=== PATIENT | female | born 1975 | race Caucasian/White ===

== ENCOUNTER 2020-05-14 15:02 | Emergency (ER) | payer SELFPAY ==
[2020-05-14 16:37] LABS: Urine Blood NEGATIVE (NEG); Urine Glucose NEGATIVE (NEG); Urine Protein NEGATIVE (NEG)
[2020-05-14] MEDS ORDERED: KETOROLAC 30 MG/ML INJ ONE (16:56)
[2020-05-14] MEDS ORDERED: NA CHLORIDE 0.9% 1,000 ML ONE (16:57)
[2020-05-14 17:00] LABS: Hematocrit 39.2 % (36.0-45.0); RBC Red Blood Cell Count 4.38 M/uL (3.86-4.86)
[2020-05-14 17:01] LABS: Absolute Lymphocytes (CBC) 2.9 K/uL (0.7-4.9); Basophils % 0.9 % (0-1.3); Lymphocytes % 33.5 % (15.3-44.8); MPV 7.9 fL (7.6-11.3)
[2020-05-14 17:13] LABS: Urine Bacteria 20-50 /HPF (<20); Urine Culture Reflex Order REFLEXED; Urine RBC <5 /HPF (NONE SEEN)
[2020-05-14 17:19] LABS: Albumin 3.6 g/dL (3.4-5.0); Bilirubin Direct 0.1 mg/dL (0-0.2); Bilirubin Total 0.3 mg/dL (0.2-1.0)
--- NOTE | 2020-05-14 17:19 | RAD REPORT ---
EXAM DESCRIPTION: CT - Stone Protocol - 05/14/2020 4:46 pm CLINICAL HISTORY: FLANK PAIN COMPARISON: No comparisons TECHNIQUE: Axial 5 mm thick images were obtained without oral or IV contrast. The [id number] span s the entirety of the system including uppermost abdomen and lung bases. All CT scans are performed using dose optimization technique as appropriate and may include automated exposure control or mA/KV adjustment according to patient size. FINDINGS: No hydronephrosis is present and no obstructing ureteral calculi. Punctate nonobstructing calyx calculi seen in each kidney. Phleboliths are seen along the pelvic floor. No suspicious renal m asses. Isodense masses and pyelonephritis are not excluded on a stone protocol CT scan. No significan t adrenal finding. No urinary bladder suspicious finding. Retroflexed uterus is present. No suspicious ovarian finding suspected. Imaged portions of the liver, spleen and pancreas show no suspicious findings on non-contrast imaging . No gallbladder or biliary tree abnormality identified. No suspicious bowel findings. No hernia, mass or bulky lymphadenopathy noted. No free air, free fluid or inflammatory stranding. No significant bony abnormality. IMPRESSION: No hydronephrosis, obstructing calculus or acute finding. Nonobstructing bilateral renal calculi are present. Isodense masses and pyelonephritis are not excluded on stone protocol technique. 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
--- NOTE | 2020-05-14 17:49 | EDPHYS ---
Physician Documentation [facility] Name: May Zaidi Age: 44 yrs Sex: Female : 1975 Arrival Date: 05/14/2020 Time: 15:03 Bed 15 Private MD: MARIAH Physician Florencio Power HPI: 05/14 16:17 This 44 yrs old Female presents to ER via Ambulatory with complaints of High cp Blood Pressure, Low Back Pain, Blood In Urine. 16:17 The patient complains of pain in the right mid back. The pain radiates to the abdomen. cp 16:17 Onset: The symptoms/episode began/occurred gradually. Associated signs and symptoms: cp Pertinent positives: hematuria, nausea, Pertinent negatives: diarrhea, dizziness, fever, pain radiating to the lower extremities, vomiting. The patient has experienced similar episodes in the past, a few times, today's symptoms are similar, to when the patient was apparently diagnosed with kidney stone and UTI. 16:17 Patient also c/o elevated blood pressure since running out of blood pressure medication cp 2 weeks ago. 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 - Social history:: Smoking status: Patient reports the use of cigarette tobacco products, smokes one-half pack cigarettes per day, Patient uses alcohol, occasionally. street drugs, marijuana. ROS: 16:20 Constitutional: Negative for body aches, chills, fever, poor PO intake. cp 16:20 Eyes: Negative for injury, pain, redness, and discharge. cp 16:20 ENT: Negative for ear pain, sore throat, difficulty swallowing, difficulty handling cp secretions. 16:20 Cardiovascular: Negative for chest pain, palpitations. 16:20 Respiratory: Negative for cough, shortness of breath, wheezing. 16:20 Abdomen/GI: Positive for abdominal pain, Negative for vomiting, diarrhea, constipation, black/tarry stool, rectal bleeding. 16:20 Back: Positive for flank pain, on the right. 16:20 : Positive for urinary frequency, hematuria. 16:20 Neuro: Negative for altered mental status, headache, weakness. 16:20 All other systems are negative. Exam: 16:30 Constitutional: The patient appears in no acute distress, alert, awake, non-toxic, well cp developed, well nourished. 16:30 Head/Face: Normocephalic, atraumatic. cp 16:30 Eyes: Periorbital structures: appear normal, Conjunctiva: normal, no exudate, no injection, Lids and lashes: appear normal, bilaterally. 16:30 ENT: External ear(s): are unremarkable, Nose: is normal, Mouth: is normal, Posterior pharynx: is normal, airway is patent, no erythema, no exudate. 16:30 Chest/axilla: Inspection: normal. 16:30 Cardiovascular: Rate: normal, Rhythm: regular, Edema: ankle edema, that is very mild, JVD: is not appreciated. 16:30 Respiratory: the patient does not display signs of respiratory distress, Respirations: normal, no use of accessory muscles, no retractions, labored breathing, is not present, Breath sounds: are clear throughout, no decreased breath sounds, no stridor, no wheezing. 16:30 Abdomen/GI: Inspection: abdomen appears normal, Bowel sounds: active, all quadrants, Palpation: soft, in all quadrants, mild abdominal tenderness, in the right lower quadrant, rebound tenderness, is not appreciated, voluntary guarding, is not appreciated, involuntary guarding, is not appreciated. 16:30 Back: CVA tenderness, is noted on the right. Vital Signs: 15:36 BP 156 / 93; Pulse 87; Resp 16; Temp 99.0; Pulse Ox 98% on R/A; Weight 65.77 kg; Height iw 5 ft. 5 in. (165.10 cm); 16:44 BP 168 / 114; Pulse 83; Resp 18; Pulse Ox 97% ; dh4 15:36 Body Mass Index 24.13 (65.77 kg, 165.10 cm) iw MDM: 16:05 Patient medically screened. leanna 16:30 Differential diagnosis: nephrolithiasis, pyelonephritis, UTI. cp 17:46 Data reviewed: vital signs, nurses notes, lab test result(s), radiologic studies, CT cp scan. 17:46 Counseling: I had a detailed discussion with the patient and/or guardian regarding: the cp historical points, exam findings, and any diagnostic results supporting the discharge/admit diagnosis, the presence of at least one elevated blood pressure reading (>120/80) during this emergency department visit, lab results, radiology results, the need for outpatient follow up, a family practitioner, to return to the emergency department if symptoms worsen or persist or if there are any questions or concerns that arise at home. Response to treatment: the patient's symptoms have mildly improved after treatment, and as a result, I will discharge patient. 05/14 16:18 Order name: Basic Metabolic Panel; Complete Time: 17:19 05/14 17:19 Interpretation: Normal except: CL 108; GFR 83. 05/14 16:18 Order name: CBC with Diff; Complete Time: 17:19 05/14 16:18 Order name: Hepatic Function; Complete Time: 17:26 05/14 17:26 Interpretation: Normal except: AST 12. 05/14 16:18 Order name: Lipase; Complete Time: 17:26 05/14 16:18 Order name: Urine Microscopic Only; Complete Time: 17:19 05/14 17:20 Interpretation: Normal except: SQEPI 5-10; UBACT 20-50. 05/14 16:23 Order name: Urine Dipstick--Ancillary (enter results); Complete Time: 17:01 05/14 17:01 Interpretation: Reviewed. 05/14 16:18 Order name: IV Saline Lock; Complete Time: 17:27 05/14 16:18 Order name: Labs collected and sent; Complete Time: 17:27 05/14 16:18 Order name: CT Stone Protocol; Complete Time: 17:26 05/14 16:23 Order name: Urine --Ancillary (enter results); Complete Time: 17:01 05/14 17:14 Order name: Urine Culture [facility] 05/14 16:18 Order name: Urine Dipstick-Ancillary (obtain specimen); Complete Time: 17:26 05/14 16:18 Order name: Urine Test (obtain specimen); Complete Time: 17:26 cp Administered Medications: 17:10 Drug: NS 0.9% 1000 ml Route: IV; Rate: 1 bolus; Site: right antecubital; ls4 17:10 Drug: TORadol - Ketorolac 15 mg Route: IVP; Site: right antecubital; ls4 17:28 Follow up: Response: No adverse reaction; Marked relief of symptoms ls4 18:06 Drug: fentaNYL (PF) 25 mcg Route: IVP; Site: right antecubital; ls4 18:20 Follow up: Response: No adverse reaction; Marked relief of symptoms ls4 Disposition: 05/15 11:30 Co-signature as Attending Physician, Florencio Power MD I agree with the assessment and leanna plan of care. Disposition: 05/14/20 17:48 Discharged to Home. Impression: Low back pain, Elevated blood-pressure reading, without diagnosis of hypertension. - Condition is Stable. - Discharge Instructions: Back Pain, Adult, How to Take Your Blood Pressure, [id number], Back Exercises. - Prescriptions for Naprosyn 500 mg Oral Tablet - take 1 tablet by ORAL route 2 times per day take with food; 20 tablet. Cyclobenzaprine 10 mg Oral Tablet - take 1 tablet by ORAL route every 8 hours As needed; 20 tablet. - Medication Reconciliation Form, Thank You Letter, Antibiotic Education, Prescription Opioid Use form. - Follow up: Private Physician; When: 2 - 3 days; Reason: Recheck today's complaints. - Problem is new. - Symptoms have improved. Signatures: Dispatcher [employer] Florencio Sanabria MD MD cha Williams, Irene, RN Florencio Mcgee PA PA cp Stewart, Lisa RN RN ls4 Corrections: (The following items were deleted from the chart) 05/14 18:27 17:48 05/14/2020 17:48 Discharged to Home. Impression: Low back pain; Elevated ls4 blood-pressure reading, without diagnosis of hypertension. Condition is Stable. Forms are Medication Reconciliation Form, Thank You Letter, Antibiotic Education, Prescription Opioid Use. Follow up: Private Physician; When: 2 - 3 days; Reason: Recheck today's complaints. Problem is new. Symptoms have improved. cp
--- NOTE | 2020-05-14 17:49 | ER ---
Nurse's Notes [facility] Name: May Zaidi Age: 44 yrs Sex: Female : 1975 Arrival Date: 05/14/2020 Time: 15:03 Bed 15 Private MD: Diagnosis: Low back pain;Elevated blood-pressure reading, without diagnosis of hypertension Presentation: 05/14 15:36 Chief complaint: Patient states: BP has been running high X 1 week, ran out of medicine iw two weeks ago, has been feeling nauseated, dizzy, heavy headed, diarrhea, has kidney issues, also has pain in right low back and abd, and has blood in urine and has swelling in her hands. Coronavirus screen: Proceed with normal triage. Patient denies a cough. Patient denies shortness of breath or difficulty breathing. Patient denies measured and/or subjective temperature greater than 100.4F prior to today's visit. Patient denies travel on a cruise ship or to a country the [facility] currently lists as an affected area. Patient denies contact with known and/or suspected case of COVID-19. Ebola Screen: Patient negative for fever greater than or equal to 101.5 degrees Fahrenheit, and additional compatible Ebola Virus Disease symptoms Patient denies exposure to infectious person. Patient denies travel to an Ebola-affected area in the 21 days before illness onset. No symptoms or risks identified at this time. Initial Sepsis Screen: Does the patient meet any 2 criteria? No. Patient's initial sepsis screen is negative. Does the patient have a suspected source of infection? No. Patient's initial sepsis screen is negative. Risk Assessment: Do you want to hurt yourself or someone else? Patient reports no desire to harm self or others. Onset of symptoms was May 07, 2020. 15:36 Method Of Arrival: Ambulatory iw 15:36 Acuity: HIRAM 3 iw Triage Assessment: 17:29 General: Appears in no apparent distress. uncomfortable, Behavior is calm, cooperative. ls4 Pain: Complains of pain in low back area and left low back Pain currently is 8 out of 10 on a pain scale. Quality of pain is described as aching. Neuro: No deficits noted. Cardiovascular: Denies chest pain. Respiratory: Respiratory effort is even, unlabored, Respiratory pattern is regular, Denies cough, shortness of breath labored breathing. GI: No deficits noted. No signs and/or symptoms were reported involving the gastrointestinal system. : Reports pain in left flank(s). Derm: No deficits noted. No signs and/or symptoms reported regarding the dermatologic system. Musculoskeletal: No deficits noted. No signs and/or symptoms reported regarding the musculoskeletal system. 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 - Social history:: Smoking status: Patient reports the use of cigarette tobacco products, smokes one-half pack cigarettes per day, Patient uses alcohol, occasionally. street drugs, marijuana. Screenin:30 Abuse screen: Denies threats or abuse. Denies injuries from another. Nutritional ls4 screening: No deficits noted. Tuberculosis screening: No symptoms or risk factors identified. Fall Risk None identified. Vital Signs: 15:36 BP 156 / 93; Pulse 87; Resp 16; Temp 99.0; Pulse Ox 98% on R/A; Weight 65.77 kg; Height iw 5 ft. 5 in. (165.10 cm); 16:44 BP 168 / 114; Pulse 83; Resp 18; Pulse Ox 97% ; dh4 15:36 Body Mass Index 24.13 (65.77 kg, 165.10 cm) iw ED Course: 15:03 Patient arrived in ED. ag5 15:38 Triage completed. iw 15:40 Arm band placed on. iw 16:03 Aster Cao, BANG is Primary Nurse. ls4 16:04 Florencio Mensah PA is PHCP. cp 16:04 Florencio Power MD is Attending Physician. cp 16:43 Inserted saline lock: 20 gauge in right antecubital area, using aseptic technique. dh4 16:46 CT Stone Protocol In Process Unspecified. EDMS 17:30 No provider procedures requiring assistance completed. ls4 17:31 Patient has correct armband on for positive identification. Bed in low position. Call ls4 light in reach. Side rails up X 1. Pulse ox on. NIBP on. Warm blanket given. Verbal reassurance given. Diet: Patient is NPO. 18:22 IV discontinued, intact, bleeding controlled, No redness/swelling at site. Pressure ls4 dressing applied. Administered Medications: 17:10 Drug: NS 0.9% 1000 ml Route: IV; Rate: 1 bolus; Site: right antecubital; ls4 17:10 Drug: TORadol - Ketorolac 15 mg Route: IVP; Site: right antecubital; ls4 17:28 Follow up: Response: No adverse reaction; Marked relief of symptoms ls4 18:06 Drug: fentaNYL (PF) 25 mcg Route: IVP; Site: right antecubital; ls4 18:20 Follow up: Response: No adverse reaction; Marked relief of symptoms ls4 Outcome: 17:48 Discharge ordered by . kimmy 18:22 Discharged to home ambulatory. ls4 18:22 Condition: good 18:22 Discharge instructions given to patient, Instructed on discharge instructions, follow up and referral plans. medication usage, Demonstrated understanding of instructions, follow-up care, medications, Prescriptions given X 2. 18:27 Patient left the ED. ls4 Signatures: Dispatcher [employer] EDAshleigh Harris, BANG RN Florencio Tejeda PA PA cp Stewart, Lisa, BANG RN ls4 Ledy Merritt Donald 4
[2020-05-14] MEDS ORDERED: FENTANYL CITR 100 MCG/2 ML ONE (18:11)
[2020-05-14 18:34] VITALS: BP 168/114; TEMP 99; O2SAT 97
== END 2020-05-14 18:27 | disposition home or self-care (01) ==
LOC: ER 15:02
DX: R03.0 Elevated blood-pressure reading, without diagnosis of hypertension (principal); F17.210 Nicotine dependence, cigarettes, uncomplicated; Z87.442 Personal history of urinary calculi; Z88.8 Allergy status to other drugs, medicaments and biological substances
CPT/HCPCS: 36415; 74176; 76377; 80048; 80076; 81003; 81015; 81025; 83690; 85025; 87086; 87088; 96374; 96375; 99284; J3010; J7030

== ENCOUNTER 2020-10-28 10:43 | Emergency (ER) | payer SELFPAY ==
[2020-10-28] MEDS ORDERED: TETANUS & DIPHTHERIA TOX,ADULT 0.5 ML VIAL ONE (11:08)
[2020-10-28] MEDS ORDERED: LIDOCAINE 1% 20 ML MDV ONE (11:10)
--- NOTE | 2020-10-28 12:40 | RAD REPORT ---
EXAM DESCRIPTION: RAD - Hand Right 3 View - 10/28/2020 11:17 am CLINICAL HISTORY: PAIN COMPARISON: Hand Left 3 View dated 10/28/2020 FINDINGS: Soft tissue laceration is suspected along lateral aspect of the right hand. Bony remodelin g of the proximal phalanx of the fifth finger likely related to old fracture. There is no finding of acute fracture or radiopaque foreign body.
--- NOTE | 2020-10-28 12:44 | RAD REPORT ---
EXAM DESCRIPTION: RAD - Hand Left 3 View - 10/28/2020 11:18 am CLINICAL HISTORY: Pain;Deformity COMPARISON: No comparisons FINDINGS: Dislocation is seen involving the PIP joint of the third finger. No fracture is evident.
--- NOTE | 2020-10-28 12:48 | EDPHYS ---
Physician Documentation [facility] Name: May Zaidi Age: 45 yrs Sex: Female : 1975 Arrival Date: 10/28/2020 Time: 10:45 Bed 8 Private MD: ED Physician Aniket Arevalo HPI: 10/28 11:15 This 45 yrs old Female presents to ER via EMS with complaints of Dog Bite, rn Finger Injury, Laceration To Hand, finger deformity. 11:15 The patient was bitten on the right hand and left hand, by a dog, while trying to stop rn animals from fighting, at home. Onset: The symptoms/episode began/occurred just prior to arrival. Secondary to the bite the patient reports pain, swelling. Associated signs and symptoms: Pertinent positives: pain at site, swelling at site, tenderness, Pertinent negatives: fever. Severity of symptoms: At their worst the symptoms were moderate, in the emergency department the symptoms are unchanged. The patient has not experienced similar symptoms in the past. The patient has not recently seen a physician. 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 Unknown last tetanus.. 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 - Social history:: Smoking status: . - Family history:: not pertinent. - Hospitalizations: : No recent hospitalization is reported. ROS: 11:15 Constitutional: Negative for fever, chills, and weight loss, Eyes: Negative for injury, rn pain, redness, and discharge, Neck: Negative for injury, pain, and swelling, Cardiovascular: Negative for chest pain, palpitations, and edema, Respiratory: Negative for shortness of breath, cough, wheezing, and pleuritic chest pain, Abdomen/GI: Negative for abdominal pain, nausea, vomiting, diarrhea, and constipation, MS/Extremity: + hands with abrasions and laceration, + deformity and pain to left 3rd finger. Skin: + abrasions and laceration Neuro: Negative for headache, weakness, numbness, tingling, and seizure. Exam: 11:15 Constitutional: This is a well developed, well nourished patient who is awake, alert, rn crying MS/ Extremity: Pulses equal, no cyanosis. Neurovascular intact. + multiple small abrsions/skin tears to left hand and fingers, right palm with 5cm superficial laceration under 5th/4th MCP joints. + ulnar deviation of left 3rd digit at PIP joint. Vital Signs: 10:46 BP 179 / 153 RL (auto/); Pulse 99; Resp 18; Temp 98.5(O); Pulse Ox 97% on R/A; Weight tw2 70.31 kg (R); Height 5 ft. 5 in. (165.10 cm); Pain 9/10; 11:58 BP 159 / 93; Pulse 78; Resp 17; Pulse Ox 96% on R/A; tw2 13:03 BP 155 / 89; Pulse 89; Resp 17; Pulse Ox 99% on R/A; tw2 10:46 Body Mass Index 25.79 (70.31 kg, 165.10 cm) tw2 10:46 provider at bedside at this time. tw2 Procedures: 11:36 Reduction: of the left hand, 3rd digit at PIP, using traction, manipulation, rn Immobilized with finger splint, Patient tolerated well. Nerve block: (digital) of palmar aspect of proximal phalanx of left middle finger Medication: Lidocaine 1% without epinephrine Amount: 3 mls were injected, Effect: the patient has resolution of the pain, Set up for procedure. Performed by Aniket Arevalo MD Patient tolerated well. Performed Ring removal. Left hand, third digit, ring removed with compression and lubricant, did not require ring cutter. Left hand 4th digit, ring could not be removed/slid because already partially broken with sharp edges, ring cutter used to cut ring, easily split and removed, tolerated both procedures well.. Laceration: 12:29 Wound Repair of 4cm ( 1.6in ) subcutaneous laceration to right hand. Distal jmm neuro/vascular/tendon intact. Anesthesia: Local anesthetic administered with 5 mls of 1% lidocaine. Wound prep: Extensive cleansing, Wound irrigation with saline by me, Copious irrigation. Skin closed with 4 4-0 Prolene using loose approximation. Patient tolerated well. MDM: 10:46 Patient medically screened. rn 11:39 ED course: Left 3rd finger reduced after digital block, 2 rings removed. . rn 12:45 Differential diagnosis: superficial laceration. Data reviewed: vital signs, nurses rn notes, radiologic studies, plain films, and as a result, I will discharge patient. Counseling: I had a detailed discussion with the patient and/or guardian regarding: the historical points, exam findings, and any diagnostic results supporting the discharge/admit diagnosis, radiology results, the need for outpatient follow up, to return to the emergency department if symptoms worsen or persist or if there are any questions or concerns that arise at home. Response to treatment: the patient's symptoms have markedly improved after treatment, and as a result, I will discharge patient. ED course: No fracture on xray hands, dislocation reduced, laceration loosely approximated because animal bite, will dc home with abx. tetanus updated.. 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 Exp: 02/11/2022. Lot #: [id number]. } Route: IM; Site: left deltoid; 12:49 Follow up: Response: No adverse reaction tw2 11:40 Drug: Lidocaine (1 %) 1 vials {Note: by Dr. Arevalo .} Volume: 20 ml; Route: Infiltration; Disposition: 13:07 Co-signature as Attending Physician, Aniket Arevalo MD. rn Disposition: 10/28/20 12:47 Discharged to Home. Impression: Bitten by dog, Dislocation of proximal interphalangeal joint of left middle finger, Right superficial hand laceration. - Condition is Stable. - Discharge Instructions: Finger or Thumb Dislocation, Laceration Care, Adult. - Prescriptions for Augmentin 875- 125 mg Oral Tablet - take 1 tablet by ORAL route every 12 hours for 10 days; 20 tablet. - Medication Reconciliation Form, Thank You Letter, Antibiotic Education, Prescription Opioid Use form. - Follow up: Private Physician; When: 14 days; Reason: Recheck today's complaints, Staple/Suture removal, Re-evaluation by your physician. - Problem is new. - Symptoms have improved. Signatures: Dispatcher [employer] EDMS Maximino Burch PA PA jmm Nieto, Roman, MD MD rn Wise, Tara, RN RN tw2 Corrections: (The following items were deleted from the chart) 13:04 12:47 10/28/2020 12:47 Discharged to Home. Impression: Bitten by dog; Dislocation of tw2 proximal interphalangeal joint of left middle finger; Right superficial hand laceration. Condition is Stable. Forms are Medication Reconciliation Form, Thank You Letter, Antibiotic Education, Prescription Opioid Use. Follow up: Private Physician; When: 14 days; Reason: Recheck today's complaints, Staple/Suture removal, Re-evaluation by your physician. Problem is new. Symptoms have improved. rn
--- NOTE | 2020-10-28 12:48 | ER ---
Nurse's Notes [facility] Name: May Zaidi Age: 45 yrs Sex: Female : 1975 Arrival Date: 10/28/2020 Time: 10:45 Bed 8 Private MD: Diagnosis: Bitten by dog;Dislocation of proximal interphalangeal joint of left middle finger;Right superficial hand laceration Presentation: 10/28 10:46 Chief complaint: EMS states: pt states her dogs got into a fight and the got bit, tw2 laceration to her right and left hand, with deformity injury noted to left middle finger, [facility] was at her house when we arrived, states her dogs are current on vaccination status, we gave 75 mcg Fentanyl in route, Hx: CKD, fibromyalgia, graves, ptsd, ra. Coronavirus screen: At this time, the client does not indicate any symptoms associated with coronavirus-19. Ebola Screen: Patient denies travel to an Ebola-affected area in the 21 days before illness onset. Initial Sepsis Screen: Does the patient meet any 2 criteria? HR > 90 bpm. No. Patient's initial sepsis screen is negative. Does the patient have a suspected source of infection? No. Patient's initial sepsis screen is negative. Risk Assessment: Do you want to hurt yourself or someone else? Patient reports no desire to harm self or others. Onset of symptoms was October 28, 2020. 10:46 Method Of Arrival: EMS: [facility] tw2 10:46 Acuity: HIRAM 2 tw2 Triage Assessment: 10:49 Bite description: bite sustained to right hand and left hand by a dog, animal tw2 information: vaccination(s) is current. General: Appears uncomfortable, Behavior is cooperative, appropriate for age, anxious. Pain: Complains of pain in right hand and left hand. 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 - Social history:: Smoking status: . - Family history:: not pertinent. - Hospitalizations: : No recent hospitalization is reported. Screenin:59 Abuse screen: Denies threats or abuse. Nutritional screening: No deficits noted. tw2 Tuberculosis screening: No symptoms or risk factors identified. Fall Risk None identified. Assessment: 10:50 General: Appears in no apparent distress. uncomfortable, Behavior is cooperative, tw2 appropriate for age, anxious. Pain: Complains of pain in right hand and left hand. Neuro: Level of Consciousness is awake, alert, obeys commands, Oriented to person, place, time, situation. Cardiovascular: Heart tones S1 S2 Capillary refill < 3 seconds Patient's skin is warm and dry. Respiratory: Airway is patent Respiratory effort is even, unlabored, Respiratory pattern is regular, symmetrical, Breath sounds are clear bilaterally. GI: No signs and/or symptoms were reported involving the gastrointestinal system. GI: Abdomen is flat, Bowel sounds present X 4 quads. : No signs and/or symptoms were reported regarding the genitourinary system. EENT: No signs and/or symptoms were reported regarding the EENT system. Musculoskeletal: Range of motion: limited in PIP of left little finger, MCP of left little finger, PIP of left ring finger, MCP of left ring finger, PIP of left middle finger and MCP of left middle finger. Injury Description: Laceration sustained to right hand. 10:59 Derm: Skin is intact, is healthy with good turgor, Skin is. tw2 11:00 Reassessment: xray at bedside at this time. tw2 11:57 Reassessment: Patient appears in no apparent distress at this time. Patient and/or tw2 family updated on plan of care and expected duration. Pain level reassessed. Patient is alert, oriented x 3, equal unlabored respirations, skin warm/dry/pink. Patient states feeling better. 12:15 Reassessment: provider CLAUDIA Kohler at bedside suturing at this time. tw2 13:03 Reassessment: Patient and/or family updated on plan of care and expected duration. Pain tw2 level reassessed. Patient is alert, oriented x 3, equal unlabored respirations, skin warm/dry/pink. Vital Signs: 10:46 BP 179 / 153 RL (auto/); Pulse 99; Resp 18; Temp 98.5(O); Pulse Ox 97% on R/A; Weight tw2 70.31 kg (R); Height 5 ft. 5 in. (165.10 cm); Pain 9/10; 11:58 BP 159 / 93; Pulse 78; Resp 17; Pulse Ox 96% on R/A; tw2 13:03 BP 155 / 89; Pulse 89; Resp 17; Pulse Ox 99% on R/A; tw2 10:46 Body Mass Index 25.79 (70.31 kg, 165.10 cm) tw2 10:46 provider at bedside at this time. tw2 ED Course: 10:45 Patient arrived in ED. tw2 10:46 Aniket Arevalo MD is Attending Physician. rn 10:46 Bed in low position. Call light in reach. Pulse ox on. NIBP on. tw2 10:49 Triage completed. tw2 10:50 Arm band placed on. tw2 10:54 Alla Lechuga RN is Primary Nurse. tw2 11:17 XRAY Hand LEFT 3 View In Process Unspecified. EDMS 11:17 XRAY Hand RIGHT 3 View In Process Unspecified. EDMS 11:40 Maintain EMS IV. Dressing intact. Site clean \T\ dry. Gauge \T\ site: 20 g RIGHT ac. tw 2 11:41 Wound care: to laceration located on right hand and left hand was soaked in Hibiclens mh5 solution, Patient tolerated well. 11:42 Warm blanket given. Pillow given. mh5 13:03 No provider procedures requiring assistance completed. IV discontinued, intact, tw2 bleeding controlled, No redness/swelling at site. Pressure dressing applied. 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 Exp: 02/11/2022. Lot #: [id number]. } Route: IM; Site: left deltoid; 12:49 Follow up: Response: No adverse reaction tw2 11:40 Drug: Lidocaine (1 %) 1 vials {Note: by Dr. Arevalo .} Volume: 20 ml; Route: Infiltration;tw2 Outcome: 12:47 Discharge ordered by . rn 13:04 Discharged to home ambulatory, with family. tw2 13:04 Condition: stable 13:04 Discharge instructions given to patient, family, Instructed on discharge instructions, follow up and referral plans. medication usage, wound care, Demonstrated understanding of instructions, follow-up care, medications, wound care, Prescriptions given X 1. 13:04 Patient left the ED. tw2 Signatures: Dispatcher [employer] EDAniket Arnett MD MD rn Wise, Tara, RN RN 2 [facility]
[2020-10-28 15:34] VITALS: BP 155/89; O2SAT 99
[2020-10-28 15:41] VITALS: TEMP 98.5
== END 2020-10-28 13:04 | disposition home or self-care (01) ==
LOC: ER 10:43
PROC: 0JQJ0ZZ Repair Right Hand Subcutaneous Tissue and Fascia, Open Approach (ICD-10-PCS; principal; 2020-10-28)
DX: S61.411A Laceration without foreign body of right hand, initial encounter (principal); S63.285A Dislocation of proximal interphalangeal joint of left ring finger, initial encounter; W54.0XXA Bitten by dog, initial encounter; Y93.89 Activity, other specified; Y92.009 Unspecified place in unspecified non-institutional (private) residence as the place of occurrence of the external cause; N18.9 Chronic kidney disease, unspecified; Z23 Encounter for immunization
CPT/HCPCS: 64450; 90471; 90714; 99284

== ENCOUNTER 2021-08-07 07:48 | Emergency (ER) | payer SELFPAY ==
[2021-08-07 08:36] LABS: Urine Blood Negative (Negative); Urine Glucose Negative (Negative); Urine Protein Negative (Negative); Urine Specific Gravity 1.025 (1.005-1.030); Urine pH 6.5 (5.0-7.0)
[2021-08-07] MEDS ORDERED: ONDANSETRON 4 MG/2 ML VIAL ONE (08:53)
[2021-08-07] MEDS ORDERED: MORPHINE 4 MG/ML SYR ONE (08:53)
[2021-08-07] MEDS ORDERED: dexAMETHasone 10 MG/ML VIAL ONE (08:53)
[2021-08-07] MEDS ORDERED: NA CHLORIDE 0.9% 1,000 ML ONE (08:54)
--- NOTE | 2021-08-07 08:55 | RAD REPORT ---
EXAM DESCRIPTION: CT - C Spine Wo Con - 08/07/2021 8:45 am CLINICAL HISTORY: PAIN COMPARISON: No comparisons TECHNIQUE CT Scan was obtained of the cervical spine without contrast. Reformats were provided in th e sagittal and coronal plane. FINDINGS: No acute fracture of the cervical spine. No traumatic malalignment. No prevertebral edema. No significant focal degenerative changes. No suspicious thyroid nodules or lymphadenopathy. The milagros g apices are clear. Mild multilevel cervical spondylosis with disc height loss and posterior disc ost eophyte complexes at the C5-6 and C6-7 level. This results in bilateral neural foraminal narrowing wh ich is severe at C6-7. There is likely at least mild central spinal stenosis. Ethmoid air cell thicke siri. IMPRESSION: No fracture or traumatic malalignment of the cervical spine. Cervical spondylosis with e vidence of neural foraminal narrowing and at least mild central spinal stenosis.
--- NOTE | 2021-08-07 09:06 | RAD REPORT ---
EXAM DESCRIPTION: CT - Spine Lumbar Wo Con - 08/07/2021 8:45 am CLINICAL HISTORY: Radiculopathy. LOWER BACK PAIN COMPARISON: No comparisons TECHNIQUE: Axial noncontrast CT imaging of the lumbar spine was performed with coronal and sagittal re-formatted images. All CT scans are performed using dose optimization technique as appropriate and may include automated exposure control or mA/KV adjustment according to patient size. FINDINGS: No acute lumbar spine fracture seen. Scattered facet degenerative changes as well as degen erative changes of the sacroiliac joints. Nonobstructing renal calculi. Paraspinal tissues are normal in thickness. No paraspinal abscess or hematoma seen. Intervertebral disc disease assessment is inherently limited by CT. Within these limitations, no high -grade canal stenosis suspected. IMPRESSION: No acute fracture of the lumbar spine. Consider MRI follow-up for assessment of disc disease if clinically desired.
[2021-08-07 09:44] LABS: Basophils % 0.9 % (0-1.3); Hematocrit 42.2 % (36.0-45.0); Lymphocytes % 28.9 % (15.3-44.8); MPV 7.8 fL (7.6-11.3); RBC Red Blood Cell Count 4.74 M/uL (3.86-4.86)
--- NOTE | 2021-08-07 09:45 | ER ---
Nurse's Notes [facility] Name: May Zaidi Age: 46 yrs Sex: Female : 1975 Arrival Date: 08/07/2021 Time: 08:01 Bed 13 Private MD: Diagnosis: Other injury of muscle, fascia and tendon of lower back;Strain of muscle, fascia and tendon at neck level;Radiculopathy, lumbar region;Fibromyalgia Presentation: 08/07 08:05 Chief complaint: Patient states: Dog pulled her over Friday on wet porch. Fell onto ll1 back. Has had back pain since. L arm and L leg feel numb and tingly constantly since. Blood in urine for 2 days, dysuria for 1 day. Coronavirus screen: Client denies travel out of the [place] in the last 14 days. At this time, the client does not indicate any symptoms associated with coronavirus-19. Ebola Screen: Patient denies travel to an Ebola-affected area in the 21 days before illness onset. Initial Sepsis Screen: Does the patient meet any 2 criteria? No. Patient's initial sepsis screen is negative. Does the patient have a suspected source of infection? Yes: Bone or joint infection. Risk Assessment: Do you want to hurt yourself or someone else? Patient reports no desire to harm self or others. Onset of symptoms was August 01, 2021. 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 Flu vaccine is not up to date. - Social history:: Smoking status: Patient reports the use of cigarette tobacco products, smokes one-half pack cigarettes per day. Screenin:01 Abuse screen: Denies threats or abuse. Denies injuries from another. Nutritional jl7 screening: No deficits noted. Tuberculosis screening: No symptoms or risk factors identified. Fall Risk IV access (20 points). Total Juarez Fall Scale indicates No Risk (0-24 pts). Assessment: 09:01 General: Appears in no apparent distress. uncomfortable, Behavior is calm, cooperative, jl7 appropriate for age. Pain: Complains of pain in low back area Pain currently is 4 out of 10 on a pain scale. Neuro: Level of Consciousness is awake, alert, obeys commands, Oriented to person, place, time, situation, Reports numbness in left arm and left leg since x 6 days. Cardiovascular: Patient's skin is warm and dry. Respiratory: Airway is patent Respiratory effort is even, unlabored, Respiratory pattern is regular, symmetrical. Derm: Skin is pink, warm \T\ dry. 10:00 Reassessment: Patient appears in no apparent distress at this time. Patient and/or jl7 family updated on plan of care and expected duration. Pain level reassessed. Patient is alert, oriented x 3, equal unlabored respirations, skin warm/dry/pink. Patient states feeling better. Patient states symptoms have improved. 10:20 Reassessment: Pt will be discharged on labs are resulted. jl7 Vital Signs: 08:05 Resp 17; Temp 97.6; Weight 68.04 kg; Height 5 ft. 5 in. (165.10 cm); Pain 4/10; ll1 08:10 BP 151 / 105; Pulse 80; Pulse Ox 98% ; ll1 10:43 BP 145 / 95; Pulse 80; Resp 17; Pulse Ox 99% ; jl7 08:05 Body Mass Index 24.96 (68.04 kg, 165.10 cm) ll1 ED Course: 08:01 Patient arrived in ED. ds1 08:05 Arm band placed on. ll1 08:08 Triage completed. ll1 08:16 Florencio Power MD is Attending Physician. leanna 08:19 Andres Huggins RN is Primary Nurse. jl7 08:45 CT C Spine In Process Unspecified. EDMS 08:45 CT Lumbar Spine Wo Con In Process Unspecified. EDMS 09:01 Patient has correct armband on for positive identification. Bed in low position. Call jl7 light in reach. Side rails up X 1. Pulse ox on. NIBP on. 09:01 Initial lab(s) drawn, by me, sent to lab. Urine collected: clean catch specimen, clear. jl7 Inserted saline lock: 20 gauge in right antecubital area, using aseptic technique. Blood collected. 09:04 CBC with Diff Sent. jl7 09:43 Alec Dutta MD is Referral Physician. [facility] 10:42 No provider procedures requiring assistance completed. IV discontinued, intact, jl7 bleeding controlled, No redness/swelling at site. Pressure dressing applied. Administered Medications: 09:00 Drug: NS 0.9% 1000 ml Route: IV; Rate: 1 bolus; Site: right antecubital; jl7 10:00 Follow up: IV Status: Completed infusion; IV Intake: 1000ml jl7 09:00 Drug: Decadron - Dexamethasone 10 mg Route: IVP; Site: right antecubital; jl7 09:30 Follow up: Response: No adverse reaction; Pain is decreased jl7 09:02 Drug: Zofran (Ondansetron) 4 mg Route: IVP; Site: right antecubital; 7 10:43 Follow up: Response: No adverse reaction jl7 09:04 Drug: morphine 4 mg Route: IVP; Site: right antecubital; jl7 09:30 Follow up: Response: No adverse reaction; Pain is decreased jl7 Intake: 10:00 IV: 1000ml; Total: 1000ml. jl7 Outcome: :44 Discharge ordered by . [facility] 10:43 Discharged to home ambulatory. 7 10:43 Condition: stable 10:43 Discharge instructions given to patient, Instructed on discharge instructions, follow up and referral plans. medication usage, Demonstrated understanding of instructions, follow-up care, medications, Prescriptions given X 3. 10:44 Patient left the ED. jl7 Signatures: Dispatcher [employer] EDFlorencio Nichols MD MD cha Sanford, Demi ds1 Andres Huggins RN RN jl7 Caio Mendoza, BANG RN ll1 Corrections: (The following items were deleted from the chart) 08:32 08:05 Chief complaint: Patient states: Dog pulled her over Friday on wet porch. Fell ll1 onto back. Has had back pain since. L arm and L leg feel numb and tingly constant since. Blood in urine for 2 days, dysuria for 1 day. ll1
--- NOTE | 2021-08-07 09:45 | EDPHYS ---
Physician Documentation [facility] Name: May Zaidi Age: 46 yrs Sex: Female : 1975 Arrival Date: 08/07/2021 Time: 08:01 Bed 13 Private MD: MARIAH Physician Florencio Power HPI: 08/07 09:37 This 46 yrs old Female presents to ER via Ambulatory with complaints of leanna Numbness - in Arms/Legs. 09:37 The patient's problem is reported as paresthesias, in left lower extremity, weakness, leanna in the left upper extremity, in the left lower extremity. Onset: The symptoms/episode began/occurred 3 day(s) ago. 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 Flu vaccine is not up to date. - Social history:: Smoking status: Patient reports the use of cigarette tobacco products, smokes one-half pack cigarettes per day. ROS: 09:38 Constitutional: Negative for fever, chills, and weight loss, Eyes: Negative for injury, leanna pain, redness, and discharge, ENT: Negative for injury, pain, and discharge, Neck: Negative for injury, pain, and swelling, Cardiovascular: Negative for chest pain, palpitations, and edema, Respiratory: Negative for shortness of breath, cough, wheezing, and pleuritic chest pain, Abdomen/GI: Negative for abdominal pain, nausea, vomiting, diarrhea, and constipation, : Negative for injury, bleeding, discharge, and swelling, Skin: Negative for injury, rash, and discoloration, Psych: Negative for depression, anxiety, suicide ideation, homicidal ideation, and hallucinations, Allergy/Immunology: Negative for hives, rash, and allergies, Endocrine: Negative for neck swelling, polydipsia, polyuria, polyphagia, and marked weight changes, Hematologic/Lymphatic: Negative for swollen nodes, abnormal bleeding, and unusual bruising. 09:38 Back: Positive for decreased range of motion, pain at rest, pain with movement, of the lumbar area. 09:38 : Positive for hematuria. Exam: 09:38 Constitutional: This is a well developed, well nourished patient who is awake, alert, leanna and in no acute distress. Head/Face: Normocephalic, atraumatic. Eyes: Pupils equal round and reactive to light, extra-ocular motions intact. Lids and lashes normal. Conjunctiva and sclera are non-icteric and not injected. Cornea within normal limits. Periorbital areas with no swelling, redness, or edema. Neck: Trachea midline, no thyromegaly or masses palpated, and no cervical lymphadenopathy. Supple, full range of motion without nuchal rigidity, or vertebral point tenderness. No Meningismus. Chest/axilla: Normal chest wall appearance and motion. Nontender with no deformity. No lesions are appreciated. Cardiovascular: Regular rate and rhythm with a normal S1 and S2. No gallops, murmurs, or rubs. Normal PMI, no JVD. No pulse deficits. Respiratory: Lungs have equal breath sounds bilaterally, clear to auscultation and percussion. No rales, rhonchi or wheezes noted. No increased work of breathing, no retractions or nasal flaring. Abdomen/GI: Soft, non-tender, with normal bowel sounds. No distension or tympany. No guarding or rebound. No evidence of tenderness throughout. Back: No spinal tenderness. No costovertebral tenderness. Full range of motion. Neuro: Awake and alert, GCS 15, oriented to person, place, time, and situation. Cranial nerves II-XII grossly intact. Motor strength 5/5 in all extremities. Sensory grossly intact. Cerebellar exam normal. Normal gait. Psych: Awake, alert, with orientation to person, place and time. Behavior, mood, and affect are within normal limits. 09:38 ENT: Nares patent. No nasal discharge, no septal abnormalities noted. Tympanic membranes are normal and external auditory canals are clear. Oropharynx with no redness, swelling, or masses, exudates, or evidence of obstruction, uvula midline. Mucous membranes moist. Skin: Warm, dry with normal turgor. Normal color with no rashes, no lesions, and no evidence of cellulitis. 09:38 Musculoskeletal/extremity: ROM: Circulation is intact in all extremities. the left leg numbness, DVT Exam: No signs of deep vein thrombosis. no pain, no swelling, no tenderness, negative Homans' sign noted on exam, no appreciated bluish discoloration, no erythema, no increased warmth. 09:38 Neuro: Orientation: is normal, appropriate for stated age, no acute changes, Mentation: is normal, appropriate for stated age, no acute changes, Memory: is normal, appropriate for stated age, no acute changes, Gait: seizure activity, is not displayed by the patient. 09:42 Radiologist reports: SEE REPORTS [facility] Vital Signs: 08:05 Resp 17; Temp 97.6; Weight 68.04 kg; Height 5 ft. 5 in. (165.10 cm); Pain 4/10; ll1 08:10 BP 151 / 105; Pulse 80; Pulse Ox 98% ; ll1 10:43 BP 145 / 95; Pulse 80; Resp 17; Pulse Ox 99% ; jl7 08:05 Body Mass Index 24.96 (68.04 kg, 165.10 cm) ll1 MDM: 08:16 Patient medically screened. leanna 09:41 Data reviewed: vital signs, nurses notes, lab test result(s), radiologic studies, CT leanna scan. Data interpreted: color television console monitor: rate is 80 beats/min, rhythm is regular, Pulse oximetry: on room air is 98 %. Test interpretation: by ED physician or midlevel provider:. Counseling: I had a detailed discussion with the patient and/or guardian regarding: the historical points, exam findings, and any diagnostic results supporting the discharge/admit diagnosis, lab results, radiology results, the need for outpatient follow up, for definitive care, a family practitioner, a neurologist. 08/07 08:26 Order name: CBC with Diff [facility] 08/07 08:26 Order name: Comprehensive Metabolic Panel [facility] 08/07 08:26 Order name: CT Lumbar Spine Wo Con; Complete Time: 09:35 leanna 08/07 08:26 Order name: CT C Spine; Complete Time: 09:35 [facility] 08/07 08:26 Order name: CBC with Automated Diff EDMS 08/07 08:36 Order name: Urine Dipstick-Ancillary; Complete Time: 09:35 EDMS 08/07 08:26 Order name: Urine Dipstick-Ancillary (obtain specimen); Complete Time: 09:03 leanna 08/07 08:26 Order name: Urine Test (obtain specimen); Complete Time: : leanna Administered Medications: 09:00 Drug: NS 0.9% 1000 ml Route: IV; Rate: 1 bolus; Site: right antecubital; jl7 10:00 Follow up: IV Status: Completed infusion; IV Intake: 1000ml 7 09:00 Drug: Decadron - Dexamethasone 10 mg Route: IVP; Site: right antecubital; jl7 09:30 Follow up: Response: No adverse reaction; Pain is decreased jl7 09:02 Drug: Zofran (Ondansetron) 4 mg Route: IVP; Site: right antecubital; jl7 10:43 Follow up: Response: No adverse reaction jl7 09:04 Drug: morphine 4 mg Route: IVP; Site: right antecubital; jl7 09:30 Follow up: Response: No adverse reaction; Pain is decreased jl7 Disposition Summary: 08/07/21 09:44 Discharge Ordered Location: Home leanna Problem: new leanna Symptoms: have improved leanna Condition: Stable leanna Diagnosis - Other injury of muscle, fascia and tendon of lower back leanna - Strain of muscle, fascia and tendon at neck level leanna - Radiculopathy, lumbar region leanna - Fibromyalgia leanna Followup: leanna - With: Private Physician - When: 2 - 3 days - Reason: Recheck today's complaints, Continuance of care, Re-evaluation by your physician Followup: leanna - With: Alec Dutta MD - When: 2 - 3 days - Reason: Recheck today's complaints, Continuance of care, Re-evaluation by your physician Discharge Instructions: - Discharge Summary Sheet leanna - Lumbosacral Radiculopathy leanna - Musculoskeletal Pain leanna - Cervical Sprain leanna - Cervical Sprain, [id number] leanna Forms: - Medication Reconciliation Form leanna - Thank You Letter leanna - Antibiotic Education leanna - Prescription Opioid Use leanna - Work release form jl7 Prescriptions: - Medrol (Floyd) 4 mg Oral Tablets, Dose Pack - take 1 tablet by ORAL route as directed - follow package instructions; 1 leanna packet; Refills: 0, Product Selection Permitted - Motrin IB 200 mg Oral Tablet - take 2 tablet by ORAL route every 6 hours As needed as needed with food; 30 leanna tablet; Refills: 0, Product Selection Permitted - Cyclobenzaprine 5 mg Oral Tablet - take 1 tablet by ORAL route 3 times per day As needed; 15 tablet; Refills: 0, leanna Product Selection Permitted Signatures: Dispatcher [employer] Florencio Sanabria MD MD cha Leal, Jahala, RN RN jl7 Caio Mendoza RN RN ll1
[2021-08-07 10:15] LABS: ALT/SGPT 19 U/L (12-78); AST/SGOT 11 U/L (15-37); Albumin 3.9 g/dL (3.4-5.0); Alkaline Phosphatase 85 U/L (45-117); BUN Blood Urea Nitrogen 14 mg/dL (7-18); Bicarbonate 27 mmol/L (21-32); Bilirubin Total 0.4 mg/dL (0.2-1.0); Glucose Level 85 mg/dL (74-106); Potassium 4.3 mmol/L (3.5-5.1); Protein, Total 7.5 g/dL (6.4-8.2); Sodium Level 141 mmol/L (136-145)
[2021-08-07 10:53] VITALS: TEMP 97.6
[2021-08-07 11:04] VITALS: BP 145/95; O2SAT 99
== END 2021-08-07 10:44 | disposition home or self-care (01) ==
LOC: ER 07:48
DX: S39.82XA Other specified injuries of lower back, initial encounter (principal); S16.1XXA Strain of muscle, fascia and tendon at neck level, initial encounter; M54.16 Radiculopathy, lumbar region; M79.7 Fibromyalgia; F17.210 Nicotine dependence, cigarettes, uncomplicated; Z88.8 Allergy status to other drugs, medicaments and biological substances
CPT/HCPCS: 36415; 72125; 72131; 80053; 81003; 85025; 96361; 96374; 96375; 99284; J1100; J2405; J7030

== ENCOUNTER 2021-08-31 15:46 | Emergency (ER) | payer SELFPAY ==
[2021-08-31 18:47] LABS: Urine Blood Negative (Negative); Urine Glucose Negative (Negative); Urine Protein Negative (Negative); Urine Specific Gravity 1.015 (1.005-1.030)
[2021-08-31 18:53] LABS: Urine Specific Gravity/Preg 1.015 (1.005-1.030)
[2021-08-31 18:55] LABS: Absolute Lymphocytes (CBC) 2.8 K/uL (0.7-4.9); Basophils % 0.8 % (0-1.3); Hematocrit 37.6 % (36.0-45.0); Lymphocytes % 41.5 % (15.3-44.8); MPV 7.6 fL (7.6-11.3); RBC Red Blood Cell Count 4.28 M/uL (3.86-4.86)
[2021-08-31] MEDS ORDERED: METOPROLOL TAR 25 MG TAB ONE (18:56)
[2021-08-31] MEDS ORDERED: METHYLPREDNISOLONE 40 MG INJ ONE (18:56)
[2021-08-31] MEDS ORDERED: ENOXAPARIN 40 MG/0.4 ML SQ ONE (18:56)
[2021-08-31 19:04] LABS: Potassium 3.7 mmol/L (3.5-5.1)
[2021-08-31 19:05] LABS: Urine Bacteria >50 /HPF (<20); Urine Mucus 1+ /HPF (NONE SEEN); Urine RBC <5 /HPF (NONE SEEN)
--- NOTE | 2021-08-31 19:11 | RAD REPORT ---
EXAM DESCRIPTION: CT - C Spine Wo Con - 08/31/2021 6:55 pm CLINICAL HISTORY: PAIN Fall, pain, radiculopathy COMPARISON: Thoracic Spine W/o Cont dated 08/31/2021; C Spine Wo Con dated 08/07/2021 FINDINGS: The cervical vertebral body heights are maintained. Mild disc thinning is present lower ce rvical spine with posterior osteophyte. No evidence of acute cervical spine fracture or subluxation. Prevertebral soft tissues are normal in thickness. IMPRESSION: Negative for acute cervical spine abnormality. Mild lower cervical degenerative spondylosis. All CT scans are performed using dose optimization technique as appropriate and may include automated exposure control or mA/KV adjustment according to patient size.
--- NOTE | 2021-08-31 19:13 | RAD REPORT ---
EXAM DESCRIPTION: CT - Thoracic Spine W/o Cont - 08/31/2021 6:55 pm CLINICAL HISTORY: Radiculopathy. PAIN COMPARISON: C Spine Wo Con dated 08/07/2021; C Spine Wo Con dated 08/31/2021 TECHNIQUE: Axial CT imaging through the thoracic spine was performed with coronal and sagittal re-fo rmatted images. All CT scans are performed using dose optimization technique as appropriate and may include automated exposure control or mA/KV adjustment according to patient size. FINDINGS: Vertebral body heights and disc spaces are maintained. A compression fracture is not prese nt. No significant disc space narrowing. Thoracic spine alignment is within normal limits. No paraspinal masses or hematoma. Intervertebral disc detail is inherently limited on CT without gross findings of canal compromise. IMPRESSION: Negative study.
--- NOTE | 2021-08-31 19:16 | RAD REPORT ---
EXAM DESCRIPTION: CT - Spine Lumbar Wo Con - 08/31/2021 6:55 pm CLINICAL HISTORY: Radiculopathy. Pain;Numbness/tingling;Weakness COMPARISON: Spine Lumbar Wo Con dated 08/07/2021 TECHNIQUE: Axial noncontrast CT imaging of the lumbar spine was performed with coronal and sagittal re-formatted images. All CT scans are performed using dose optimization technique as appropriate and may include automated exposure control or mA/KV adjustment according to patient size. FINDINGS: No acute lumbar spine fracture seen. No aggressive marrow pattern or malalignment. Paraspinal tissues are normal in thickness. No paraspinal abscess or hematoma seen. The patient likely has a large disc herniation at L3-4 resulting in severe canal stenosis. IMPRESSION: The patient likely has a large disc herniation at L3-4 resulting in severe canal stenosi s. No acute lumbar fracture.
[2021-08-31] MEDS ORDERED: FENTANYL CITR 100 MCG/2 ML ONE ×2 (19:18→23:47)
--- NOTE | 2021-08-31 22:37 | EDPHYS ---
Physician Documentation [facility] Name: May Zaidi Age: 46 yrs Sex: Female : 1975 Arrival Date: 08/31/2021 Time: 15:53 Bed 19 Private MD: ED Physician Aniket Arevalo HPI: 08/31 17:25 This 46 yrs old Female presents to ER via Wheelchair with complaints of cp Urinary Problem, Numbness - legs. 17:25 The patient presents with pain that is acute. cp 17:25 The symptoms are located in the low back. Onset: The symptoms/episode began/occurred cp last month, from fall on wet deck. The pain radiates to the right leg and left leg. Associated signs and symptoms: Pertinent positives: bowel incontinence, numbness, weakness, Pertinent negatives: abdominal pain, chest pain, bowel incontinence. Reports she was seen here in the emergency department on 08/07/2021 after sustaining a fall in which she fell backwards landing on her buttocks and back approximately 2 to 3 days prior to being seen on that date. Patient reports she was seen and evaluated and discharged to home and since has had increasing weakness pain in her legs, urinary incontinence and difficulty walking. Historical: - Allergies: 16:04 Abilify; ll1 16:04 Lisinopril; ll1 16:04 Losartan; ll1 - PMHx: 16:04 chronic kidney disease; Fibromyalgia; herniated discs in neck; Kidney stones; PTSD; RA; ll1 - PSHx: 16:04 Jaw Sx; varicocele; ll1 - Immunization history:: Client reports having NOT received the Covid vaccine. - Social history:: Smoking status: Patient reports the use of cigarette tobacco products, smokes one-half pack cigarettes per day, Reported history of juuling and/or vaping. ROS: 17:30 Neuro: Positive for numbness, weakness, of the buttocks, pelvis, right leg and left leg.cp 17:30 Constitutional: Negative for body aches, chills, fever, poor PO intake. cp 17:30 Abdomen/GI: Negative for abdominal pain, nausea, vomiting, and diarrhea, bowel cp incontinence. 17:30 Back: Positive for pain at rest, pain with movement. 17:30 : Positive for bladder incontinence 17:30 All other systems are negative. Exam: 17:35 Constitutional: The patient appears in no acute distress, alert, awake, non-toxic, well cp developed, well nourished, uncomfortable. 17:35 Head/Face: Normocephalic, atraumatic. cp 17:35 Neck: C-spine: vertebral tenderness, is not appreciated, crepitus, is not appreciated, ROM/movement: is normal, is supple, without pain, no range of motions limitations. 17:35 Chest/axilla: Inspection: normal, Palpation: is normal, no crepitus, no tenderness. 17:35 Cardiovascular: Rate: normal, Rhythm: regular. 17:35 Respiratory: the patient does not display signs of respiratory distress, Respirations: normal, no use of accessory muscles, no retractions, labored breathing, is not present, Breath sounds: are clear throughout, no decreased breath sounds, no stridor, no wheezing. 17:35 Abdomen/GI: Inspection: abdomen appears normal, Bowel sounds: active, all quadrants, Palpation: abdomen is soft and non-tender, in all quadrants. 17:35 Back: pain, that is severe, of the lumbar area, ROM is painful, with all movement. 17:35 Neuro: Orientation: to person, place \T\ time. Mentation: is normal, Motor: moves all fours, strength is normal, Sensation: pin prick is decreased in the buttocks, light touch is decreased in the buttocks, Gait: is unsteady, Deep tendon reflexes are 3+ (brisk) in the right patellar, right Achilles, left patellar and left Achilles, Babinski testing is normal. Vital Signs: 16:01 BP 164 / 109; Pulse 88; Resp 16; Temp 97.9; Pulse Ox 97% ; Weight 75.3 kg; Height 65 ll1 in. (165.10 cm); Pain 8/10; 20:31 BP 146 / 91 LA Supine (auto/reg); Pulse 85; Resp 16; Temp 97.5(O); Pulse Ox 97% on R/A; sj1 Pain 0/10; 09/01 01:12 BP 133 / 84 LA Sitting (auto/reg); Pulse 64; Resp 16; Temp 97.4(TE); Pulse Ox 98% on sj1 R/A; Pain 0/10; 08/31 16:01 Body Mass Index 27.62 (75.30 kg, 165.10 cm) ll1 MDM: 08/31 17:12 Patient medically screened. 22:35 Data reviewed: vital signs, nurses notes, lab test result(s), radiologic studies, CT cp scan. 22:35 Counseling: I had a detailed discussion with the patient and/or guardian regarding: the cp historical points, exam findings, and any diagnostic results supporting the discharge/admit diagnosis, radiology results, the need to transfer to another facility, [facility] does not immediately have the required specialist. Response to treatment: pain improved. 23:00 Physician consultation: was contacted at 22:55, regarding regarding transfer, to [facility]. patient's condition, accepting physician will be DR Cool, hospitalist. 08/31 18:16 Order name: Basic Metabolic Panel 08/31 18:16 Order name: CBC with Diff; Complete Time: 19:23 08/31 18:16 Order name: Type And Screen; Complete Time: 22:56 08/31 18:16 Order name: Urine Microscopic Only; Complete Time: 19:23 08/31 19:23 Interpretation: Normal except: UWBC 20-50; UBACT >50; SQEPI 5-10. 08/31 18:16 Order name: Basic Metabolic Panel; Complete Time: 19:23 EDMS 08/31 19:23 Interpretation: Normal except: CL 111; GLUC 109; GFR 89. 08/31 18:46 Order name: Urine --Ancillary (enter results); Complete Time: 19:23 tt3 08/31 18:16 Order name: CT C Spine; Complete Time: 19:23 08/31 18:16 Order name: CT Thoracic Spine Wo Cont; Complete Time: 19:23 08/31 18:16 Order name: CT Lumbar Spine Wo Con; Complete Time: 19:23 08/31 19:24 Interpretation: Report reviewed. 08/31 18:46 Order name: Urine Dipstick-Ancillary; Complete Time: 19:23 EDMS 08/31 19:05 Order name: Urine Culture EDMA 08/31 20:16 Order name: ABO/RH no charge; Complete Time: 22:56 EDMS 08/31 21:58 Order name: SARS-COV-2 RT PCR; Complete Time: 22:56 EDMA 08/31 18:16 Order name: Labs collected and sent; Complete Time: 20:25 cp 08/31 18:16 Order name: Urine Dipstick-Ancillary (obtain specimen); Complete Time: 20:31 cp 08/31 18:16 Order name: Urine Test (obtain specimen); Complete Time: 20:31 cp Administered Medications: 19:10 Drug: fentaNYL (PF) 25 mcg Route: IVP; Site: right antecubital; tc5 21:06 Follow up: Response: No adverse reaction sj1 23:29 Drug: Rocephin (cefTRIAXone) 1 grams Route: IV; Rate: calculated rate; Site: right sj1 antecubital; 09/01 00:04 Follow up: IV Status: Completed infusion [facility] 08/31 23:29 Drug: fentaNYL (PF) 25 mcg Route: IVP; Site: right antecubital; sj1 09/01 00:04 Follow up: Response: No adverse reaction; Pain is decreased sj1 Disposition Summary: 08/31/21 22:36 Transfer Ordered Transfer Location: [facility] cp Reason: Higher level of care cp Condition: Stable cp Problem: new cp Symptoms: have improved cp Accepting Physician: Doctor(09/01/21 01:27) sj1 Diagnosis - Low back pain cp - Unspecified urinary incontinence cp - Radiculopathy, lumbosacral region cp Forms: - Medication Reconciliation Form cp - SBAR form cp Addendum: 09/03/2021 07:05 Co-signature as Attending Physician, Aniket Arevalo MD I agree with the assessment and r n plan of care. Attestation: The patient's history, exam findings, diagnostics, and a summary of any interventions or procedures was reviewed in detail with Florencio TAYLOR. Signatures: Dispatcher [employer] Aniket Gomez MD MD rn Page, Corey, PA PA cp Caio Mendoza RN RN ll1 Betsy Zuniga RN RN sj1 Jacqui Hutton RN RN tc5 Corrections: (The following items were deleted from the chart) 08/31 21:07 19:30 CORONAVIRUS+MR.LAB.BRZ ordered. [facility] 09/01 01:27 08/31 22:36 Doctor cp sj1
--- NOTE | 2021-08-31 22:37 | ER ---
Nurse's Notes [facility] Name: May Zaidi Age: 46 yrs Sex: Female : 1975 Arrival Date: 08/31/2021 Time: 15:53 Bed 19 Private MD: Diagnosis: Low back pain;Unspecified urinary incontinence;Radiculopathy, lumbosacral region Presentation: 08/31 16:01 Chief complaint: Patient states: Back injury 08/05 from a dog pulling her over, was seen ll1 here 2 days later, numbness was located more down L leg. Has had buttocks numbness, and down both legs numbness now. States she walks awkwardly and feels off balanced. Dysuria with loss of continence for 10 days. Sent in by Gokul Magdaleno NP for eval. Coronavirus screen: Vaccine status: Patient reports being unvaccinated. Client denies travel out of the [place] in the last 14 days. At this time, the client does not indicate any symptoms associated with coronavirus-19. Ebola Screen: Patient denies travel to an Ebola-affected area in the 21 days before illness onset. Initial Sepsis Screen: Does the patient meet any 2 criteria? No. Patient's initial sepsis screen is negative. Does the patient have a suspected source of infection? Yes: Bone or joint infection. Risk Assessment: Do you want to hurt yourself or someone else? Patient reports no desire to harm self or others. Onset of symptoms was August 05, 2021. 16:01 Method Of Arrival: Wheelchair ll1 16:01 Acuity: HIRAM 3 ll1 Historical: - Allergies: 16:04 Abilify; ll1 16:04 Lisinopril; ll1 16:04 Losartan; ll1 - PMHx: 16:04 chronic kidney disease; Fibromyalgia; herniated discs in neck; Kidney stones; PTSD; RA; ll1 - PSHx: 16:04 Jaw Sx; varicocele; ll1 - Immunization history:: Client reports having NOT received the Covid vaccine. - Social history:: Smoking status: Patient reports the use of cigarette tobacco products, smokes one-half pack cigarettes per day, Reported history of juuling and/or vaping. Screenin/02 01:13 Abuse screen: Denies threats or abuse. Denies injuries from another. Nutritional sj1 screening: No deficits noted. Tuberculosis screening: No symptoms or risk factors identified. Fall Risk None identified. Assessment: 01:13 General: Appears in no apparent distress. Behavior is calm, cooperative, appropriate sj1 for age. Pain: Denies pain. Pain: Denies pain. Neuro: No deficits noted. Neuro: Reports numbness in bilat legs, bilat arms. Cardiovascular: No deficits noted. Respiratory: No deficits noted. GI: No deficits noted. : No deficits noted. EENT: No deficits noted. Derm: No deficits noted. Musculoskeletal: Reports numbness in legs and arms. Vital Signs: 08/31 16:01 BP 164 / 109; Pulse 88; Resp 16; Temp 97.9; Pulse Ox 97% ; Weight 75.3 kg; Height 65 ll1 in. (165.10 cm); Pain 8/10; 20:31 BP 146 / 91 LA Supine (auto/reg); Pulse 85; Resp 16; Temp 97.5(O); Pulse Ox 97% on R/A; sj1 Pain 0/10; 02 01:12 BP 133 / 84 LA Sitting (auto/reg); Pulse 64; Resp 16; Temp 97.4(TE); Pulse Ox 98% on sj1 R/A; Pain 0/10; 08/31 16:01 Body Mass Index 27.62 (75.30 kg, 165.10 cm) ll1 ED Course: 08/31 15:53 Patient arrived in ED. jm9 16:00 Arm band placed on. ll1 16:04 Triage completed. ll1 17:07 Patient placed in an exam room, on a stretcher. vg1 17:09 Florencio Mensah PA is PHCP. cp 17:09 Aniket Arevalo MD is Attending Physician. cp 17:37 Jacqui Hutton, BANG is Primary Nurse. tc5 18:55 CT C Spine In Process Unspecified. EDMS 18:55 CT Thoracic Spine Wo Cont In Process Unspecified. EDMS 18:56 CT Lumbar Spine Wo Con In Process Unspecified. EDMS 19:01 T\T\S collected, blood band applied to patient. dh3 20:25 Basic Metabolic Panel Sent. sj1 20:32 Patient has correct armband on for positive identification. Bed in low position. Call sj1 light in reach. Side rails up X 1. 21:04 Urine Culture Sent. sj1 22:08 Initiated transfer at [facility] with Shravan Henson. Stated she would work on the tt3 request and call back. 22:51 Shravan Friend from [facility] called back with their physician to speak with Florencio tt3 CLAUDIA Mensah, pt provider regarding the trnasfer request. 23:04 Shravan Friend from [facility] called back with another physician to speak with Florencio tt3 CLAUDIA Mensah, pt provider regarding the trnasfer request. 23:10 Shravan Friend gave admin approval. The accepting physician is Dr. Cool. The tt3 pt is going to [facility] [address], Room 2435. Nurse to call report to . Face sheet and covid result to be faxed to per Shravan's request. 09/01 01:13 No provider procedures requiring assistance completed. Patient transferred, IV remains sj1 in place. intact, No redness/swelling at site. Administered Medications: 08/31 19:10 Drug: fentaNYL (PF) 25 mcg Route: IVP; Site: right antecubital; tc5 21:06 Follow up: Response: No adverse reaction sj1 23:29 Drug: Rocephin (cefTRIAXone) 1 grams Route: IV; Rate: calculated rate; Site: right sj1 antecubital; 09/01 00:04 Follow up: IV Status: Completed infusion sj1 08/31 23:29 Drug: fentaNYL (PF) 25 mcg Route: IVP; Site: right antecubital; sj1 09/01 00:04 Follow up: Response: No adverse reaction; Pain is decreased sj1 Outcome: 08/31 22:36 ER care complete, transfer ordered by MD. oneal 09/01 01:13 Transferred by ground EMS to [facility], Transfer form completed. sj1 X-rays sent w/ patient. Condition: stable Discharge instructions given to patient, Instructed on the need for transfer, Demonstrated understanding of 01:27 Patient left the ED. sj1 Addendum: 09/03/2021 08:25 Addendum: Culture Results: Positive urine culture. 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 15:56 Addendum: Other Faxed to [facility] ATTN BANG Freeman. s s Signatures: Dispatcher [employer] EDRadha Salder, RN RN ss Florencio Mensah PA PA cp Herrera, Siobhan 3 Mary Franco RN RN vg1 Caio Mendoza RN RN ll1 Brodie Coffey tt3 Betsy Zuniga RN RN sj1 Jacqui Hutton RN RN tc5 Kimberly Null9 Corrections: (The following items were deleted from the chart) 08/31 21:07 21:04 CORONAVIRUS+ drawn and sent. [facility] MAUREEN
[2021-08-31] MEDS ORDERED: CEFTRIAXONE 1000 MG/VIAL ONE (23:39)
[2021-09-01 01:36] VITALS: BP 133/84; TEMP 97.4; O2SAT 98
== END 2021-09-01 01:27 | disposition short-term general hospital (02) ==
LOC: ER 15:46
DX: R32 Unspecified urinary incontinence (principal); M54.17 Radiculopathy, lumbosacral region; F17.210 Nicotine dependence, cigarettes, uncomplicated; Z88.8 Allergy status to other drugs, medicaments and biological substances; Z20.822 Contact with and (suspected) exposure to COVID-19
CPT/HCPCS: 36415; 72125; 72128; 72131; 80048; 81003; 81015; 81025; 85025; 86850; 86900; 86901; 87077; 87086; 87088; 87186; 96365; 96375; 99285; J1650; J2920; J3010; U0003

== ENCOUNTER 2022-11-03 15:58 | Emergency (ER) | payer OTHER ==
--- OUTSIDE RECORDS SUMMARY | 2022-11-03 16:05 | XMS REPORT | Continuity of Care Document ---
:1975 Author Organization [facility] t Address [address] [place] [address] Care Team Providers Name Role Phone Shonda Magdaleno Primary Care Physician DREW ANAND Attending Clinician Unavailable YANELY ALBERT Attending Clinician Unavailable Yanely Albert NP Attending Clinician YANELY ALBERT Attending Clinician Unavailable RODGER CARDOSO Attending Clinician Unavailable Rodger Cardoso NP Attending Clinician Stone Cool MD Attending Clinician [phone] Paula Block MD Attending Clinician [phone] Justo VIDES, Nidhi Attending Clinician Chin Castelan MD Attending Clinician CHIN CASTELAN Attending Clinician Unavailable Johnathon VIDES, Reggie Merrem Attending Clinician [phone] Drew Anand MD Attending Clinician NIDHI GARCIA Admitting Clinician Unavailable Payers Payer Name Policy Type Policy Number Effective Date Expiration Date Shana moura [facility] CARE - [id number] GENERIC - [facility]-MEDICAID - [id number] MEDICAID Problems Condition Condition Condition Status Onset Resolution Last Treating Co mments Source Name Details Category Date Date Treatment Clinician Date Acute Acute Disease Active 2020-[address] [facility] bilateral bilateral 0-02 [facility] low back low back 00:00: Medica l pain pain 00 Center without without sciatica sciatica Lumbar Lumbar Disease Active 2020-[address] [facility] disc disc [facility] herniation her[facility] Me dical 00 Center Acute Acute Disease Active 2020-[address] [facility] cystitis cystitis 0-02 [facility] without without 00:00: Medical hematuria hematuria 00 Cent er Fibromyalg Fibromyalg Disease Active 2020-[address] ia ia [facility] Urinary Urinary Disease Active 2020-[address] [facility] incontinen incontinen 0-02 [facility] ce ce 00:[facility]: Medical 00 Center PTSD PTSD Disease Active 2020-[address] [facility] (post-trau (post-trau 0-02 [facility] matic matic 00:00: Medical stress stress 00 Center disorder) disorder) Cervical Cervical Disease Active 2020-12 Overview: [facility] stenosis stenosis 0-01 [facility] [place] [facility] of spinal of spinal 00:00: g of this M edical canal canal 00 note Center might be different from the original. Added automatic ally from request for surgery [id number] No known No known Disease [facility] r active active College problems problems of Medicin e Allergies, Adverse Reactions, Alerts Allergy Allergy Status Severity Reaction(s) Onset Inactive Treating Comm ents Source Name Type Date Date Clinician n Propensi Active ty to 5-19 adverse 00:00: reaction 00 to drug Abilify Propensi Active - Oral ty to 3-08 adverse 00:00: reaction 00 to drug Losartan Propensi Active Anaphylaxis 2020-12 [facility] ty to 0-20 [facility] m adverse 00:00: of reaction 00 Medicin s to e drug Abilify Propensi Active Swelling 2020-12 [facility] ty to 0-20 College adverse 00:00: of reaction 00 Medicin s to e drug Losartan Propensi Active Anaphylaxis 2020-12 [facility] to 0-02 [facility] adverse 00:00: of reaction 00 Medicin s to e drug Aripipra Propensi Active Other (See 2020-12 [facility] ty to Comments) 0-02 College adverse 00:00: of reaction 00 Medicin s to e drug Latex Propensi Active Swelling 2020-12 [facility] ty to 0-02 College adverse 00:00: of reaction 00 Medicin s to e substanc e Lisinopr Propensi Active Anaphylaxis 2020-12 [facility] ty to 0-02 College adverse 00:00: of reaction 00 Medicin s to e drug LATEX Allergy Active High Rash 2020-[address] [facility] LISINOPR Allergy Active High Anaphylaxis 2020-[address] [place] 0[facility] Center LOSARTAN Allergy Active High Anaphylaxis 2020-[address] [facility] [address] [facility] Center ARIPIPRA Allergy Active Med Other 2020-[address] [facility] ZOLE 0-02 [facility] Center Aripipra Drug Active Other (See 2020-[address] [facility] zole Allergy Comments) 0-02 [facility] Latex Propensi Active Rash 2020-[address] [facility] ty to 0-02 [facility] adverse 00:00: Medical reaction 00 Center s Lisinopr Propensi Active Anaphylaxis 2020-[address] [facility] ty to 0-02 [facility] adverse 00:00: Medical reaction 00 Center s Losartan Propensi Active Anaphylaxis 2020-[address] ty to 0-02 [facility] adverse 00:00: Medical reaction 00 Center s Family History Family Member Diagnosis Comments Start Date Stop Date Source Natural mother No Known Problem [facility] Natural father No Known Problem [facility] Social History Social Habit Start Date Stop Date Quantity Comments Source Exposure to Not sure [facility] Colle jonah SARS-CoV-2 (event) of Med icine Alcohol intake 2021-10-16 2021-10-16 Lifetime [facility] Col lege 00:00:00 00:00:00 non-drinker of Medicine (finding) History of tobacco 2021-10-13 Smoker [facility] use 00:00:00 of Medicine Cigarettes smoked 2021-09-19 2021-09-19 [facility] current (pack per 00:00:00 00:00:00 of Medi cine day) - Reported Cigarette 2021-09-19 2021-09-19 [facility] pack-years 00:00:00 00:00:00 of Medicine Tobacco use and 2021-09-01 2021-09-[address] [facility] exposure 00:00:00 00:00:00 [facility] Sex Assigned At [address] [facility] 00:00:00 00[facility]00 [facility] Center Smoking Status Start Date Stop Date Source Ex-smoker 2021-09-19 00:00:00 2021-09-19 00:00:00 [facility] Never smoker [facility] Medications Ordered Filled Start Stop Current Ordering Indication Dosage Frequency Signature Comments Components Source Medication Medication Date Date Medication? Clinician (SIG) Name Name TAKE ONE 2-0 No 30 CAPSULE 9-06 ONCE A DAY 00:00: 00 TAKE ONE 2-0 No CAPSULE 9-06 ONCE A DAY 00:00: 00 TAKE ONE 2-0 No CAPSULE 9-06 ONCE A DAY 00:00: 00 TAKE 1 2-0 No [id number] TABLET 7-14 TWICE DAILY 00:00: WITH FOOD. 00 TAKE 1 2-0 No [id number] TABLET 7-14 TWICE DAILY 00:00: WITH FOOD. 00 TAKE 1 2022-0 No [id number] TABLET 7-14 TWICE DAILY 00:00: WITH FOOD. 00 TAKE 1 2022-0 No [id number] TABLET 7-14 TWICE DAILY 00:00: WITH FOOD. 00 gabapentin 2-0 No 1mg 100 mg 7-05 capsule 00:00: 00 Dose 2-0 No Unknown 7-05 00:00: 00 Dose 2022-0 No Unknown 7-05 00:00: 00 gabapentin 2022-0 No 1mg 100 mg 7-05 capsule 00:00: 00 hydroxyzine 2-0 No 1mg HCl 25 mg 6-12 tablet 00:00: 00 methocarbam 2-0 No 1mg ol 750 mg 6-12 tablet 00:00: 00 hydroxyzine 2022-0 No 1mg HCl 25 mg 6-12 tablet 00:00: 00 methocarbam 2022-0 No 1mg ol 750 mg 6-12 tablet 00:00: 00 hydroxyzine 2022-0 No 1mg HCl 25 mg 6-12 tablet 00:00: 00 methocarbam 2022-0 No 1mg ol 750 mg 6-12 tablet 00:00: 00 hydroxyzine 2022-0 No 1mg HCl 25 mg 6-12 tablet 00:00: 00 methocarbam 2022-0 No 1mg ol 750 mg 6-12 tablet 00:00: 00 gabapentin 2022-0 No 1mg 100 mg 5-22 capsule 00:00: 00 gabapentin 2022-0 No 1mg 100 mg 5-22 capsule 00:00: 00 gabapentin 2022-0 No 1mg 100 mg 5-22 capsule 00:00: 00 gabapentin 2022-0 No 1mg 100 mg 5-22 capsule 00:00: 00 carvedilol 2022-0 No 1mg 6.25 mg 4-21 tablet 00:00: 00 methocarbam 2022-0 No 1mg ol 750 mg 4-21 tablet 00:00: 00 carvedilol 2022-0 No 1mg 6.25 mg 4-21 tablet 00:00: 00 methocarbam 2022-0 No 1mg ol 750 mg 4-21 tablet 00:00: 00 carvedilol 2022-0 No 1mg 6.25 mg 4-21 tablet 00:00: 00 methocarbam 2022-0 No 1mg ol 750 mg 4-21 tablet 00:00: 00 carvedilol 2022-0 No 1mg 6.25 mg 4-21 tablet 00:00: 00 methocarbam 2022-0 No 1mg ol 750 mg 4-21 tablet 00:00: 00 gabapentin 2022-0 No 1mg 100 mg 4-05 capsule 00:00: 00 Dose 2022-0 No Unknown 4-05 00:00: 00 gabapentin 2022-0 No 1mg 100 mg 4-05 capsule 00:00: 00 Dose 2022-0 No Unknown 4-05 00:00: 00 gabapentin 2022-0 No 1mg 100 mg 4-05 capsule 00:00: 00 Dose 2022-0 No Unknown 4-05 00:00: 00 gabapentin 2022-0 No 1mg 100 mg 4-05 capsule 00:00: 00 Dose 2022-0 No Unknown 4-05 00:00: 00 hydrochloro 2022-0 No 1mg thiazide 4-01 12.5 mg 00:00: tablet 00 hydrochloro 2022-0 No 1mg thiazide 4-01 12.5 mg 00:00: tablet 00 hydrochloro 2022-0 No 1mg thiazide 4-01 12.5 mg 00:00: tablet 00 hydrochloro 2022-0 No 1mg thiazide 4-01 12.5 mg 00:00: tablet 00 Dose 2022-0 No Unknown 3-29 00:00: 00 Dose 2022-0 No Unknown 3-29 00:00: 00 Dose 2022-0 No Unknown 3- 00:00: 00 Dose 2022-0 No Unknown 3- 00:00: 00 Dose 2022-0 No Unknown 3- 00:00: 00 Dose 2022-0 No Unknown 3- 00:00: 00 Dose 2022-0 No Unknown 3- 00:00: 00 Dose 2022-0 No Unknown 3-29 00:00: 00 Dose 2022-0 No Unknown 3-29 00:00: 00 Dose 2022-0 No Unknown 3-29 00:00: 00 Dose 2022-0 No Unknown 3- 00:00: 00 Dose 2022-0 No Unknown 3- 00:00: 00 Dose 2022-0 No Unknown 3- 00:00: 00 Dose 2022-0 No Unknown 3- 00:00: 00 Dose 2022-0 No Unknown 3-29 00:00: 00 Dose 2022-0 No Unknown 3-29 00:00: 00 Dose 2022-0 No Unknown 3- 00:00: 00 Dose 2022-0 No Unknown 3- 00:00: 00 Dose 2022-0 No Unknown 3- 00:00: 00 Dose 2022-0 No Unknown 3- 00:00: 00 Dose 2022-0 No Unknown 3- 00:00: 00 Dose 2022-0 No Unknown 3- 00:00: 00 Dose 2022-0 No Unknown 3-25 00:00: 00 Dose 2022-0 No Unknown 3-25 00:00: 00 Dose 2022-0 No Unknown 3-25 00:00: 00 Dose 2022-0 No Unknown 3-25 00:00: 00 Dose 2022-0 No Unknown 3-25 00:00: 00 Dose 2022-0 No Unknown 3-25 00:00: 00 Dose 2022-0 No Unknown 3-25 00:00: 00 Dose 2022-0 No Unknown 3-25 00:00: 00 Dose 2022-0 No Unknown 3-25 00:00: 00 Dose 2022-0 No Unknown 3-25 00:00: 00 Dose 2022-0 No Unknown 3-25 00:00: 00 Dose 2022-0 No Unknown 3-25 00:00: 00 Dose 2022-0 No Unknown 3-25 00:00: 00 Dose 2022-0 No Unknown 3-25 00:00: 00 Dose 2022-0 No Unknown 3-25 00:00: 00 Dose 2022-0 No Unknown 3-25 00:00: 00 Dose 2022-0 No Unknown 3-25 00:00: 00 Dose 2022-0 No Unknown 3-25 00:00: 00 Dose 2022-0 No Unknown 3-25 00:00: 00 Dose 2022-0 No Unknown 3-25 00:00: 00 Dose 2022-0 No Unknown 3-25 00:00: 00 Dose 2022-0 No Unknown 3-25 00:00: 00 Dose 2022-0 No Unknown 3-25 00:00: 00 Dose 2022-0 No Unknown 3-25 00:00: 00 Dose 2022-0 No Unknown 3-25 00:00: 00 Dose 2022-0 No Unknown 3-25 00:00: 00 Dose 2022-0 No Unknown 3-25 00:00: 00 Dose 2022-0 No Unknown 3-25 00:00: 00 Dose 2022-0 No Unknown 3-25 00:00: 00 Dose 2022-0 No Unknown 3-25 00:00: 00 Dose 2022-0 No Unknown 3-25 00:00: 00 Dose 2022-0 No Unknown 3-25 00:00: 00 Dose 2022-0 No Unknown 3-25 00:00: 00 Dose 2022-0 No Unknown 3-25 00:00: 00 Dose 2022-0 No Unknown 3-25 00:00: 00 Dose 2022-0 No Unknown 3-25 00:00: 00 Dose 2022-0 No Unknown 3-25 00:00: 00 Dose 2022-0 No Unknown 3-25 00:00: 00 Dose 2022-0 No Unknown 3-25 00:00: 00 Dose 2022-0 No Unknown 3-25 00:00: 00 Dose 2022-0 No Unknown 3-25 00:00: 00 Dose 2022-0 No Unknown 3-25 00:00: 00 Dose 2022-0 No Unknown 3-18 00:00: 00 Dose 2022-0 No Unknown 3-18 00:00: 00 Dose 2022-0 No Unknown 3-18 00:00: 00 Dose 2022-0 No Unknown 3-18 00:00: 00 Dose 2022-0 No Unknown 3-18 00:00: 00 Dose 2022-0 No Unknown 3-18 00:00: 00 Dose 2022-0 No Unknown 3-18 00:00: 00 Dose 2022-0 No Unknown 3-18 00:00: 00 Dose 2022-0 No Unknown 3-18 00:00: 00 Dose 2022-0 No Unknown 3-18 00:00: 00 Dose 2022-0 No Unknown 3-18 00:00: 00 Dose 2022-0 No Unknown 3-18 00:00: 00 Dose 2022-0 No Unknown 3-18 00:00: 00 Dose 2022-0 No Unknown 3-18 00:00: 00 Dose 2022-0 No Unknown 3-18 00:00: 00 Dose 2022-0 No Unknown 3-18 00:00: 00 Dose 2022-0 No Unknown 3-17 00:00: 00 Dose 2022-0 No Unknown 3-17 00:00: 00 Dose 2022-0 No Unknown 3-17 00:00: 00 Dose 2022-0 No Unknown 3-17 00:00: 00 Dose 2022-0 No Unknown 3-17 00:00: 00 Dose 2022-0 No Unknown 3-17 00:00: 00 Dose 2022-0 No Unknown 3-17 00:00: 00 Dose 2022-0 No Unknown 3-17 00:00: 00 Dose 2022-0 No Unknown 3-15 00:00: 00 Dose 2022-0 No Unknown 3-15 00:00: 00 Dose 2022-0 No Unknown 3-15 00:00: 00 Dose 2022-0 No Unknown 3-15 00:00: 00 metronidazo 2022-0 No 1mg le 500 mg 3-12 tablet 00:00: 00 metronidazo 2022-0 No 1mg le 500 mg 3-12 tablet 00:00: 00 metronidazo 2022-0 No 1mg le 500 mg 3-12 tablet 00:00: 00 metronidazo 2022-0 No 1mg le 500 mg 3-12 tablet 00:00: 00 Dose 2022-0 No Unknown 3-08 00:00: 00 Dose 2022-0 No Unknown 3-08 00:00: 00 Dose 2022-0 No Unknown 3-08 00:00: 00 Dose 2022-0 No Unknown 3-08 00:00: 00 Dose 2022-0 No Unknown 3-08 00:00: 00 Dose 2022-0 No Unknown 3-08 00:00: 00 Dose 2022-0 No Unknown 3-08 00:00: 00 Dose 2022-0 No Unknown 3-08 00:00: 00 Dose 2022-0 No Unknown 3-08 00:00: 00 Dose 2022-0 No Unknown 3-08 00:00: 00 Dose 2022-0 No Unknown 3-08 00:00: 00 Dose 2022-0 No Unknown 3-08 00:00: 00 Dose 2022-0 No Unknown 3-08 00:00: 00 Dose 2022-0 No Unknown 3-08 00:00: 00 Dose 2022-0 No Unknown 3-08 00:00: 00 Dose 2022-0 No Unknown 3-08 00:00: 00 Dose 2022-0 No Unknown 3-08 00:00: 00 Dose 2022-0 No Unknown 3-08 00:00: 00 Dose 2022-0 No Unknown 3-08 00:00: 00 Dose 2022-0 No Unknown 3-08 00:00: 00 Dose 2022-0 No Unknown 3-08 00:00: 00 Dose 2022-0 No Unknown 3-08 00:00: 00 Dose 2022-0 No Unknown 3-08 00:00: 00 Dose 2022-0 No Unknown 3-08 00:00: 00 Dose 2022-0 No Unknown 3-08 00:00: 00 Dose 2022-0 No Unknown 3-08 00:00: 00 Dose 2022-0 No Unknown 3-08 00:00: 00 Dose 2022-0 No Unknown 3-08 00:00: 00 Dose 2022-0 No Unknown 3-08 00:00: 00 Dose 2022-0 No Unknown 3-08 00:00: 00 Dose 2022-0 No Unknown 3-08 00:00: 00 Dose 2022-0 No Unknown 3-08 00:00: 00 Dose 2022-0 No Unknown 3-08 00:00: 00 Dose 2022-0 No Unknown 3-08 00:00: 00 Dose 2022-0 No Unknown 3-08 00:00: 00 Dose 2022-0 No Unknown 3-08 00:00: 00 Dose 2022-0 No Unknown 3-08 00:00: 00 Dose 2022-0 No Unknown 3-08 00:00: 00 Dose 2022-0 No Unknown 3-08 00:00: 00 Dose 2022-0 No Unknown 3-08 00:00: 00 Dose 2022-0 No Unknown 3-08 00:00: 00 Dose 2022-0 No Unknown 3-08 00:00: 00 Dose 2022-0 No Unknown 3-08 00:00: 00 Dose 2022-0 No Unknown 3-08 00:00: 00 Dose 2022-0 No Unknown 3-08 00:00: 00 Dose 2022-0 No Unknown 3-08 00:00: 00 Dose 2022-0 No Unknown 3-08 00:00: 00 Dose 2022-0 No Unknown 3-08 00:00: 00 Dose 2022-0 No Unknown 3-08 00:00: 00 Dose 2022-0 No Unknown 3-08 00:00: 00 Dose 2022-0 No Unknown 3-08 00:00: 00 Dose 2022-0 No Unknown 3-08 00:00: 00 Dose 2022-0 No Unknown 3-08 00:00: 00 Dose 2022-0 No Unknown 3-08 00:00: 00 Dose 2022-0 No Unknown 3-08 00:00: 00 Dose 2022-0 No Unknown 3-08 00:00: 00 Dose 2022-0 No Unknown 3-08 00:00: 00 Dose 2022-0 No Unknown 3-08 00:00: 00 Dose 2022-0 No Unknown 3-08 00:00: 00 Dose 2022-0 No Unknown 3-08 00:00: 00 Dose 2022-0 No Unknown 3-08 00:00: 00 Dose 2022-0 No Unknown 3-08 00:00: 00 Dose 2022-0 No Unknown 3-08 00:00: 00 Dose 2022-0 No Unknown 3-08 00:00: 00 Dose 2022-0 No Unknown 3-08 00:00: 00 Dose 2022-0 No Unknown 3-08 00:00: 00 Dose 2022-0 No Unknown 3-08 00:00: 00 Dose 2022-0 No Unknown 3-08 00:00: 00 Dose 2022-0 No Unknown 3-08 00:00: 00 Dose 2022-0 No Unknown 3-08 00:00: 00 Dose 2022-0 No Unknown 3-08 00:00: 00 Dose 2022-0 No Unknown 3-08 00:00: 00 Dose 2022-0 No Unknown 3-08 00:00: 00 Dose 2022-0 No Unknown 3-08 00:00: 00 Dose 2022-0 No Unknown 3-08 00:00: 00 Dose 2022-0 No Unknown 3-08 00:00: 00 Dose 2022-0 No Unknown 3-08 00:00: 00 Dose 2022-0 No Unknown 3-08 00:00: 00 Dose 2022-0 No Unknown 3-08 00:00: 00 Dose 2022-0 No Unknown 3-08 00:00: 00 Dose 2022-0 No Unknown 2-21 00:00: 00 Dose 2022-0 No Unknown 2-21 00:00: 00 Dose 2022-0 No Unknown 2-21 00:00: 00 Dose 2022-0 No Unknown 2-21 00:00: 00 Dose 2022-0 No Unknown 1-22 00:00: 00 Dose 2022-0 No Unknown 1-22 00:00: 00 Dose 2022-0 No Unknown 1-22 00:00: 00 Dose 2022-0 No Unknown 1-22 00:00: 00 hydrochloro 2021-1 No 1mg thiazide 2-23 12.5 mg 00:00: tablet 00 hydrochloro 2021-1 No 1mg thiazide 2-23 12.5 mg 00:00: tablet 00 hydrochloro 2021-1 No 1mg thiazide 2-23 12.5 mg 00:00: tablet 00 hydrochloro 2021-1 No 1mg thiazide 2-23 12.5 mg 00:00: tablet 00 Dose 2020-12 No Unknown 2-16 00:00: 00 Dose 2020-12 No Unknown 2-16 00:00: 00 Dose 2020-12 No Unknown 2-16 00:00: 00 Dose 2020-12 No Unknown 2-16 00:00: 00 hydroxyzine 2020-12 No 1mg HCl 25 mg 1-18 tablet 00:00: 00 hydroxyzine 2020-12 No 1mg HCl 25 mg 1-18 tablet 00:00: 00 hydroxyzine 2020-12 No 1mg HCl 25 mg 1-18 tablet 00:00: 00 hydroxyzine 2020-12 No 1mg HCl 25 mg 1-18 tablet 00:00: 00 hydrOXYzine 2020-12 Yes 25mg Take 25 mg [facility] (ATARAX 1-16 by mouth 3 Co llege OR) 12:51: times of 57 daily as Medicin needed. e methocarbam 2020-12 Yes 750mg Take 750 [facility] 1-16 mg by [facility] (ROBAXIN) 12:51: mouth 3 of 750 MG 57 times Medicin tablet daily as e needed. olanzapine 2020-12 Yes 10mg Take 10 mg [facility] (ZYPREXA) 1-16 by mouth Colleg e 10 MG 12:51: daily. of tablet 57 Medicin e tramadol 2020-12 Yes 50mg Take 50 mg [place] [facility] (ULTRAM) 50 1-16 by mouth 3 Co [facility]lege MG tablet 12:51: times of 57 daily as Medicin needed. e Melatonin 2020-12 Yes 12mg Take 12 mg [facility] 12 MG TABS 1-16 by mouth Colle ge 12:51: nightly. of 57 Medicin e acetaminoph 2020-12 Yes 500mg Take 500 [facility] en 1-16 mg by [facility] (TYLENOL) 12:51: mouth 3 of 500 mg 57 times Medicin tablet daily as e needed for Pain. methocarbam 2020-12 No 1mg ol 750 mg 0-25 tablet 00:00: 00 methocarbam 2020-12 No 1mg ol 750 mg 0-25 tablet 00:00: 00 methocarbam 2020-12 No 1mg ol 750 mg 0-25 tablet 00:00: 00 methocarbam 2020-12 No 1mg ol 750 mg 0-25 tablet 00:00: 00 hydrochloro 2020-12 No 1mg thiazide 0-20 12.5 mg 00:00: tablet 00 hydrochloro 2020-12 No 1mg thiazide 0-20 12.5 mg 00:00: tablet 00 hydrochloro 2020-12 No 1mg thiazide 0-20 12.5 mg 00:00: tablet 00 hydrochloro 2020-12 No 1mg thiazide 0-20 12.5 mg 00:00: tablet 00 FLUoxetine 2020-12 Yes 20mg QD Take [address] (PROzac) 20 0-14 by mouth [facility] MG tablet 14:08: daily. [address] OLANZapine 2020-12 Yes 5mg QD Take [address] [facility] [address] [facility] (ZyPREXA) 5 0-14 by mouth [facility] MG tablet 14:08: nightly. [address] melatonin 2020-12 Yes 12mg QD Take [address] [facility] 12 mg Tab 0-14 [facility] 14:08: nightly . [address] polyethylen 2020-12 Yes 17g Q.5D Take [address] e glycol 0-14 by mouth 2 [facility] (Miralax) 14:08: (two) [address] gram/dose daily. powder FLUoxetine 2020-12 Yes 20mg QD Take [address] (PROzac) 20 0-14 by mouth [facility] MG tablet 14:08: daily. [address] OLANZapine 2020-12 Yes 5mg QD Take [address] [facility] (ZyPREXA) 5 0-14 by mouth [facility] MG tablet 14:08: nightly. [address] melatonin 2020-12 Yes 12mg QD Take [address] [facility] 12 mg Tab 0-14 by mouth [facility] 14:08: nightly . [address] polyethylen 2020-12 Yes 17g Q.5D Take [address] e glycol 0-14 by mouth 2 [facility] (Miralax) 14:08: (two) [place] [id number] times [place] gram/dose daily. powder FLUoxetine 2020-12 Yes 20mg QD Take [address] (PROzac) 20 0-14 by mouth [facility] MG tablet 14:08: daily. [address] OLANZapine 2020-12 Yes 5mg QD Take [address] [facility] (ZyPREXA) 5 0-14 by mouth [facility] MG tablet 14:08: nightly. [address] melatonin 2020-12 Yes 12mg QD Take [address] 12 mg Tab 0-14 by mouth [facility] 14:08: nightly . [address] polyethylen 2020-12 Yes 17g Q.5D Take [address] e glycol 0-14 by mouth 2 [facility] (Miralax) 14:08: (two) [place] [address] 36 times Center gram/dose daily. powder FLUoxetine 2020-12 Yes 20mg QD Take [address] (PROzac) 20 0-14 by mouth [facility] MG tablet 14:08: daily. Medica [address] OLANZapine 2020-12 Yes 5mg QD Take [address] [facility] (ZyPREXA) 5 0-14 by mouth [facility] MG tablet 14:08: nightly. [address] melatonin 2020-12 Yes 12mg QD Take [address] 12 mg Tab 0-14 by mouth [facility] 14:08: nightly . [address] polyethylen 2020-12 Yes 17g Q.5D Take [address] e glycol 0-14 by mouth 2 [facility] (Miralax) 14:08: (two) [place] [address] times [place] gram/dose daily. powder hydroxyzine 2020-12 No 1mg HCl 25 mg 0-12 tablet 00:00: 00 tramadol 50 2020-12 No 1mg mg tablet 0-12 00:00: 00 methocarbam 2020-12 No 1mg ol 750 mg 0-12 tablet 00:00: 00 fluoxetine 2020-12 No 1mg 20 mg 0-12 capsule 00:00: 00 oxycodone 5 2020-12 No 1mg/5 mg/5 mL 0-12 mL oral 00:00: solution 00 polyethylen 2020-12 No 1gram e glycol 0-12 3350 17 00:00: gram oral 00 powder packet nicotine 14 2020-12 No 1mg/24 mg/24 hr 0-12 hr daily 00:00: transdermal 00 patch bisacodyl 5 2020-12 No 1mg mg tablet 0-12 00:00: 00 carvedilol 2020-12 No 1mg 6.25 mg 0-12 tablet 00:00: 00 Zyprexa 15 2020- No 1mg mg tablet 0-12 00:00: 00 hydroxyzine 2020- No 1mg HCl 25 mg 0-12 tablet 00:00: 00 tramadol 50 2020- No 1mg mg tablet 0-12 00:00: 00 methocarbam 2020- No 1mg ol 750 mg 0-12 tablet 00:00: 00 fluoxetine 2020- No 1mg 20 mg 0-12 capsule 00:00: 00 oxycodone 5 2020- No 1mg/5 mg/5 mL 0-12 mL oral 00:00: solution 00 polyethylen 2020- No 1gram e glycol 0-12 3350 17 00:00: gram oral 00 powder packet nicotine 14 2020-12 No 1mg/24 mg/24 hr 0-12 hr daily 00:00: transdermal 00 patch bisacodyl 5 2020- No 1mg mg tablet 0-12 00:00: 00 carvedilol 2020- No 1mg 6.25 mg 0-12 tablet 00:00: 00 Zyprexa 15 2020- No 1mg mg tablet 0-12 00:00: 00 hydroxyzine 2020- No 1mg HCl 25 mg 0-12 tablet 00:00: 00 tramadol 50 2020- No 1mg mg tablet 0-12 00:00: 00 methocarbam 2020- No 1mg ol 750 mg 0-12 tablet 00:00: 00 fluoxetine 2020- No 1mg 20 mg 0-12 capsule 00:00: 00 oxycodone 5 2020- No 1mg/5 mg/5 mL 0-12 mL oral 00:00: solution 00 polyethylen 2020- No 1gram e glycol 0-12 3350 17 00:00: gram oral 00 powder packet nicotine 14 2020- No 1mg/24 mg/24 hr 0-12 hr daily 00:00: transdermal 00 patch bisacodyl 5 2020- No 1mg mg tablet 0-12 00:00: 00 carvedilol 2020- No 1mg 6.25 mg 0-12 tablet 00:00: 00 Zyprexa 15 2020- No 1mg mg tablet 0-12 00:00: 00 hydroxyzine 2020- No 1mg HCl 25 mg 0-12 tablet 00:00: 00 tramadol 50 2020-12 No 1mg mg tablet 0-12 00:00: 00 methocarbam 2020-12 No 1mg ol 750 mg 0-12 tablet 00:00: 00 fluoxetine 2020-12 No 1mg 20 mg 0-12 capsule 00:00: 00 oxycodone 5 2020-12 No 1mg/5 mg/5 mL 0-12 mL oral 00:00: solution 00 polyethylen 2020-12 No 1gram e glycol 0-12 3350 17 00:00: gram oral 00 powder packet nicotine 14 2020-12 No 1mg/24 mg/24 hr 0-12 hr daily 00:00: transdermal 00 patch bisacodyl 5 2020-12 No 1mg mg tablet 0-12 00:00: 00 carvedilol 2020-12 No 1mg 6.25 mg 0-12 tablet 00:00: 00 Zyprexa 15 2020-12 No 1mg mg tablet 0-12 00:00: 00 carvedilol 2020-12 No 6.25mg Take 6.25 [facility] (COREG) 0-06 10-07 mg by [facility] 6.25 MG 00:00: 04:59 mouth two of tablet 00 :00 times Medicin daily. e carvediloL 2020-12 No 6.25mg Q.5D Take [address] [facility] ([facility]) 0-06 10-06 [facility] 6.25 MG 00:00: 23:59 (6.25 mg Medic al tablet 00 :00 total) by Center mouth 2 (two) times daily. carvediloL 2020-12 No 6.25mg Q.5D Take [address] [facility] ([facility]) 0-06 10-06 [facility] 6.25 MG 00:00: 23:59 (6.25 mg Medic al tablet 00 :00 total) by Center mouth 2 (two) times daily. carvediloL 2020-12- No 6.25mg Q.5D Take [address] ([facility]) 0-06 10-06 tablet [facility] 6.25 MG 00:00: 23:59 (6.25 mg Medic al tablet 00 :00 total) by Center mouth 2 (two) times daily. carvediloL 2020-12 No 6.25mg Q.5D Take [address] [facility] (COREG) 0-06 10-06 [facility] 6[facility]25 MG 00:00: 23:59 (6.25 mg Medic al tablet 00 :00 total) by [facility] mouth 2 (two) times daily. nicotine 2020-12- No 1{patch QD Place [address] [facility] (NICODERM 0-06 11-05 } patch onto [facility]) 14 00:00: 23:59 the skin Medica l mg/24 hr 00 :00 daily for Center patch 30 days. nicotine 2020-12- No 1{patch QD Place [address] [facility] (NICODERM 0-06 11-05 } patch onto [facility]) 14 00:00: 23:59 the skin Medica l mg/24 hr 00 :00 daily for Center patch 30 days. nicotine 2020-12- No 1{patch QD Place [address] [facility] [address] [facility] (NICODERM 0-06 11-05 } patch onto [facility]) 14 00:00: 23:59 the skin Medica l mg/24 hr 00 :00 daily for Center patch 30 days. hydrOXYzine 2020-12- No 25mg Take [address] [facility] (ATARAX) 25 0-06 10-16 tablet (25 [facility] tablet 00:00: 23:59 mg total) Me dical 00 :00 by mouth 3 Center (three) times daily as needed for Anxiety for up to 10 days. methocarbam 2020-12- No 750mg Q.25D Take [address] o[facility] 0-06 10-16 [facility] (ROBAXIN) 00:00: 23:59 (750 mg Medi holden 750 MG 00 :00 total) by Center tablet mouth 4 (four) times daily for 10 days. oxyCODONE 2020-12- No [facility] (OXY-[facility] 10 0-06 10-16 tablet (10 [facility] tablet 00:00: 23:59 mg total) Me dical 00 :00 by mouth Center every 4 (four) hours as needed for up to 10 days. Max Daily Amount: 60 mg bisacodyL 2020-12- No 5mg Take 1 [facility] (DULCOLAX[facility] 0-06 10-14 tablet (5 [facility] 5 mg EC 00:00: 00:00 mg total) Medi holden tablet 00 :00 by mouth Center daily as needed for Constipati on for up to 30 days. oxyCODONE 2020-12 10mg Take 1 [facility] (OXY-[facility]) 10 0-06 10-14 tablet (10 [facility] tablet 00:00: 00:00 mg total) Me dical 00 :00 by mouth Center every 4 (four) hours as needed for up to 10 days. Max Daily Amount: 60 mg polyethylen 2020-12 17g Q.5D Take [address] [facility] glycol 0-06 10-09 by mouth 2 [facility] s (GLYCOLAX) 00:00: 23:59 (two) Medic al 17 gram 00 :00 times Center packet daily for 3 days. oxyCODONE 2020-12 10mg Take [address] [facility] (ROXICODONE 0-06 10-06 mLs (10 mg L ukes ) 5 mg/5 mL 00:00: 00:00 total) by Medical solution 00 :00 mouth Center every 4 (four) hours as needed for up to 10 days. Max Daily Amount: 60 mg oxyCODONE 2020-12 10mg Take 1 [facility] (OXY-IR) 10 0-06 10-06 tablet (10 L ukes mg tablet 00:00: 15:11 mg total) Me dical 00 :55 by mouth Center every 4 (four) hours as needed for up to 10 days. Max Daily Amount: 60 mg fluoxetine Yes 20mg Take 20 mg [facility] (PROZAC) 20 07-01 by mouth Jett ege MG capsule 00:00: nightly. of 00 Medicin e Vital Signs Vital Name Observation Time Observation Value Comments Source Systolic blood 2021-10-16 18:49:00 121 mm[Hg] [facility] pressure Medicine Diastolic blood 2021-10-16 18:49:00 81 mm[Hg] [facility] Medicine Heart rate 2021-10-16 18:49:00 77 /min [facility] Body temperature 2021-10-16 18:49:00 36.22 Regi [facility] Respiratory rate 2021-10-16 18:49:00 16 /min [facility] Body height 2021-10-16 18:49:00 165.1 cm [facility] Body weight 2021-10-16 18:49:00 75.025 kg [facility] BMI 2021-10-16 18:49:00 27.52 kg/m2 [facility] Oxygen saturation in 2021-10-16 18:49:00 98 /min [facility] blood by Medicine Pulse oximetry HEIGHT 2021-09-13 14:01:00 165.1 cm WEIGHT 2021-09-13 14:01:00 73.483 kg HEIGHT 2021-09-13 14:01:00 165.1 cm WEIGHT 2021-09-13 14:01:00 73.483 kg HEIGHT 2021-09-01 03:00:00 165.1 cm WEIGHT 2021-09-01 03:00:00 73.71 kg HEIGHT 2021-09-01 03:00:00 165.1 cm WEIGHT 2021-09-01 03:00:00 73.71 kg BP Systolic 2022-08-29 11:00:00 BP Diastolic 2022-08-29 11:00:00 Weight Measured 2022-08-29 11:00:00 165.00 pounds Height Measured 2022-08-29 11:00:00 65.00 inches Body Temperature 2022-08-29 11:00:00 Heart Rate 2022-08-29 11:00:00 Respiratory Rate 2022-08-29 11:00:00 BP Systolic 2022-08-06 09:41:00 145 mm[Hg] BP Diastolic 2022-08-06 09:41:00 84 mm[Hg] Weight Measured 2022-08-06 09:41:00 166.20 pounds Height Measured 2022-08-06 09:41:00 65.00 inches Body Temperature 2022-08-06 09:41:00 97.70 degrees Heart Rate 2022-08-06 09:41:00 71.00 /min Respiratory Rate 2022-08-06 09:41:00 BP Systolic 2022-06-13 08:31:00 143 mm[Hg] BP Diastolic 2022-06-13 08:31:00 86 mm[Hg] Weight Measured 2022-06-13 08:31:00 169.80 pounds Height Measured 2022-06-13 08:31:00 65.00 inches Body Temperature 2022-06-13 08:31:00 97.80 degrees Heart Rate 2022-06-13 08:31:00 88.00 /min Respiratory Rate 2022-06-13 08:31:00 24.00 /min BP Diastolic 2022-03-21 10:38:00 78 mm[Hg] Weight Measured 2022-03-21 10:38:00 175.80 pounds Height Measured 2022-03-21 10:38:00 65.00 inches Body Temperature 2022-03-21 10:38:00 98.50 degrees Heart Rate 2022-03-21 10:38:00 79.00 /min Respiratory Rate 2022-03-21 10:38:00 21.00 /min BP Systolic 2022-03-21 10:38:00 125 mm[Hg] BP Systolic 2022-02-28 09:44:00 154 mm[Hg] BP Diastolic 2022-02-28 09:44:00 70 mm[Hg] Weight Measured 2022-02-28 09:44:00 171.40 pounds Height Measured 2022-02-28 09:44:00 65.00 inches Body Temperature 2022-02-28 09:44:00 97.90 degrees Heart Rate 2022-02-28 09:44:00 75.00 /min Respiratory Rate 2022-02-28 09:44:00 16.00 /min BP Systolic 2022-02-05 10:30:00 110 mm[Hg] BP Diastolic 2022-02-05 10:30:00 74 mm[Hg] Weight Measured 2022-02-05 10:30:00 165.80 pounds Height Measured 2022-02-05 10:30:00 65.00 inches Body Temperature 2022-02-05 10:30:00 97.30 degrees Heart Rate 2022-02-05 10:30:00 72.00 /min Respiratory Rate 2022-02-05 10:30:00 BP Systolic 2021-10-31 10:39:00 141 mm[Hg] BP Diastolic 2021-10-31 10:39:00 75 mm[Hg] Weight Measured 2021-10-31 10:39:00 162.00 pounds Height Measured 2021-10-31 10:39:00 65.00 inches Body Temperature 2021-10-31 10:39:00 97.50 degrees Heart Rate 2021-10-31 10:39:00 75.00 /min Respiratory Rate 2021-10-31 10:39:00 BP Systolic 2021-09-19 15:15:00 144 mm[Hg] BP Diastolic 2021-09-19 15:15:00 81 mm[Hg] Weight Measured 2021-09-19 15:15:00 168.60 pounds Height Measured 2021-09-19 15:15:00 65.00 inches Body Temperature 2021-09-19 15:15:00 97.80 degrees Heart Rate 2021-09-19 15:15:00 66.00 /min Respiratory Rate 2021-09-19 15:15:00 17.00 /min Systolic blood 2021-09-13 14:01:00 136 mm[Hg] [facility] Diastolic blood 2021-09-13 14:01:00 89 mm[Hg] [facility] Heart rate 2021-09-13 14:01:00 65 /min [facility] Respiratory rate 2021-09-13 14:01:00 16 /min [facility] Body height 2021-09-13 14:01:00 165.1 cm [facility] Body weight 2021-09-13 14:01:00 73.483 kg [facility] BMI 2021-09-13 14:01:00 26.96 kg/m2 [facility] BP Systolic 2021-09-11 11:44:00 159 mm[Hg] BP Diastolic 2021-09-11 11:44:00 95 mm[Hg] Weight Measured 2021-09-11 11:44:00 168.20 pounds Height Measured 2021-09-11 11:44:00 65.00 inches Body Temperature 2021-09-11 11:44:00 98.00 degrees Heart Rate 2021-09-11 11:44:00 70.00 /min Respiratory Rate 2021-09-11 11:44:00 Body temperature 2021-09-05 12:00:00 36.5 Regi [facility] Oxygen saturation in 2021-09-05 12:00:00 95 /min [facility] Arterial blood by Medical Ce shahla Pulse oximetry BP Systolic 2021-08-31 13:32:00 152 mm[Hg] BP Diastolic 2021-08-31 13:32:00 91 mm[Hg] Weight Measured 2021-08-31 13:32:00 166.00 pounds Height Measured 2021-08-31 13:32:00 65.00 inches Body Temperature 2021-08-31 13:32:00 98.90 degrees Heart Rate 2021-08-31 13:32:00 70.00 /min Respiratory Rate 2021-08-31 13:32:00 17.00 /min Procedures Procedure Date / Time Performed Performing Clinician [facility] e BASIC METABOLIC PANEL (7) 2021-09-05 04:16:00 Hermilo Phillips [facility] CBC W/PLT COUNT & AUTO 2021-09-05 04:16:00 Hermilo Phillips [facility] CBC W/PLT COUNT & AUTO 2021-09-05 04:16:00 Hermilo Phillips [facility] XR SPINE CERVICAL 2 OR 3 2021-09-04 13:59:00 Nidhi Garcia [facility] BASIC METABOLIC PANEL (7) 2021-09-04 09:55:00 Hermilo Phillips [facility] CBC W/PLT COUNT & AUTO 2021-09-04 09:55:00 Hermilo Phillips [facility] CBC W/PLT COUNT & AUTO 2021-09-04 09:55:00 Hermilo Phillips [facility] HC SOMATOSENSORY TEST, 4 2021-09-03 12:16:00 Drew Anand [facility] FL FLUORO NON-SPECIFIC UP 2021-09-03 12:14:[address] [facility] TO 1 HOUR [facility] TISSUE EXAM 2021-09-03 11:46:00 Drew Anand [facility] FL FLUORO NON-SPECIFIC UP 2021-09-03 09:54:00 Drew Anand [facility] TO 1 HOUR Medical Center DISCECTOMY, SPINE, 2021-09-03 08:26:00 Drew Anand [facility] CERVICAL, ANTERIOR Medical Cente r APPROACH, WITH FUSION PT/APTT 2021-09-03 06:44:00 Hermilo Phillips [facility] CBC (HEMOGRAM ONLY) 2021-09-03 05:25:00 [facility] BASIC METABOLIC PANEL (7) 2021-09-03 05:25:00 Ha-Ismail [facility] SCREEN, URINE 2021-09-03 03:23:00 Gabino Acosta [facility] ECG 12-LEAD 2021-09-02 17:08:46 Bayron Dale [facility] ECG 12-LEAD 2021-09-02 17:08:46 Unknown, Hl7 Doctor [facility] XR CHEST 1 VIEW PORTABLE 2021-09-02 13:41:00 Bayron Dale [facility] / BEDSIDE Medical Center SARS-COV2/RT-PCR ([facility] & 2021-09-02 13:21:00 Bayron Dale [facility] REF LABS) Medical Center CBC W/PLT COUNT & AUTO 2021-09-02 13:19:00 Bayron Dale [facility] BASIC METABOLIC PANEL (7) 2021-09-02 13:19:00 Dale Verma [facility] CBC W/PLT COUNT & AUTO 2021-09-02 13:19:[address] [facility] TSH/FREE T4 IF INDICATED 2021-09-02 05:22:00 Paula Block [facility] T4, FREE 2021-09-02 05:22:00 Paula Block [facility] MR CERVICAL SPINE WITHOUT 2021-09-01 12:30:00 Ashleigh Jacques [facility] IV CONTRAST [facility] ABORH, MANUAL 2021-09-01 11:42:00 Viji Dahl [facility] TYPE AND SCREEN, 2021-09-01 06:47:00 Dale Verma [facility] MR LUMBAR SPINE WITHOUT 2021-09-01 05:42:[address] [facility] IV CONTRAST [facility] URINE CULTURE 2021-09-01 04:15:00 [facility] URINALYSIS W/ REFLEX 2021-09-01 04:15:00 [facility] URINE CULTURE [facility] CBC W/PLT COUNT & AUTO 2021-09-01 03:37:00 [facility] BASIC METABOLIC PANEL (7) 2021-09-01 03:37:00 [facility] CBC W/PLT COUNT & AUTO 2021-09-01 03:37:00 [facility] PROTHROMBIN TIME/INR 2021-09-01 03:37:00 [facility] MAGNESIUM 2021-09-01 03:37:00 [facility] PHOSPHORUS 2021-09-01 03:37:00 [facility] Plan of Care Planned Activity Planned Date Details Comments Source Future Scheduled 2022-09-[address] [facility] Test 00:00:00 Counseling and Screening [facility] (12+) [code = Tobacco Cessation Counseling and Screening (12+)] Future Scheduled 2022 INFLUENZA VACCINE (#1) [facility] Future Scheduled 2022 INFLUENZA VACCINE (#1[facility] 00:00[facility]00 [code [facility] Future Scheduled 2022 INFLUENZA VACCINE (#1[facility] 00:00:00 [code = INFLUENZA VACCINE Me dical Center (#1)] Future Scheduled 2022 INFLUENZA VACCINE (#1) [facility] 00:00:00 [code = INFLUENZA VACCINE Me dical Center (#1)] Future Scheduled 2021-12-[address] [facility] Test 00:00:00 (12+) [code = DEPRESSION Med ical Center SCREENING (12+)] Future Scheduled 2021-12-[address] [facility] Test 00:00:00 (12+) [code = DEPRESSION Med ical Center SCREENING (12+)] Future Scheduled 2021-12-[address] [facility] Test 00:00:00 (12+) [code = DEPRESSION Med ical Center SCREENING (12+)] Future Scheduled 2021-12-[address] [facility] Test 00:00:00 (12+) [code = DEPRESSION Med ical Center SCREENING (12+)] Future Scheduled 2021-10-17 Screening for malignant [facility] Test 10:09:23 neoplasm of colon Medicine (procedure) [code = 068441244] Future Scheduled 2021-10-17 Screening for malignant [facility] Test 10:09:23 neoplasm of breast Medicine (procedure) [code = 897561157] Future Scheduled 2021-10-17 COVID-19 Vaccine (1) [facility] Test 10:09:23 [code = COVID-19 Vaccine Med icine (1)] Future Scheduled 2021-10-17 TETANUS SHOT (ADULT) [facility] Test 10:09:23 [code = TETANUS SHOT Medicin e (ADULT)] Future Scheduled 2021-10-17 Hepatitis C screening Ba [facility] Test 10:09:23 (procedure) [code = Medicine 740263599] Future Scheduled 2021-10-17 Human immunodeficiency B [facility] Test 10:09:23 virus screening Medicine (procedure) [code = 947179937] Future Scheduled 2021-10-17 Screening for malignant [facility] Test 10:09:23 neoplasm of cervix Medicine (procedure) [code = 246966117] Future Scheduled 2021-10-17 FLU VACCINE > 6 MONTHS B [facility] Test 10:09:23 [code = FLU VACCINE > 6 Medi cine MONTHS] Future Scheduled 2021-10-17 BMI FOLLOW UP PLAN [code [facility] 10:09:23 = BMI FOLLOW UP PLAN] Medici ne Future Scheduled 2018 Lipid panel (procedure) [facility] Test 00:00:00 [code = 96114855] Medical Ce nter Future Scheduled 2018 Lipid panel (procedure) [facility] Test 00:00:00 [code = 58285594] Medical Ce nter Future Scheduled 2018 Lipid panel (procedure) [facility] Test 00:00:00 [code = 44843586] Medical Ce nter Future Scheduled 2018 Lipid panel (procedure) [facility] Test 00:00:00 [code = 85844464] Medical Ce nter Future Scheduled 1994 Screening for malignant [facility] Test 00:00:00 neoplasm of cervix Medical C enter (procedure) [code = 399914678] Future Scheduled 1994 Screening for malignant [facility] Test 00:00:00 neoplasm of cervix Medical C enter (procedure) [code = 454985302] Future Scheduled 1994 Screening for malignant [facility] Test 00:00:00 neoplasm of cervix Medical C enter (procedure) [code = 720071614] Future Scheduled 1994 Screening for malignant [facility] Test 00:00:00 neoplasm of cervix Medical C enter (procedure) [code = 682219726] Future Scheduled 1992 DTAP/TDAP/TD VACCINES ([address] [facility] Test 00:00:00 - Tdap) [code = Medical Cent er DTAP/TDAP/TD VACCINES (1 - Tdap)] Future Scheduled 1992 DTAP/TDAP/TD VACCINES ([address] [facility] Test 00:00:00 - Tdap) [code = Medical Cent er DTAP/TDAP/TD VACCINES (1 - Tdap)] Future Scheduled 1992 DTAP/TDAP/TD VACCINES ([address] [facility] Test 00:00:00 - Tdap) [code = Medical Cent er DTAP/TDAP/TD VACCINES (1 - Tdap)] Future Scheduled 1992 DTAP/TDAP/TD VACCINES ([address] [facility] Test 00:00:00 - Tdap) [code = Medical Cent er DTAP/TDAP/TD VACCINES (1 - Tdap)] Future Scheduled 1991 HEPATITIS C [facility]CRE[facility]ING [facility] 00:00[facility]00 [code = HEPATITIS C Medical Center SCREENING] Future Scheduled 1991 HEPATITIS C [facility]ING [facility] 00:00:00 [code = HEPATITIS C Medical Center SCREENING] Future Scheduled 1991 HEPATITIS C [facility] 00:00:00 [code = HEPATITIS C Medical Center SCREENING] Future Scheduled 1991 HEPATITIS C [facility] 00:00:00 [code = HEPATITIS C Medical Center SCREENING] Future Scheduled 1974-01-29 COVID-19 VACCINE (#1) [facility] 00:00[facility]00 [code = COVID-19 VACCINE Med ical Center (#1)] Future Scheduled 1974-01-29 COVID-19 VACCINE (#1) [facility] 00:00:00 [code = COVID-19 VACCINE Med ical Center (#1)] Future Scheduled 1974-01-29 COVID-19 VACCINE (#1) [facility] 00:00:00 [code = COVID-19 VACCINE Med ical Center (#1)] Future Scheduled 1974-01-29 COVID-19 VACCINE (#1) [facility] 00:00:00 [code = COVID-19 VACCINE Med ical Center (#1)] Future Scheduled 1973 CT Colonography (combo) [facility] Test 00:00:00 [code = CT Colonography [facility] (combo)] Future Scheduled 1973 Screening for malignant [facility] Test 00:00:00 neoplasm of colon Medical Ce nter (procedure) [code = 900605398] Future Scheduled 1973 Screening for malignant [facility] Test 00:00:00 neoplasm of colon Medical Ce nter (procedure) [code = 681441107] Future Scheduled 1973 Screening for malignant [facility] Test 00:00:00 neoplasm of colon Medical Ce nter (procedure) [code = 138783967] Future Scheduled 1973 Screening for malignant [facility] Test 00:00:00 neoplasm of colon Medical Ce nter (procedure) [code = 048215416] Future Scheduled 1973 Sigmoidoscopy [code = [facility] Sigmoidoscopy] Medical Cente r Future Scheduled 1973 CT Colonography (combo) [facility] Test 00:00:00 [code = CT Colonography [facility] (combo)] Future Scheduled 1973 Screening for malignant [facility] Test 00:00:00 neoplasm of colon Medical Ce nter (procedure) [code = 951407255] Future Scheduled 1973 Screening for malignant [facility] Test 00:00:00 neoplasm of colon Medical Ce nter (procedure) [code = 222790762] Future Scheduled 1973 Screening for malignant [facility] Test 00:00:00 neoplasm of colon Medical Ce nter (procedure) [code = 331264336] Future Scheduled 1973 Screening for malignant [facility] Test 00:00:00 neoplasm of colon Medical Ce nter (procedure) [code = 946522947] Future Scheduled 1973 Sigmoidoscopy [code = [facility] 00:[facility] Sigmoidoscopy] Medical Cente r Future Scheduled 1973 CT Colonography (combo) [facility] Test 00:00:00 [code = CT Colonography [facility] (combo)] Future Scheduled 1973 Screening for malignant [facility] Test 00:00:00 neoplasm of colon Medical Ce nter (procedure) [code = 223662862] Future Scheduled 1973 Screening for malignant [facility] Test 00:00:00 neoplasm of colon Medical Ce nter (procedure) [code = 477321091] Future Scheduled 1973 Screening for malignant [facility] Test 00:00:00 neoplasm of colon Medical Ce nter (procedure) [code = 893007750] Future Scheduled 1973 Screening for malignant [facility] Test 00:00:00 neoplasm of colon Medical Ce nter (procedure) [code = 300063362] Future Scheduled 1973 Sigmoidoscopy [code = [facility] 00:[facility] Sigmoidoscopy] Medical Cente r Future Scheduled 1973 CT Colonography (combo) [facility] Test 00:00:00 [code = CT Colonography Medi [facility] (combo)] Future Scheduled 1973 Screening for malignant [facility] Test 00:00:00 neoplasm of colon Medical Ce nter (procedure) [code = 005626817] Future Scheduled 1973 Screening for malignant [facility] Test 00:00:00 neoplasm of colon Medical Ce nter (procedure) [code = 393776718] Future Scheduled 1973 Screening for malignant [facility] Test 00:00:00 neoplasm of colon Medical Ce nter (procedure) [code = 207950421] Future Scheduled 1973 Screening for malignant [facility] Test 00:00:00 neoplasm of colon Medical Ce nter (procedure) [code = 085779994] Future Scheduled 1973 Sigmoidoscopy [code = [facility] Sigmoidoscopy] Medical Cente r Goal Plan of Care Note [code = 15185-7] Goal Plan of Care Note [code = 55296-0] Goal Plan of Care Note [code = 73467-4] Goal Plan of Care Note [code = 18441-9] Goal Plan of Care Note [code = 52906-0] Goal Plan of Care Note [code = 16941-6] Goal Plan of Care Note [code = 34092-0] Goal Plan of Care Note [code = 55653-7] Goal Plan of Care Note [code = 72113-0] Goal Plan of Care Note [code = 92286-0] Goal Plan of Care Note [code = 36312-4] Goal Plan of Care Note [code = 41083-1] Goal Plan of Care Note [code = 59210-6] Goal Plan of Care Note [code = 11307-9] Goal Plan of Care Note [code = 81501-3] Goal Plan of Care Note [code = 16817-9] Goal Plan of Care Note [code = 06946-5] Goal Plan of Care Note [code = 26133-0] Goal Plan of Care Note [code = 33789-1] Goal Plan of Care Note [code = 48136-1] Goal Plan of Care Note [code = 77742-1] Goal Plan of Care Note [code = 34433-2] Goal Plan of Care Note [code = 70536-9] Goal Plan of Care Note [code = 93779-9] Goal Plan of Care Note [code = 99918-9] Goal Plan of Care Note [code = 80466-0] Goal Plan of Care Note [code = 00441-5] Goal Plan of Care Note [code = 16950-9] Goal Plan of Care Note [code = 02968-0] Goal Plan of Care Note [code = 42738-9] Goal Plan of Care Note [code = 23744-9] Goal Plan of Care Note [code = 08963-4] Goal Plan of Care Note [code = 31066-8] Goal Plan of Care Note [code = 26406-1] Goal Plan of Care Note [code = 80652-9] Goal Plan of Care Note [code = 43551-7] Goal Plan of Care Note [code = 78834-7] Goal Plan of Care Note [code = 92541-0] Goal Plan of Care Note [code = 64960-7] Goal Plan of Care Note [code = 88768-5] Goal Plan of Care Note [code = 82726-9] Goal Plan of Care Note [code = 98944-3] Goal Plan of Care Note [code = 83953-5] Goal Plan of Care Note [code = 98414-7] Goal Plan of Care Note [code = 03990-0] Goal Plan of Care Note [code = 87820-5] Goal Plan of Care Note [code = 60435-1] Goal Plan of Care Note [code = 82380-6] Goal Plan of Care Note [code = 66071-1] Goal Plan of Care Note [code = 82980-9] Goal Plan of Care Note [code = 80022-3] Goal Plan of Care Note [code = 47936-6] Goal Plan of Care Note [code = 78550-8] Goal Plan of Care Note [code = 02541-3] Goal Plan of Care Note [code = 76433-6] Goal Plan of Care Note [code = 75646-7] Goal Plan of Care Note [code = 22931-1] Goal Plan of Care Note [code = 54172-1] Goal Plan of Care Note [code = 37139-0] Goal Plan of Care Note [code = 72827-8] Goal Plan of Care Note [code = 78849-4] Goal Plan of Care Note [code = 08740-6] Goal Plan of Care Note [code = 77910-7] Goal Plan of Care Note [code = 72403-2] Goal Plan of Care Note [code = 70702-3] Goal Plan of Care Note [code = 90501-9] Goal Plan of Care Note [code = 00751-1] Goal Plan of Care Note [code = 05460-1] Goal Plan of Care Note [code = 13744-0] Goal Plan of Care Note [code = 26133-6] Goal Plan of Care Note [code = 84107-2] Goal Plan of Care Note [code = 75637-2] Goal Plan of Care Note [code = 07149-5] Goal Plan of Care Note [code = 14691-0] Goal Plan of Care Note [code = 02528-2] Goal Plan of Care Note [code = 95777-0] Goal Plan of Care Note [code = 89023-3] Goal Plan of Care Note [code = 52195-5] Goal Plan of Care Note [code = 93773-1] Goal Plan of Care Note [code = 41511-5] Goal Plan of Care Note [code = 74302-1] Goal Plan of Care Note [code = 60756-2] Goal Plan of Care Note [code = 61902-9] Goal Plan of Care Note [code = 82214-0] Goal Plan of Care Note [code = 49595-4] Goal Plan of Care Note [code = 45098-5] Goal Plan of Care Note [code = 81182-1] Goal Plan of Care Note [code = 92093-5] Encounters Start End Encounter Admission Attending Care Care Encounter Source Date/Time Date/Time Type Type [facility] Facility Department ID 2022-09-30 2022-09-30 Outpatient SFA ISIAH [id number] Mark 09:00:38 09:00:38 F Sanedr 2022-09-21 2022-09-21 Outpatient ISIAH SFA [id number] Mark 15:14:10 15:14:10 F Sander 2022-09-21 2022-09-21 Outpatient [id number] 00:00:00 00:00:00 Visit [id number] -[id number] 2022-08-29 2022-08-29 Outpatient [id number] 00:00:00 00:00:00 Visit e20g-80t2 37e-41c2-8 -1v01-26s v00-38p985 [id number] [id number] 2022-08-06 2022-08-06 Outpatient [id number] 00:00:00 00:00:00 Visit 7i68-22lb v27-73ck-1 -5g3r-0q2 z0p-2e22s3 4b96c4s86 9f5f92 2022-06-13 2022-06-13 Outpatient [id number] 00:00:00 00:00:00 Visit g95u-23u1 39f-42e8-8 -9k02-c43 [id number] 2021-10-16 Office CHENG DREW [facility] [id number] [facility] 12:48:39 13:07:36 Visit AMBULATOR 350.1.13.21 College Y 0.2.7.2.686 [id number] Medi luly 300 e 2021-10-16 2021-10-16 Outpatient ANA HAND [facility] [id number] SLE 00:00:00 00:00:00 YANELY 2021-10-16 2021-10-16 Outside Betina [facility] [id number] [facility] St 00:00:00 00:00:00 Orders [facility] 2021-09-19 2021-09-19 Outpatient BETINA, [facility] [id number] [facility] 09:53:32 10:57:02 YANELY clark of Medicin e 2021-09-13 2021-09-13 Outpatient ANA ALEMAN [facility] [id number] [facility] 14:32:50 14:32:50 RODGER 2021-09-13 2021-09-13 Linda Cardoso [facility] [id number] 13:30:00 13:45:[address] [facility] 2021-09-13 2021-09-13 Outpatient EL ANA CARDOSO [facility] [id number] [facility] 00:00:00 00:00:00 [facility] 2021-09-13 2021-09-13 Outpatient ANA CARDOSO [facility] [id number] [facility] 00:00:00 00:00:00 [facility] 2021-09-13 2021-09-13 Telephone Walker [facility] [id number] 00:00:00 00:00:00 [facility] 2021-09-01 2021-09-05 Hospital ER Stone Cool [facility] [id number] [facility] [address] 02:59:00 14:20:00 [facility] 2021-09-01 2021-09-05 Inpatient ER ANNELISE, [facility] Surgery [id number] SLE 02:59:00 14:20:00 [facility] 2021-09-05 2021-09-05 Telephone Annelise, [facility] [id number] 00:00:00 00:00:00 [facility] 2021-09-03 2021-09-03 Anesthesia Johnathon [facility] [id number] [facility] 08:41:00 12:40:00 Event [facility] 2021-09-03 2021-09-03 Surgery [place] [facility] [id number] [facility] 08:30:00 11:41:00 B [facility] 2021-09-02 2021-09-02 Outpatient [facility] [id number] [facility] 00:00:00 23:59:00 Claribel 2021-09-02 2021-09-02 Orders [facility] [id number] 00:00:00 00:00:00 Only [facility] 2021-09-01 2021-09-01 Travel [facility] [id number] [facility] 00:00:00 00:00:00 [facility] Results Test Description Test Time Test Comments Results Result Comments Source CULTURE, URINE 2022-08-09 SPECIMEN NUMBER: 12:51:12 [id number] CULTURE, URINE SPECIMEN NUMBER: [id number] SOURCE: URINE REPORT STATUS: FINAL ISOLATE NUMBER 1: ORGANISM: 08/08/2022 >100,000 CFU/ML GRAM NEGATIVE BACILLI IDENTIFICATION: 08/09/2022 ESCHERICHIA COLI E. COLI AMOX ICILLIN/CA SENSITIVE <=8/4AMPICILLIN SENSITIVE <=8CEFAZOLIN SENSITIVE <=2CEFTRIAXONE SENSITIVE <=1CIPROFLOXACIN SENSITIVE <=1LEVOFLOXACIN SENSITIVE <=2NITROFURANTOIN SENSITIVE <=32PIP/TAZOBAC SENSITIVE <=16TETRACYCLINE RESISTANT >8TOBRAMYCIN SENSITIVE <=4TRIMETH/SULFA SENSITIVE <=2/38 NOTE: NUMBERS DISPLAYED REPRESENT MINIMUM INHIBITORY CONCENTRATION (FELICITY) WHICH IS EXPRESSED IN MCG/ML. UNLESS OTHERWISE INDICATED, ALL TESTING [facility] [address] [place] [address] SALES AND MARKETING ENGINEER: KALPANA MANCINI M.D. CLIA NUMBER [id number] [facility] [place]. [id number] CULTURE, URINE 2022-08-09 00:00:00 Test Item Value Reference Range Interpretation Comme nts CULTURE, URINE (test code = 59468) SPECIMEN NUMBER: [id number] CULTURE, [id number] 00:00:00 Test Item Value Reference Range Interpretation Comments CULTURE, URINE (test SPECIMEN NUMBER: code = 43360) [id number] CULTURE, [id number] 00:00:00 Test Item Value Reference Range Interpretation Comments CULTURE, URINE (test SPECIMEN NUMBER: code = 82474) [id number] CULTURE, [id number] 00:00:00 Test Item Value Reference Range Interpretation Comments CULTURE, URINE (test SPECIMEN NUMBER: code = 60172) [id number] SCR MAMM BILATERAL MARCO CAD [id number] 08:29:25 Name: May: 1975 Sex: F - SCR MAMM BILATERAL MARCO CAD DIGITALBILATERAL DIGITAL SCREENING MAMMOGRAM 3D/2D WITH CAD: 04/26/2022LINICAL: Asymptomatic. Digital breast tomosynthesis was performed in addition to routine CC and MLO views. Current mammographic images were evaluated by [employer] CAD (computer-aided detection) software. No prior exams were available for comparison. The tissue of both breasts is heterogeneously dense. This may lower the sensitivity of mammography. No suspicious mass, architectural distortion, malignant type calcification, or lymph node abnormality detected. IMPRESSION: NEGATIVEThere is no mammographic evidence of malignancy. Resumeannual screening mammography in one year. Lam Carranza M.D. et/penrad:05/01/2022 08:29:25 Commercial Property Manager: Steph Oliver MM, [facility] Mammographyletter sent: BIRADS 1-2 Normal Mammogram BI-RADS: 1 NegativeFREE T4 (THYROXINE)2022-03-28 06:06:32 Test Item Value Reference Range Interpretation Comments FREE T4 1.21 NG/DL 0.80-1.90 UNLESS OTHERWI SE (THYROXINE) (test INDICATED, ALL TESTING code = 2823) PERFORMED [facility] [address] [place] [id number] [place] [address] DIRECTOR: KALPANA MANCINI M.D. CLIA NUMBER [id number] [facility] ACCREDITATION N O. [id number] FREE T4 (THYROXINE)2022-03-28 00:00:00 Test Item Value Reference Range Interpretation Comments FREE T4 (THYROXINE) (test code = 1.21 NG/DL 2823) FREE T4 (THYROXINE)2022-03-28 00:00:00 Test Item Value Reference Range Interpretation Comments FREE T4 (THYROXINE) (test code = 1.21 NG/DL 2823) FREE T4 (THYROXINE)2022-03-28 00:00:00 Test Item Value Reference Range Interpretation Comments FREE T4 (THYROXINE) (test code = 1.21 NG/DL 2823) FREE T4 (THYROXINE)2022-03-28 00:00:00 Test Item Value Reference Range Interpretation Comments FREE T4 (THYROXINE) (test code = 1.21 NG/DL 2823) FREE T4 (THYROXINE)2022-03-28 00:00:00 Test Item Value Reference Range Interpretation Comments FREE T4 (THYROXINE) (test code = 1.21 NG/DL 2823) FREE T4 (THYROXINE)2022-03-28 00:00:00 Test Item Value Reference Range Interpretation Comments FREE T4 (THYROXINE) (test code = 1.21 NG/DL 2823) FREE T4 (THYROXINE)2022-03-28 00:00:00 Test Item Value Reference Range Interpretation Comments FREE T4 (THYROXINE) (test code = 1.21 NG/DL 2823) FREE T4 (THYROXINE)2022-03-28 00:00:00 Test Item Value Reference Range Interpretation Comments FREE T4 (THYROXINE) (test code = 1.21 NG/DL 2823) FREE T4 (THYROXINE)2022-03-28 00:00:00 Test Item Value Reference Range Interpretation Comments FREE T4 (THYROXINE) (test code = 1.21 NG/DL 2823) FREE T4 (THYROXINE)2022-03-28 00:00:00 Test Item Value Reference Range Interpretation Comments FREE T4 (THYROXINE) (test code = 1.21 NG/DL 2823) FREE T4 (THYROXINE)2022-03-28 00:00:00 Test Item Value Reference Range Interpretation Comments FREE T4 (THYROXINE) (test code = 1.21 NG/DL 2823) TSH, THIRD [id number] 06:51:22 Test Item Value Reference Range Interpretation Comments TSH, THIRD 6.760 UIU/ML 0.400-4.100 H UNLESS OTHERWI SE GENERATION (test INDICATED, ALL TESTING code = 2821) PERFORMED [facility], [address] [address] [facility] DIRECTOR: KALPANA MANCINI M.D. CLIA NUMBER [id number] CAP ACCREDITATION N O. [id number] HEMOGLOBIN [id number] 06:41:31 Test Item Value Reference Range Interpretation Comments HEMOGLOBIN A1c (test code = 08961) 5.3 % 4.2-5.6 LIPID [id number] 05:03:16 Test Item Value Reference Range Interpretation Comments CHOLESTEROL (test 242 MG/DL <200 H code = 2210) TRIGLYCERIDES (test 153 MG/DL <150 H code = 2232) HDL CHOLESTEROL (test 56 MG/DL >39 code = 2220) CALC LDL CHOL (test 158 MG/DL <100 H NOTE: C ALCULATED LDL code = 2237) IS BASED ON SAM-ROBLEDO METHOD WHICHINCLUDES ADJUSTABLE TRIGLYCERIDE:VL DL CHOLESTEROL RAT IO.THIS FACTOR VARIES B Y MEASURED TRIGLY CERIDE AND NON-HDLCHOL ESTEROL CONCENTRATIONS WITH INCREASED CALCU LATED LDL SEENIN HIGH ER TRIGLYCERIDE OR LOWER NON-HDL SPECIME NS. FOR MOREINFORMATION , SEE CLIENT ANNOUNCE MENT AT [email or web address] RISK RATIO LDL/HDL 2.82 RATIO <3.22 (test code = 2238) COMPREHENSIVE METABOLIC [id number] 05:03:16 Test Item Value Reference Range Interpretation Comments GLUCOSE (test code = 96 MG/DL 70-99 2216) BUN (test code = 18 MG/DL 6-20 2207) CREATININE (test 0.79 MG/DL 0.60-1.30 code = 2214) eGFR (2020 CKD-EPI) 92 ML/MIN/1.73 >60 (test code = 27888) CALC BUN/CREAT (test 23 RATIO 6-28 code = 2235) SODIUM (test code = 143 MEQ/L 476-037 1968) POTASSIUM (test code 5.1 MEQ/L 3.5-5.4 = 2227) CHLORIDE (test code 104 MEQ/L 95-107 = 221) CARBON DIOXIDE (test 22 MEQ/L 19-31 code = 2206) CALCIUM (test code = 10.8 MG/DL 8.5-10.5 H 2208) PROTEIN, TOTAL (test 7.6 G/DL 6.1-8.3 code = 222) ALBUMIN (test code = 4.7 G/DL 3.5-5.2 2200) CALC GLOBULIN (test 2.9 G/DL 1.9-3.7 code = 2240) CALC A/G RATIO (test 1.6 RATIO 1.0-2.6 code = 2234) BILIRUBIN, TOTAL 0.3 MG/DL See_Comment [Automated message] (test code = 2207) The syste m which generated this result transmit cosme reference range : <=1.2. The refe rence range was not u sed to interpret th is result as normal/abnormal . ALKALINE PHOSPHATASE 105 U/L 40-123 (test code = 2204) AST (test code = 18 U/L 9-40 2217) ALT (test code = 20 U/L 5-40 2218) HEMOGLOBIN [id number] 00:00:00 Test Item Value Reference Range Interpretation Comments HEMOGLOBIN A1c (test code = 05570) 5.3 % HEMOGLOBIN [id number] 00:00:00 Test Item Value Reference Range Interpretation Comments HEMOGLOBIN A1c (test code = 13364) 5.3 % HEMOGLOBIN [id number] 00:00:00 Test Item Value Reference Range Interpretation Comments HEMOGLOBIN A1c (test code = 84319) 5.3 % LIPID [id number] 00:00:00 Test Item Value Reference Range Interpretation Comments CHOLESTEROL (test code = 2210) 242 MG/DL TRIGLYCERIDES (test code = 2232) 153 MG/DL HDL CHOLESTEROL (test code = 2220) 56 MG/DL CALC LDL CHOL (test code = 2237) 158 MG/DL RISK RATIO LDL/HDL (test code = 2.82 RATIO 2238) LIPID [id number] 00:00:00 Test Item Value Reference Range Interpretation Comments CHOLESTEROL (test code = 2210) 242 MG/DL TRIGLYCERIDES (test code = 2232) 153 MG/DL HDL CHOLESTEROL (test code = 2220) 56 MG/DL CALC LDL CHOL (test code = 2237) 158 MG/DL RISK RATIO LDL/HDL (test code = 2.82 RATIO 2238) COMPREHENSIVE METABOLIC [id number] 00:00:00 Test Item Value Reference Range Interpretation Comments GLUCOSE (test code = 2217) 96 MG/DL BUN (test code = 8) 18 MG/DL CREATININE (test code = 2214) 0.79 MG/DL eGFR (2020 CKD-EPI) (test code 92 ML/MIN/1.73 = 27685) CALC BUN/CREAT (test code = 23 RATIO 2235) SODIUM (test code = 2231) 143 MEQ/L POTASSIUM (test code = 2228) 5.1 MEQ/L CHLORIDE (test code = 2215) 104 MEQ/L CARBON DIOXIDE (test code = 22 MEQ/L 2206) CALCIUM (test code = 2209) 10.8 MG/DL PROTEIN, TOTAL (test code = 7.6 G/DL 2229) ALBUMIN (test code = 2201) 4.7 G/DL CALC GLOBULIN (test code = 2.9 G/DL 2240) CALC A/G RATIO (test code = 1.6 RATIO 2234) BILIRUBIN, TOTAL (test code = 0.3 MG/DL 220) ALKALINE PHOSPHATASE (test 105 U/L code = 2204) AST (test code = 2218) 18 U/L ALT (test code = 2219) 20 U/L COMPREHENSIVE METABOLIC [id number] 00:00:00 Test Item Value Reference Range Interpretation Comments GLUCOSE (test code = 2217) 96 MG/DL BUN (test code = 2208) 18 MG/DL CREATININE (test code = 2214) 0.79 MG/DL eGFR (2020 CKD-EPI) (test code 92 ML/MIN/1.73 = 77750) CALC BUN/CREAT (test code = 23 RATIO 2235) SODIUM (test code = 2231) 143 MEQ/L POTASSIUM (test code = 2228) 5.1 MEQ/L CHLORIDE (test code = 2215) 104 MEQ/L CARBON DIOXIDE (test code = 22 MEQ/L 6) CALCIUM (test code = 2209) 10.8 MG/DL PROTEIN, TOTAL (test code = 7.6 G/DL 2228) ALBUMIN (test code = 2201) 4.7 G/DL CALC GLOBULIN (test code = 2.9 G/DL 2240) CALC A/G RATIO (test code = 1.6 RATIO 2234) BILIRUBIN, TOTAL (test code = 0.3 MG/DL 7) ALKALINE PHOSPHATASE (test 105 U/L code = 2204) AST (test code = 2218) 18 U/L ALT (test code = 2219) 20 U/L [id number] 00:00:00 Test Item Value Reference Range Interpretation Comments TSH, THIRD GENERATION (test code 6.760 UIU/ML = 2821) [id number] 00:00:00 Test Item Value Reference Range Interpretation Comments TSH, THIRD GENERATION (test code 6.760 UIU/ML = 2821) [id number] 00:00:00 Test Item Value Reference Range Interpretation Comments TSH, THIRD GENERATION (test code 6.760 UIU/ML = 2821) HEMOGLOBIN [id number] 00:00:00 Test Item Value Reference Range Interpretation Comments HEMOGLOBIN A1c (test code = 47073) 5.3 % HEMOGLOBIN [id number] 00:00:00 Test Item Value Reference Range Interpretation Comments HEMOGLOBIN A1c (test code = 56275) 5.3 % HEMOGLOBIN [id number] 00:00:00 Test Item Value Reference Range Interpretation Comments HEMOGLOBIN A1c (test code = 98807) 5.3 % LIPID [id number] 00:00:00 Test Item Value Reference Range Interpretation Comments CHOLESTEROL (test code = 2210) 242 MG/DL TRIGLYCERIDES (test code = 2232) 153 MG/DL HDL CHOLESTEROL (test code = 2220) 56 MG/DL CALC LDL CHOL (test code = 2237) 158 MG/DL RISK RATIO LDL/HDL (test code = 2.82 RATIO 2238) LIPID [id number] 00:00:00 Test Item Value Reference Range Interpretation Comments CHOLESTEROL (test code = 2210) 242 MG/DL TRIGLYCERIDES (test code = 2232) 153 MG/DL HDL CHOLESTEROL (test code = 2220) 56 MG/DL CALC LDL CHOL (test code = 2237) 158 MG/DL RISK RATIO LDL/HDL (test code = 2.82 RATIO 2238) COMPREHENSIVE METABOLIC [id number] 00:00:00 Test Item Value Reference Range Interpretation Comments GLUCOSE (test code = 2217) 96 MG/DL BUN (test code = 2208) 18 MG/DL CREATININE (test code = 2214) 0.79 MG/DL eGFR (2020 CKD-EPI) (test code 92 ML/MIN/1.73 = 61758) CALC BUN/CREAT (test code = 23 RATIO 2235) SODIUM (test code = 2231) 143 MEQ/L POTASSIUM (test code = 2228) 5.1 MEQ/L CHLORIDE (test code = 2215) 104 MEQ/L CARBON DIOXIDE (test code = 22 MEQ/L 2205) CALCIUM (test code = 2209) 10.8 MG/DL PROTEIN, TOTAL (test code = 7.6 G/DL 2228) ALBUMIN (test code = 2201) 4.7 G/DL CALC GLOBULIN (test code = 2.9 G/DL 2240) CALC A/G RATIO (test code = 1.6 RATIO 2234) BILIRUBIN, TOTAL (test code = 0.3 MG/DL 2206) ALKALINE PHOSPHATASE (test 105 U/L code = 2204) AST (test code = 2218) 18 U/L ALT (test code = 2219) 20 U/L COMPREHENSIVE METABOLIC [id number] 00:00:00 Test Item Value Reference Range Interpretation Comments GLUCOSE (test code = 2217) 96 MG/DL BUN (test code = 2208) 18 MG/DL CREATININE (test code = 2214) 0.79 MG/DL eGFR (2020 CKD-EPI) (test code 92 ML/MIN/1.73 = 36235) CALC BUN/CREAT (test code = 23 RATIO 2235) SODIUM (test code = 2231) 143 MEQ/L POTASSIUM (test code = 2228) 5.1 MEQ/L CHLORIDE (test code = 2215) 104 MEQ/L CARBON DIOXIDE (test code = 22 MEQ/L 2205) CALCIUM (test code = 2209) 10.8 MG/DL PROTEIN, TOTAL (test code = 7.6 G/DL 2228) ALBUMIN (test code = 2201) 4.7 G/DL CALC GLOBULIN (test code = 2.9 G/DL 2240) CALC A/G RATIO (test code = 1.6 RATIO 2234) BILIRUBIN, TOTAL (test code = 0.3 MG/DL 7) ALKALINE PHOSPHATASE (test 105 U/L code = 2204) AST (test code = 2218) 18 U/L ALT (test code = 2219) 20 U/L [id number] 00:00:00 Test Item Value Reference Range Interpretation Comments TSH, THIRD GENERATION (test code 6.760 UIU/ML = 2821) [id number] 00:00:00 Test Item Value Reference Range Interpretation Comments TSH, THIRD GENERATION (test code 6.760 UIU/ML = 2821) [id number] 00:00:00 Test Item Value Reference Range Interpretation Comments TSH, THIRD GENERATION (test code 6.760 UIU/ML = 2821) HEMOGLOBIN [id number] 00:00:00 Test Item Value Reference Range Interpretation Comments HEMOGLOBIN A1c (test code = 64155) 5.3 % HEMOGLOBIN [id number] 00:00:00 Test Item Value Reference Range Interpretation Comments HEMOGLOBIN A1c (test code = 34309) 5.3 % HEMOGLOBIN [id number] 00:00:00 Test Item Value Reference Range Interpretation Comments HEMOGLOBIN A1c (test code = 59150) 5.3 % LIPID [id number] 00:00:00 Test Item Value Reference Range Interpretation Comments CHOLESTEROL (test code = 2210) 242 MG/DL TRIGLYCERIDES (test code = 2232) 153 MG/DL HDL CHOLESTEROL (test code = 2220) 56 MG/DL CALC LDL CHOL (test code = 2237) 158 MG/DL RISK RATIO LDL/HDL (test code = 2.82 RATIO 2238) LIPID [id number] 00:00:00 Test Item Value Reference Range Interpretation Comments CHOLESTEROL (test code = 2210) 242 MG/DL TRIGLYCERIDES (test code = 2232) 153 MG/DL HDL CHOLESTEROL (test code = 2220) 56 MG/DL CALC LDL CHOL (test code = 2237) 158 MG/DL RISK RATIO LDL/HDL (test code = 2.82 RATIO 2238) COMPREHENSIVE METABOLIC [id number] 00:00:00 Test Item Value Reference Range Interpretation Comments GLUCOSE (test code = 2217) 96 MG/DL BUN (test code = 2208) 18 MG/DL CREATININE (test code = 2214) 0.79 MG/DL eGFR (2020 CKD-EPI) (test code 92 ML/MIN/1.73 = 74088) CALC BUN/CREAT (test code = 23 RATIO 2235) SODIUM (test code = 2231) 143 MEQ/L POTASSIUM (test code = 2228) 5.1 MEQ/L CHLORIDE (test code = 2215) 104 MEQ/L CARBON DIOXIDE (test code = 22 MEQ/L 2205) CALCIUM (test code = 2209) 10.8 MG/DL PROTEIN, TOTAL (test code = 7.6 G/DL 2228) ALBUMIN (test code = 220) 4.7 G/DL CALC GLOBULIN (test code = 2.9 G/DL 2239) CALC A/G RATIO (test code = 1.6 RATIO 2234) BILIRUBIN, TOTAL (test code = 0.3 MG/DL 2206) ALKALINE PHOSPHATASE (test 105 U/L code = 2204) AST (test code = 2218) 18 U/L ALT (test code = 2219) 20 U/L COMPREHENSIVE METABOLIC [id number] 00:00:00 Test Item Value Reference Range Interpretation Comments GLUCOSE (test code = 2217) 96 MG/DL BUN (test code = 2208) 18 MG/DL CREATININE (test code = 2214) 0.79 MG/DL eGFR (2020 CKD-EPI) (test code 92 ML/MIN/1.73 = 57759) CALC BUN/CREAT (test code = 23 RATIO 2235) SODIUM (test code = 2231) 143 MEQ/L POTASSIUM (test code = 2228) 5.1 MEQ/L CHLORIDE (test code = 2215) 104 MEQ/L CARBON DIOXIDE (test code = 22 MEQ/L 2205) CALCIUM (test code = 2209) 10.8 MG/DL PROTEIN, TOTAL (test code = 7.6 G/DL 2228) ALBUMIN (test code = 2201) 4.7 G/DL CALC GLOBULIN (test code = 2.9 G/DL 2239) CALC A/G RATIO (test code = 1.6 RATIO 4) BILIRUBIN, TOTAL (test code = 0.3 MG/DL 2206) ALKALINE PHOSPHATASE (test 105 U/L code = 2204) AST (test code = 2218) 18 U/L ALT (test code = 2219) 20 U/L [id number] 00:00:00 Test Item Value Reference Range Interpretation Comments TSH, THIRD GENERATION (test code 6.760 UIU/ML = 2821) [id number] 00:00:00 Test Item Value Reference Range Interpretation Comments TSH, THIRD GENERATION (test code 6.760 UIU/ML = 2821) [id number] 00:00:00 Test Item Value Reference Range Interpretation Comments TSH, THIRD GENERATION (test code 6.760 UIU/ML = 2821) HEMOGLOBIN [id number] 00:00:00 Test Item Value Reference Range Interpretation Comments HEMOGLOBIN A1c (test code = 90928) 5.3 % HEMOGLOBIN [id number] 00:00:00 Test Item Value Reference Range Interpretation Comments HEMOGLOBIN A1c (test code = 24482) 5.3 % LIPID [id number] 00:00:00 Test Item Value Reference Range Interpretation Comments CHOLESTEROL (test code = 2210) 242 MG/DL TRIGLYCERIDES (test code = 2232) 153 MG/DL HDL CHOLESTEROL (test code = 2220) 56 MG/DL CALC LDL CHOL (test code = 2237) 158 MG/DL RISK RATIO LDL/HDL (test code = 2.82 RATIO 2238) COMPREHENSIVE METABOLIC [id number] 00:00:00 Test Item Value Reference Range Interpretation Comments GLUCOSE (test code = 2217) 96 MG/DL BUN (test code = 2208) 18 MG/DL CREATININE (test code = 2214) 0.79 MG/DL eGFR (2020 CKD-EPI) (test code 92 ML/MIN/1.73 = 51636) CALC BUN/CREAT (test code = 23 RATIO 2235) SODIUM (test code = 2231) 143 MEQ/L POTASSIUM (test code = 2228) 5.1 MEQ/L CHLORIDE (test code = 2215) 104 MEQ/L CARBON DIOXIDE (test code = 22 MEQ/L 2205) CALCIUM (test code = 2209) 10.8 MG/DL PROTEIN, TOTAL (test code = 7.6 G/DL 2228) ALBUMIN (test code = 2201) 4.7 G/DL CALC GLOBULIN (test code = 2.9 G/DL 2239) CALC A/G RATIO (test code = 1.6 RATIO 2233) BILIRUBIN, TOTAL (test code = 0.3 MG/DL 2206) ALKALINE PHOSPHATASE (test 105 U/L code = 2204) AST (test code = 2218) 18 U/L ALT (test code = 2219) 20 U/L [id number] 00:00:00 Test Item Value Reference Range Interpretation Comments TSH, THIRD GENERATION (test code 6.760 UIU/ML = 2821) [id number] 00:00:00 Test Item Value Reference Range Interpretation Comments TSH, THIRD GENERATION (test code 6.760 UIU/ML = 2821) PAP TEST, THINPREP, [id number] 13:50:57 Test Item Value Reference Range Interpretation Comments SOURCE: (test Cervical/Endo code = 8001) cervical SLIDES: (test 1 code = 8011) LMP: (test code = 08/2021 8021) SPECIMEN (NOTE) Satisfactory f or ADEQUACY: (test evaluation. Endocervical code = 13866) cells/transfor mation zone component present. INTERPRETATION: NILM/NO (test code = EPITH. --------- 81766) ABNORMALITY;S -------- EE BELOW NEGATIVE FO R INTRAEPITHELIAL LESION OR MALIGNANCY ( NILM) --------- --------- --------- - OTHER COMMENTS: (NOTE) Shift in triston ra (test code = suggestive of b acterial 8081) vaginosis. MICROARRAY SPECIALIST: Yasemin (test code = SABRINA Kim( 8101) CP) LOCATION: (test (NOTE) Specimens pr ocessed and code = 81444) interpreted at [facility], [address] [place] [id number], , CLIA: [id number] CPT: (test code = (NOTE) 09321 UNL ESS OTHERWISE 8140) INDICATED, COMP UTER AIDED AND CYTOTECHNOLOGIS T SCREENING PERFO RMED. The Pap test is a s creening test with an in herent, but low probabi lity of error. Your pat ient should be remin ded to consult you imm ediately if she experien jori any suspicious sign s or symptoms, regar dless of her Pap test re sult. An alternate repor t format containing imag es or consolidated pr ior Pap history is avai labne as applicable. CT/NG, TMA, [id number] 09:32:14 Test Item Value Reference Range Interpretation Comments GONORRHEA, TMA NEGATIVE NEGATIVE Assay method ology is (test code = nucleic acid am plification 52198) by transcriptio n mediated amplification ( TMA) utilizing the A ptima Combo 2 Assay. CHLAMYDIA, TMA NEGATIVE NEGATIVE Assay method ology is (test code = nucleic acid am plification 12900) by transcriptio n mediated amplification ( TMA) utilizing the A ptQloud Combo 2 Assay. GC AND CHLAMYDIA AMPLIFIED, [id number] 00:00:00 Test Item Value Reference Range Interpretation Comments GONORRHEA, TMA (test code = 22917) NEGATIVE CHLAMYDIA, TMA (test code = 58679) NEGATIVE GC AND CHLAMYDIA AMPLIFIED, [id number] 00:00:00 Test Item Value Reference Range Interpretation Comments GONORRHEA, TMA (test code = 05903) NEGATIVE CHLAMYDIA, TMA (test code = 85068) NEGATIVE PAP TEST, THINPREP, [id number] 00:00:00 Test Item Value Reference Range Interpretation Comments SOURCE: (test code = Cervical/Endocervical 8001) SLIDES: (test code = 1 8011) LMP: (test code = 8021) 08/2021 SPECIMEN ADEQUACY: (test (NOTE) code = 00680) INTERPRETATION: (test NILM/NO EPITH. code = 42171) ABNORMALITY;SEE BELOW OTHER COMMENTS: (test (NOTE) code = 8081) MICROARRAY SPECIALIST: (test Yasemin code = 8101) SABRINA Kim(ASCP) LOCATION: (test code = (NOTE) 06506) CPT: (test code = 8140) (NOTE) PAP TEST, THINPREP, [id number] 00:00:00 Test Item Value Reference Range Interpretation Comments SOURCE: (test code = Cervical/Endocervical 8001) SLIDES: (test code = 1 8011) LMP: (test code = 8021) 08/2021 SPECIMEN ADEQUACY: (test (NOTE) code = 14599) INTERPRETATION: (test NILM/NO EPITH. code = 73661) ABNORMALITY;SEE BELOW OTHER COMMENTS: (test (NOTE) code = 8081) MICROARRAY SPECIALIST: (test Yasemin code = 8101) SABRINA Kim(ASCP) LOCATION: (test code = (NOTE) 43256) CPT: (test code = 8140) (NOTE) GC AND CHLAMYDIA AMPLIFIED, [id number] 00:00:00 Test Item Value Reference Range Interpretation Comments GONORRHEA, TMA (test code = 76224) NEGATIVE CHLAMYDIA, TMA (test code = 28594) NEGATIVE GC AND CHLAMYDIA AMPLIFIED, [id number] 00:00:00 Test Item Value Reference Range Interpretation Comments GONORRHEA, TMA (test code = 08879) NEGATIVE CHLAMYDIA, TMA (test code = 45710) NEGATIVE PAP TEST, THINPREP, [id number] 00:00:00 Test Item Value Reference Range Interpretation Comments SOURCE: (test code = Cervical/Endocervical 8001) SLIDES: (test code = 1 8011) LMP: (test code = 8021) 08/2021 SPECIMEN ADEQUACY: (test (NOTE) code = 87214) INTERPRETATION: (test NILM/NO EPITH. code = 43976) ABNORMALITY;SEE BELOW OTHER COMMENTS: (test (NOTE) code = 8081) MICROARRAY SPECIALIST: (test Yasemin code = 8101) SABRINA Kim(ASCP) LOCATION: (test code = (NOTE) 10343) CPT: (test code = 8140) (NOTE) PAP TEST, THINPREP, [id number] 00:00:00 Test Item Value Reference Range Interpretation Comments SOURCE: (test code = Cervical/Endocervical 8001) SLIDES: (test code = 1 8011) LMP: (test code = 8021) 08/2021 SPECIMEN ADEQUACY: (test (NOTE) code = 22885) INTERPRETATION: (test NILM/NO EPITH. code = 46735) ABNORMALITY;SEE BELOW OTHER COMMENTS: (test (NOTE) code = 8081) MICROARRAY SPECIALIST: (test Yasemin code = 8101) SABRINA Kim(ASCP) LOCATION: (test code = (NOTE) 61887) CPT: (test code = 8140) (NOTE) GC AND CHLAMYDIA AMPLIFIED, [id number] 00:00:00 Test Item Value Reference Range Interpretation Comments GONORRHEA, TMA (test code = 15482) NEGATIVE CHLAMYDIA, TMA (test code = 68592) NEGATIVE GC AND CHLAMYDIA AMPLIFIED, [id number] 00:00:00 Test Item Value Reference Range Interpretation Comments GONORRHEA, TMA (test code = 78901) NEGATIVE CHLAMYDIA, TMA (test code = 64197) NEGATIVE PAP TEST, THINPREP, [id number] 00:00:00 Test Item Value Reference Range Interpretation Comments SOURCE: (test code = Cervical/Endocervical 8001) SLIDES: (test code = 1 8011) LMP: (test code = 8021) 08/2021 SPECIMEN ADEQUACY: (test (NOTE) code = 24188) INTERPRETATION: (test NILM/NO EPITH. code = 91973) ABNORMALITY;SEE BELOW OTHER COMMENTS: (test (NOTE) code = 8081) MICROARRAY SPECIALIST: (test Ysaemin code = 8101) SABRINA Kim(ASCP) LOCATION: (test code = (NOTE) 75600) CPT: (test code = 8140) (NOTE) PAP TEST, THINPREP, [id number] 00:00:00 Test Item Value Reference Range Interpretation Comments SOURCE: (test code = Cervical/Endocervical 8001) SLIDES: (test code = 1 8011) LMP: (test code = 8021) 08/2021 SPECIMEN ADEQUACY: (test (NOTE) code = 76570) INTERPRETATION: (test NILM/NO EPITH. code = 73132) ABNORMALITY;SEE BELOW OTHER COMMENTS: (test (NOTE) code = 8081) MICROARRAY SPECIALIST: (test Yasemin code = 8101) SABRINA Kim(ASCP) LOCATION: (test code = (NOTE) 10373) CPT: (test code = 8140) (NOTE) GC AND CHLAMYDIA AMPLIFIED, [id number] 00:00:00 Test Item Value Reference Range Interpretation Comments GONORRHEA, TMA (test code = 35406) NEGATIVE CHLAMYDIA, TMA (test code = 65264) NEGATIVE PAP TEST, THINPREP, [id number] 00:00:00 Test Item Value Reference Range Interpretation Comments SOURCE: (test code = Cervical/Endocervical 8001) SLIDES: (test code = 1 8011) LMP: (test code = 8021) 08/2021 SPECIMEN ADEQUACY: (test (NOTE) code = 28289) INTERPRETATION: (test NILM/NO EPITH. code = 08018) ABNORMALITY;SEE BELOW OTHER COMMENTS: (test (NOTE) code = 8081) MICROARRAY SPECIALIST: (test Yasemin code = 8101) SABRINA Kim(ASCP) LOCATION: (test code = (NOTE) 83165) CPT: (test code = 8140) (NOTE) HPV HIGH RISK WITH GENOTYPE, [id number] 16:22:42 Test Item Value Reference Range Interpretation Comments HPV HIGH RISK INTERP NEGATIVE NEGATIVE (test code = 39061) HPV 16 (test code = NEGATIVE 23083) HPV 18 (test code = NEGATIVE 25148) HPV, HR, OTHER NEGATIVE Testing meth odology is GENOTYPES (test code real-ti me PCR utilizing = 42444) hydrolysis prob es with the [employer] 4800 system. The isaac t individually de tects genotypes 16 an d 18, as well as the oth er 12 high risk types (31,33,35,39,45 ,51,52,56 ,58,59,66,68). The expected result is negative. A neg ative result does not rule out the presence of HPV not included in the genotype set, a low leve l of infection or sp ecimen sampling error. UNLESS OTHERWISE INDIC ATED, ALL TESTING PERFORM ED [facility], [facility]. [address] [place] [id number] LABORATORY DIRE CTOR: KALPANA LORA M.D. CLIA NUMBER [id number] [place] [id number] VAGINAL PATHOGENS DNA [id number] 15:22:33 Test Item Value Reference Range Interpretation Comments SANCHO SPECIES (test NEGATIVE NEGATIVE code = ) G. VAGINALIS (test POSITIVE NEGATIVE A code = 47708) T. VAGINALIS (test NEGATIVE NEGATIVE UNLESS O THERWISE code = ) INDICATED, ALL TESTING PERFORMED [facility] NICAL PATHOLOGY LABOR [facility], [address] [address] LABORATORY DIRE CTOR: KALPANA LORA M.D. CLIA NUMBER [id number] [place] [id number] 04:21:00 Test Item Value Reference Range Interpretation Comments RPR RESULT (test code = NON-REACTIVE NON-REACTIVE 3501) RPR TITER (test code = 3500) NOT INDIC. TITER NOT INDIC. HIV 1/2 4TH GEN, RFLX [id number] 03:36:07 Test Item Value Reference Range Interpretation Comments HIV 1/2 4TH GEN, RFLX CONF (test NON-REACTIVE NON-REACTIVE code = 3514) HEPATITIS PANEL, [id number] 03:36:07 Test Item Value Reference Range Interpretation Comments HEPATITIS A IgM (test NON-REACTIVE NON-REACTIVE code = 10547) HEPATITIS B CORE IgM NON-REACTIVE NON-REACTIVE (test code = 4644) HEPATITIS B SURF AG NON-REACTIVE NON-REACTIVE (test code = 2739) HEPATITIS C ANTIBODY NON-REACTIVE NON-REACTIVE (test code = 4675) INTERPRETATION (NOTE) Hepatitis A HEPATITIS A: (test code sero logy shows no = 2552) evidence of acu te hepatitis A. INTERPRETATION (NOTE) Hepatitis B HEPATITIS B: (test code sero logy shows no = 71818) evidence of acu te hepatitis B and no indication of exposure to hepatitis B vir us in the previous cristopher eight months. INTERPRETATION (NOTE) Hepatitis C HEPATITIS C: (test code sero logy shows no = 47369) evidence of exposure to hepatitisC viru s at this time. I t can take up to 12 months after exposure tothe hepatitis C vir us for antibodies to become detectab le in the blood in certain patient s. HIV AB/AG COMBO RFLX [id number] 00:00:00 Test Item Value Reference Range Interpretation Comments HIV 1/2 4TH GEN, RFLX CONF (test NON-REACTIVE code = 3514) HIV AB/AG COMBO RFLX [id number] 00:00:00 Test Item Value Reference Range Interpretation Comments HIV 1/2 4TH GEN, RFLX CONF (test NON-REACTIVE code = 3514) ACUTE HEPATITIS [id number] 00:00:00 Test Item Value Reference Range Interpretation Comments HEPATITIS A IgM (test code = NON-REACTIVE 34178) HEPATITIS B CORE IgM (test code NON-REACTIVE = 4644) HEPATITIS B SURF AG (test code = NON-REACTIVE 2739) HEPATITIS C ANTIBODY (test code NON-REACTIVE = 4675) INTERPRETATION HEPATITIS A: (NOTE) (test code = 2552) INTERPRETATION HEPATITIS B: (NOTE) (test code = 25257) INTERPRETATION HEPATITIS C: (NOTE) (test code = 69513) ACUTE HEPATITIS [id number] 00:00:00 Test Item Value Reference Range Interpretation Comments HEPATITIS A IgM (test code = NON-REACTIVE 54473) HEPATITIS B CORE IgM (test code NON-REACTIVE = 4644) HEPATITIS B SURF AG (test code = NON-REACTIVE 2739) HEPATITIS C ANTIBODY (test code NON-REACTIVE = 4675) INTERPRETATION HEPATITIS A: (NOTE) (test code = 2552) INTERPRETATION HEPATITIS B: (NOTE) (test code = 01059) INTERPRETATION HEPATITIS C: (NOTE) (test code = 32849) HPV HIGH RISK WITH GENOTYPE, [id number] 00:00:00 Test Item Value Reference Range Interpretation Comments HPV HIGH RISK INTERP (test code = NEGATIVE 14407) HPV 16 (test code = 99358) NEGATIVE HPV 18 (test code = 14753) NEGATIVE HPV, HR, OTHER GENOTYPES (test code NEGATIVE = 87656) HPV HIGH RISK WITH GENOTYPE, [id number] 00:00:00 Test Item Value Reference Range Interpretation Comments HPV HIGH RISK INTERP (test code = NEGATIVE 10339) HPV 16 (test code = 78303) NEGATIVE HPV 18 (test code = 36368) NEGATIVE HPV, HR, OTHER GENOTYPES (test code NEGATIVE = 40675) [id number] 00:00:00 Test Item Value Reference Range Interpretation Comments RPR RESULT (test code = NON-REACTIVE 3501) RPR TITER (test code = 3500) NOT INDIC. TITER [id number] 00:00:00 Test Item Value Reference Range Interpretation Comments RPR RESULT (test code = NON-REACTIVE 3501) RPR TITER (test code = 3500) NOT INDIC. TITER [id number] 00:00:00 Test Item Value Reference Range Interpretation Comments RPR RESULT (test code = NON-REACTIVE 3501) RPR TITER (test code = 3500) NOT INDIC. TITER VAGINAL PATHOGENS DNA [id number] 00:00:00 Test Item Value Reference Range Interpretation Comments SANCHO SPECIES (test code = 63223) NEGATIVE G. VAGINALIS (test code = 57020) POSITIVE T. VAGINALIS (test code = 62774) NEGATIVE VAGINAL PATHOGENS DNA [id number] 00:00:00 Test Item Value Reference Range Interpretation Comments SANCHO SPECIES (test code = 99329) NEGATIVE G. VAGINALIS (test code = 56916) POSITIVE T. VAGINALIS (test code = 49117) NEGATIVE HIV AB/AG COMBO RFLX [id number] 00:00:00 Test Item Value Reference Range Interpretation Comments HIV 1/2 4TH GEN, RFLX CONF (test NON-REACTIVE code = 3514) HIV AB/AG COMBO RFLX [id number] 00:00:00 Test Item Value Reference Range Interpretation Comments HIV 1/2 4TH GEN, RFLX CONF (test NON-REACTIVE code = 3514) ACUTE HEPATITIS [id number] 00:00:00 Test Item Value Reference Range Interpretation Comments HEPATITIS A IgM (test code = NON-REACTIVE 23738) HEPATITIS B CORE IgM (test code NON-REACTIVE = 4644) HEPATITIS B SURF AG (test code = NON-REACTIVE 2739) HEPATITIS C ANTIBODY (test code NON-REACTIVE = 4675) INTERPRETATION HEPATITIS A: (NOTE) (test code = 2552) INTERPRETATION HEPATITIS B: (NOTE) (test code = 85606) INTERPRETATION HEPATITIS C: (NOTE) (test code = 40959) ACUTE HEPATITIS [id number] 00:00:00 Test Item Value Reference Range Interpretation Comments HEPATITIS A IgM (test code = NON-REACTIVE 19725) HEPATITIS B CORE IgM (test code NON-REACTIVE = 4644) HEPATITIS B SURF AG (test code = NON-REACTIVE 2739) HEPATITIS C ANTIBODY (test code NON-REACTIVE = 4675) INTERPRETATION HEPATITIS A: (NOTE) (test code = 2552) INTERPRETATION HEPATITIS B: (NOTE) (test code = 32747) INTERPRETATION HEPATITIS C: (NOTE) (test code = 66920) [id number] 00:00:00 Test Item Value Reference Range Interpretation Comments RPR RESULT (test code = NON-REACTIVE 3501) RPR TITER (test code = 3500) NOT INDIC. TITER [id number] 00:00:00 Test Item Value Reference Range Interpretation Comments RPR RESULT (test code = NON-REACTIVE 3501) RPR TITER (test code = 3500) NOT INDIC. TITER HPV HIGH RISK WITH GENOTYPE, [id number] 00:00:00 Test Item Value Reference Range Interpretation Comments HPV HIGH RISK INTERP (test code = NEGATIVE 28801) HPV 16 (test code = 08317) NEGATIVE HPV 18 (test code = 06367) NEGATIVE HPV, HR, OTHER GENOTYPES (test code NEGATIVE = 69295) [id number] 00:00:00 Test Item Value Reference Range Interpretation Comments RPR RESULT (test code = NON-REACTIVE 3501) RPR TITER (test code = 3500) NOT INDIC. TITER HPV HIGH RISK WITH GENOTYPE, [id number] 00:00:00 Test Item Value Reference Range Interpretation Comments HPV HIGH RISK INTERP (test code = NEGATIVE 72498) HPV 16 (test code = 22646) NEGATIVE HPV 18 (test code = 04909) NEGATIVE HPV, HR, OTHER GENOTYPES (test code NEGATIVE = 51675) VAGINAL PATHOGENS DNA [id number] 00:00:00 Test Item Value Reference Range Interpretation Comments SANCHO SPECIES (test code = ) NEGATIVE G. VAGINALIS (test code = ) POSITIVE T. VAGINALIS (test code = 97353) NEGATIVE VAGINAL PATHOGENS DNA [id number] 00:00:00 Test Item Value Reference Range Interpretation Comments SANCHO SPECIES (test code = ) NEGATIVE G. VAGINALIS (test code = 79200) POSITIVE T. VAGINALIS (test code = 11461) NEGATIVE HIV AB/AG COMBO RFLX [id number] 00:00:00 Test Item Value Reference Range Interpretation Comments HIV 1/2 4TH GEN, RFLX CONF (test NON-REACTIVE code = 3514) HIV AB/AG COMBO RFLX [id number] 00:00:00 Test Item Value Reference Range Interpretation Comments HIV 1/2 4TH GEN, RFLX CONF (test NON-REACTIVE code = 3514) ACUTE HEPATITIS [id number] 00:00:00 Test Item Value Reference Range Interpretation Comments HEPATITIS A IgM (test code = NON-REACTIVE 28413) HEPATITIS B CORE IgM (test code NON-REACTIVE = 4644) HEPATITIS B SURF AG (test code = NON-REACTIVE 2739) HEPATITIS C ANTIBODY (test code NON-REACTIVE = 4675) INTERPRETATION HEPATITIS A: (NOTE) (test code = 2552) INTERPRETATION HEPATITIS B: (NOTE) (test code = 79243) INTERPRETATION HEPATITIS C: (NOTE) (test code = 76967) ACUTE HEPATITIS [id number] 00:00:00 Test Item Value Reference Range Interpretation Comments HEPATITIS A IgM (test code = NON-REACTIVE 50463) HEPATITIS B CORE IgM (test code NON-REACTIVE = 4644) HEPATITIS B SURF AG (test code = NON-REACTIVE 2739) HEPATITIS C ANTIBODY (test code NON-REACTIVE = 4675) INTERPRETATION HEPATITIS A: (NOTE) (test code = 2552) INTERPRETATION HEPATITIS B: (NOTE) (test code = 77947) INTERPRETATION HEPATITIS C: (NOTE) (test code = 89428) [id number] 00:00:00 Test Item Value Reference Range Interpretation Comments RPR RESULT (test code = NON-REACTIVE 3501) RPR TITER (test code = 3500) NOT INDIC. TITER HPV HIGH RISK WITH GENOTYPE, [id number] 00:00:00 Test Item Value Reference Range Interpretation Comments HPV HIGH RISK INTERP (test code = NEGATIVE 67810) HPV 16 (test code = 79050) NEGATIVE HPV 18 (test code = 86159) NEGATIVE HPV, HR, OTHER GENOTYPES (test code NEGATIVE = 73199) [id number] 00:00:00 Test Item Value Reference Range Interpretation Comments RPR RESULT (test code = NON-REACTIVE 3501) RPR TITER (test code = 3500) NOT INDIC. TITER [id number] 00:00:00 Test Item Value Reference Range Interpretation Comments RPR RESULT (test code = NON-REACTIVE 3501) RPR TITER (test code = 3500) NOT INDIC. TITER HPV HIGH RISK WITH GENOTYPE, [id number] 00:00:00 Test Item Value Reference Range Interpretation Comments HPV HIGH RISK INTERP (test code = NEGATIVE 64703) HPV 16 (test code = 62627) NEGATIVE HPV 18 (test code = 06103) NEGATIVE HPV, HR, OTHER GENOTYPES (test code NEGATIVE = 60419) VAGINAL PATHOGENS DNA [id number] 00:00:00 Test Item Value Reference Range Interpretation Comments SANCHO SPECIES (test code = 00232) NEGATIVE G. VAGINALIS (test code = 09795) POSITIVE T. VAGINALIS (test code = 74478) NEGATIVE VAGINAL PATHOGENS DNA [id number] 00:00:00 Test Item Value Reference Range Interpretation Comments SANCHO SPECIES (test code = 74017) NEGATIVE G. VAGINALIS (test code = 04713) POSITIVE T. VAGINALIS (test code = 51229) NEGATIVE HIV AB/AG COMBO RFLX [id number] 00:00:00 Test Item Value Reference Range Interpretation Comments HIV 1/2 4TH GEN, RFLX CONF (test NON-REACTIVE code = 7974) ACUTE HEPATITIS [id number] 00:00:00 Test Item Value Reference Range Interpretation Comments HEPATITIS A IgM (test code = NON-REACTIVE 52709) HEPATITIS B CORE IgM (test code NON-REACTIVE = 1844) HEPATITIS B SURF AG (test code = NON-REACTIVE 1329) HEPATITIS C ANTIBODY (test code NON-REACTIVE = 3113) INTERPRETATION HEPATITIS A: (NOTE) (test code = 2552) INTERPRETATION HEPATITIS B: (NOTE) (test code = 11308) INTERPRETATION HEPATITIS C: (NOTE) (test code = 51618) HPV HIGH RISK WITH GENOTYPE, [id number] 00:00:00 Test Item Value Reference Range Interpretation Comments HPV HIGH RISK INTERP (test code = NEGATIVE 37657) HPV 16 (test code = 26029) NEGATIVE HPV 18 (test code = 52995) NEGATIVE HPV, HR, OTHER GENOTYPES (test code NEGATIVE = 19102) [id number] 00:00:00 Test Item Value Reference Range Interpretation Comments RPR RESULT (test code = NON-REACTIVE 3501) RPR TITER (test code = 3500) NOT INDIC. TITER [id number] 00:00:00 Test Item Value Reference Range Interpretation Comments RPR RESULT (test code = NON-REACTIVE 3501) RPR TITER (test code = 3500) NOT INDIC. TITER VAGINAL PATHOGENS DNA [id number] 00:00:00 Test Item Value Reference Range Interpretation Comments SANCHO SPECIES (test code = 52135) NEGATIVE G. VAGINALIS (test code = 15141) POSITIVE T. VAGINALIS (test code = 00601) NEGATIVE SHORT-LATENCY SPE, ALL [id number] 15:08:00[facility] : 1975 Sex: FINTRAOPERATIVE MONITORING REPORTPatient Name: May Zaidi : [facility] Date: 09/03/21 Jossy Pro: [id number]: MD Cheng Monitoring Technologist: Prudence Heck time (rail technician): 841End time (rail technician): 1216 Examining Neurologist #1: Cornelius Zuniga time (incision): 927End time: 1216 Procedure: ACDF C5-7 Stimulation Parameters: Ulnar nerves individually stimulated at the wrist Rate 4.7Hz, Intensity 30mA, Duration 0.3ms Posterior Tibial nerves individually stimulated at the ankle Rate 4.7Hz, Intensity 60mA, Duration 0.3msFilters 30- 500Hz, Notch Off Motor strip stimulated anterior to C3 and C4 with alternating polarities Intensity 100-600V, Train Rate 4-5, CHRISTY 2-3ms Filters 30-2KHz, Notch Off Recording Parameters: EP1, EP2, CV, CP3, CP4, CPz, and FPz Transcranial electrical Motor Evoked Potentials recorded from the Deltoid-Biceps, Triceps, Abductor Pollicis Brevis referenced to the Abductor Digiti Quinti Minimi muscle groups, and the Abductor Hallucis muscle groupsFree-running EMG of bilateral Trapezius, Deltoid-Biceps, Triceps, and Abductor Pollicis Brevis muscle groupsFree-running EEG recorded with bipolar derivation, using modified International 10/20 placements: C3-FPZ, C4-FPZ Technical Description:Bilateral S SEPs-Upper: Somatosensory evoked potentials of the ulnar nerves were attempted using electrodes placed at Erb's point, cervical area and the scalp. Amplitudes and latencies of these responses were evaluated by the neurophysiologist and the results were reported verbally to the surgical team. Bilateralupper SSEP responses were present and reproducible at baseline. No significant surgically related changes in amplitude or latency of the somatosensory evoked responses were noted throughout the surgical procedure. At closing, responses were judged to be essentially unchanged from those of post-positioning baselines. Bilateral SSEPs-Lower: Somatosensory evoked potentials of the posterior tibial nerveswere attempted using electrodes placed in the cervical area and the scalp. Amplitudes and latencies of these responses were evaluated by the neurophysiologist and the results were reported verbally to the surgical team. Bilateral lower SSEP responses were present and reproducible at baseline. No significant surgically related changes in amplitude or latency of the somatosensory evoked responses were noted throughout the surgical procedure. At closing, responses were judged to be essentially unchanged from those of post-positioning baselines. Cranial EMG: Spontaneous electromyographic potentials from the CN X pharynx/larynx and CN XI trapezius muscles were monitored during the procedure using needle electrodes inserted before positioning. Free-running EMG was monitored continuously throughout the operative procedure with some sporadic neurotonic discharges taking place during procedure, however all EMG was stable and quiet at closing. Surgeon aware of all responses during the case and at closing. EMG: Spontaneous electromyographic potentials from the trapezius, deltoids-biceps, triceps and abductor pollicis brevis muscles were monitored during the procedure using needle electrodes inserted before positioning. Free-running EMG was monitored continuously throughout the operative procedure with some sporadic neurotonic discharges taking place during procedure, however all EMG was stable and quiet at closing. Surgeon aware of all responses during the case and at closing. Bilateral TCeMEPs: Transcranial motor evoked potentials (TCeMEPs) were produced using a multi-pulse stimulator and were recorded with pairs of subdermal needle electrodes overlaying the following muscles bilaterally: upper extremities: deltoids-biceps, triceps, abductor pollucis brevis; lower extremities: abductor hallucis. Any change in the motor evoked potentials was reported verbally to the surgical team. No significant surgically related changes in amplitude or latency of the TceMEPs were noted throughout the surgical procedure. At closing, responses were judged to be essentially unchanged from those of post-positioning baselines. IMPRESSION:No significant change in upper or lower somatosensory evoked potentials during the procedure.No spontaneous electromyographic potentials were recorded from muscles mentioned above during the procedure.No significant changes in the transcranial motor evoked potentials during theprocedure. Gabriel Zuniga M.D., FACEDMUNDO, FAAN, FAESProfessor of NeurologyEmanate Health/Foothill Presbyterian HospitalDiuniversity of new [place] hospitalsor, [facility] Epilepsy CenterFranciscan Health [facility] Neurophysiology LabSignature line: Diagnosis: Cervical Stenosis Tissue [id number] 17:56:29 Test Item Value Reference Range Interpretation Comments Case Report (test Surgical Pathology code = 104) Report Case: [id number] Authorizing Provider: Drew Anand III, MD Collected: 09/03/2021 11:46 AM Ordering Location: [facility] Received: 09/03/2021 01:00 PM SERVICES Pathologist: Eugene Sung MD Specimen: Intervertebral Disc, C5-7 DIAGNOSIS (test code w2ygpIAqZMUhi0nhXBDplBIr = 3220) ZzEwMzNcZnRuYmpcdWMxIHtc cnRmMVxlcGljOTYwMVxhbnNp QPVcdQDrG0FwqidqRIccKC3w FA0wzKzslWXnqQDdWZDjSyDc k8knz647nTQin3biNXLRhssd cUm7rZqgO40ra2I0CeybJ06h jONfFFV3WKAqQZTciPPmVYDt HML9QBXtyBQrK7giPVKiHO4f mlvsQWqvLWlzWAUpzYL7ECGz bKSbO2JzKHMxDVrsERIrxhz4 QoRjOc5wkLGdxOzjDMkwRTGr XHBsYWluXGZzMjAgVkVSVEVC OcMYCUXXGNBBNvbeMF7WIYMR RVJURUJSQUwgRElTQywgQzUt HyohGVaDG9JXNR7GTKyslTMk RGBRKRwUUO7NUwBDSiKLYDCR R5CIIfVYOFXMTRLBIZGEEZ5H QPDjPUUBQX3PGdWIYDTPLXUJ IE1VABYnuTWusWjcarChLOwz n3SeZWmvCMOjLY8fuSneTSAb LE4gSVWzZ6nftU9xmhz6RnBq AIBuIdT2JOGqsvS8Csf6EAOe DBgvp0zfb3QaWVZwERu6vHym YvMjGALch5pqbfLsKeClZSFh DXWvLGAphMKoQ082q0pix2sd gnJhcIU4BFBrHYT3ZPawfcUx kxN3LOnlqENnBkH7AKyivpDl LBwiyrSwqwQwMoq3VUZsL965 CEE5yIjob1ltLHW8ECYhFVKt XnOxJz0xtWGcF760BGDuEVWL MOQxpKm4NCVmzfKzycQufEGR q290P820j2ssYORnjiSjoYwG sxybc1hdL934VBCmbLTbeuFb TpGfNLEugCLekNA4KTJbCM1s gzjqSFycQPxcUCSnvvP9WGUv uSIsM4QlJFDlLS8jcjfcCPV1 XUhyBLFhIFX3AsUoMLHkk5Wm bca7SfWeyy3lxd87FQU6r7Nq oUcxDDA8OCU9MpVeMz0zfXTu TGIoDJ7vJvTkbOQmQTDrni69 hZvkICehSLC8LUYlrcKvt0Dv c9adAtVlqtRvL3vhC3KgMTWi PVYpDWRqIkGotzTgm2Jhb0Ay yONxgMe9o8koJYXoOUIvrBjc t2wxUGV8NHYnaQSfM3aqkC8x EDGeBO6pgozuj3xfYDxqHDpp NPWyiEX8zlD9FTUxiIIzE8Mx zJ0kMSCeDWlkBXLzwib2EkDg Jq1eqOMmuKawRGwqPgysRZvc XHBnbmNvbnRccGduZGVjXHBs YWluXHBsYWluXGYwXGZzMjRc cWxcbGFuZzEwMzNcaGljaFxm RIhzUxTlOVYqFWmdN1cjPxKk QnExDiz6JIMsdBTsDXUnRgi8 QIPmiLJlGOOCoLqexJ1xXVIr cGzgzO2wsSP3BMVtarDulKMG qZ0jNDRNvU4gAkP4CiVkToC2 LTv9JYKkrBBeqC2= CPT Code(s) (test y3fitCKrTAYeeRQ2OoUoKOAh code = 3357) q3grh6AscRVjwYUrHLsleSYj qbGpvf52iTE6xW73WW4eQJJn XnZ4CGQzvzL2Nrh7HIHyJIJt wRNyA839g5mhg5esycGkgII8 rBqaSWMbrhcqNvQ8GNvuLPRy feluUGu4FEmfPUHteGI8JQWv oZIoP3FyJNPwJQ3clfm6JPS2 PYgqRYJwOpV5ETAjdEFzFORn sHziCVhws287NQB8AdOfRVEo dtRayJlolQ6xLjYiKUJ4VVAb NDsgODgzMTFccGFyfQ== CLINICAL HISTORY x3dfzOVuIJIqcQZ0OeZpAZAm (test code = 3356) p7wrs7TutWRcuIGkTJhjkVYk ftZgkh41gUS1cG79OB9oSETb TfK7PCWkelS0Mej6WTPpIGZx fXDoN793r1kwm8cjurUboSA3 wSstXWNrubcgQhT5JVexDWEn hnzzLHb8MOnpLFMxwEI1YIUf pTPuM9JeLMDlTV4wljc7IAV0 VYrcPAWfJzD2QKQztIZbTNPz dVdiETsml754ROP6GzKxJRIr nrZioQyumZ2oRbQdARMCHTC4 kMIktCEamGOrw4CiciKtnEBa fQ== SPECIMEN SOURCE (test s7ctmDErKYGtzES9OqSdCTHo code = 3377) v0mmq6SqxDXcxJHrCHntgSOz nyOcdo84iVW0gN47DX8kGVCg JsY9LABcuyZ0Vpy6ULDaSUTa bMCeJ685a1mnz3xuhzHmwSS0 dQaeABApmtnyIeU5SVytYWNy phchTTy6KHgjPJKkoWI9HGIj rBJbX4XlGVDgHD1xtjb5OEK7 NXllWCUfUvQ8XIIgiQOoILYl wRcoEDapa408ROP5WvBlFHPl irYpxPtpqC7pIsCjDEEWcgOw cnZlcnRlYnJhbCBkaXNjLCBD CS06EKDuwa8= GROSS DESCRIPTION v6hugVUdWWTxjLD1QxDfMEJq (test code = 3366) g8jgn5RqwUDiqYXqJAexrFVp svPryo82jRE6sO92UJ8nHSPw NiZ3BOCotfN4Dhw0CTYiUJCc yGIsE265m2ztj5gjfyCchRR4 vWcvEBRgqtcfWmX1EDhbXBJb chvhQIg4LYqaGCGomSM0NKHv lQDpK6BfBDWeYQ7vrkp2BDQ1 OKkvXTKhPeD8SCRriSAdHWWa gIzgCSloi533WGH4JkGwFBWm mfOibFhgqI4zKoMfKYLSTqPG ZWNlaXZlZCBmcmVzaCBsYWJl bGVkIHdpdGggdGhlIHBhdGll zaCdzpEjYA3rZZNaZZEdY3Xt BEKuG35vEOSemI3tPNFbDR2z ICJpbnRlcnZlcnRlYnJhbCBk pQCpRnUdukBwVMNzPCR1TATt GxY7XWPnGTGutKMaK1agPPmj dBDsa4AbqICqvRjqfZIfjBme ep18bXp3MGHuyNWto6SmzhSj iTHedI3poJUqgOdpn5QkOCJl BJqjBQ18gw3wHDitCLJoBKZu bWVuIGlzIGZpbHRlcmVkIGFu IZRoyWVydBW6VYPtaR2ukV31 qeKpiuYdJIQkURX4YUMRXIEx j4vfz9yzfhgtgRecvRFvAXVe AKqzvRHcR6Z5xU3pGmGKJeEa cGwgXHBhcn0= MICROSCOPIC b4kotBEgUYQtrCX9OdOzGWUw DESCRIPTION (test g2wkn2WhbYUzpCWsCTgdqEUg code = 3371) pkOnpc90xHH9aL65TV7dXPQw DdC5CKLeeeN7Wzz2ZOXrYTNo vOLyQ287b2lkt7gpaaWnzDH9 aBesCXFkybffDaD7WPquJAQx ajxiHXw9UXeiXQNgzXO7OFJj sFWgM7VuFWAqLF8obqj4TIA8 HEdqBTLdZkC5QNDfcROoRDLm tFuxFQcmn627FOV1XaIrZQFg pvEjjMdkzV3yQeHxWPOSTHJi n0KeATHlqRUrkC== [facility] [id number] 17:56:29Surgical Pathology Report Case: [id number] Authorizing Provider: Drew Anand III, MD Collected: 09/03/2021 11:46 AM Ordering Location: [facility] Received: 09/03/2021 01:00 PM SERVICES Pathologist: Eugene Sung MD Specimen: Intervertebral Disc, C5-7 VERTEBRAL COLUMN, INTERVERTEBRAL DISC,C5-7, DISCECTOMY:FRAGMENTS OF FIBROCARTILAGE WITH MILD DEGENERATIVE CHANGES Signing Pathologist Direct Phone Line: [phone] signed by Eugene Sung MD on 09/06/2021 at 5:56 [id number] stenosis Intervertebral disc, C5-7A. Received fresh labeled with the patient's name, medical record number and "intervertebral disc" is a 2.4 x 1.7 x 0.4 cm aggregate of multiple pink-white fibrocartilaginous tissue fragments. The specimen is filtered and submitted in toto in cassette A1 following light decalcification. MJP/pl PerformedCBC with platelet count + automated [id number] 06:01:32 Test Item Value Reference Range Interpretation Comments WBC (test code = 6690-2) 9.9 See_Comment [A utomated message] The system [employer] generated this result transmitted ref erence range: 3.5 - 10 .5 K/L. The refe rence range was not u sed to interpret this result as normal/abnor mal. RBC (test code = 789-8) 4.74 See_Comment [Au tomated message] The system [employer] generated this result transmitted ref erence range: 3.93 - 5 .22 M/L. The refe rence range was not u sed to interpret this result as normal/abnor mal. MCHC (test code = 786-4) 32.4 See_Comment [A utomated message] The system [employer] generated this result transmitted ref erence range: 32.2 - 3 5.5 GM/DL. The refe rence range was not u sed to interpret this result as normal/abnor mal. Hematocrit (test code = 43.5 % 34.1-44.9 4544-3) MCV (test code = 787-2) 91.8 fL 79.4-94.8 MCH (test code = 785-6) 29.7 pg 25.6-32.2 RDW (test code = 788-0) 12.6 % 11.7-14.4 Platelets (test code = 332 See_Comment [Aut omated message] 777-3) The system [employer] generated this result transmitted ref erence range: 150 - 45 0 K/CU MM. The referen ce range was not u sed to interpret this result as normal/abnor mal. MPV (test code = 9.5 fL 9.4-12.3 85978-4) nRBC (test code = 413) 0 See_Comment [Aut omated message] The system [employer] generated this result transmitted ref erence range: 0 - 0 /1 00 WBC. The refere nce range was not u sed to interpret this result as normal/abnor mal. % Neutros (test code = 82 % 429) % Lymphs (test code = 14 % 430) % Monos (test code = 3 % 431) % Eos (test code = 432) 0 % % Baso (test code = 437) 0 % # Neutros (test code = 8.12 See_Comment H [Aut omated message] 670) The system [employer] generated this result transmitted ref erence range: 1.56 - 6 .13 K/L. The refe rence range was not u sed to interpret this result as normal/abnor mal. # Lymphs (test code = 1.35 See_Comment [Auto mated message] 414) The system [employer] generated this result transmitted ref erence range: 1.18 - 3 .74 K/L. The refe rence range was not u sed to interpret this result as normal/abnor mal. # Monos (test code = 0.33 See_Comment [Autom ated message] 415) The system [employer] generated this result transmitted ref erence range: 0.24 - 0 .36 K/L. The refe rence range was not u sed to interpret this result as normal/abnor mal. # Eos (test code = 416) 0.00 See_Comment L [Au tomated message] The system [employer] generated this result transmitted ref erence range: 0.04 - 0 .36 K/L. The refe rence range was not u sed to interpret this result as normal/abnor mal. # Baso (test code = 417) 0.01 See_Comment [A utomated message] The system [employer] generated this result transmitted ref erence range: 0.01 - 0 .08 K/L. The refe rence range was not u sed to interpret this result as normal/abnor mal. Immature 0 % 0-1 Granulocytes-Relative (test code = 2801) Lab Interpretation (test Abnormal code = 70848-7) [facility] W/PLT COUNT & AUTO [id number] 06:01:32 Test Item Value Reference Range Interpretation Comments WHITE BLOOD CELL COUNT (BEAKER) 9.9 K/ L 3.5-10.5 (test code = 775) RED BLOOD CELL COUNT (BEAKER) 4.74 M/ L 3.93-5.22 (test code = 761) HEMOGLOBIN (BEAKER) (test code = 14.1 GM/DL 11.2-15.7 410) HEMATOCRIT (BEAKER) (test code = 43.5 % 34.1-44.9 411) MEAN CORPUSCULAR VOLUME (BEAKER) 91.8 fL 79.4-94.8 (test code = 753) MEAN CORPUSCULAR HEMOGLOBIN 29.7 pg 25.6-32.2 (BEAKER) (test code = 751) MEAN CORPUSCULAR HEMOGLOBIN CONC 32.4 GM/DL 32.2-35.5 (BEAKER) (test code = 752) RED CELL DISTRIBUTION WIDTH 12.6 % 11.7-14.4 (BEAKER) (test code = 412) PLATELET COUNT (BEAKER) (test 332 K/CU MM 150-450 code = 756) MEAN PLATELET VOLUME (BEAKER) 9.5 fL 9.4-12.3 (test code = 754) NUCLEATED RED BLOOD CELLS 0 /100 WBC 0-0 (BEAKER) (test code = 413) NEUTROPHILS RELATIVE PERCENT 82 % (BEAKER) (test code = 429) LYMPHOCYTES RELATIVE PERCENT 14 % (BEAKER) (test code = 430) MONOCYTES RELATIVE PERCENT 3 % (BEAKER) (test code = 431) EOSINOPHILS RELATIVE PERCENT 0 % (BEAKER) (test code = 432) BASOPHILS RELATIVE PERCENT 0 % (BEAKER) (test code = 437) NEUTROPHILS ABSOLUTE COUNT 8.12 K/ L 1.56-6.13 H (BEAKER) (test code = 670) LYMPHOCYTES ABSOLUTE COUNT 1.35 K/ L 1.18-3.74 (BEAKER) (test code = 414) MONOCYTES ABSOLUTE COUNT (BEAKER) 0.33 K/ L 0.24-0.36 (test code = 415) EOSINOPHILS ABSOLUTE COUNT 0.00 K/ L 0.04-0.36 L (BEAKER) (test code = 416) BASOPHILS ABSOLUTE COUNT (BEAKER) 0.01 K/ L 0.01-0.08 (test code = 417) IMMATURE GRANULOCYTES-RELATIVE 0 % 0-1 PERCENT (BEAKER) (test code = 2801) Basic Metabolic [id number] 05:40:38 Test Item Value Reference Range Interpretation Comments Sodium (test code = 142 meq/L 627-792 6089-2) Potassium (test code = 4.0 meq/L 3.5-5.1 2823-3) Chloride (test code = 107 meq/L 98-107 5-0) CO2 (test code = 25 meq/L 22-29 8-9) BUN (test code = 12 mg/dL 7-21 3094-0) Creatinine (test code 0.73 mg/dL 0.57-1.25 = 2160-0) Glucose (test code = 127 mg/dL 70-105 H 2345-7) Calcium (test code = 10.2 mg/dL 8.4-10.2 78317-2) EGFR (test code = 85 mL/min/1.73 [place] [address]-7) NOT ACCURATE CREATININE CLEARANCE IN PREDICTING GLOMERULAR FILTRATION RATE . ESTIMATED GFR I S NOT APPLICABLE FOR DIALYSIS PATIENTS. LEVON (test code = LEVON) Basket Person ID - jrl Lab Interpretation Abnormal (test code = 89467-1) [facility] [id number] 05:40:38 Test Item Value Reference Range Interpretation Comments SODIUM (BEAKER) 142 meq/L 136-145 (test code = 381) POTASSIUM (BEAKER) 4.0 meq/L 3.5-5.1 (test code = 379) CHLORIDE (BEAKER) 107 meq/L 98-107 (test code = 382) CO2 (BEAKER) (test 25 meq/L 22-29 code = 355) BLOOD UREA NITROGEN 12 mg/dL 7-21 (BEAKER) (test code = 354) CREATININE (BEAKER) 0.73 mg/dL 0.57-1.25 (test code = 358) GLUCOSE RANDOM 127 mg/dL 70-105 H (BEAKER) (test code = 652) CALCIUM (BEAKER) 10.2 mg/dL 8.4-10.2 (test code = 697) EGFR (BEAKER) (test 85 mL/min/1.73 ESTIMA COSME GFR IS code = 1092) sq m NOT ACCURATE CREATININE CLEARANCE IN PREDICTING GLOMERULAR FILTRATION RATE . ESTIMATED GFR I S NOT APPLICABLE FOR DIALYSIS PATIEN TS. Basket Person ID - jrlRAD, SPINE, CERVICAL, 2 OR 3 [id number] 14:14:00Reason for exam:->post-op STANDING x-raysShould this be performed at the bedside?->No [facility] 1975 Sex: FFINAL REPORT RAD, SPINE, CERVICAL, 2 OR 3 VIEWS INDICATION: post-op STANDING x-rays COMPARISON: None TECHNIQUE: AP and lateral radiographs of the cervical spine FINDINGS/IMPRESSION:Mild straightening of cervical lordosis. Slight minimal anterolisthesis of C4 on C5. Status post ACDF spanning C5-C7 with prevertebral soft tissue swelling (presumably recently postop). Signed: Mary Ashbyeprena Verified Date/Time: 09/04/2021 14:14:33 Reading Location: [facility] Radiology Reading Room BASI METABOLIC [id number] 10:43:35 Test Item Value Reference Range Interpretation Comments SODIUM (BEAKER) 140 meq/L 136-145 (test code = 381) POTASSIUM (BEAKER) 3.9 meq/L 3.5-5.1 (test code = 379) CHLORIDE (BEAKER) 108 meq/L 98-107 H (test code = 382) CO2 (BEAKER) (test 21 meq/L 22-29 L code = 355) BLOOD UREA NITROGEN 12 mg/dL 7-21 (BEAKER) (test code = 354) CREATININE (BEAKER) 0.73 mg/dL 0.57-1.25 (test code = 358) GLUCOSE RANDOM 91 mg/dL 70-105 (BEAKER) (test code = 652) CALCIUM (BEAKER) 9.8 mg/dL 8.4-10.2 (test code = 697) EGFR (BEAKER) (test 85 mL/min/1.73 ESTIMA COSME GFR IS code = 1092) sq m NOT ACCURATE CREATININE CLEARANCE IN PREDICTING GLOMERULAR FILTRATION RATE . ESTIMATED GFR I S NOT APPLICABLE FOR DIALYSIS PATIEN TS. Basket Person ID - NICOLE [facility]BC W/PLT COUNT & AUTO [id number] 10:04:49 Test Item Value Reference Range Interpretation Comments WHITE BLOOD CELL COUNT (BEAKER) 11.9 K/ L 3.5-10.5 H (test code = 775) RED BLOOD CELL COUNT (BEAKER) 4.61 M/ L 3.93-5.22 (test code = 761) HEMOGLOBIN (BEAKER) (test code = 13.7 GM/DL 11.2-15.7 410) HEMATOCRIT (BEAKER) (test code = 41.9 % 34.1-44.9 411) MEAN CORPUSCULAR VOLUME (BEAKER) 90.9 fL 79.4-94.8 (test code = 753) MEAN CORPUSCULAR HEMOGLOBIN 29.7 pg 25.6-32.2 (BEAKER) (test code = 751) MEAN CORPUSCULAR HEMOGLOBIN CONC 32.7 GM/DL 32.2-35.5 (BEAKER) (test code = 752) RED CELL DISTRIBUTION WIDTH 12.5 % 11.7-14.4 (BEAKER) (test code = 412) PLATELET COUNT (BEAKER) (test 312 K/CU MM 150-450 code = 756) MEAN PLATELET VOLUME (BEAKER) 9.0 fL 9.4-12.3 L (test code = 754) NUCLEATED RED BLOOD CELLS 0 /100 WBC 0-0 (BEAKER) (test code = 413) NEUTROPHILS RELATIVE PERCENT 86 % (BEAKER) (test code = 429) LYMPHOCYTES RELATIVE PERCENT 10 % (BEAKER) (test code = 430) MONOCYTES RELATIVE PERCENT 3 % (BEAKER) (test code = 431) EOSINOPHILS RELATIVE PERCENT 0 % (BEAKER) (test code = 432) BASOPHILS RELATIVE PERCENT 0 % (BEAKER) (test code = 437) NEUTROPHILS ABSOLUTE COUNT 10.31 K/ L 1.56-6.13 H (BEAKER) (test code = 670) LYMPHOCYTES ABSOLUTE COUNT 1.15 K/ L 1.18-3.74 L (BEAKER) (test code = 414) MONOCYTES ABSOLUTE COUNT (BEAKER) 0.40 K/ L 0.24-0.36 H (test code = 415) EOSINOPHILS ABSOLUTE COUNT 0.00 K/ L 0.04-0.36 L (BEAKER) (test code = 416) BASOPHILS ABSOLUTE COUNT (BEAKER) 0.03 K/ L 0.01-0.08 (test code = 417) IMMATURE GRANULOCYTES-RELATIVE 0 % 0-1 PERCENT (BEAKER) (test code = 2801) FL, FLUORO, NON-SPECIFIC, UP TO 1 [id number] 12:14:00Reason for exam:- >ACDF C5-7[facility] : 1975 Sex: FFluoroscopic unit utilized for a procedure performed in the OR. No interpretation was requested. Refer to the operative report for findings. Refer to PACS for patient radiation dose information.FL, FLUORO, NON-SPECIFIC, UP TO 1 [id number] 09:56:00Reason for exam:->ACDF C5-7 [facility] : 1975 Sex: FFINAL REPORT FL, FLUORO, NON-SPECIFIC, UP TO 1 HOUR CLINICAL INDICATION: ACDF C5-7 COMPARISON: None IMPRESSION: A single lateral view of the cervical spine is obtained intraoperatively. Surgical hardware overlies the anterior disc space at C6-C7. Results were communicated to Dr. Anand, who concurred with the above findings. Signed: Mary Ashby MDRreinierort Verified Date/Time: 09/03/2021 09:56:27 Reading Location: [facility] Radiology Reading Room [id number] 07:14:37 Test Item Value Reference Interpretation Comments Range Protime (test code = 13.8 See_Comment [Autom ated 5902-2) message] The system which generated this result transmitted reference range : 11.9 - 14.2 seconds. The reference range was not used to interpret this result as normal/abnormal . INR (test code = 1.08 See_Comment [Automated 9911-6) message] The system which generated this result transmitted reference range : <=5.90. The reference range was not used to interpret this result as normal/abnormal . PTT (test code = 33.1 See_Comment [Automated 49653-9) message] The system which generated this result transmitted reference range : 22.5 - 36.0 seconds. The reference range was not used to interpret this result as normal/abnormal . LEVON (test code = RECOMMENDED LEVON) COUMADIN/WARFARIN INR THERAPY RANGESSTANDARD DOSE: 2.0 - 3.0 Includes: PROPHYLAXIS for venous thrombosis, systemic embolization; TREATMENT for venous thrombosis and/or pulmonary embolus.HIGH RISK: Target INR is 2.5-3.5 for patients with mechanical heart valves. Lab Interpretation Normal (test code = 31811-8) [facility]/[id number] 07:14:37 Test Item Value Reference Range Interpretation Comments PROTIME (BEAKER) (test 13.8 seconds 11.9-14.2 code = 759) INR (BEAKER) (test 1.08 See_Comment [Automat ed code = 370) message] The sy stem which generated this result transmitted reference range : <=5.90. The reference range was not used to interpret this result as normal/abnormal . PARTIAL THROMBOPLASTIN 33.1 seconds 22.5-36.0 TIME (BEAKER) (test code = 760) RECOMMENDED COUMADIN/WARFARIN INR THERAPY RANGESSTANDARD DOSE: 2.0 - 3.0 Includes: PROPHYLAXIS for venous thrombosis, systemic embolization; TREATMENT for venous thrombosis and/or pulmonary embolus.HIGH RISK: Target INR is 2.5-3.5 for patients with mechanical heart valves.BASIC METABOLIC [id number] 06:08:31 Test Item Value Reference Range Interpretation Comments SODIUM (BEAKER) 139 meq/L 136-145 (test code = 381) POTASSIUM (BEAKER) 4.2 meq/L 3.5-5.1 (test code = 379) CHLORIDE (BEAKER) 108 meq/L 98-107 H (test code = 382) CO2 (BEAKER) (test 25 meq/L 22-29 code = 355) BLOOD UREA NITROGEN 17 mg/dL 7-21 (BEAKER) (test code = 354) CREATININE (BEAKER) 0.71 mg/dL 0.57-1.25 (test code = 358) GLUCOSE RANDOM 93 mg/dL 70-105 (BEAKER) (test code = 652) CALCIUM (BEAKER) 9.3 mg/dL 8.4-10.2 (test code = 697) EGFR (BEAKER) (test 88 mL/min/1.73 ESTIMA COSME GFR IS code = 1092) sq m NOT ACCURATE CREATININE CLEARANCE IN PREDICTING GLOMERULAR FILTRATION RATE . ESTIMATED GFR I S NOT APPLICABLE FOR DIALYSIS PATIEN TS. Basket Person ID - LEELA WCBC (Hemogram only)2021-09-03 05:43:01 Test Item Value Reference Range Interpretation Comments WBC (test code = 6690-2) 5.7 See_Comment [A utomated message] The system [employer] generated this result transmitted ref erence range: 3.5 - 10 .5 K/L. The refe rence range was not u sed to interpret this result as normal/abnor mal. RBC (test code = 789-8) 4.50 See_Comment [Au tomated message] The system [employer] generated this result transmitted ref erence range: 3.93 - 5 .22 M/L. The refe rence range was not u sed to interpret this result as normal/abnor mal. MCHC (test code = 786-4) 33.7 See_Comment [A utomated message] The system [employer] generated this result transmitted ref erence range: 32.2 - 3 5.5 GM/DL. The refe rence range was not u sed to interpret this result as normal/abnor mal. Hematocrit (test code = 39.8 % 34.1-44.9 4544-3) MCV (test code = 787-2) 88.4 fL 79.4-94.8 MCH (test code = 785-6) 29.8 pg 25.6-32.2 RDW (test code = 788-0) 12.5 % 11.7-14.4 Platelets (test code = 266 See_Comment [Aut omated message] 777-3) The system [employer] generated this result transmitted ref erence range: 150 - 45 0 K/CU MM. The referen ce range was not u sed to interpret this result as normal/abnor mal. MPV (test code = 9.1 fL 9.4-12.3 L 76566-5) nRBC (test code = 413) 0 See_Comment [Aut omated message] The system [employer] generated this result transmitted ref erence range: 0 - 0 /1 00 WBC. The refere nce range was not u sed to interpret this result as normal/abnor mal. Lab Interpretation (test Abnormal code = 09156-2) [facility] (HEMOGRAM ONLY)2021-09-03 05:43:01 Test Item Value Reference Range Interpretation Comments WHITE BLOOD CELL COUNT (BEAKER) 5.7 K/ L 3.5-10.5 (test code = 775) RED BLOOD CELL COUNT (BEAKER) 4.50 M/ L 3.93-5.22 (test code = 761) HEMOGLOBIN (BEAKER) (test code = 13.4 GM/DL 11.2-15.7 410) HEMATOCRIT (BEAKER) (test code = 39.8 % 34.1-44.9 411) MEAN CORPUSCULAR VOLUME (BEAKER) 88.4 fL 79.4-94.8 (test code = 753) MEAN CORPUSCULAR HEMOGLOBIN 29.8 pg 25.6-32.2 (BEAKER) (test code = 751) MEAN CORPUSCULAR HEMOGLOBIN CONC 33.7 GM/DL 32.2-35.5 (BEAKER) (test code = 752) RED CELL DISTRIBUTION WIDTH 12.5 % 11.7-14.4 (BEAKER) (test code = 412) PLATELET COUNT (BEAKER) (test 266 K/CU MM 150-450 code = 756) MEAN PLATELET VOLUME (BEAKER) 9.1 fL 9.4-12.3 L (test code = 754) NUCLEATED RED BLOOD CELLS 0 /100 WBC 0-0 (BEAKER) (test code = 413) Screen, [id number] 04:18:04 Test Item Value Reference Range Interpretation Comments Preg Test, Ur (test code = 2112-1) Negative [facility] CenterP[facility] S[facility], [id number] 04:18:04 Test Item Value Reference Range Interpretation Comments TEST URINE (BEAKER) (test Negative code = 583) RAD, CHEST, 1 VIEW, NON [id number] 14:59:00Reason for exam:->PreopShould this be performed at the bedside?->Yes [facility] : 1975 Sex: FFINALREPORT INDICATION: Preop COMPARISON: None TECHNIQUE: Single frontal view of thechest. FINDINGS: Lungs and pleura: Clear lungs. No effusion.Heart and mediastinum: Normal heart size. Unremarkable mediastinal contours.Osseous structures: No acute abnormality.Other: None. IMPRESSION:No acute intrathoracic abnormality. Signed: Mary Ashby MDReport Verified Date/Time: 09/02/2021 1 4:59:13 SARS-CoV2/RT-PCR (Symptomatic ONLY)2021-09-02 14:39:49 Test Item Value Reference Interpretation Comments Range SARS-COV2/RT-PCR Negative Negative The SARS-Co V-2 (test code = target nucleic 01678-3) acids are not detected in thi s specimen. Negat jt results do not preclude SARS-C oV-2 infection and should not be u sed as the sole bas is for patient management decisions. Nega tive results must be combined with clinical observations, patient history , and epidemiolog ical information. A false negative result may occu r if a specimen is improperly collected, transported or handled. This S ARS CoV-2 test is a rapid, real-chichi e RT-PCR test intended for th e qualitative detection of nucleic acid fr om SARS-CoV-2 in a nasopharyngeal swab specimen collec cosme from individual s suspected of COVID-19 by the ir healthcare provider. LEVON (test code = This test has been LEVON) authorized by FDA under an EUA for use by authorized laboratories. This test is only authorized for the duration of the declaration that circumstances exist justifying the authorization of emergency use of in vitro diagnostic tests for detection and/or diagnosis of COVID-19 under Section 564(b)(1) of the Federal Food, Drug and Cosmetic Act, 21 U.S.C. 360bbb-3(b)(1), unless the authorization is terminated or revoked sooner. Fact Sheet for Healthcare Providers: https://www.[employer]/Documents/Xp ert%20Xpress%20SAR S%20CoV-2/Fact%20S heets/302-3802%20S ARS-COV-2%20HEALTH CARE%20PROVIDERS%2 0FACT%20SHEET.pdf Fact Sheet for Healthcare Patients: https://www.[employer]/Documents/Xp ert%20Xpress%20SAR S%20CoV-2/Fact%20S heets/302-3801%20S ARS-COV-2%20PATIEN T%20FACT%20SHEET.p df Lab Interpretation Normal (test code = 60023-5) [facility]2021-09-02 14:39:49 Test Item Value Reference Range Interpretation Comments SARS-COV2/RT-PCR Negative Negative The SARS-Co V-2 target (test code = nucleic acids a re not [id number]) detected in thi s specimen. Negative result s do not preclude SARS-C oV-2 infection and s hould not be used as the ever e basis for patient managem ent decisions. Nega tive results must be combine d with clinical observ ations, patient history , and epidemiological information. A false negativ e result may occur if a spec imen is improperly jett ected, transported or handled. This SARS CoV-2 test is a rapid, real-time RT-PC R test intended for th e qualitative detection of nu cleic acid from SARS-CoV-2 in a nasopharyngeal swab specimen collected from individuals suspected of CO VID-19 by their healthcar e provider. This test has been authorized by FDA under an EUA for use by authorized laboratories. This test is only authorized for the duration of the declaration that circumstances exist justifying the authorization of emergency use of in vitro diagnostic tests for detection and/or diagnosis of COVID-19 under Section 564(b)(1) of the Federal Food, Drug and Cosmetic Act, 21 U.S.C. 360bbb-3(b)(1), unless the authorization is terminated or revoked sooner. Fact Sheet for Healthcare Providers: https://www.[employer]/Documents/Xpert%20Xpress%20SARS%20CoV-2/Fact%20Sheets/302-3802%56SHXH-FAA-6%20 HEALTHCARE%20PROVIDERS%20FACT%20SHEET.pdf Fact Sheet for Healthcare Patients: https://www.[employer]/Documents/Xpert%20Xp ress%20SARS%20CoV-2/Fact%20Sheets/3023801%88WHAC-YPN-2%20PATIENT%20FACT%20SHEET .pdfBASI METABOLIC [id number] 13:47:13 Test Item Value Reference Range Interpretation Comments SODIUM (BEAKER) 138 meq/L 136-145 (test code = 381) POTASSIUM (BEAKER) 4.3 meq/L 3.5-5.1 (test code = 379) CHLORIDE (BEAKER) 107 meq/L 98-107 (test code = 382) CO2 (BEAKER) (test 22 meq/L 22-29 code = 355) BLOOD UREA NITROGEN 12 mg/dL 7-21 (BEAKER) (test code = 354) CREATININE (BEAKER) 0.70 mg/dL 0.57-1.25 (test code = 358) GLUCOSE RANDOM 95 mg/dL 70-105 (BEAKER) (test code = 652) CALCIUM (BEAKER) 9.6 mg/dL 8.4-10.2 (test code = 697) EGFR (BEAKER) (test 89 mL/min/1.73 ESTIMA COSME GFR IS code = 1092) sq m NOT ACCURATE CREATININE CLEARANCE IN PREDICTING GLOMERULAR FILTRATION RATE . ESTIMATED GFR I S NOT APPLICABLE FOR DIALYSIS PATIEN TS. Basket Person ID - LEELA WCBC W/PLT COUNT & AUTO [id number] 13:32:27 Test Item Value Reference Range Interpretation Comments WHITE BLOOD CELL COUNT (BEAKER) 6.5 K/ L 3.5-10.5 (test code = 775) RED BLOOD CELL COUNT (BEAKER) 4.76 M/ L 3.93-5.22 (test code = 761) HEMOGLOBIN (BEAKER) (test code = 14.3 GM/DL 11.2-15.7 410) HEMATOCRIT (BEAKER) (test code = 42.0 % 34.1-44.9 411) MEAN CORPUSCULAR VOLUME (BEAKER) 88.2 fL 79.4-94.8 (test code = 753) MEAN CORPUSCULAR HEMOGLOBIN 30.0 pg 25.6-32.2 (BEAKER) (test code = 751) MEAN CORPUSCULAR HEMOGLOBIN CONC 34.0 GM/DL 32.2-35.5 (BEAKER) (test code = 752) RED CELL DISTRIBUTION WIDTH 12.4 % 11.7-14.4 (BEAKER) (test code = 412) PLATELET COUNT (BEAKER) (test 286 K/CU MM 150-450 code = 756) MEAN PLATELET VOLUME (BEAKER) 9.1 fL 9.4-12.3 L (test code = 754) NUCLEATED RED BLOOD CELLS 0 /100 WBC 0-0 (BEAKER) (test code = 413) NEUTROPHILS RELATIVE PERCENT 53 % (BEAKER) (test code = 429) LYMPHOCYTES RELATIVE PERCENT 37 % (BEAKER) (test code = 430) MONOCYTES RELATIVE PERCENT 9 % (BEAKER) (test code = 431) EOSINOPHILS RELATIVE PERCENT 0 % (BEAKER) (test code = 432) BASOPHILS RELATIVE PERCENT 1 % (BEAKER) (test code = 437) NEUTROPHILS ABSOLUTE COUNT 3.42 K/ L 1.56-6.13 (BEAKER) (test code = 670) LYMPHOCYTES ABSOLUTE COUNT 2.42 K/ L 1.18-3.74 (BEAKER) (test code = 414) MONOCYTES ABSOLUTE COUNT (BEAKER) 0.57 K/ L 0.24-0.36 H (test code = 415) EOSINOPHILS ABSOLUTE COUNT 0.02 K/ L 0.04-0.36 L (BEAKER) (test code = 416) BASOPHILS ABSOLUTE COUNT (BEAKER) 0.06 K/ L 0.01-0.08 (test code = 417) IMMATURE GRANULOCYTES-RELATIVE 0 % 0-1 PERCENT (BEAKER) (test code = 2801) Urine [id number] 11:51:42 Test Item Value Reference Range Interpretation Comments Result (test code = 10-19,000 col/mL skin 6463-4) sebastian [facility]T, [id number] 08:54:43 Test Item Value Reference Range Interpretation Comments Free T4 (test code = 0.92 ng/dL 0.70-1.48 3024-7) LEVON (test code = LEVON) Basket Person ID Bridgette SWENSON W Lab Interpretation (test Normal code = 66406-6) [facility], [id number] 08:54:43 Test Item Value Reference Range Interpretation Comments FREE T4 (BEAKER) (test code = 655) 0.92 ng/dL 0.70-1.48 Basket Person ID - LEELA WTSH/Free T4 If [id number] 06:20:34 Test Item Value Reference Range Interpretation Comments TSH (test code = 4.975 See_Comment H [Automated 94641-5) message] The system which generated this result transmit cosme reference range : 0.350 - 4.940 uIU/mL. The reference range was not used to interpret this result as normal/abnormal . LEVON (test code = LEVON) Basket Person ID - LEELA W Lab Interpretation Abnormal (test code = 09727-0) [facility]TS/FREE T4 IF [id number] 06:20:34 Test Item Value Reference Range Interpretation Comments THYROID STIMULATING HORMONE 4.975 uIU/mL 0.350-4.940 H (BEAKER) (test code = 772) Basket Person ID - LEELA WMR, SPINE, CERVICAL, WITHOUT [id number] 15:56:00 Unlisted Reason for Exam - Click Yes and Enter Reason Below->No [facility] CENTERName: MAY ZAIDI : 1975 Sex: FFINAL REPORT MR, SPINE, CERVICAL, WITHOUT CONTRAST INDICATION: Spinal cord injury, follow up TECHNIQUE: Multiplanar, multisequence MR imaging of the cervical spine was performed without intravenous contrast. COMPARISON: None. FINDINGS: Alignment of the cervical spine is within normal limits. Vertebral body height is maintained.Mild multilevel disc space height loss, most conspicuous at C5-Z2Evwzjf signal intensity is within normal limits for age.Cervical cord is normal in signal intensityNo acute findings within the paraspinal soft tissues. Findings by level:C2/C3: Mild disc osteophyte. Bilateral facet arthropathy and hypertrophy. Moderate left foraminal stenosis. No significant spinal canal narrowing.C3/C4: Mild posterior disc osteophyte. Ligamentum flavum thickening. Bilateral facet arthropathy and hypertrophy. No significant canal or foraminal stenosis.C4/C5: Broad-based disc osteophyte. Ligamentum flavum thickening. Bilateral facet arthropathy and hypertrophy. Mild spinal canal narrowing. Mild left foraminal stenosis.C5/C6: Disc osteophyte with large superimposed central andright paracentral disc extrusion with cranial and caudal migration of disc material. In combination with ligamentous thickening posteriorly at this is also in severe canal stenosis with impingement of the cervical cord, which demonstrates abnormal T2 hyperintense signal. Bilateral facet arthropathy with severe bilateral foraminal stenosis.C6/C7: Broad-based disc osteophyte. Ligamentum flavum thickening. Bilateral facet arthropathy and hypertrophy. Moderate bilateral foraminal stenosis. Moderate spinal canal narrowing.C7/T1: No significant canal or foraminal stenosis IMPRESSION: A large disc extrusion at C5-C6 contributes to severe canal stenosis with focal impingement of the cervical cord, which demonstrates slight increased T2 hyperintense signal. In combination with facet arthrosis there is also severe bilateral foraminal stenosis at this level. Signed: Mary Ashby MDReport Verified Date/Time: 09/01/2021 15:56:55 Reading Location: [address] Neuro Reading Room RE, [id number] 12:37:00 Test Item Value Reference Range Interpretation Comments Rh Factor (test code = 2589) NEG ABO Grouping (test code = 2588) [facility], [id number] 07:31:00 Test Item Value Reference Range Interpretation Comments ABO/RH AUTOMATED (BEAKER) (test O NEGATIVE code = 2260) Ab Scrn (test code = 890-4) NEGATIVE [facility] CenterMR, SPINE, LUMBAR, WITHOUT [id number] 06:11:00Unlisted Reason for Exam - Click Yes and Enter Reason Below->No [facility] 1975 Sex: FFINAL REPORT EXAM/TECHNIQUE: MRI of the lumbar spine without IV contrast. Multiplanar multisequence technique was performed. INDICATION: Concern for cauda equina. COMPARISON: None. FINDINGS: Exam slightly limited by motion artifact. There are five lumbar-type vertebral bodies. Normal appearance of the conus medullaris. Cauda equina is grossly normal in appearance. No acute fracture. No infiltrative marrow process. Normal alignment of the lumbar spine. Bilateral renal cysts. Paraspinal musculature is unremarkable. T12-L1: No spinal canal narrowing. No neural foraminal narrowing. L1-L2:No spinal canal narrowing. No neural foraminal narrowing.L2-L3: No spinal canal narrowing. No neural foraminal narrowing.L3-L4: Symmetric disc bulge, facet arthropathy, and ligament flavum prominence contributes to moderate severe spinal canal narrowing and moderate bilateral neural foraminal narrowing. Bilateral subarticular recess narrowing.L4-L5: No spinal canal narrowing. Symmetric disc bulge with facet arthropathy contribute to mild bilateral neural foraminal narrowing. Bilateral subarticular recess narrowing.L5-S1: No spinal canal narrowing. No neural foraminal narrowing. Impression: Multilevel spondylosis with moderate to severe spinal canal narrowing at L3-L4. Clinical correlation is recommended for cauda equina syndrome in the absence of prior exams. Above findings were relayed to Dr. Block at 0611 hours 09/01/2021. Signed: Rory Jaimes MDReport Verified Date/Time: 09/01/2021 06:11:42 Urinalysis w/Microscopic + Reflex to [id number] 05:55:42 Test Item Value Reference Range Interpretation Comments Color, UA (test code Light Yellow = 5778-6) Clarity, UA (test Hazy code = 5767-9) Specific Isabella, UA 1.017 1.001-1.035 (test code = 5811-5) pH, UA (test code = 6.5 5.0-8.0 5803-2) Protein, UA (test Negative Negative code = 92713-8) Glucose, UA (test Negative Negative code = 365) Ketones, UA (test Negative Negative code = 2514-8) Bilirubin, UA (test Negative Negative code = 43990-0) Blood, UA (test code Negative Negative = 45371-2) Nitrite, UA (test Negative Negative code = 5802-4) Leukocytes, UA (test Large Negative A code = 5799-2) Urobilinogen, UA 0.2 mg/dL 0.2-1.0 (test code = 94565-3) RBC, UA (test code = 10 See_Comment [Autom ated 95798-6) message] The system which generated this result transmit cosme reference range : /HPF. The reference range was not used to interpret this result as normal/abnormal . WBC, UA (test code = 43 See_Comment [Autom ated 5821-4) message] The system which generated this result transmit cosme reference range : /HPF. The reference range was not used to interpret this result as normal/abnormal . Bacteria, UA (test Rare code = 88150-9) Squam Epithel, UA 5 See_Comment [Automate d (test code = 97529-8) messag e] The system which generated this result transmit cosme reference range : /HPF. The reference range was not used to interpret this result as normal/abnormal . Crystals, Urine (test None Seen code = 66432-2) Amorphous Crystals Rare (test code = 44927-9) Specimen Source (test code = 2795) LEVON (test code = LEVON) Basket Person ID - [auto]Basket Person ID - tech Lab Interpretation Abnormal (test code = 75510-3) [facility]FLEX URINE [id number] 05:55:42 Test Item Value Reference Range Interpretation Comments COLOR (BEAKER) (test code = 470) Light Yellow CLARITY (BEAKER) (test code = Hazy 469) SPECIFIC GRAVITY UA (BEAKER) 1.017 1.001-1.035 (test code = 468) PH UA (BEAKER) (test code = 467) 6.5 5.0-8.0 PROTEIN UA (BEAKER) (test code = Negative Negative 464) GLUCOSE UA (BEAKER) (test code = Negative Negative 365) KETONES UA (BEAKER) (test code = Negative Negative 371) BILIRUBIN UA (BEAKER) (test code Negative Negative = 462) BLOOD UA (BEAKER) (test code = Negative Negative 461) NITRITE UA (BEAKER) (test code = Negative Negative 465) LEUKOCYTE ESTERASE UA (BEAKER) Large Negative A (test code = 466) UROBILINOGEN UA (BEAKER) (test 0.2 mg/dL 0.2-1.0 code = 463) RBC UA (BEAKER) (test code = 10 /HPF 519) WBC UA (BEAKER) (test code = 43 /HPF 520) BACTERIA (BEAKER) (test code = Rare 517) SQUAMOUS EPITHELIAL (BEAKER) 5 /HPF (test code = 516) CRYSTALS, URINE (BEAKER) (test None Seen code = 1521) AMORPHOUS CRYSTALS (BEAKER) Rare (test code = 1584) SOURCE(BEAKER) (test code = 2795) Basket Person ID - [auto]Basket Person ID - [id number] 04:10:38 Test Item Value Reference Range Interpretation Comments Phosphorus (test code 3.9 mg/dL 2.3-4.7 Specim en = 2777-1) moderately hemolyzed LEVON (test code = LEVON) Basket Person ID - DB Lab Interpretation Normal (test code = 55534-5) [facility]PHOS[facility]2021-10-02 04:10:38 Test Item Value Reference Range Interpretation Comments PHOSPHORUS (BEAKER) 3.9 mg/dL 2.3-4.7 Specimen moderately (test code = 604) hemolyzed Basket Person ID - DBBASIC METABOLIC [id number] 04:10:38 Test Item Value Reference Range Interpretation Comments SODIUM (BEAKER) 138 meq/L 136-145 (test code = 381) POTASSIUM (BEAKER) 4.2 meq/L 3.5-5.1 Specimen moderately (test code = 379) hemolyzed CHLORIDE (BEAKER) 108 meq/L 98-107 H (test code = 382) CO2 (BEAKER) (test 21 meq/L 22-29 L code = 355) BLOOD UREA NITROGEN 13 mg/dL 7-21 (BEAKER) (test code = 354) CREATININE (BEAKER) 0.72 mg/dL 0.57-1.25 Specimen moderately (test code = 358) hemolyzed GLUCOSE RANDOM 100 mg/dL 70-105 (BEAKER) (test code = 652) CALCIUM (BEAKER) 8.9 mg/dL 8.4-10.2 (test code = 697) EGFR (BEAKER) (test 86 mL/min/1.73 ESTIMA COSME GFR IS code = 1092) sq m NOT ACCURATE CREATININE CLEARANCE IN PREDICTING GLOMERULAR FILTRATION RATE . ESTIMATED GFR I S NOT APPLICABLE FOR DIALYSIS PATIEN TS. Basket Person ID - [id number] 04:10:37 Test Item Value Reference Range Interpretation Comments Magnesium (test code = 1.9 mg/dL 1.6-2.6 Speci men 15660-0) moderately hemolyzed LEVON (test code = LEVON) Basket Person ID - DB Lab Interpretation Normal (test code = 91114-8) [facility] Center[facility]2021-10-02 04:10:37 Test Item Value Reference Range Interpretation Comments MAGNESIUM (BEAKER) 1.9 mg/dL 1.6-2.6 Specimen moderately (test code = 627) hemolyzed Basket Person ID - DBProthrombin time/[id number] 04:04:19 Test Item Value Reference Interpretation Comments Range Protime (test code = 13.4 See_Comment [Autom ated 5902-2) message] The system which generated this result transmitted reference range : 11.9 - 14.2 seconds. The reference range was not used to interpret this result as normal/abnormal . INR (test code = 1.04 See_Comment [Automated 6301-6) message] The system which generated this result transmitted reference range : <=5.90. The reference range was not used to interpret this result as normal/abnormal . LEVON (test code = RECOMMENDED LEVON) COUMADIN/WARFARIN INR THERAPY RANGESSTANDARD DOSE: 2.0 - 3.0 Includes: PROPHYLAXIS for venous thrombosis, systemic embolization; TREATMENT for venous thrombosis and/or pulmonary embolus.HIGH RISK: Target INR is 2.5-3.5 for patients with mechanical heart valves. Lab Interpretation Normal (test code = 21679-5) [facility] CenterPROTHROMBIN TIME/[id number] 04:04:19 Test Item Value Reference Range Interpretation Comments PROTIME (BEAKER) 13.4 seconds 11.9-14.2 (test code = 759) INR (BEAKER) (test 1.04 See_Comment [Automat ed message] code = 370) The system [employer] generated this result transmitted ref erence range: <=5.90. The reference range was not used to int erpret this result as normal/abnormal . RECOMMENDED COUMADIN/WARFARIN INR THERAPY RANGESSTANDARD DOSE: 2.0 - 3.0 Includes: PROPHYLAXIS for venous thrombosis, systemic embolization; TREATMENT for venous thrombosis and/or pulmonary embolus.HIGH RISK: Target INR is 2.5-3.5 for patients with mechanical heart valves.CBC W/PLT COUNT & AUTO [id number] 03:59:33 Test Item Value Reference Range Interpretation Comments WHITE BLOOD CELL COUNT (BEAKER) 6.9 K/ L 3.5-10.5 (test code = 775) RED BLOOD CELL COUNT (BEAKER) 4.23 M/ L 3.93-5.22 (test code = 761) HEMOGLOBIN (BEAKER) (test code = 12.6 GM/DL 11.2-15.7 410) HEMATOCRIT (BEAKER) (test code = 38.0 % 34.1-44.9 411) MEAN CORPUSCULAR VOLUME (BEAKER) 89.8 fL 79.4-94.8 (test code = 753) MEAN CORPUSCULAR HEMOGLOBIN 29.8 pg 25.6-32.2 (BEAKER) (test code = 751) MEAN CORPUSCULAR HEMOGLOBIN CONC 33.2 GM/DL 32.2-35.5 (BEAKER) (test code = 752) RED CELL DISTRIBUTION WIDTH 12.5 % 11.7-14.4 (BEAKER) (test code = 412) PLATELET COUNT (BEAKER) (test 265 K/CU MM 150-450 code = 756) MEAN PLATELET VOLUME (BEAKER) 9.5 fL 9.4-12.3 (test code = 754) NUCLEATED RED BLOOD CELLS 0 /100 WBC 0-0 (BEAKER) (test code = 413) NEUTROPHILS RELATIVE PERCENT 58 % (BEAKER) (test code = 429) LYMPHOCYTES RELATIVE PERCENT 33 % (BEAKER) (test code = 430) MONOCYTES RELATIVE PERCENT 8 % (BEAKER) (test code = 431) EOSINOPHILS RELATIVE PERCENT 0 % (BEAKER) (test code = 432) BASOPHILS RELATIVE PERCENT 1 % (BEAKER) (test code = 437) NEUTROPHILS ABSOLUTE COUNT 3.96 K/ L 1.56-6.13 (BEAKER) (test code = 670) LYMPHOCYTES ABSOLUTE COUNT 2.28 K/ L 1.18-3.74 (BEAKER) (test code = 414) MONOCYTES ABSOLUTE COUNT (BEAKER) 0.53 K/ L 0.24-0.36 H (test code = 415) EOSINOPHILS ABSOLUTE COUNT 0.01 K/ L 0.04-0.36 L (BEAKER) (test code = 416) BASOPHILS ABSOLUTE COUNT (BEAKER) 0.05 K/ L 0.01-0.08 (test code = 417) IMMATURE GRANULOCYTES-RELATIVE 0 % 0-1 PERCENT (BEAKER) (test code = 7351)
--- NOTE | 2022-11-03 17:08 | RAD REPORT ---
EXAM DESCRIPTION: RAD - Chest Pa And Lat (2 Views) - 11/03/2022 4:55 pm CLINICAL HISTORY: Cough COMPARISON: None TECHNIQUE: Frontal and lateral views of the chest were obtained. FINDINGS: The lungs are clear. Heart size is normal and central vasculature is within normal limit s. No pleural effusion or pneumothorax seen. No acute bony finding noted. No aortic abnormality. IMPRESSION: No acute cardiopulmonary process.
[2022-11-03 17:23] LABS: SARS-COV-2 RT PCR NEGATIVE (NEGATIVE)
--- NOTE | 2022-11-03 17:57 | EDPHYS ---
Physician Documentation [facility] Name: May Zaidi Age: 47 yrs Sex: Female : 1975 Arrival Date: 11/03/2022 Time: 16:01 Bed 9 Private MD: MARIAH Physician Florencio Power HPI: 11/03 17:21 This 47 yrs old Female presents to ER via Ambulatory with complaints of Flu Symptoms. kb 17:21 The patient or guardian reports cough, that is intermittent, described as mild, kb difficulty breathing, flu symptoms, myalgias. Onset: The symptoms/episode began/occurred 3 day(s) ago. Severity of symptoms: At their worst the symptoms were moderate, in the emergency department the symptoms are unchanged. Modifying factors: The symptoms are alleviated by nothing, the symptoms are aggravated by nothing. Associated signs and symptoms: Pertinent positives: rhinorrhea. The patient has not experienced similar symptoms in the past. The patient has not recently seen a physician. 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 - Social history:: Smoking status: Patient reports the use of cigarette tobacco products, smokes one pack cigarettes per day. Patient/guardian denies using alcohol. ROS: 17:20 Abdomen/GI: Negative for abdominal pain, nausea, vomiting, diarrhea, and constipation. kb 17:20 Constitutional: Positive for chills, fatigue, malaise. 17:20 ENT: Positive for sinus congestion. 17:20 Respiratory: Positive for cough. 17:20 Neuro: Positive for headache. 17:20 All other systems are negative. Exam: 17:20 Constitutional: This is a well developed, well nourished patient who is awake, alert, kb and in no acute distress. Head/Face: Normocephalic, atraumatic. ENT: Moist Mucous membranes Cardiovascular: Regular rate and rhythm with a normal S1 and S2. No gallops, murmurs, or rubs. No pulse deficits. Respiratory: Respirations even and unlabored. No increased work of breathing. Talking in full sentences Abdomen/GI: Soft, non-tender. No distention Skin: Warm, dry with normal turgor. Normal color. MS/ Extremity: Pulses equal, no cyanosis. Neurovascular intact. Full, normal range of motion. Neuro: Awake and alert, GCS 15, oriented to person, place, time, and situation. Moves all extremities. Normal gait. Psych: Awake, alert, with orientation to person, place and time. Behavior, mood, and affect are within normal limits. Vital Signs: 16:08 BP 182 / 114; Pulse 91; Resp 18; Temp 97.3(TE); Pulse Ox 99% on R/A; Weight 72.57 kg; ld1 Height 5 ft. 3 in. (160.02 cm); Pain 0/10; 18:07 BP 160 / 91; Pulse 73; Resp 16; Pulse Ox 99% on R/A; iw 16:08 Body Mass Index 28.34 (72.57 kg, 160.02 cm) ld1 MDM: 16:04 Patient medically screened. kb 17:20 Data reviewed: vital signs, nurses notes. Data interpreted: Pulse oximetry: on room air kb is 99 %. Interpretation: normal. 17:55 Counseling: I had a detailed discussion with the patient and/or guardian regarding: the kb historical points, exam findings, and any diagnostic results supporting the discharge/admit diagnosis, lab results, radiology results, the need for outpatient follow up, a family practitioner, to return to the emergency department if symptoms worsen or persist or if there are any questions or concerns that arise at home. 11/03 16:13 Order name: COVID-19/FLU A+B; Complete Time: 17:36 kb 11/03 16:13 Order name: Chest Pa And Lat (2 Views) XRAY; Complete Time: 17:09 kb Administered Medications: 18:07 Drug: predniSONE 40 mg Route: PO; iw 18:07 Drug: Zithromax (azithromycin) 500 mg Route: PO; iw Disposition Summary: 11/03/22 17:57 Discharge Ordered Location: Home kb Condition: Stable kb Diagnosis - Fever, unspecified kb - Cough kb Followup: kb - With: Emergency Department - When: As needed - Reason: Worsening of condition Followup: kb - With: Private Physician - When: 2 - 3 days - Reason: Recheck today's complaints, Continuance of care, Re-evaluation by your physician Discharge Instructions: - Discharge Summary Sheet kb - Acute Bronchitis, Adult, [id number] kb - Cough, Adult, [id number] kb Forms: - Medication Reconciliation Form kb - Thank You Letter kb - Antibiotic Education kb - Prescription Opioid Use kb Prescriptions: - Prednisone 20 mg Oral Tablet - take 1 tablet by ORAL route once daily for 5 days; 5 tablet; Refills: 0, kb Product Selection Permitted - Zithromax 500 mg Oral Tablet - take 1 tablet by ORAL route once daily for 5 days; 5 tablet; Refills: 0, kb Product Selection Permitted Signatures: Dispatcher [employer] Charlotte Maddox, AUTOMATION TECHNICIAN-C AUTOMATION TECHNICIAN-Ashleigh Gordon, RN RN iw Gilma Jeff RN RN ld1
--- NOTE | 2022-11-03 17:57 | ER ---
Nurse's Notes [facility] Name: May Zaidi Age: 47 yrs Sex: Female : 1975 Arrival Date: 11/03/2022 Time: 16:01 Bed 9 Private MD: Diagnosis: Fever, unspecified;Cough Presentation: 11/03 16:08 Chief complaint: Patient states: SOB, congestion, stuffy nose X 3 days. Coronavirus ld1 screen: At this time, the client does not indicate any symptoms associated with coronavirus-19. Ebola Screen: No symptoms or risks identified at this time. Initial Sepsis Screen: Does the patient meet any 2 criteria? No. Patient's initial sepsis screen is negative. Does the patient have a suspected source of infection? No. Patient's initial sepsis screen is negative. Risk Assessment: Do you want to hurt yourself or someone else? Patient reports no desire to harm self or others. Onset of symptoms was November 03, 2022 at 16:10. 16:08 Method Of Arrival: Ambulatory ld1 16:08 Acuity: HIRAM 4 ld1 Triage Assessment: 16:10 General: Appears in no apparent distress. comfortable, Behavior is calm, cooperative, ld1 appropriate for age. Pain: Denies pain. EENT: No signs and/or symptoms were reported regarding the EENT system. Neuro: Level of Consciousness is awake, alert, obeys commands, Oriented to person, place, time, situation. Cardiovascular: Capillary refill < 3 seconds Patient's skin is warm and dry. Respiratory: Airway is patent Respiratory effort is even, unlabored. GI: Abdomen is flat, non-distended. GI: No signs and/or symptoms were reported involving the gastrointestinal system. : No signs and/or symptoms were reported regarding the genitourinary system. Derm: No signs and/or symptoms reported regarding the dermatologic system. Musculoskeletal: No signs and/or symptoms reported regarding the musculoskeletal system. 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 - Social history:: Smoking status: Patient reports the use of cigarette tobacco products, smokes one pack cigarettes per day. Patient/guardian denies using alcohol. Screenin:14 Abuse screen: Denies threats or abuse. Denies injuries from another. Nutritional ld1 screening: No deficits noted. Tuberculosis screening: No symptoms or risk factors identified. Fall Risk None identified. Assessment: 16:14 Reassessment: See triage assessment. ld1 Vital Signs: 16:08 BP 182 / 114; Pulse 91; Resp 18; Temp 97.3(TE); Pulse Ox 99% on R/A; Weight 72.57 kg; ld1 Height 5 ft. 3 in. (160.02 cm); Pain 0/10; 18:07 BP 160 / 91; Pulse 73; Resp 16; Pulse Ox 99% on R/A; iw 16:08 Body Mass Index 28.34 (72.57 kg, 160.02 cm) ld1 ED Course: 16:01 Patient arrived in ED. mr 16:04 Charlotte Ritter FNP-C [facility]. kb 16:04 Florencio Power MD is Attending Physician. kb 16:10 Triage completed. ld1 16:10 Arm band placed on right wrist. ld1 16:14 Patient has correct armband on for positive identification. Placed in gown. Bed in low ld1 position. Call light in reach. Side rails up X2. Pulse ox on. NIBP on. Door closed. Noise minimized. Warm blanket given. 16:16 COVID-19/FLU A+B Sent. ld1 16:56 Chest Pa And Lat (2 Views) XRAY In Process Unspecified. EDMS 17:59 Ashleigh Diego, RN is Primary Nurse. iw Administered Medications: 18:07 Drug: predniSONE 40 mg Route: PO; iw 18:07 Drug: Zithromax (azithromycin) 500 mg Route: PO; iw Medication: 16:14 VIS not applicable for this client. ld1 Outcome: 17:57 Discharge ordered by . kb 18:12 Patient left the ED. iw Signatures: Dispatcher [employer] EDMS Charlotte Ritter FNP-C FNP-Ckb Rivera, Mary mr Ashleigh Diego, RN RN iw Gilma Jeff, RN RN ld1
[2022-11-03] MEDS ORDERED: AZITHROMYCIN 250 MG TAB ONE (18:04)
[2022-11-03] MEDS ORDERED: predniSONE 20 MG TAB ONE (18:04)
[2022-11-03 18:16] VITALS: TEMP 97.3; O2SAT 99
[2022-11-03 18:17] VITALS: BP 160/91
== END 2022-11-03 18:12 | disposition home or self-care (01) ==
LOC: ER 15:58
DX: R50.9 Fever, unspecified (principal); R05.9 Cough, unspecified; F17.210 Nicotine dependence, cigarettes, uncomplicated; Z20.822 Contact with and (suspected) exposure to COVID-19; Z88.8 Allergy status to other drugs, medicaments and biological substances
CPT/HCPCS: 0240U; 71046; 99284; J7512; Q0144

== ENCOUNTER 2022-11-11 09:31 | Emergency (ER) | payer OTHER ==
--- OUTSIDE RECORDS SUMMARY | 2022-11-11 09:41 | XMS REPORT | Continuity of Care Document ---
:1975 Author Organization [facility] t Address [address] [place] [address] Care Team Providers Name Role Phone RastaJeannieShonda Primary Care Physician DREW ANAND Attending Clinician Unavailable YANELY ALBERT Attending Clinician Unavailable Yanely Albert NP Attending Clinician YANELY ALBERT Attending Clinician Unavailable RODGER CARDOSO Attending Clinician Unavailable Rodger Cardoso NP Attending Clinician CHIN RAMIREZ Attending Clinician Unavailable Stone Cool MD Attending Clinician [phone] Paula Block MD Attending Clinician [phone] Nidhi Garcia MD Attending Clinician Annelise VIDES, Chin Keita Attending Clinician Johnathon VIDES, Reggie Tolbert Attending Clinician [phone] Drew Anand MD Attending Clinician NIDHI GARCIA Admitting Clinician Unavailable Payers Payer Name Policy Type Policy Number Effective Date Expiration Date Shana moura [facility] - [id number] GENERIC - ORTIZ CARE [facility]-MEDICAID - [id number] MEDICAID Problems Condition Condition Condition Status Onset [...] Added automatic ally from request for surgery [id number] No known No known Disease [facility] active active College problems problems of Medicin [...] [facility] Losartan Propensi Active Anaphylaxis 2020-12 [facility] to 0-02 College adverse 00:00: of reaction 00 Medicin s to e drug Aripipra Propensi Active Other (See 2020-12 [facility] ty to Comments) 0-02 College adverse 00:00: of reaction 00 Medicin s to e drug Latex Propensi Active Swelling 2020-12 [facility] ty to 0-02 College adverse 00:00: of reaction 00 Medicin s to e substanc e Lisinopr Propensi Active Anaphylaxis 2020-12 [facility] ty to 0-02 College adverse 00:00: of reaction 00 Medicin s to e drug Aripipra Drug Active Other (See 2020-12 [facility] [...] Date Source Natural mother No Known Problem [facility] Natural father No Known Problem [facility] Social History Social Habit Start Date Stop Date Quantity Comments Source Exposure to Not sure [facility] jonah SARS-CoV-2 (event) of Med icine Alcohol intake 2021-10-16 2021-10-16 Lifetime [facility] Col lege 00:00:00 00:00:00 non-drinker of Medicine (finding) History of tobacco 2021-10-13 Smoker [facility] use 00:00:00 of Medicine Cigarettes smoked 2021-09-19 2021-09-19 [facility] current (pack per 00:00:00 00:00:00 of Medi cine day) - Reported Cigarette 2021-09-19 2021-09-19 [facility] pack-years 00:00:00 00:00:00 of Medicine Tobacco use and 2021-09-01 2021-09-[address] [facility] exposure 00:00:00 00:00:00 [facility] Center Sex Assigned At [address] [facility] Smoking Status Start Date Stop Date Source Ex-smoker 2021-09-19 00:00:00 2021-09-19 00:00:00 [facility] Never sm[facility] Medications Ordered Filled Start Stop Current Ordering Indication Dosage Frequency Signature Comments Components Source Medication Medication Date Date Medication? Clinician (SIG) Name Name TAKE ONE 2021-0 No 30 CAPSULE 9-06 ONCE A DAY 00:00: 00 TAKE ONE 2021-0 No CAPSULE 9-06 ONCE A DAY 00:00: 00 TAKE ONE 2021-0 No CAPSULE 9-06 ONCE A DAY 00:00: 00 TAKE 1 2021-0 No [id number] TABLET 7-14 TWICE DAILY 00:00: WITH FOOD. 00 TAKE 1 2021-0 No [id number] TABLET 7-14 TWICE DAILY 00:00: WITH FOOD. 00 TAKE 1 2021-0 No [id number] TABLET 7-14 TWICE DAILY 00:00: WITH FOOD. 00 TAKE 1 2021-0 No [id number] TABLET 7-14 TWICE DAILY 00:00: WITH FOOD. 00 gabapentin 2021-0 No 1mg 100 mg 7-05 capsule 00:00: 00 Dose 2-0 No Unknown 7-05 00:00: 00 Dose 2021-0 No Unknown 7-05 00:00: 00 gabapentin 2-0 No 1mg 100 mg 7-05 capsule 00:00: 00 hydroxyzine 2022-0 No 1mg HCl [...] 3-29 00:00: 00 Dose 2022-0 No Unknown 3-25 [...] 2-23 12.5 mg 00:00: tablet 00 hydrochloro 2020-12 No 1mg thiazide 2-23 12.5 mg 00:00: [...] hydrOXYzine 2020-12 Yes 25mg Take 25 mg [facility] HCl (ATARAX 1-16 by mouth 3 Co llege OR) 12:51: times of 57 daily as Medicin needed. e methocarbam 2020-12 Yes 750mg Take 750 [facility] ol 1-16 mg by [facility] (ROBAXIN) 12:51: mouth 3 of 750 MG 57 times Medicin tablet daily as e needed. olanzapine 2020-12 Yes 10mg Take 10 mg [facility] (ZYPREXA) 1-16 by mouth Colleg e 10 MG 12:51: daily. of tablet 57 Medicin e tramadol 2020-12 Yes 50mg Take 50 mg [facility] (ULTRAM) 50 1-16 by mouth 3 Co llege MG tablet 12:51: times of 57 daily as Medicin needed. e Melatonin 2020-12 Yes 12mg Take 12 mg [facility] 12 MG TABS 1-16 by mouth Colle ge 12:51: nightly. of 57 Medicin e acetaminoph 2020-12 Yes 500mg Take 500 [facility] en 1-16 mg by [facility] (TYLENOL) 12:51: mouth 3 of 500 mg [...] mouth [facility] MG tablet 14:08: daily. [address] OLANZapine 2020-12 Yes 5mg QD Take [address] (ZyPREXA) 5 0-14 by mouth [facility] MG tablet 14:08: nightly. [address] melatonin 2020-12 Yes 12mg QD Take [address] 12 mg Tab 0-14 by mouth [facility] 14:08: nightly . [address] polyethylen 2020-12 Yes 17g Q.5D Take [address] e glycol 0-14 by mouth 2 [facility] (Miralax) 14:08: (two) [place] [address] times [place] gram/dose daily. powder FLUoxetine 2020-12 Yes 20mg QD Take [address] (PROzac) 20 0-14 by mouth [facility] MG tablet 14:08: daily. [address] OLANZapine 2020-12 Yes 5mg QD Take [address] (ZyPREXA) 5 0-14 by mouth Luke [facility] MG tablet 14:08: nightly. [address] melatonin 2020-12 Yes 12mg QD Take [address] 12 mg Tab 0-14 by mouth [facility] 14:08: nightly . [address] polyethylen 2020-12 Yes 17g Q.5D Take [address] e glycol 0-14 by mouth 2 [facility] (Miralax) 14:08: (two) [place] [address] times [place] gram/dose daily. powder FLUoxetine 2020-12 Yes 20mg QD Take [address] (PROzac) 20 0-14 by mouth [facility] MG tablet 14:08: daily. [address] OLANZapine 2020-12 Yes 5mg QD Take [address] (ZyPREXA) 5 0-14 by mouth [facility] MG tablet 14:08: nightly. [address] melatonin 2020-12 Yes 12mg QD Take [address] 12 mg Tab 0-14 by mouth [facility] 14:08: nightly . [address] polyethylen 2020-12 Yes 17g Q.5D Take [address] e glycol 0-14 by mouth 2 [facility] (Miralax) 14:08: (two) [place] [address] times [place] gram/dose daily. powder FLUoxetine 2020-12 Yes 20mg QD Take [address] (PROzac) 20 0-14 by mouth [facility] MG tablet 14:08: daily. [address] OLANZapine 2020-12 Yes 5mg QD Take [address] (ZyPREXA) 5 0-14 by mouth [facility] MG tablet 14:08: nightly. [address] melatonin 2020-12 Yes 12mg QD Take [address] 12 mg Tab 0-14 by mouth [facility] 14[facility]08: nightly . [address] polyethyl 2020-12 Yes 17g Q.5D Take [address] e glycol 0-14 by mouth 2 [facility] (Miralax) 14:08: (two) [place] [address] times [place] gram/dose daily. powder FLUoxetine 2020-12 Yes 20mg QD Take [address] (PROzac) 20 0-14 by mouth [facility] MG tablet 14:08: daily. [address] OLANZapine 2020-12 Yes 5mg QD Take [address] (ZyPREXA) 5 0-14 by mouth [facility] MG tablet 14:08: nightly. [address] melatonin 2020-12 Yes 12mg QD Take [address] 12 mg Tab 0-14 by mouth [facility] 14:08: nightly . [address] polyethylen 2020-12 Yes 17g Q.5D Take [address] e glycol 0-14 by mouth 2 [facility] (Miralax) 14:08: (two) [place] [address] times [place] gram/dose daily. powder hydroxyzine 2020-12 No 1mg [...] 1mg mg tablet 0-12 00:00: 00 hydroxyzine 2020-12 No 1mg HCl [...] 1mg mg tablet 0-12 00:00: 00 hydroxyzine 2020-12 No 1mg HCl [...] 1mg mg tablet 0-12 00:00: 00 hydroxyzine 2020-12 No 1mg HCl [...] 1mg mg tablet 0-12 00:00: 00 carvedilol 2020-12- No 6.25mg Take 6.25 [facility] (COREG) 0-06 10-07 mg by College 6.25 MG 00:00: 04:59 mouth two of tablet 00 :00 times Medicin daily. e carvediloL 2020-12- No 6.25mg Q.5D Take 1 [...] Anxiety for up to 10 days. methocarbam 2020-12 No 750mg Q.25D Take [address] oL 0-06 10-16 tablet [facility] (ROBAXIN) 00:00: 23:59 (750 mg Medi holden 750 MG 00 :00 total) by Center tablet mouth 4 (four) times daily for 10 days. oxyCODONE 2020-12 No 10mg Take 1 [facility] [...] on for up to 30 days. oxyCODONE 2020-12- No 10mg Take 1 [facility] (OXY-IR) 10 0-06 10-14 tablet (10 L ukes mg tablet 00:00: 00:00 mg total) Me dical 00 :00 by mouth Center every 4 (four) hours as needed for up to 10 days. Max Daily Amount: 60 mg polyethylen 2020-12- No 17g Q.5D Take [address] e glycol 0-06 -09 by mouth 2 Luke s (GLYCOLAX) 00:00: 23:59 (two) Medic al 17 gram 00 :00 times Center packet daily for 3 days. oxyCODONE 2020-12- No 10mg Take [address] (ROXICODONE 0-06 [...] Source Systolic blood 2021-10-16 18:49:00 121 mm[Hg] [facility] pressure Medicine Diastolic blood 2021-10-16 18:49:00 81 mm[Hg] [facility] pressure Medicine Heart rate 2021-10-16 18:49:00 77 /min [facility] Body temperature 2021-10-16 18:49:00 36.22 Regi [facility] Respiratory rate 2021-10-16 18:49:00 16 /min [facility] Body height 2021-10-16 18:49:00 165.1 cm [facility] Body weight 2021-10-16 18:49:00 75.025 kg [facility] BMI 2021-10-16 18:49:00 27.52 kg/m2 [facility] Oxygen saturation in 2021-10-16 18:49:00 98 /min [facility] Arterial blood by [facility] Pulse oximetry HEIGHT 2021-09-13 14:01:00 165.1 cm [...] /min Systolic blood 2021-09-13 14:01:00 136 mm[Hg] [facility] Diastolic blood 2021-09-13 14:01:00 89 mm[Hg] [facility] Heart rate 2021-09-13 14:01:00 65 /min [facility] Respiratory rate 2021-09-13 14:01:00 16 /min [facility] Body height 2021-09-13 14:01:00 165.1 cm [facility] Body weight 2021-09-13 14:01:00 73.483 kg [facility] BMI 2021-09-13 14:01:00 26.96 kg/m2 [facility] BP Systolic 2021-09-11 11:44:00 159 mm[Hg] BP Diastolic 2021-09-11 11:44:00 95 mm[Hg] Weight Measured 2021-09-11 11:44:00 168.20 pounds Height Measured 2021-09-11 11:44:00 65.00 inches Body Temperature 2021-09-11 11:44:00 98.00 degrees Heart Rate 2021-09-11 11:44:00 70.00 /min Respiratory Rate 2021-09-11 11:44:00 Body temperature 2021-09-05 12:00:00 36.5 Regi [facility] Oxygen saturation in 2021-09-05 12:00:00 95 /min [facility] Arterial blood by Medical Ce nter Pulse oximetry BP Systolic 2021-08-31 13:32:00 152 mm[Hg] BP Diastolic 2021-08-31 13:32:00 91 mm[Hg] Weight Measured 2021-08-31 13:32:00 166.00 pounds Height Measured 2021-08-31 13:32:00 65.00 inches Body Temperature 2021-08-31 13:32:00 98.90 degrees Heart Rate 2021-08-31 13:32:00 70.00 /min Respiratory Rate 2021-08-31 13:32:00 17.00 /min Procedures Procedure Date / Time Performed Performing Clinician Sour e BASIC METABOLIC PANEL (7) 2021-09-05 04:16:00 Hermilo Phillips [facility] CBC W/PLT COUNT & AUTO 2021-09-05 04:16:[address] [facility] CBC W/PLT COUNT & AUTO 2021-09-05 04:16:[address] [facility] XR SPINE CERVICAL 2 OR 3 2021-09-04 13:59:00 Haj-Ismail Nidhi C [facility] BASIC METABOLIC PANEL (7) 2021-09-04 09:55:00 Hermilo Phillips [facility] CBC W/PLT COUNT & AUTO 2021-09-04 09:55:[address] [facility] CBC W/PLT COUNT & AUTO 2021-09-04 09:55:[address] [facility] HC SOMATOSENSORY TEST, 4 2021-09-03 12:16:00 Drew Anand [facility] [place] FLUORO NON-SPECIFIC UP 2021-09-03 12:14:00 Drew Anand [facility] TO 1 HOUR [facility] TISSUE EXAM 2021-09-03 11:46:00 [place] [facility] [place] FLUORO NON-SPECIFIC UP 2021-09-03 09:54:00 Drew Anand [facility] TO [address] [place] [address] DISCECTOMY, SPINE, 2021-09-03 08:26:00 Drew Anand [facility] CERVICAL, ANTERIOR Medical Cente r APPROACH, WITH FUSION PT/APTT 2021-09-03 06:44:00 Hermilo Phillips [facility] CBC (HEMOGRAM ONLY) 2021-09-03 05:25:00 Haj-Ismail, [facility] BASIC METABOLIC PANEL (7) 2021-09-03 05:25:00 Haj-Ismail, [facility] SCREEN, URINE 2021-09-03 03:23:00 Gabino Acosta [facility] ECG 12-LEAD 2021-09-02 17:08:46 [facility] 12[facility] 2021-09-02 17:08:46 Unknown, Hl7 Doctor [facility] XR CHEST 1 VIEW PORTABLE 2021-09-02 13:41:00 Dale Verma [facility] SARS-COV2/RT-PCR ([facility] & 2021-09-02 13:21:00 [facility] Medical [place] CBC W/PLT COUNT & AUTO 2021-09-02 13:19:[address] [facility] BASIC METABOLIC PANEL (7) 2021-09-02 13:19:[address] [facility] CBC W/PLT COUNT & AUTO 2021-09-02 13:19:[address] [facility] TSH/FREE T4 IF INDICATED 2021-09-02 05:22:00 Paula Block [facility] T4, FREE 2021-09-02 05:22:00 Tarzan [facility] MR CERVICAL SPINE WITHOUT 2021-09-01 12:30:00 [facility] IV CONTRAST [facility] ABORH, MANUAL 2021-09-01 11:42:00 Viji Dahl [facility] TYPE AND SCREEN, 2021-09-01 06:47:00 [facility] MR LUMBAR SPINE WITHOUT 2021-09-01 05:42:00 [facility] IV CONTRAST [facility] URINE CULTURE 2021-09-01 04:15:00 Umair [facility] URINALYSIS W/ REFLEX 2021-09-01 04:15:00 Paula Block [facility] URINE CULTURE [facility] CBC W/PLT COUNT & AUTO 2021-09-01 03:37:00 Tarzan [facility] BASIC METABOLIC PANEL (7) 2021-09-01 03:37:00 Umair Paula [facility] CBC W/PLT COUNT & AUTO 2021-09-01 03:37:00 Odin Blocke MATTEO [facility] PROTHROMBIN TIME/INR 2021-09-01 03:37:00 Paula Block MATTEO S [facility] MAGNESIUM 2021-09-01 03:37:[address] [facility] PHOSPHORUS 2021-09-01 03:37:[address] [facility] Plan of Care Planned Activity Planned Date Details Comments Source Future Scheduled 2022-09-[address] [facility] Test 00:00:00 Counseling and Screening Med ical Center (12+) [code = Tobacco Cessation Counseling and Screening (12+)] Future Scheduled 2022-09-[address] [facility] Test 00:00:00 Counseling and Screening Med ical Center (12+) [code = Tobacco Cessation Counseling and [...] (12+)] Future Scheduled 2021-10-17 Screening for malignant [facility] Test 10:09:23 neoplasm of colon Medicine (procedure) [code = 677344540] Future Scheduled 2021-10-17 Screening for malignant [facility] Test 10:09:23 neoplasm of breast Medicine (procedure) [code = 713041740] Future Scheduled 2021-10-17 COVID-19 Vaccine (1) [facility] Test 10:09:23 [code = COVID-19 Vaccine Med icine (1)] Future Scheduled 2021-10-17 TETANUS SHOT (ADULT) [facility] Test 10:09:23 [code = TETANUS SHOT Medicin e (ADULT)] Future Scheduled 2021-10-17 Hepatitis C screening [facility] Test 10:09:23 (procedure) [code = Medicine 505591196] Future Scheduled 2021-10-17 Human immunodeficiency B [facility] 10:09:23 virus screening Medicine (procedure) [code = 040307862] Future Scheduled 2021-10-17 Screening for malignant [facility] Test 10:09:23 neoplasm of cervix Medicine (procedure) [code = 165041394] Future Scheduled 2021-10-17 FLU VACCINE > 6 MONTHS B [facility] Test 10:09:23 [code = FLU VACCINE > 6 Medi cine MONTHS] Future Scheduled 2021-10-17 BMI FOLLOW UP PLAN [code [facility] Test 10:09:23 = BMI FOLLOW UP PLAN] Medici ne Future Scheduled 2018 Lipid panel (procedure) [facility] Test 00:00:00 [code = 39119231] Medical Ce nter Future Scheduled 2018 Lipid panel (procedure) [facility] Test 00:00:00 [code = 64809851] Medical Ce nter Future Scheduled 2018 Lipid panel (procedure) [facility] Test 00:00:00 [code = 52246459] Medical Ce nter Future Scheduled 2018 Lipid panel (procedure) [facility] Test 00:00:00 [code = 03844127] Medical Ce nter Future Scheduled 2018 Lipid panel (procedure) [facility] Test 00:00:00 [code = 86819949] Medical Ce nter Future Scheduled 1994 Screening for malignant [facility] Test 00:00:00 neoplasm of cervix Medical C enter (procedure) [code = 404307715] Future Scheduled 1994 Screening for malignant [facility] Test 00:00:00 neoplasm of cervix Medical C enter (procedure) [code = 038706174] Future Scheduled 1994 Screening for malignant [facility] Test 00:00:00 neoplasm of cervix Medical C enter (procedure) [code = 876306116] Future Scheduled 1994 Screening for malignant [facility] Test 00:00:00 neoplasm of cervix Medical C enter (procedure) [code = 865788303] Future Scheduled 1994 Screening for malignant [facility] Test 00:00:00 neoplasm of cervix Medical C enter (procedure) [code = 622090830] Future Scheduled 1992 DTAP/TDAP/TD VACCINES (1 [facility] [...] colon Medical Ce nter (procedure) [code = 909445458] Future Scheduled 1973 Screening for malignant [facility] Test 00:00:00 neoplasm of colon Medical Ce nter (procedure) [code = 459173100] Future Scheduled 1973 Screening for malignant [facility] Test 00:00:00 neoplasm of colon Medical Ce nter (procedure) [code = 288651692] Future Scheduled 1973 Screening for malignant [facility] Test 00:00:00 neoplasm of colon Medical Ce nter (procedure) [code = 040356228] Future Scheduled 1973 Sigmoidoscopy [code = [facility]oscopy] Medical Cente r Future Scheduled 1973 CT Colonography (combo) [facility] Test 00:00:00 [code = CT Colonography [facility]i [facility] Center (combo)] Future Scheduled 1973 Screening for malignant [facility] Test 00:00:00 neoplasm of colon Medical Ce nter (procedure) [code = 223443225] Future Scheduled 1973 Screening for malignant [facility] Test 00:00:00 neoplasm of colon Medical Ce nter (procedure) [code = 384438705] Future Scheduled 1973 Screening for malignant [facility] Test 00:00:00 neoplasm of colon Medical Ce nter (procedure) [code = 644096384] Future Scheduled 1973 Screening for malignant [facility] Test 00:00:00 neoplasm of colon Medical Ce nter (procedure) [code = 335048998] Future Scheduled 1973 Sigmoidoscopy [code = [facility] S[facility]oscopy] Medical Cente r Future Scheduled 1973 CT Colonography (combo) [facility] Test 00:00:00 [code = CT Colonography [facility] Center (combo)] Future Scheduled 1973 Screening for malignant [facility] Test 00:00:00 neoplasm of colon Medical Ce nter (procedure) [code = 800622804] Future Scheduled 1973 Screening for malignant [facility] Test 00:00:00 neoplasm of colon Medical Ce nter (procedure) [code = 435300314] Future Scheduled 1973 Screening for malignant [facility] Test 00:00:00 neoplasm of colon Medical Ce nter (procedure) [code = 367468062] Future Scheduled 1973 Screening for malignant [facility] Test 00:00:00 neoplasm of colon Medical Ce nter (procedure) [code = 737162872] Future Scheduled 1973 Sigmoidoscopy [code = [facility] 00:[facility] S[facility]oidoscopy] Medical Jairo r Future Scheduled 1973 CT Colonography (combo) [facility] Test 00:00:00 [code = CT Colonography [facility] (combo)] Future Scheduled 1973 Screening for malignant [facility] Test 00:00:00 neoplasm of colon Medical Ce nter (procedure) [code = 752064199] Future Scheduled 1973 Screening for malignant [facility] Test 00:00:00 neoplasm of colon Medical Ce nter (procedure) [code = 981967874] Future Scheduled 1973 Screening for malignant [facility] Test 00:00:00 neoplasm of colon Medical Ce nter (procedure) [code = 675825280] Future Scheduled 1973 Screening for malignant [facility] Test 00:00:00 neoplasm of colon Medical Ce nter (procedure) [code = 193013101] Future Scheduled 1975 Sigmoidoscopy [code = [facility] 00:[facility] Sigmoidoscopy] Medical Jairo r Future Scheduled 1973 CT Colonography (combo) [facility] Test 00:00:00 [code = CT Colonography [facility] (combo)] Future Scheduled 1973 Screening for malignant [facility] Test 00:00:00 neoplasm of colon Medical Ce nter (procedure) [code = 846008763] Future Scheduled 1973 Screening for malignant [facility] Test 00:00:00 neoplasm of colon Medical Ce nter (procedure) [code = 065494833] Future Scheduled 1973 Screening for malignant [facility] Test 00:00:00 neoplasm of colon Medical Ce nter (procedure) [code = 582432602] Future Scheduled 1973 Screening for malignant [facility] Test 00:00:00 neoplasm of colon Medical Ce nter (procedure) [code = 972082336] Future Scheduled 1975 Sigmoidoscopy [code = [facility] S[facility]oscopy] Medical Cente r Goal Plan of Care Note [code = 94021-7] Goal Plan of Care Note [code = 10001-7] Goal Plan of Care Note [code = 38531-0] Goal Plan of Care Note [code = 56850-2] Goal Plan of Care Note [code = 23068-1] Goal Plan of Care Note [code = 28383-3] Goal Plan of Care Note [code = 52225-3] Goal Plan of Care Note [code = 43389-0] Goal Plan of Care Note [code = 00049-1] Goal Plan of Care Note [code = 36057-1] Goal Plan of Care Note [code = 24510-2] Goal Plan of Care Note [code = 03188-6] Goal Plan of Care Note [code = 52904-0] Goal Plan of Care Note [code = 15787-6] Goal Plan of Care Note [code = 00518-2] Goal Plan of Care Note [code = 97586-0] Goal Plan of Care Note [code = 69907-8] Goal Plan of Care Note [code = 70256-7] Goal Plan of Care Note [code = 65176-9] Goal Plan of Care Note [code = 10981-6] Goal Plan of Care Note [code = 63289-9] Goal Plan of Care Note [code = 49781-7] Goal Plan of Care Note [code = 80923-3] Goal Plan of Care Note [code = 02162-2] Goal Plan of Care Note [code = 53650-7] Goal Plan of Care Note [code = 74780-0] Goal Plan of Care Note [code = 62273-9] Goal Plan of Care Note [code = 00803-0] Goal Plan of Care Note [code = 55758-1] Goal Plan of Care Note [code = 66929-7] Goal Plan of Care Note [code = 30789-8] Goal Plan of Care Note [code = 93422-9] Goal Plan of Care Note [code = 95752-9] Goal Plan of Care Note [code = 75095-4] Goal Plan of Care Note [code = 22546-8] Goal Plan of Care Note [code = 42478-9] Goal Plan of Care Note [code = 08324-5] Goal Plan of Care Note [code = 96987-8] Goal Plan of Care Note [code = 39796-2] Goal Plan of Care Note [code = 16302-2] Goal Plan of Care Note [code = 10825-6] Goal Plan of Care Note [code = 76904-0] Goal Plan of Care Note [code = 64646-5] Goal Plan of Care Note [code = 64419-7] Goal Plan of Care Note [code = 02943-9] Goal Plan of Care Note [code = 50592-1] Goal Plan of Care Note [code = 65908-0] Goal Plan of Care Note [code = 18771-2] Goal Plan of Care Note [code = 35670-4] Goal Plan of Care Note [code = 35781-7] Goal Plan of Care Note [code = 45144-0] Goal Plan of Care Note [code = 06562-4] Goal Plan of Care Note [code = 34690-9] Goal Plan of Care Note [code = 83331-5] Goal Plan of Care Note [code = 50029-0] Goal Plan of Care Note [code = 65897-1] Goal Plan of Care Note [code = 70374-4] Goal Plan of Care Note [code = 99584-4] Goal Plan of Care Note [code = 82672-7] Goal Plan of Care Note [code = 92351-8] Goal Plan of Care Note [code = 94746-7] Goal Plan of Care Note [code = 52781-3] Goal Plan of Care Note [code = 13968-4] Goal Plan of Care Note [code = 71781-2] Goal Plan of Care Note [code = 38687-4] Goal Plan of Care Note [code = 56794-3] Goal Plan of Care Note [code = 91058-5] Goal Plan of Care Note [code = 74072-0] Goal Plan of Care Note [code = 79451-9] Goal Plan of Care Note [code = 46380-6] Goal Plan of Care Note [code = 56958-5] Goal Plan of Care Note [code = 65959-1] Goal Plan of Care Note [code = 84243-6] Goal Plan of Care Note [code = 56833-1] Goal Plan of Care Note [code = 21508-9] Goal Plan of Care Note [code = 49992-7] Goal Plan of Care Note [code = 02507-8] Goal Plan of Care Note [code = 12681-9] Goal Plan of Care Note [code = 59207-4] Goal Plan of Care Note [code = 09240-3] Goal Plan of Care Note [code = 19787-2] Goal Plan of Care Note [code = 52667-1] Goal Plan of Care Note [code = 76311-6] Goal Plan of Care Note [code = 28229-3] Goal Plan of Care Note [code = 36887-3] Goal Plan of Care Note [code = 81542-0] Goal Plan of Care Note [code = 20511-5] Goal Plan of Care Note [code = 61119-9] Encounters Start End Encounter Admission Attending Care Care Encounter Source Date/Time Date/Time Type Type Clinicians Facility Department ID 2022-09-30 2022-09-30 Outpatient [facility] [id number] Mark 09:00:38 09:00:38 [id number] F Sander 2022-09-21 2022-09-21 Outpatient [facility] [id number] Mark 15:14:10 15:14:10 [id number] F Sander 2022-09-21 2022-09-21 Outpatient [id number] 00:00:00 00:00:00 Visit t38f-6458 51a-4929-a -s669-8q2 312-0m8027 3982nag82 5afc28 2022-08-29 2022-08-29 Outpatient [id number]- [id number] 62i7r3-q 00:00:00 00:00:00 Visit s25d-22z0 37e-41c2-8 -4u17-29i v63-78h849 12315mh5x 69da1f 2022-08-06 2022-08-06 Outpatient p1y0qr52- [id number] o1xm27-9 00:00:00 00:00:00 Visit 0s95-10gl i73-51my-4 -8b1y-1k0 v0o-1q81i9 5p74h5d04 9f5f92 2022-06-13 2022-06-13 Outpatient [id number]- [id number] h40ew8-l 00:00:00 00:00:00 Visit x39i-55m7 39f-42e8-8 -9r67-p59 r80-o76555 [id number] 5300-11-16 2021-10-16 Office DREW ANAND [facility] [id number] [facility] 12:48:39 13:07:36 Visit AMBULATOR 350.1.13.21 College Y 0.2.7.2.686 [id number] Medi luly 300 e 2021-10-16 2021-10-16 Outpatient [facility]NA [facility] [id number] [facility] 00:00:00 00:00:00 YANELY 2021-10-16 2021-10-16 Outside Betina [facility] [id number] [facility] 00:00:00 00:00:00 Orders [facility] 2021-09-19 2021-09-19 Outpatient BETINA, [facility] [id number] [facility] 09:53:32 10:57:02 YANELY [facility] 2021-09-13 2021-09-13 Outpatient SAMUEL CARDOSO [facility] [id number] SLE 14:32:50 14:32:50 [facility] 2021-09-13 2021-09-13 Video - Walker [facility] [id number] 13:30:00 13:45:00 Telemedici [facility] 2021-09-13 2021-09-13 [id number] [facility] 00:00:00 00:00:00 [facility] 2021-09-13 2021-09-13 Outpatient WALKER [facility] [id number] [facility] 00:00:00 00:00:00 [facility] 2021-09-13 2021-09-13 Telephone Walker [facility] [id number] 00:00:00 00:00:00 [facility] 2021-09-01 2021-09-05 Inpatient ER ANNELISE, SLE Surgery [id number] [facility] 02:59:00 14:20:00 [facility] 2021-09-01 2021-09-05 Hospital Stone Cool [facility] [id number] [facility] 02:59:00 14:20:00 Encounter Paula Block [facility] Annelise, [facility] 2021-09-05 2021-09-05 Telephone Annelise, [facility] [id number] 00:00:00 00:00:00 [facility] 2021-09-03 2021-09-03 Anesthesia Johnathon, [facility] [id number] 08:41:00 12:40:00 Event [facility] 2021-09-03 2021-09-03 Surgery Drew Anand [facility] [id number] 08:30:00 11:41:00 B [facility] 2021-09-02 2021-09-02 Outpatient [facility] [id number] [facility] 00:00:00 23:59:00 [facility] 2021-09-02 2021-09-02 Orders [facility] [id number] 00:00:00 00:00:00 Only [facility] 2021-09-01 2021-09-01 Travel [facility] [id number] [facility] 00:[facility] 00:00:00 [facility] Results Test Description Test Time Test Comments Results Result Comments Source CULTURE, URINE 2022-08-09 SPECIMEN NUMBER: 12:51:12 [id number] CULTURE, URINE SPECIMEN NUMBER: [id number] SOURCE: URINE REPORT STATUS: FINAL ISOLATE NUMBER [...] MCG/ML. UNLESS OTHERWISE INDICATED, ALL TESTING PERFORMED [facility] [address] [place] [address] [employer] OFFBEARER: KALPANA MANCINI M.D. [place] NUMBER [id number] [facility] [place] [id number] CULTURE, URINE 2022-08-09 00:00:00 Test Item Value Reference Range Interpretation Comme nts CULTURE, URINE (test code = 48878) SPECIMEN NUMBER: [id number] CULTURE, [id number] 00:00:00 Test Item Value Reference Range Interpretation Comments CULTURE, URINE (test SPECIMEN NUMBER: code = 53704) [id number] CULTURE, [id number] 00:00:00 Test Item Value Reference Range Interpretation Comments CULTURE, URINE (test SPECIMEN NUMBER: code = 69539) [id number] CULTURE, [id number] 00:00:00 Test Item Value Reference Range Interpretation Comments CULTURE, URINE (test SPECIMEN NUMBER: code = 37252) [id number] SCR MAMM BILATERAL MARCO CAD [id number] 08:29:25 Name: May : 1975 Sex: F - SCR MAMM BILATERAL MARCO CAD DIGITALBILATERAL DIGITAL SCREENING MAMMOGRAM 3D/2D WITH CAD: 04/26/2022LINICAL: Asymptomatic. Digital breast tomosynthesis was performed in addition to routine CC and MLO views. Current mammographic images were evaluated by [employer] CAD (computer-aided detection) software. No prior exams were available for comparison. The tissue of both breasts is heterogeneously dense. This may lower the sensitivity of mammography. No suspicious mass, architectural distortion, malignant type calcification, or lymph node abnormality detected. IMPRESSION: NEGATIVEThere is no mammographic evidence of malignancy. Resumeannual screening mammography in one year. Lam Carranza M.D. et/penrad:05/01/2022 08:29:25 Computer Repair Technician: Steph Oliver MM, [facility] Mammographyletter sent: BIRADS 1-2 Normal Mammogram BI-RADS: 1 NegativeFREE T4 (THYROXINE)2022-03-28 06:06:32 Test Item Value Reference Range Interpretation Comments FREE T4 1.21 NG/DL 0.80-1.90 UNLESS OTHERWI SE (THYROXINE) (test INDICATED, ALL TESTING code = 2823) PERFORMED [facility] [employer] [address] [place] [id number] [place] [address] DIRECTOR: KALPANA MANCINI M.D. CLIA NUMBER [id number] CAP [place]CREDITATION N O. [id number] FREE T4 (THYROXINE)2022-03-28 00:00:00 Test Item Value [...] code = 1.21 NG/DL 2823) TSH, THIRD [id number] 06:51:22 Test Item Value Reference Range Interpretation Comments TSH, THIRD 6.760 UIU/ML 0.400-4.100 H UNLESS OTHERWI SE GENERATION (test INDICATED, ALL TESTING code = 2821) PERFORMED [facility], [facility]. [address] [place] [address] LABOR ATORY DIRECTOR: KALPANA MANCINI M.D. CLIA NUMBER [id number] CAP ACCREDITATION N O. [id number] HEMOGLOBIN [id number] 06:41:31 Test Item Value Reference Range Interpretation Comments HEMOGLOBIN A1c (test code = 71340) 5.3 % 4.2-5.6 LIPID [id number] 05:03:16 Test Item Value Reference Range Interpretation [...] MOREINFORMATION , SEE CLIENT ANNOUNCE MENT AT [email or web address] RISK RATIO LDL/HDL 2.82 RATIO <3.22 (test code = 2238) COMPREHENSIVE METABOLIC [id number] 05:03:16 Test Item Value Reference Range Interpretation Comments GLUCOSE (test code = 96 MG/DL 70-99 2216) BUN (test code = 18 MG/DL 6-20 2207) CREATININE (test 0.79 MG/DL 0.60-1.30 code = 2214) eGFR (2020 CKD-EPI) 92 ML/MIN/1.73 >60 (test code = 89823) CALC BUN/CREAT (test 23 RATIO 6-28 code = 2235) SODIUM (test code = 143 MEQ/L 808-824 7228) POTASSIUM (test code 5.1 MEQ/L 3.5-5.4 = 2227) CHLORIDE (test code 104 MEQ/L 95-107 = 2214) CARBON DIOXIDE (test 22 MEQ/L 19-31 code = 220) CALCIUM (test code = 10.8 MG/DL 8.5-10.5 H 2208) PROTEIN, TOTAL (test 7.6 G/DL 6.1-8.3 code = 2228) ALBUMIN (test code = 4.7 G/DL 3.5-5.2 2200) CALC GLOBULIN (test 2.9 G/DL 1.9-3.7 code = 2240) CALC A/G RATIO (test 1.6 RATIO 1.0-2.6 code = 2234) BILIRUBIN, TOTAL 0.3 MG/DL See_Comment [Automated message] (test code = 220) The syste m which generated this result transmit cosme reference range : <=1.2. The refe rence range was not u sed to interpret th is result as normal/abnormal . ALKALINE PHOSPHATASE 105 U/L 40-123 (test code = 2204) AST (test code = 18 U/L 9-40 2217) ALT (test code = 20 U/L 5-40 2218) HEMOGLOBIN [id number] 00:00:00 Test Item Value Reference Range Interpretation Comments HEMOGLOBIN A1c (test code = 66794) 5.3 % HEMOGLOBIN [id number] 00:00:00 Test Item Value Reference Range Interpretation Comments HEMOGLOBIN A1c (test code = 41832) 5.3 % HEMOGLOBIN [id number] 00:00:00 Test Item Value Reference Range Interpretation Comments HEMOGLOBIN A1c (test code = 37467) 5.3 % LIPID [id number] 00:00:00 Test Item Value Reference Range Interpretation Comments CHOLESTEROL (test code = 2210) 242 MG/DL TRIGLYCERIDES (test code = 2232) 153 MG/DL HDL CHOLESTEROL (test code = 2220) 56 MG/DL CALC LDL CHOL (test code = 2237) 158 MG/DL RISK RATIO LDL/HDL (test code = 2.82 RATIO 2238) LIPID [id number] 00:00:00 Test Item Value Reference Range Interpretation Comments CHOLESTEROL (test code = 2210) 242 MG/DL TRIGLYCERIDES (test code = 2232) 153 MG/DL HDL CHOLESTEROL (test code = 2220) 56 MG/DL CALC LDL CHOL (test code = 2237) 158 MG/DL RISK RATIO LDL/HDL (test code = 2.82 RATIO 2238) COMPREHENSIVE METABOLIC [id number] 00:00:00 Test Item Value Reference Range Interpretation Comments GLUCOSE (test code = 2217) 96 MG/DL BUN (test code = 2208) 18 MG/DL CREATININE (test code = 2214) 0.79 MG/DL eGFR (2020 CKD-EPI) (test code 92 ML/MIN/1.73 = 64575) CALC BUN/CREAT (test code = 23 RATIO [...] code = 2219) 20 U/L COMPREHENSIVE METABOLIC [id number] 00:00:00 Test Item Value Reference Range Interpretation Comments GLUCOSE (test code = 2217) 96 MG/DL BUN (test code = 2208) 18 MG/DL CREATININE (test code = 2214) 0.79 MG/DL eGFR (2020 CKD-EPI) (test code 92 ML/MIN/1.73 = 82243) CALC BUN/CREAT (test code = 23 RATIO [...] ALT (test code = 2219) 20 U/L [id number] 00:00:00 Test Item Value Reference Range Interpretation Comments TSH, THIRD GENERATION (test code 6.760 UIU/ML = 2821) [id number] 00:00:00 Test Item Value Reference Range Interpretation Comments TSH, THIRD GENERATION (test code 6.760 UIU/ML = 2821) [id number] 00:00:00 Test Item Value Reference Range Interpretation Comments TSH, THIRD GENERATION (test code 6.760 UIU/ML = 2821) HEMOGLOBIN [id number] 00:00:00 Test Item Value Reference Range Interpretation Comments HEMOGLOBIN A1c (test code = 55758) 5.3 % HEMOGLOBIN [id number] 00:00:00 Test Item Value Reference Range Interpretation Comments HEMOGLOBIN A1c (test code = 54497) 5.3 % HEMOGLOBIN [id number] 00:00:00 Test Item Value Reference Range Interpretation Comments HEMOGLOBIN A1c (test code = 40496) 5.3 % LIPID [id number] 00:00:00 Test Item Value Reference Range Interpretation Comments CHOLESTEROL (test code = 2210) 242 MG/DL TRIGLYCERIDES (test code = 2232) 153 MG/DL HDL CHOLESTEROL (test code = 2220) 56 MG/DL CALC LDL CHOL (test code = 2237) 158 MG/DL RISK RATIO LDL/HDL (test code = 2.82 RATIO 2238) LIPID [id number] 00:00:00 Test Item Value Reference Range Interpretation Comments CHOLESTEROL (test code = 2210) 242 MG/DL TRIGLYCERIDES (test code = 2232) 153 MG/DL HDL CHOLESTEROL (test code = 2220) 56 MG/DL CALC LDL CHOL (test code = 2237) 158 MG/DL RISK RATIO LDL/HDL (test code = 2.82 RATIO 2238) COMPREHENSIVE METABOLIC [id number] 00:00:00 Test Item Value Reference Range Interpretation Comments GLUCOSE (test code = 2217) 96 MG/DL BUN (test code = 2208) 18 MG/DL CREATININE (test code = 2214) 0.79 MG/DL eGFR (2020 CKD-EPI) (test code 92 ML/MIN/1.73 = 24760) CALC BUN/CREAT (test code = 23 RATIO [...] code = 2219) 20 U/L COMPREHENSIVE METABOLIC [id number] 00:00:00 Test Item Value Reference Range Interpretation Comments GLUCOSE (test code = 2217) 96 MG/DL BUN (test code = 2208) 18 MG/DL CREATININE (test code = 2214) 0.79 MG/DL eGFR (2020 CKD-EPI) (test code 92 ML/MIN/1.73 = 14521) CALC BUN/CREAT (test code = 23 RATIO [...] ALT (test code = 2219) 20 U/L [id number] 00:00:00 Test Item Value Reference Range Interpretation Comments TSH, THIRD GENERATION (test code 6.760 UIU/ML = 2821) [id number] 00:00:00 Test Item Value Reference Range Interpretation Comments TSH, THIRD GENERATION (test code 6.760 UIU/ML = 2821) [id number] 00:00:00 Test Item Value Reference Range Interpretation Comments TSH, THIRD GENERATION (test code 6.760 UIU/ML = 2821) HEMOGLOBIN [id number] 00:00:00 Test Item Value Reference Range Interpretation Comments HEMOGLOBIN A1c (test code = 64264) 5.3 % HEMOGLOBIN [id number] 00:00:00 Test Item Value Reference Range Interpretation Comments HEMOGLOBIN A1c (test code = 67794) 5.3 % HEMOGLOBIN [id number] 00:00:00 Test Item Value Reference Range Interpretation Comments HEMOGLOBIN A1c (test code = 68830) 5.3 % LIPID [id number] 00:00:00 Test Item Value Reference Range Interpretation Comments CHOLESTEROL (test code = 2210) 242 MG/DL TRIGLYCERIDES (test code = 2232) 153 MG/DL HDL CHOLESTEROL (test code = 2220) 56 MG/DL CALC LDL CHOL (test code = 2237) 158 MG/DL RISK RATIO LDL/HDL (test code = 2.82 RATIO 2238) LIPID [id number] 00:00:00 Test Item Value Reference Range Interpretation Comments CHOLESTEROL (test code = 2210) 242 MG/DL TRIGLYCERIDES (test code = 2232) 153 MG/DL HDL CHOLESTEROL (test code = 2220) 56 MG/DL CALC LDL CHOL (test code = 2237) 158 MG/DL RISK RATIO LDL/HDL (test code = 2.82 RATIO 2238) COMPREHENSIVE METABOLIC [id number] 00:00:00 Test Item Value Reference Range Interpretation Comments GLUCOSE (test code = 2217) 96 MG/DL BUN (test code = 2208) 18 MG/DL CREATININE (test code = 2214) 0.79 MG/DL eGFR (2020 CKD-EPI) (test code 92 ML/MIN/1.73 = 56338) CALC BUN/CREAT (test code = 23 RATIO [...] code = 2219) 20 U/L COMPREHENSIVE METABOLIC [id number] 00:00:00 Test Item Value Reference Range Interpretation Comments GLUCOSE (test code = 2217) 96 MG/DL BUN (test code = 2208) 18 MG/DL CREATININE (test code = 2214) 0.79 MG/DL eGFR (2020 CKD-EPI) (test code 92 ML/MIN/1.73 = 44618) CALC BUN/CREAT (test code = 23 RATIO 2235) SODIUM (test code = 2231) 143 MEQ/L POTASSIUM (test code = 2228) 5.1 MEQ/L CHLORIDE (test code = 2215) 104 MEQ/L CARBON DIOXIDE (test code = 22 MEQ/L 220) CALCIUM (test code = 2209) 10.8 MG/DL [...] ALT (test code = 2219) 20 U/L [id number] 00:00:00 Test Item Value Reference Range Interpretation Comments TSH, THIRD GENERATION (test code 6.760 UIU/ML = 2821) [id number] 00:00:00 Test Item Value Reference Range Interpretation Comments TSH, THIRD GENERATION (test code 6.760 UIU/ML = 2821) [id number] 00:00:00 Test Item Value Reference Range Interpretation Comments TSH, THIRD GENERATION (test code 6.760 UIU/ML = 2821) HEMOGLOBIN [id number] 00:00:00 Test Item Value Reference Range Interpretation Comments HEMOGLOBIN A1c (test code = 38817) 5.3 % HEMOGLOBIN [id number] 00:00:00 Test Item Value Reference Range Interpretation Comments HEMOGLOBIN A1c (test code = 56161) 5.3 % LIPID [id number] 00:00:00 Test Item Value Reference Range Interpretation Comments CHOLESTEROL (test code = 2210) 242 MG/DL TRIGLYCERIDES (test code = 2232) 153 MG/DL HDL CHOLESTEROL (test code = 2220) 56 MG/DL CALC LDL CHOL (test code = 2237) 158 MG/DL RISK RATIO LDL/HDL (test code = 2.82 RATIO 2238) COMPREHENSIVE METABOLIC [id number] 00:00:00 Test Item Value Reference Range Interpretation Comments GLUCOSE (test code = 2217) 96 MG/DL BUN (test code = 2208) 18 MG/DL CREATININE (test code = 2214) 0.79 MG/DL eGFR (2020 CKD-EPI) (test code 92 ML/MIN/1.73 = 81399) CALC BUN/CREAT (test code = 23 RATIO [...] ALT (test code = 2219) 20 U/L [id number] 00:00:00 Test Item Value Reference Range Interpretation Comments TSH, THIRD GENERATION (test code 6.760 UIU/ML = 2821) [id number] 00:00:00 Test Item Value Reference Range Interpretation Comments TSH, THIRD GENERATION (test code 6.760 UIU/ML = 2821) PAP TEST, THINPREP, [id number] 13:50:57 Test Item Value Reference Range Interpretation Comments SOURCE: (test Cervical/Endo code = 8001) cervical SLIDES: (test 1 code = 8011) LMP: (test code = 08/2021 8021) SPECIMEN (NOTE) Satisfactory f or ADEQUACY: (test evaluation. code = 95898) Endocervical cells/transform ation zone component present. INTERPRETATION: NILM/NO (test code = EPITH. --------- 44162) ABNORMALITY;S -------- EE BELOW NEGATIVE FO R INTRAEPITHELIAL LESION OR MALIGNANCY ( NILM) --------- --------- --------- - OTHER COMMENTS: (NOTE) Shift in triston ra (test code = suggestive of b acterial 8081) vaginosis. CHIEF TELEPHONE OPERATOR: Yasemin (test code = SABRINA Kim( 8101) CP) LOCATION: (test (NOTE) Specimens pr ocessed and code = 22488) interpreted at [facility] [address] [facility] [place] [address], , CLIA: [id number] CPT: (test code = (NOTE) 52050 UNLE SS OTHERWISE 8140) INDICATED, COMP UTER AIDED AND [...] consolidated pr ior Pap history is avai lable as applicable. CT/NG, TMA, [id number] 09:32:14 Test Item Value Reference Range Interpretation Comments GONORRHEA, TMA NEGATIVE NEGATIVE Assay method ology is (test code = nucleic acid am plification 33249) by transcriptio n mediated amplification ( TMA) utilizing the A ptima Combo 2 Assay. CHLAMYDIA, TMA NEGATIVE NEGATIVE Assay method ology is (test code = nucleic acid am plification 09168) by transcriptio n mediated amplification ( TMA) utilizing the A ptima Combo 2 Assay. GC AND CHLAMYDIA AMPLIFIED, [id number] 00:00:00 Test Item Value Reference Range Interpretation Comments GONORRHEA, TMA (test code = 92172) NEGATIVE CHLAMYDIA, TMA (test code = 82142) NEGATIVE GC AND CHLAMYDIA AMPLIFIED, [id number] 00:00:00 Test Item Value Reference Range Interpretation Comments GONORRHEA, TMA (test code = 59206) NEGATIVE CHLAMYDIA, TMA (test code = 44720) NEGATIVE PAP TEST, THINPREP, [id number] 00:00:00 Test Item Value Reference Range Interpretation Comments SOURCE: (test code = Cervical/Endocervical 8001) SLIDES: (test code = 1 8011) LMP: (test code = 8021) 08/2021 SPECIMEN ADEQUACY: (test (NOTE) code = 79769) INTERPRETATION: (test NILM/NO EPITH. code = 42588) ABNORMALITY;SEE BELOW OTHER COMMENTS: (test (NOTE) code = 8081) CHIEF TELEPHONE OPERATOR: (test Yasemin code = 8101) SABRINA Kim(ASCP) LOCATION: (test code = (NOTE) 39576) CPT: (test code = 8140) (NOTE) PAP TEST, THINPREP, [id number] 00:00:00 Test Item Value Reference Range Interpretation Comments SOURCE: (test code = Cervical/Endocervical 8001) SLIDES: (test code = 1 8011) LMP: (test code = 8021) 08/2021 SPECIMEN ADEQUACY: (test (NOTE) code = 68296) INTERPRETATION: (test NILM/NO EPITH. code = 59262) ABNORMALITY;SEE BELOW OTHER COMMENTS: (test (NOTE) code = 8081) CHIEF TELEPHONE OPERATOR: (test Yasemin code = 8101) SABRINA Kim(ASCP) LOCATION: (test code = (NOTE) 82246) CPT: (test code = 8140) (NOTE) GC AND CHLAMYDIA AMPLIFIED, [id number] 00:00:00 Test Item Value Reference Range Interpretation Comments GONORRHEA, TMA (test code = 76349) NEGATIVE CHLAMYDIA, TMA (test code = 20013) NEGATIVE GC AND CHLAMYDIA AMPLIFIED, [id number] 00:00:00 Test Item Value Reference Range Interpretation Comments GONORRHEA, TMA (test code = 26813) NEGATIVE CHLAMYDIA, TMA (test code = 79649) NEGATIVE PAP TEST, THINPREP, [id number] 00:00:00 Test Item Value Reference Range Interpretation Comments SOURCE: (test code = Cervical/Endocervical 800) SLIDES: (test code = 1 8011) LMP: (test code = 8021) 08/2021 SPECIMEN ADEQUACY: (test (NOTE) code = 80624) INTERPRETATION: (test NILM/NO EPITH. code = 99122) ABNORMALITY;SEE BELOW OTHER COMMENTS: (test (NOTE) code = 8081) CHIEF TELEPHONE OPERATOR: (test Yasemin code = 8101) SABRINA Kim(ASCP) LOCATION: (test code = (NOTE) 46867) CPT: (test code = 8140) (NOTE) PAP TEST, THINPREP, [id number] 00:00:00 Test Item Value Reference Range Interpretation Comments SOURCE: (test code = Cervical/Endocervical 8001) SLIDES: (test code = 1 8011) LMP: (test code = 8021) 08/2021 SPECIMEN ADEQUACY: (test (NOTE) code = 00900) INTERPRETATION: (test NILM/NO EPITH. code = 48311) ABNORMALITY;SEE BELOW OTHER COMMENTS: (test (NOTE) code = 8081) CHIEF TELEPHONE OPERATOR: (test Yasemin code = 8101) SABRINA Kim(ASCP) LOCATION: (test code = (NOTE) 54075) CPT: (test code = 8140) (NOTE) GC AND CHLAMYDIA AMPLIFIED, [id number] 00:00:00 Test Item Value Reference Range Interpretation Comments GONORRHEA, TMA (test code = 23362) NEGATIVE CHLAMYDIA, TMA (test code = 15074) NEGATIVE GC AND CHLAMYDIA AMPLIFIED, [id number] 00:00:00 Test Item Value Reference Range Interpretation Comments GONORRHEA, TMA (test code = 48381) NEGATIVE CHLAMYDIA, TMA (test code = 24649) NEGATIVE PAP TEST, THINPREP, [id number] 00:00:00 Test Item Value Reference Range Interpretation Comments SOURCE: (test code = Cervical/Endocervical 8001) SLIDES: (test code = 1 8011) LMP: (test code = 8021) 08/2021 SPECIMEN ADEQUACY: (test (NOTE) code = 85918) INTERPRETATION: (test NILM/NO EPITH. code = 83030) ABNORMALITY;SEE BELOW OTHER COMMENTS: (test (NOTE) code = 8081) CHIEF TELEPHONE OPERATOR: (test Yasemin code = 8101) SABRINA Kim(ASCP) LOCATION: (test code = (NOTE) 76047) CPT: (test code = 8140) (NOTE) PAP TEST, THINPREP, [id number] 00:00:00 Test Item Value Reference Range Interpretation Comments SOURCE: (test code = Cervical/Endocervical 8001) SLIDES: (test code = 1 8011) LMP: (test code = 8021) 08/2021 SPECIMEN ADEQUACY: (test (NOTE) code = 81356) INTERPRETATION: (test NILM/NO EPITH. code = 53238) ABNORMALITY;SEE BELOW OTHER COMMENTS: (test (NOTE) code = 8081) CHIEF TELEPHONE OPERATOR: (test Yasemin code = 8101) SABRINA Kim(ASCP) LOCATION: (test code = (NOTE) 79245) CPT: (test code = 8140) (NOTE) GC AND CHLAMYDIA AMPLIFIED, [id number] 00:00:00 Test Item Value Reference Range Interpretation Comments GONORRHEA, TMA (test code = 42664) NEGATIVE CHLAMYDIA, TMA (test code = 36030) NEGATIVE PAP TEST, THINPREP, [id number] 00:00:00 Test Item Value Reference Range Interpretation Comments SOURCE: (test code = Cervical/Endocervical 8001) SLIDES: (test code = 1 8011) LMP: (test code = 8021) 08/2021 SPECIMEN ADEQUACY: (test (NOTE) code = 88388) INTERPRETATION: (test NILM/NO EPITH. code = 11723) ABNORMALITY;SEE BELOW OTHER COMMENTS: (test (NOTE) code = 8081) CHIEF TELEPHONE OPERATOR: (test Yasemin code = 8101) SABRINA Kim(ASCP) LOCATION: (test code = (NOTE) 37406) CPT: (test code = 8140) (NOTE) HPV HIGH RISK WITH GENOTYPE, [id number] 16:22:42 Test Item Value Reference Range Interpretation Comments HPV HIGH RISK INTERP NEGATIVE NEGATIVE (test code = 77604) HPV 16 (test code = NEGATIVE 44088) HPV 18 (test code = NEGATIVE 92750) HPV, HR, OTHER NEGATIVE Testing meth odology is GENOTYPES (test code real-ti me PCR utilizing = 05427) hydrolysis prob es with the [employer] 4800 system. The isaac t individually de [...] OTHERWISE INDIC ATED, ALL TESTING PERFORM [facility], [place] [address] [place] [address] LABORATORY DIRE CTOR: KALPANA LORA M.D. CLIA NUMBER [id number] [place]. [id number] VAGINAL PATHOGENS DNA [id number] 15:22:33 Test Item Value Reference Range Interpretation Comments SANCHO SPECIES (test NEGATIVE NEGATIVE code = ) G. VAGINALIS (test POSITIVE NEGATIVE A code = ) T. VAGINALIS (test NEGATIVE NEGATIVE UNLESS O THERWISE code = ) INDICATED, ALL TESTING PERFORMED [facility]. [address] [place] [address] 4 LABORATORY DIRE CTOR: KALPANA LORA M.D. CLIA NUMBER [id number] [place] [id number] 04:21:00 Test Item Value Reference Range Interpretation Comments RPR RESULT (test code = NON-REACTIVE NON-REACTIVE 3501) RPR TITER (test code = 3500) NOT INDIC. TITER NOT INDIC. HIV 1/2 4TH GEN, RFLX [id number] 03:36:07 Test Item Value Reference Range Interpretation Comments HIV 1/2 4TH GEN, RFLX CONF (test NON-REACTIVE NON-REACTIVE code = 3514) HEPATITIS PANEL, [id number] 03:36:07 Test Item Value Reference Range Interpretation Comments HEPATITIS A IgM (test NON-REACTIVE NON-REACTIVE code = 34824) HEPATITIS B CORE IgM NON-REACTIVE NON-REACTIVE (test code = 4644) HEPATITIS B SURF AG NON-REACTIVE NON-REACTIVE (test code = 2739) HEPATITIS C ANTIBODY NON-REACTIVE NON-REACTIVE (test code = 4675) INTERPRETATION (NOTE) Hepatitis A HEPATITIS A: (test code sero logy shows no = 2552) evidence of acu te hepatitis A. INTERPRETATION (NOTE) Hepatitis B HEPATITIS B: (test code sero logy shows no = 76506) evidence of acu te hepatitis B and no indication of exposure to hepatitis B vir us in the previous cristopher eight months. INTERPRETATION (NOTE) Hepatitis C HEPATITIS C: (test code sero logy shows no = 26209) evidence of exposure to hepatitisC viru s at this time. I t can take up to 12 months after exposure tothe hepatitis C vir us for antibodies to become detectab le in the blood in certain patient s. HIV AB/AG COMBO RFLX [id number] 00:00:00 Test Item Value Reference Range Interpretation Comments HIV 1/2 4TH GEN, RFLX CONF (test NON-REACTIVE code = 3514) HIV AB/AG COMBO RFLX [id number] 00:00:00 Test Item Value Reference Range Interpretation Comments HIV 1/2 4TH GEN, RFLX CONF (test NON-REACTIVE code = 3514) ACUTE HEPATITIS [id number] 00:00:00 Test Item Value Reference Range Interpretation Comments HEPATITIS A IgM (test code = NON-REACTIVE 11372) HEPATITIS B CORE IgM (test code NON-REACTIVE = 4644) HEPATITIS B SURF AG (test code = NON-REACTIVE 2739) HEPATITIS C ANTIBODY (test code NON-REACTIVE = 4675) INTERPRETATION HEPATITIS A: (NOTE) (test code = 2552) INTERPRETATION HEPATITIS B: (NOTE) (test code = 23857) INTERPRETATION HEPATITIS C: (NOTE) (test code = 83787) ACUTE HEPATITIS [id number] 00:00:00 Test Item Value Reference Range Interpretation Comments HEPATITIS A IgM (test code = NON-REACTIVE 33628) HEPATITIS B CORE IgM (test code NON-REACTIVE = 4644) HEPATITIS B SURF AG (test code = NON-REACTIVE 2739) HEPATITIS C ANTIBODY (test code NON-REACTIVE = 4675) INTERPRETATION HEPATITIS A: (NOTE) (test code = 2552) INTERPRETATION HEPATITIS B: (NOTE) (test code = 28804) INTERPRETATION HEPATITIS C: (NOTE) (test code = 01322) HPV HIGH RISK WITH GENOTYPE, [id number] 00:00:00 Test Item Value Reference Range Interpretation Comments HPV HIGH RISK INTERP (test code = NEGATIVE 69707) HPV 16 (test code = 67183) NEGATIVE HPV 18 (test code = 21159) NEGATIVE HPV, HR, OTHER GENOTYPES (test code NEGATIVE = 72983) HPV HIGH RISK WITH GENOTYPE, [id number] 00:00:00 Test Item Value Reference Range Interpretation Comments HPV HIGH RISK INTERP (test code = NEGATIVE 09722) HPV 16 (test code = 19800) NEGATIVE HPV 18 (test code = 74953) NEGATIVE HPV, HR, OTHER GENOTYPES (test code NEGATIVE = 09073) [id number] 00:00:00 Test Item Value Reference Range Interpretation Comments RPR RESULT (test code = NON-REACTIVE 3501) RPR TITER (test code = 3500) NOT INDIC. TITER [id number] 00:00:00 Test Item Value Reference Range Interpretation Comments RPR RESULT (test code = NON-REACTIVE 3501) RPR TITER (test code = 3500) NOT INDIC. TITER [id number] 00:00:00 Test Item Value Reference Range Interpretation Comments RPR RESULT (test code = NON-REACTIVE 3501) RPR TITER (test code = 3500) NOT INDIC. TITER VAGINAL PATHOGENS DNA [id number] 00:00:00 Test Item Value Reference Range Interpretation Comments SANCHO SPECIES (test code = ) NEGATIVE G. VAGINALIS (test code = 06787) POSITIVE T. VAGINALIS (test code = 14706) NEGATIVE VAGINAL PATHOGENS DNA [id number] 00:00:00 Test Item Value Reference Range Interpretation Comments SANCHO SPECIES (test code = ) NEGATIVE G. VAGINALIS (test code = 48978) POSITIVE T. VAGINALIS (test code = 66067) NEGATIVE HIV AB/AG COMBO RFLX [id number] 00:00:00 Test Item Value Reference Range Interpretation Comments HIV 1/2 4TH GEN, RFLX CONF (test NON-REACTIVE code = 3514) HIV AB/AG COMBO RFLX [id number] 00:00:00 Test Item Value Reference Range Interpretation Comments HIV 1/2 4TH GEN, RFLX CONF (test NON-REACTIVE code = 3514) ACUTE HEPATITIS [id number] 00:00:00 Test Item Value Reference Range Interpretation Comments HEPATITIS A IgM (test code = NON-REACTIVE 95418) HEPATITIS B CORE IgM (test code NON-REACTIVE = 4644) HEPATITIS B SURF AG (test code = NON-REACTIVE 2739) HEPATITIS C ANTIBODY (test code NON-REACTIVE = 4675) INTERPRETATION HEPATITIS A: (NOTE) (test code = 2552) INTERPRETATION HEPATITIS B: (NOTE) (test code = 21146) INTERPRETATION HEPATITIS C: (NOTE) (test code = 05275) ACUTE HEPATITIS [id number] 00:00:00 Test Item Value Reference Range Interpretation Comments HEPATITIS A IgM (test code = NON-REACTIVE 94861) HEPATITIS B CORE IgM (test code NON-REACTIVE = 4644) HEPATITIS B SURF AG (test code = NON-REACTIVE 2739) HEPATITIS C ANTIBODY (test code NON-REACTIVE = 4675) INTERPRETATION HEPATITIS A: (NOTE) (test code = 2552) INTERPRETATION HEPATITIS B: (NOTE) (test code = 77938) INTERPRETATION HEPATITIS C: (NOTE) (test code = 50482) [id number] 00:00:00 Test Item Value Reference Range Interpretation Comments RPR RESULT (test code = NON-REACTIVE 3501) RPR TITER (test code = 3500) NOT INDIC. TITER [id number] 00:00:00 Test Item Value Reference Range Interpretation Comments RPR RESULT (test code = NON-REACTIVE 3501) RPR TITER (test code = 3500) NOT INDIC. TITER HPV HIGH RISK WITH GENOTYPE, [id number] 00:00:00 Test Item Value Reference Range Interpretation Comments HPV HIGH RISK INTERP (test code = NEGATIVE 04683) HPV 16 (test code = 26233) NEGATIVE HPV 18 (test code = 59681) NEGATIVE HPV, HR, OTHER GENOTYPES (test code NEGATIVE = 07354) [id number] 00:00:00 Test Item Value Reference Range Interpretation Comments RPR RESULT (test code = NON-REACTIVE 3501) RPR TITER (test code = 3500) NOT INDIC. TITER HPV HIGH RISK WITH GENOTYPE, [id number] 00:00:00 Test Item Value Reference Range Interpretation Comments HPV HIGH RISK INTERP (test code = NEGATIVE 51111) HPV 16 (test code = 35252) NEGATIVE HPV 18 (test code = 56719) NEGATIVE HPV, HR, OTHER GENOTYPES (test code NEGATIVE = 39812) VAGINAL PATHOGENS DNA [id number] 00:00:00 Test Item Value Reference Range Interpretation Comments SANCHO SPECIES (test code = 22515) NEGATIVE G. VAGINALIS (test code = 81141) POSITIVE T. VAGINALIS (test code = 17147) NEGATIVE VAGINAL PATHOGENS DNA [id number] 00:00:00 Test Item Value Reference Range Interpretation Comments SANCHO SPECIES (test code = 54233) NEGATIVE G. VAGINALIS (test code = 49970) POSITIVE T. VAGINALIS (test code = 29588) NEGATIVE HIV AB/AG COMBO RFLX [id number] 00:00:00 Test Item Value Reference Range Interpretation Comments HIV 1/2 4TH GEN, RFLX CONF (test NON-REACTIVE code = 3514) HIV AB/AG COMBO RFLX [id number] 00:00:00 Test Item Value Reference Range Interpretation Comments HIV 1/2 4TH GEN, RFLX CONF (test NON-REACTIVE code = 3514) ACUTE HEPATITIS [id number] 00:00:00 Test Item Value Reference Range Interpretation Comments HEPATITIS A IgM (test code = NON-REACTIVE 23744) HEPATITIS B CORE IgM (test code NON-REACTIVE = 4644) HEPATITIS B SURF AG (test code = NON-REACTIVE 2739) HEPATITIS C ANTIBODY (test code NON-REACTIVE = 4675) INTERPRETATION HEPATITIS A: (NOTE) (test code = 2552) INTERPRETATION HEPATITIS B: (NOTE) (test code = 39475) INTERPRETATION HEPATITIS C: (NOTE) (test code = 84407) ACUTE HEPATITIS [id number] 00:00:00 Test Item Value Reference Range Interpretation Comments HEPATITIS A IgM (test code = NON-REACTIVE 14799) HEPATITIS B CORE IgM (test code NON-REACTIVE = 4644) HEPATITIS B SURF AG (test code = NON-REACTIVE 2739) HEPATITIS C ANTIBODY (test code NON-REACTIVE = 4675) INTERPRETATION HEPATITIS A: (NOTE) (test code = 2552) INTERPRETATION HEPATITIS B: (NOTE) (test code = 48495) INTERPRETATION HEPATITIS C: (NOTE) (test code = 27305) [id number] 00:00:00 Test Item Value Reference Range Interpretation Comments RPR RESULT (test code = NON-REACTIVE 3501) RPR TITER (test code = 3500) NOT INDIC. TITER HPV HIGH RISK WITH GENOTYPE, [id number] 00:00:00 Test Item Value Reference Range Interpretation Comments HPV HIGH RISK INTERP (test code = NEGATIVE 03533) HPV 16 (test code = 60365) NEGATIVE HPV 18 (test code = 27727) NEGATIVE HPV, HR, OTHER GENOTYPES (test code NEGATIVE = 33830) [id number] 00:00:00 Test Item Value Reference Range Interpretation Comments RPR RESULT (test code = NON-REACTIVE 3501) RPR TITER (test code = 3500) NOT INDIC. TITER [id number] 00:00:00 Test Item Value Reference Range Interpretation Comments RPR RESULT (test code = NON-REACTIVE 3501) RPR TITER (test code = 3500) NOT INDIC. TITER HPV HIGH RISK WITH GENOTYPE, [id number] 00:00:00 Test Item Value Reference Range Interpretation Comments HPV HIGH RISK INTERP (test code = NEGATIVE 57662) HPV 16 (test code = 13129) NEGATIVE HPV 18 (test code = 75471) NEGATIVE HPV, HR, OTHER GENOTYPES (test code NEGATIVE = 73546) VAGINAL PATHOGENS DNA [id number] 00:00:00 Test Item Value Reference Range Interpretation Comments SANCHO SPECIES (test code = ) NEGATIVE G. VAGINALIS (test code = 33904) POSITIVE T. VAGINALIS (test code = 36378) NEGATIVE VAGINAL PATHOGENS DNA [id number] 00:00:00 Test Item Value Reference Range Interpretation Comments SANCHO SPECIES (test code = ) NEGATIVE G. VAGINALIS (test code = 60816) POSITIVE T. VAGINALIS (test code = ) NEGATIVE HIV AB/AG COMBO RFLX [id number] 00:00:00 Test Item Value Reference Range Interpretation Comments HIV 1/2 4TH GEN, RFLX CONF (test NON-REACTIVE code = 3514) ACUTE HEPATITIS [id number] 00:00:00 Test Item Value Reference Range Interpretation Comments HEPATITIS A IgM (test code = NON-REACTIVE 14344) HEPATITIS B CORE IgM (test code NON-REACTIVE = 4644) HEPATITIS B SURF AG (test code = NON-REACTIVE 4799) HEPATITIS C ANTIBODY (test code NON-REACTIVE = 4675) INTERPRETATION HEPATITIS A: (NOTE) (test code = 2552) INTERPRETATION HEPATITIS B: (NOTE) (test code = 56172) INTERPRETATION HEPATITIS C: (NOTE) (test code = 07445) HPV HIGH RISK WITH GENOTYPE, [id number] 00:00:00 Test Item Value Reference Range Interpretation Comments HPV HIGH RISK INTERP (test code = NEGATIVE 66552) HPV 16 (test code = 04309) NEGATIVE HPV 18 (test code = 19080) NEGATIVE HPV, HR, OTHER GENOTYPES (test code NEGATIVE = 71474) [id number] 00:00:00 Test Item Value Reference Range Interpretation Comments RPR RESULT (test code = NON-REACTIVE 3501) RPR TITER (test code = 3500) NOT INDIC. TITER [id number] 00:00:00 Test Item Value Reference Range Interpretation Comments RPR RESULT (test code = NON-REACTIVE 3501) RPR TITER (test code = 3500) NOT INDIC. TITER VAGINAL PATHOGENS DNA [id number] 00:00:00 Test Item Value Reference Range Interpretation Comments SANCHO SPECIES (test code = 51583) NEGATIVE G. VAGINALIS (test code = 20014) POSITIVE T. VAGINALIS (test code = 93353) NEGATIVE SHORT-LATENCY SPE, ALL [id number] 15:08:00[facility] : 1975 Sex: FINTRAOPERATIVE MONITORING REPORTPatient Name: May Zaidi [facility]: [facility] [place] Pro: [id number]: MD Cheng Monitoring Technologist: Prudence Heck time (survey data technician): 841End time (survey data technician): 1216 Examining Neurologist #1: Cornelius Zuniga [...] 2-3ms Filters 30-2KHz, Notch Off Recording Parameters: EP1,EP2, CV, CP3, CP4, CPz, and FPz Transcranial electrical Motor Evoked Potentials recorded from the Deltoid-Biceps, Triceps, Abductor Pollicis Brevis referenced to the Abductor Digiti Quinti Minimi muscle groups, and the Abductor Hallucis muscle groupsFree-running EMG of bilateral Trapezius, Deltoid-Biceps, Triceps, and Abductor Pollicis Brevis muscle groupsFree-running EEG recorded with bipolar derivation, using modified International 10/20 placements: C3-FPZ, C4-FPZ Technical Description:Bilateral SSEPs-Upper: Somatosensory evoked potentials of the ulnar nerves were attempted using electrodes placed at Erb's point, cervical area and the scalp. Amplitudes and latencies of these responses were evaluated by the neurophysiologist and the results were reported verbally to the surgical team. Bilateral upper SSEP responses were present and reproducible at baseline. No significant surgically related changes in amplitude or latency of the somatosensory evoked responses were noted throughout the surgicalprocedure. At closing, responses were judged to be essentially unchanged from those of post-positioning baselines. Bilateral SSEPs-Lower: Somatosensory evoked potentials of the posterior tibial nerves were attempted using electrodes placed in the cervical [...] closing, responses were judged to be essentially unchangedfrom those of post-positioning baselines. Cranial EMG: Spontaneous electromyographic potentials fromthe CN X pharynx/larynx and CN XI trapezius muscles were monitored during the procedure using needleelectrodes inserted before positioning. Free-running EMG was monitored continuously throughout the operative procedure with some sporadic neurotonic discharges taking place during procedure, however all EMG was stable and quiet at closing. Surgeon aware of all responses during the case and at closing.EMG: Spontaneous electromyographic potentials from the trapezius, deltoids-biceps, [...] in the transcranial motor evoked potentials during the p rocedure. Gabriel Zuniga M.D., FACNS, FAAN, FAESProfessor of NeurologyBakersfield Memorial HospitalDirector, [facility] Epile[facility] Neurophysiology LabSignature line: Diagnosis: Cervical Stenosis Tissue [id number] 17:56:29 Test Item Value Reference Range Interpretation Comments Case Report (test Surgical Pathology code = 104) Report Case: [id number] Authorizing Provider: Drew Anand III, MD Collected: 09/03/2021 11:46 AM Ordering Location: [facility] Received: 09/03/2021 01:00 PM SERVICES Pathologist: Eugene Sung MD Specimen: Intervertebral Disc, C5-7 DIAGNOSIS (test code o4ovdJLuDJGqd5qhULXhbZBz = 3220) ZzEwMzNcZnRuYmpcdWMxIHtc cnRmMVxlcGljOTYwMVxhbnNp UJBtpELhG1VglghlVUssMY8t SR7jvZrthBPtpWNgATZaYdTl g3zvu648zIBuk8axMBIGxhkw hPb5aQowV29fj3Q2UqxhD53z qXXxMSJ8PDPpLXJbgLPhHBZz YXY8NNJicMRjN1svDOXwMS1q dqywTCgmOAubLVVtyOZ6BBDf zLDjC5GdLQJpKTijFUWdcwc6 NtVxDt6hzIXejGszQPmaNXQf XHBsYWluXGZzMjAgVkVSVEVC AuWXSGDQFEPXZdjjOW1AIZBO RVJURUJSQUwgRElTQywgQzUt MknwYSsWH6UIBD5WTCwciPVy IWSRURhEBC2SVcPJDySKPOKT V5UDBzTMLGLHFYQDRPSJMF9E AVEoHKGYKT7GQuRPFAWMKLHJ AQ1TQNBexIPifYxjymUrAWog n0WlDAqcOWQjXG0zpEyaZAFa MT6xJXFhV0cucC2wbwn9ToZr SJCjQoS3NHZopkJ2Vvq5DPVh AJsvx9ozr2IoKIKlPLs4mJgw HnDrFEYbf9symkJgYpNnCXIl HLYsYKNlvWIgS548o3vxj2oh kkKtgUA3OGKgNWH8OGlcajKf xpC8MZnlaIAhFrN8EOrszjAy NXutkwIoqhEyRcq8EOUoL677 VYA2kQeyx8zgDMI2EHTpPNSb ItZePu8boSSwK533MCIpVDBW VKOhqIg0QFAgzkHbyoQvgYNU r305E569g2uxUSRazkIkbQlJ guzdt8awC502PJQypUOqbqSh UdBxKYDxrGVlaMJ5LXBaBC0b qngaRWhnWEkjPOPnsdC2EDJn pPCpC9InXMOjXO0qwgfqHDY2 HFejGXBwJRJ2IgOyTBYaq9Qz ndf8BjThdr0rea92FSP5k7Ag iJtgACN1DPJ6SnBxXa3zvJPi DISdMJ3lDrCzvRKoGTYmil76 jNgqLTrjRBE7BDOgkxUhb6Lb a7egMrHvmqPnH0okZ1SgRAYe PLHsZLWgTdFkxeJae3Clo0Qc oJNxkMe8s1urOCFnDRArmUix s0kzXXR7JZDduTKiL6idpD9r OFQuDS5xfzeqb3qtLSicINij XRQuyKB5gcD9LUKktHFlD1Pb yA7iGNNzFVmpBXAaqrk8KnXf Zt9tlTIhuYnlFNqkUqsjANnx XHBnbmNvbnRccGduZGVjXHBs YWluXHBsYWluXGYwXGZzMjRc cWxcbGFuZzEwMzNcaGljaFxm IIkrFkKcKAJcHCqqM4orBzAu IhBoPyr6TLNglUHaXZNzFxu4 WFZsgJNeKDDMqBqowZ4uKJXo nQfflZ1wzJN1JZKtttLmsNKX uD4rKUOOfK7tJpX9KrKcRsE7 MMd5IMLnwJWkcW5= CPT Code(s) (test u4yprUNiKOWyaJM4RxMbXDAq code = 4617) c1gnd8XmlIMauYAzTHeqePFu ubCfkr22cQY8oT37QT5uDFPq JwV3NBKnleA0Mua7RAWdLUVz kXGoM976m7tfg7tnacDnjDD5 oPeoMNUssddyBgJ2QTusEGYp tylvLYf6ZGwcBTXafSO8GGAe nFHkQ3BdNWJsNY1hkls0CQP3 ORjoMEGhZrE6XAAxuYHyIAXy rWtrOQkpb739DOO1FqWwKXUw opYyjMqurE3hNlQhRLD4RQIn NDsgODgzMTFccGFyfQ== CLINICAL HISTORY l8cfdAEeAZNwuND1UhWeGCSx (test code = 3356) z3lsq8WllDRqjDHiTPplmBOt kiDlba03aSO7sJ86XQ0nYXQl CeT3UFDyqmL5Twk1FUVsXQIr rNWmR558q9acv4xcepYfaJH7 bAdoJGOnitaqNkJ4WSouQRXd ydxrNRq0UVboXWDnkBJ8QSDd aPJgD5GaXFClPW0hsgo3RRZ7 CTllXOEnXkQ6CTWlcVVtKRNi rWslHKjsf409PLH3UtTjJYYw uiObrHnuiU0gJaChJAQPSYP6 bYTdaNLjtIYqx1PegrCxiSOa fQ== SPECIMEN SOURCE (test p2utrRXzKXYliUR4JnAeUXUj code = 3377) n9clm3NjrAZpdIXxZUovnDAo qtHcot35qRM7uC47QD5zRMFg MmJ5XSFgpbT0Lbz0MRGmSGNe gAEnO907v4rod8rvqfCgfDU9 hLxvVHLfugjpAnN6WTruPSZg arhjXDv1EBimVIZzvYN5ZIFs fCPvB2StCZXmFK0xtcj8DWT6 FDymMCKyOiY9DMLqyMBvHFGx vPxkWVizr326QDE4PhJbEXEi dgPwfBtubK4mPqBtIOVXflOa cnZlcnRlYnJhbCBkaXNjLCBD NU55RVSevw5= GROSS DESCRIPTION k8qncYDdBMWtjIR8AiDkVTUj (test code = 3366) v5ema8OpvAFqsOSxOSylnNQa aqNruq38sKR0xQ00RJ2mKYCo SbC5PWXeinO4Tik0QZSfFGDa iFYuC936s5jjc3mbpzEyhXL6 cVojULDmhyawQuD4FKyhJEFn oftpWHd9UJjrOQNbcTS3TTAh hNDdX5LoCKTjUS9wwoj4FQB4 QZoqZYQkTyO1MWLvgCPnJHXw zUdrQPyou818YTR5JiRrTTYz pqSpiSpsaH1zNlSjVDYBFlWG ZWNlaXZlZCBmcmVzaCBsYWJl bGVkIHdpdGggdGhlIHBhdGll kdPfulJwGG2oXRIvLOQuL2Ul YPGpI00lNLOkcH6sLTGrZE9j ICJpbnRlcnZlcnRlYnJhbCBk pNPiOxAsyiBvLQLrUUS7HWTi BkI1ABRvKNQvwRAyV8zbBKyl oIFzw5RfaZThwEaovLJnbSjl uw93oSu4EFDmbAWll6ErorUw tTKyjN2pkFAbgLjjw2FeCYRk USgnXN83jg8hIFlaORPwZMTs bWVuIGlzIGZpbHRlcmVkIGFu BVOghPFnhUF7VOKulV2nzN40 ndIonoXxSIWuOKV3ALDYNDWw t8sxh9grqtgrsAzvvVEvOFFy QAeicGVmG0V8uW3oAtTRTxKt cGwgXHBhcn0= MICROSCOPIC x4oeqHImWMWnpAB1TjBxBMZk DESCRIPTION (test u7dtd6HlwBLlkNDgYNjhyNLf code = 3371) sjCovn82zTZ4kU10QS6cNKJw NeW9ESRhkxL2Izf6YNCgOGEb yJTcB719a3yvh5cilnNxtKO3 nGnnELMgiuzaAqG0URimZVJe djwiDMd1AQbwLKTvyDK5HUZl oVUlG0XgBPOtGK7ljlm7NBK0 JKpoNXZuZyO1FJWigYJcEPJs dWnaCSmfm438PBO4AwZsMMEc ymPxxCwmrL6fObTsFNPDMBKu b7CmAUAjbNIzdA== [id number] 17:56:29Surgical Pathology Report Case: [id number] Authorizing Provider: Drew Anand III, MD Collected: 09/03/2021 11:46 AM Ordering Location: [facility] Received: 09/03/2021 01:00 PM SERVICES Pathologist: Eugene Sung MD Specimen: Intervertebral Disc, C5-7 VERTEBRAL COLUMN, INTERVERTEBRAL DISC,C5-7, DISCECTOMY:FRAGMENTS OF FIBROCARTILAGE WITH MILD DEGENERATIVE CHANGES Signing Pathologist Direct Phone Line: [phone] signed by Eugene Sung MD on 09/06/2021 at 5:56 [id number] stenosis Intervertebral disc, C5-7A. Received fresh labeled with the patient's name, medical record number and "intervertebral disc" is a 2.4 x 1.7 x 0.4 cm aggregate of multiple pink-white fibrocartilaginous tissue fragments. The specimen is filtered and submitted in toto in cassette A1 following light decalcification. MJP/pl PerformedCBC with platelet count + automated [id number] 06:01:32 Test Item Value Reference Range Interpretation Comments WBC (test code = 6690-2) 9.9 See_Comment [A utomated message] The system [employer] generated this result transmitted ref erence range: 3.5 - 10 .5 K/L. The refe rence range was not u sed to interpret this result as normal/abnor mal. RBC (test code = 789-8) 4.74 See_Comment [Au tomated message] The system [employer] generated this result transmitted ref erence range: 3.93 - 5 .22 M/L. The refe rence range was not u sed to interpret this result as normal/abnor mal. MCHC (test code = 786-4) 32.4 See_Comment [A utomated message] The system [employer] generated this result transmitted ref erence range: [...] See_Comment [Aut omated message] 777-3) The system [employer] generated this result transmitted ref erence range: 150 - 45 0 K/CU MM. The referen ce range was not u sed to interpret this result as normal/abnor mal. MPV (test code = 9.5 fL 9.4-12.3 66564-5) nRBC (test code = 413) 0 See_Comment [Aut omated message] The system [employer] generated this result transmitted ref erence range: [...] H [Aut omated message] 670) The system [employer] generated this result transmitted ref erence range: 1.56 - 6 .13 K/L. The refe rence range was not u sed to interpret this result as normal/abnor mal. # Lymphs (test code = 1.35 See_Comment [Auto mated message] 414) The system [employer] generated this result transmitted ref erence range: 1.18 - 3 .74 K/L. The refe rence range was not u sed to interpret this result as normal/abnor mal. # Monos (test code = 0.33 See_Comment [Autom ated message] 415) The system [employer] generated this result transmitted ref erence range: 0.24 - 0 .36 K/L. The refe rence range was not u sed to interpret this result as normal/abnor mal. # Eos (test code = 416) 0.00 See_Comment L [Au tomated message] The system [employer] generated this result transmitted ref erence range: 0.04 - 0 .36 K/L. The refe rence range was not u sed to interpret this result as normal/abnor mal. # Baso (test code = 417) 0.01 See_Comment [A utomated message] The system [employer] generated this result transmitted ref erence range: 0.01 - 0 .08 K/L. The refe rence range was not u sed to interpret this result as normal/abnor mal. Immature 0 % 0-1 Granulocytes-Relative (test code = 2801) Lab Interpretation (test Abnormal code = 83649-0) [facility] W/PLT COUNT & AUTO [id number] 06:01:32 Test Item Value Reference Range Interpretation [...] (BEAKER) (test code = 2801) Basic Metabolic [id number] 05:40:38 Test Item Value Reference Range Interpretation Comments Sodium (test code = 142 meq/L 925-456 4965-2) Potassium (test code = 4.0 meq/L 3.5-5.1 2823-3) Chloride (test code = 107 meq/L 98-107 2075-0) CO2 (test code = 25 meq/L 22-29 8-9) BUN (test code = 12 mg/dL 7-21 3094-0) Creatinine (test code 0.73 mg/dL 0.57-1.25 = 2160-0) Glucose (test code = 127 mg/dL 70-105 H 2345-7) Calcium (test code = 10.2 mg/dL 8.4-10.2 40593-8) EGFR (test code = 85 mL/min/1.73 [place] [address]-7) NOT ACCURATE CREATININE CLEARANCE IN PREDICTING GLOMERULAR FILTRATION RATE . ESTIMATED GFR I S NOT APPLICABLE FOR DIALYSIS PATIENTS. LEVON (test code = LEVON) Pharmacist'S Aide ID - jrl Lab Interpretation Abnormal (test code = 14860-2) [facility] METABOLIC [id number] 05:40:38 Test Item Value Reference Range Interpretation [...] S NOT APPLICABLE FOR DIALYSIS PATIEN TS. Pharmacist'S Aide ID - jrlRAD, SPINE, CERVICAL, 2 OR 3 [id number] 14:14:00Reason for exam:->post-op STANDING x-raysShould this be performed at the bedside?->No [facility] 1975 Sex: FFINAL REPORT RAD, SPINE, CERVICAL, 2 OR 3 VIEWS INDICATION: post-op STANDING x-rays COMPARISON: None TECHNIQUE: AP and lateral radiographs of the cervical spine FINDINGS/IMPRESSION:Mild straightening of cervical lordosis. Slight minimal anterolisthesis of C4 on C5. Status post ACDF spanning C5-C7 with prevertebral soft tissue swelling (presumably recently postop). Signed: Mary Ashby Verified Date/Time: 09/04/2021 14:14:33 Reading Location: [facility] Radiology ReadingRoom BASI METABOLIC [id number] 10:43:35 Test Item Value Reference Range Interpretation [...] S NOT APPLICABLE FOR DIALYSIS PATIEN TS. Pharmacist'S Aide ID - UPPERGLADE FCBC W/PLT COUNT & AUTO [id number] 10:04:49 Test Item Value Reference Range Interpretation [...] 2801) FL, FLUORO, NON-SPECIFIC, UP TO 1 [id number] 12:14:00Reason for exam:- >ACDF C5-7[facility] : 1975 Sex: FFluoroscopic unit utilized for a procedure performed in the OR. No interpretation was requested. Refer to the operative report for findings. Refer to PACS for patient radiation dose information.FL, FLUORO, NON-SPECIFIC, UP TO 1 [id number] 09:56:00Reason for exam:->ACDF C5-7 [facility] 1975 Sex: FFINAL REPORT FL, FLUORO, NON-SPECIFIC, UP TO 1 HOUR CLINICAL INDICATION: ACDF C5-7 COMPARISON: None IMPRESSION: A single lateral view of the cervical spine is obtained intraoperatively. Surgical hardware overlies the anterior disc space at C6-C7. Results were communicated to Dr. Anand, who concurred with the above findings. Signed: Mary Ashby MDReport Verified Date/Time: 09/03/2021 09:56:27 Reading Location: [place] [facility] [id number] 07:14:37 Test Item Value Reference Interpretation Comments Range Protime (test code = 13.8 See_Comment [Autom ated 5902-2) message] The system which generated this result transmitted reference range : 11.9 - 14.2 seconds. The reference range was not used to interpret this result as normal/abnormal . INR (test code = 1.08 See_Comment [Automated 0291-6) message] The system which generated this result transmitted reference range : <=5.90. The reference range was not used to interpret this result as normal/abnormal . PTT (test code = 33.1 See_Comment [Automated 75235-2) message] The system which generated this result [...] valves. Lab Interpretation Normal (test code = 38634-4) [id number] 07:14:37 Test Item Value Reference Range Interpretation [...] for patients with mechanical heart valves.BASIC METABOLIC [id number] 06:08:31 Test Item Value Reference Range Interpretation [...] S NOT APPLICABLE FOR DIALYSIS PATIEN TS. Pharmacist'S Aide ID - LEELA WCBC (Hemogram only)2021-09-03 05:43:01 Test Item Value Reference Range Interpretation Comments WBC (test code = 6690-2) 5.7 See_Comment [A utomated message] The system [employer] generated this result transmitted ref erence range: 3.5 - 10 .5 K/L. The refe rence range was not u sed to interpret this result as normal/abnor mal. RBC (test code = 789-8) 4.50 See_Comment [Au tomated message] The system [employer] generated this result transmitted ref erence range: 3.93 - 5 .22 M/L. The refe rence range was not u sed to interpret this result as normal/abnor mal. MCHC (test code = 786-4) 33.7 See_Comment [A utomated message] The system [employer] generated this result transmitted ref erence range: [...] See_Comment [Aut omated message] 777-3) The system [employer] generated this result transmitted ref erence range: 150 - 45 0 K/CU MM. The referen ce range was not u sed to interpret this result as normal/abnor mal. MPV (test code = 9.1 fL 9.4-12.3 L 96943-5) nRBC (test code = 413) 0 See_Comment [Aut omated message] The system [employer] generated this result transmitted ref erence range: 0 - 0 /1 00 WBC. The refere nce range was not u sed to interpret this result as normal/abnor mal. Lab Interpretation (test Abnormal code = 92606-3) [facility] 05:43:01 Test Item Value Reference [...] 0-0 (BEAKER) (test code = 413) Screen, [id number] 04:18:04 Test Item Value Reference Range Interpretation Comments Preg Test, Ur (test code = 2112-1) Negative [facility] SCRE[facility], [id number] 04:18:04 Test Item Value Reference Range Interpretation Comments TEST URINE (BEAKER) (test Negative code = 583) RAD, CHEST, 1 VIEW, NON [id number] 14:59:00Reason for exam:->PreopShould this be performed at the bedside?->Yes [facility] 1975 Sex: FFINAL REPORT INDICATION: Preop COMPARISON: None TECHNIQUE: Single frontal view of the chest. FINDINGS: Lungs and pleura: Clear lungs. No effusion.Heart and mediastinum: Normal heart size.Unremarkable mediastinal contours.Osseous structures: No acute abnormality.Other: None. IMPRESSION: No acute intrathoracic abnormality. Signed: Mary Ashby MDReport Verified Date/Time: 09/02/2021 14:59:13 SARS-CoV2/RT-PCR (Symptomatic ONLY)2021-09-02 14:39:49 Test Item Value Reference Interpretation Comments Range SARS-COV2/RT-PCR Negative Negative The SARS-Co V-2 (test code = target nucleic 49367-4) acids are not detected in thi s [...] om SARS-CoV-2 in a nasopharyngeal swab specimen [facility] from individual s suspected of COVID-19 by [...] revoked sooner. Fact Sheet for Healthcare Providers: https://www.[employer]/Documents/Xp ert%20Xpress%20SAR S%20CoV-2/Fact%20S heets/302-3802%20S ARS-COV-2%20HEALTH CARE%20PROVIDERS%2 0FACT%20SHEET.pdf Fact Sheet for Healthcare Patients: https://www.[employer]/Documents/Xp ert%20Xpress%20SAR S%20CoV-2/Fact%20S heets/302-3801%20S ARS-COV-2%20PATIEN T%20FACT%20SHEET.p df Lab Interpretation Normal (test code = 41833-1) [facility]2021-09-02 14:39:49 Test Item Value Reference Range Interpretation Comments SARS-COV2/RT-PCR Negative Negative The SARS-Co V-2 target (test code = nucleic acids a re not 2195484) detected in thi s specimen. Negative result [...] revoked sooner. Fact Sheet for Healthcare Providers: https://www.iCabbi m/Documents/Xpert%20Xpress%20SARS%20CoV-2/Fact%20Sheets/302-3802%66CHRF-AHJ-4%20 HEALTHCARE%20PROVIDERS%20FACT%20SHEET.pdf Fact Sheet for Healthcare Patients: https://www.[employer]/Documents/Xpert%20Xp ress%20SARS%20CoV-2/Fact%20Sheets/302-3801%51YBQM-BPA-4%20PATIENT%20FACT%20SHEET .pdfBASIC METABOLIC [id number] 13:47:13 Test Item Value Reference Range Interpretation [...] S NOT APPLICABLE FOR DIALYSIS PATIEN TS. Pharmacist'S Aide ID - LEELA WCBC W/PLT COUNT & AUTO [id number] 13:32:27 Test Item Value Reference Range Interpretation [...] PERCENT (BEAKER) (test code = 2801) Urine [id number] 11:51:42 Test Item Value Reference Range Interpretation Comments Result (test code = 10-19,000 col/mL skin 6463-4) sebastian [facility] [id number] 08:54:43 Test Item Value Reference Range Interpretation Comments Free T4 (test code = 0.92 ng/dL 0.70-1.48 3024-7) LEVON (test code = LEVON) Pharmacist'S Aide ID - LEELA W Lab Interpretation (test Normal code = 20397-3) [facility], [id number] 08:54:43 Test Item Value Reference Range Interpretation Comments FREE T4 (BEAKER) (test code = 655) 0.92 ng/dL 0.70-1.48 Pharmacist'S Aide ID - LEELA WTSH/Free T4 If [id number] 06:20:34 Test Item Value Reference Range Interpretation Comments TSH (test code = 4.975 See_Comment H [Automated 35334-0) message] The system which generated this result transmit cosme reference range : 0.350 - 4.940 uIU/mL. The reference range was not used to interpret this result as normal/abnormal . LEVON (test code = LEVON) Pharmacist'S Aide ID Bridgette SWENSON W Lab Interpretation Abnormal (test code = 47527-4) [facility]FREE T4 IF [id number] 06:20:34 Test Item Value Reference Range Interpretation Comments THYROID STIMULATING HORMONE 4.975 uIU/mL 0.350-4.940 H (BEAKER) (test code = 772) Pharmacist'S Aide ID - LEELA WMR, SPINE, CERVICAL, WITHOUT [id number] 15:56:00 Unlisted Reason for Exam - Click Yes and Enter Reason Below->No [facility] : 1975 Sex: FFINAL REPORT MR, SPINE, CERVICAL, WITHOUT CONTRAST INDICATION: Spinal cord injury, follow up TECHNIQUE: Multiplanar, multisequence MR imaging of the cervical spine was performed without intravenous contrast. COMPARISON: None. FINDINGS: Alignment of the cervical spine is within normal limits. Vertebral body height is maintained.Mild multilevel disc space height loss, most conspicuous at C5-H8Wjihqn signal intensity is within normal limits for [...] stenosis.C5/C6: Disc osteophyte with large superimposed central and right paracentral disc extrusion with cranial and caudal [...] In combination with facet arthrosis there is alsosevere bilateral foraminal stenosis at this level. Signed: Mary Ashby MDReport Verified Date/Time: 09/01/2021 15:56:55 Reading Location: [address] Neuro Reading Room ABORH, [id number] 12:37:00 Test Item Value Reference Range Interpretation Comments Rh Factor (test code = 2589) NEG ABO Grouping (test code = 2588) O [facility]Type and screen, [id number] 07:31:00 Test Item Value Reference Range Interpretation Comments ABO/RH AUTOMATED (BEAKER) (test O NEGATIVE code = 2260) Ab Scrn (test code = 890-4) NEGATIVE [facility]MR, SPINE, LUMBAR, WITHOUT [id number] 06:11:00Unlisted Reason for Exam - Click Yes and Enter Reason Below->No [facility] 1975 Sex: FFINAL [...] at 0611 hours 09/01/2021. Signed: Rory Jaimes [facility] Verified Date/Time: 09/01/2021 06:11:42 Urinalysis w/Microscopic + Reflex to [id number] 05:55:42 Test Item Value Reference Range Interpretation Comments Color, UA (test code Light Yellow = 5778-6) Clarity, UA (test Hazy code = 5767-9) Specific [place], UA 1.017 1.001-1.035 (test code = 5811-5) pH, UA (test code = 6.5 5.0-8.0 5803-2) Protein, UA (test Negative Negative code = 70791-8) Glucose, UA (test Negative Negative code = 365) Ketones, UA (test Negative Negative code = 2514-8) Bilirubin, UA (test Negative Negative code = 97054-7) Blood, UA (test code Negative Negative = 57865-1) Nitrite, UA (test Negative Negative code = 5802-4) Leukocytes, UA (test Large Negative A code = 5799-2) Urobilinogen, UA 0.2 mg/dL 0.2-1.0 (test code = 71552-8) RBC, UA (test code = 10 See_Comment [Autom ated 45632-3) message] The system which generated this result [...] . Bacteria, UA (test Rare code = 35715-9) Squam Epithel, UA 5 See_Comment [Automate d (test code = 17505-5) messag e] The system which generated this result transmit cosme reference range : /HPF. The reference range was not used to interpret this result as normal/abnormal . Crystals, Urine (test None Seen code = 00516-8) Amorphous Crystals Rare (test code = 72431-5) Specimen Source (test code = 2795) LEVON (test code = LEVON) Pharmacist'S Aide ID - [auto]Pharmacist'S Aide ID - tech Lab Interpretation Abnormal (test code = 20686-6) [facility] UR[facility] [id number] 05:55:42 Test Item Value Reference Range Interpretation [...] = 1584) SOURCE(BEAKER) (test code = 2795) Pharmacist'S Aide ID - [auto]Pharmacist'S Aide ID - [id number] 04:10:38 Test Item Value Reference Range Interpretation Comments Phosphorus (test code 3.9 mg/dL 2.3-4.7 Specim en = 2777-1) moderately hemolyzed LEVON (test code = LEVON) Pharmacist'S Aide ID - DB Lab Interpretation Normal (test code = 80737-8) [facility] CenterPHOSPHORUS2021-[facility]-02 04:10:38 Test Item Value Reference Range Interpretation Comments PHOSPHORUS (BEAKER) 3.9 mg/dL 2.3-4.7 Specimen moderately (test code = 604) hemolyzed Pharmacist'S Aide ID - DBBASIC METABOLIC [id number] 04:10:38 Test Item Value Reference Range Interpretation [...] S NOT APPLICABLE FOR DIALYSIS PATIEN TS. Pharmacist'S Aide ID - [id number] 04:10:37 Test Item Value Reference Range Interpretation Comments Magnesium (test code = 1.9 mg/dL 1.6-2.6 Speci men 13950-7) moderately hemolyzed LEVON (test code = LEVON) Pharmacist'S Aide ID - DB Lab Interpretation Normal (test code = 25795-8) [facility] [id number] 04:10:37 Test Item Value Reference Range Interpretation Comments MAGNESIUM (BEAKER) 1.9 mg/dL 1.6-2.6 Specimen moderately (test code = 627) hemolyzed Pharmacist'S Aide ID - DBProthrombin time/[id number] 04:04:19 Test Item Value Reference Interpretation Comments Range Protime (test code = 13.4 See_Comment [Autom ated 5902-2) message] The system which generated this result transmitted reference range : 11.9 - 14.2 seconds. The reference range was not used to interpret this result as normal/abnormal . INR (test code = 1.04 See_Comment [Automated 7121-6) message] The system which generated this result [...] valves. Lab Interpretation Normal (test code = 28542-9) [facility] CenterPROTHROMBIN TIME/[id number] 04:04:19 Test Item Value Reference Range Interpretation Comments PROTIME (BEAKER) 13.4 seconds 11.9-14.2 (test code = 759) INR (BEAKER) (test 1.04 See_Comment [Automat ed message] code = 370) The system [employer] generated this result transmitted ref erence range: <=5.90. The reference range was not used to int erpret this result as normal/abnormal . RECOMMENDED COUMADIN/WARFARIN INR THERAPY RANGESSTANDARD DOSE: 2.0 - 3.0 Includes: PROPHYLAXIS for venous thrombosis, systemic embolization; TREATMENT for venous thrombosis and/or pulmonary embolus.HIGH RISK: Target INR is 2.5-3.5 for patients with mechanical heart valves.CBC W/PLT COUNT & AUTO [id number] 03:59:33 Test Item Value Reference Range Interpretation [...] % 0-1 PERCENT (BEAKER) (test code = 8102)
[2022-11-11 10:25] LABS: Absolute Lymphocytes (CBC) 3.6 K/uL (0.7-4.9); Hematocrit 43.3 % (36.0-45.0); Lymphocytes % 28.4 % (15.3-44.8); MPV 7.2 fL (7.6-11.3); RBC Red Blood Cell Count 4.87 M/uL (3.86-4.86)
[2022-11-11 10:44] LABS: Magnesium 2.1 mg/dL (1.6-2.4); Potassium 3.8 mmol/L (3.5-5.1); Troponin High Sensitivity 6.7 pg/mL (<58.9)
--- NOTE | 2022-11-11 11:26 | RAD REPORT ---
EXAM DESCRIPTION: Jerome Single View11/11/2022 10:51 am CLINICAL HISTORY: Chest pain COMPARISON: November 03, 2022 FINDINGS: The lungs appear clear of acute infiltrate. The heart is normal size IMPRESSION: No acute abnormalities displayed
--- NOTE | 2022-11-11 11:41 | ER ---
Nurse's Notes [facility] Name: May Zaidi Age: 47 yrs Sex: Female : 1975 Arrival Date: 11/11/2022 Time: 09:34 Bed 12 Private MD: Diagnosis: Acute upper respiratory infection, unspecified;Cough;Essential (primary) hypertension Presentation: 11/11 10:11 Chief complaint: Patient states: CP began last night around 2AM, epigastric pressure. ld1 Coronavirus screen: At this time, the client does not indicate any symptoms associated with coronavirus-19. Ebola Screen: No symptoms or risks identified at this time. Initial Sepsis Screen: Does the patient meet any 2 criteria? No. Patient's initial sepsis screen is negative. Does the patient have a suspected source of infection? No. Patient's initial sepsis screen is negative. Risk Assessment: Do you want to hurt yourself or someone else? Patient reports no desire to harm self or others. Onset of symptoms was November 11, 2022. 10:11 Method Of Arrival: Ambulatory ld1 10:11 Acuity: HIRAM 3 ld1 Triage Assessment: 10:12 General: Appears in no apparent distress. comfortable, Behavior is calm, cooperative, ld1 appropriate for age. Pain: Complains of pain in chest Pain does not radiate. Pain currently is 8 out of 10 on a pain scale. Quality of pain is described as pressure. EENT: No signs and/or symptoms were reported regarding the EENT system. Neuro: Level of Consciousness is awake, alert, obeys commands, Oriented to person, place, time, situation. Cardiovascular: Capillary refill < 3 seconds Patient's skin is warm and dry. Respiratory: Airway is patent Respiratory effort is even, unlabored. GI: Abdomen is flat, non-distended. : No signs and/or symptoms were reported regarding the genitourinary system. Derm: No signs and/or symptoms reported regarding the dermatologic system. Historical: - Allergies: 10:12 Abilify; ld1 10:12 Lisinopril; ld1 10:12 Losartan; ld1 - PMHx: 10:12 chronic kidney disease; herniated discs in neck; Fibromyalgia; Kidney stones; PTSD; RA; ld1 Depressive disorder; - PSHx: 10:12 varicocele; Jaw Sx; ld1 - Immunization history:: Adult Immunizations up to date, Client reports receiving the 2nd dose of the Covid vaccine. - Social history:: Smoking status: Patient denies any tobacco usage or history of. Patient uses street drugs, marijuana, Patient/guardian denies using alcohol. Screenin:31 Abuse screen: Denies threats or abuse. Denies injuries from another. Nutritional ld1 screening: No deficits noted. Tuberculosis screening: No symptoms or risk factors identified. Fall Risk No fall in past 12 months (0 pts). Assessment: 10:31 Reassessment: See triage assessment. ld1 Vital Signs: 10:11 BP 155 / 108; Pulse 62; Resp 18; Temp 98.1(O); Pulse Ox 100% on R/A; Pain 8/10; ld1 10:31 BP 149 / 99; Pulse 64; Resp 18; Pulse Ox 100% on R/A; ld1 ED Course: 09:34 Patient arrived in ED. rg4 09:44 Saravanan Humphries DO is Attending Physician. ms3 10:12 Triage completed. ld1 10:12 Arm band placed on right wrist. ld1 10:16 Inserted saline lock: 20 gauge in right antecubital area, using aseptic technique. ap3 Blood collected. 10:31 Gilma Jeff, RN is Primary Nurse. ld1 10:31 Patient has correct armband on for positive identification. Placed in gown. Bed in low ld1 position. Call light in reach. Side rails up X2. ekg monitor on. Pulse ox on. NIBP on. Door closed. Noise minimized. 10:31 No provider procedures requiring assistance completed. Patient maintains SpO2 ld1 saturation greater than 95% on room air. 10:53 XRAY Chest (1 view) In Process Unspecified. EDMS 12:00 IV discontinued, intact, bleeding controlled, No redness/swelling at site. ld1 Administered Medications: No medications were administered Medication: 10:31 VIS not applicable for this client. ld1 Outcome: 11:40 Discharge ordered by . ms3 12:00 Discharged to home ambulatory. ld1 12:00 Condition: stable 12:00 Discharge instructions given to patient, Instructed on discharge instructions, follow up and referral plans. Demonstrated understanding of instructions, follow-up care, medications, Prescriptions given X 1. 12:00 Patient left the ED. ld1 Signatures: Dispatcher [employer] Tina Nolan rg4 Ashly Castellano, RN RN ap3 Saravanan Humphries DO DO ms3 Gilma Jeff, RN RN ld1
--- NOTE | 2022-11-11 11:41 | EDPHYS ---
Physician Documentation [facility] Name: May Zaidi Age: 47 yrs Sex: Female : 1975 Arrival Date: 11/11/2022 Time: 09:34 Bed 12 Private MD: ED Physician Saravanan Humphries HPI: 11/11 10:38 This 47 yrs old Female presents to ER via Ambulatory with complaints of Chest Pain, ms3 Shortness Of Breath, High Blood Pressure, Body Aches, Chills. 10:38 The patient or guardian reports chest pain that is located primarily in the epigastric ms3 area. Onset: 8.5 hour(s) ago. The pain does not radiate. Associated signs and symptoms: Pertinent negatives: abdominal pain, nausea, shortness of breath, vomiting. The chest pain is described as a pressure. Duration: The patient or guardian reports a single episode, that is still ongoing, and unchanged. Modifying factors: The symptoms are alleviated by nothing. the symptoms are aggravated by nothing. Severity of pain: At its worst the pain was moderate a 8 / 10 in the emergency department the pain is unchanged is a 8 / 10. Historical: - Allergies: 10:12 Abilify; ld1 10:12 Lisinopril; ld1 10:12 Losartan; ld1 - PMHx: 10:12 chronic kidney disease; herniated discs in neck; Fibromyalgia; Kidney stones; PTSD; RA; ld1 Depressive disorder; - PSHx: 10:12 varicocele; Jaw Sx; ld1 - Immunization history:: Adult Immunizations up to date, Client reports receiving the 2nd dose of the Covid vaccine. - Social history:: Smoking status: Patient denies any tobacco usage or history of. Patient uses street drugs, marijuana, Patient/guardian denies using alcohol. ROS: 10:38 Abdomen/GI: Negative for abdominal pain, nausea, vomiting, diarrhea, and constipation, ms3 MS/Extremity: Negative for injury and deformity, Skin: Negative for injury, rash, and discoloration, Neuro: Negative for headache, weakness, numbness, tingling. 10:38 Constitutional: Positive for fatigue, malaise. 10:38 Cardiovascular: Positive for chest pain. 10:38 All other systems are negative. Exam: 10:28 ECG was reviewed by the Attending Physician. ms3 10:38 Constitutional: This is a well developed, well nourished patient who is awake, alert, ms3 and in no acute distress. Head/Face: Normocephalic, atraumatic. Neck: Trachea midline, no cervical lymphadenopathy. Supple, full range of motion without nuchal rigidity, or vertebral point tenderness. No Meningismus. Chest/axilla: Normal chest wall appearance and motion. Nontender with no deformity. Cardiovascular: Regular rate and rhythm with a normal S1 and S2. No gallops, murmurs, or rubs. Normal PMI, no JVD. No pulse deficits. Respiratory: Lungs have equal breath sounds bilaterally, clear to auscultation and percussion. No rales, rhonchi or wheezes noted. No increased work of breathing, no retractions or nasal flaring. Abdomen/GI: Soft, non-tender, with normal bowel sounds. No distension or tympany. No guarding or rebound. No evidence of tenderness throughout. Skin: Warm, dry with normal turgor. Normal color with no rashes, no lesions, and no evidence of cellulitis. MS/ Extremity: Pulses equal, no cyanosis. Neurovascular intact. Full, normal range of motion. Vital Signs: 10:11 BP 155 / 108; Pulse 62; Resp 18; Temp 98.1(O); Pulse Ox 100% on R/A; Pain 8/10; ld1 10:31 BP 149 / 99; Pulse 64; Resp 18; Pulse Ox 100% on R/A; ld1 MDM: 10:09 Patient medically screened. ms3 10:38 Differential diagnosis: abnormal EKG, acute myocardial infarction, coronary artery ms3 disease pneumonia, pneumothorax. 11:50 HEART Score: History: Slightly Suspicious (0), ECG: Normal (0), Age: > 45 and < 65 ms3 years (1), Risk Factors: No Risk Factors Known (0), Troponin: < or = 1 x Normal Limit (0), Total Score = 1. Data reviewed: vital signs, nurses notes, lab test result(s), EKG, radiologic studies, and as a result, I will discharge patient. Counseling: I had a detailed discussion with the patient and/or guardian regarding: the historical points, exam findings, and any diagnostic results supporting the discharge/admit diagnosis, lab results, radiology results, the need for outpatient follow up, to return to the emergency department if symptoms worsen or persist or if there are any questions or concerns that arise at home. ED course: Discussed labs, EKG, chest x-ray with patient. Patient to follow-up with her primary care physician in 2 to 3 days. Patient understands and agrees with plan. All questions were answered. Return precautions discussed include worsening symptoms, or any other concerns. On reevaluation patient is alert and oriented x4, in no apparent distress, nontoxic, speaking full sentences.. 11/11 10:11 Order name: Basic Metabolic Panel; Complete Time: 11:33 ms3 11/11 10:11 Order name: CBC with Diff; Complete Time: 11:33 ms3 11/11 10:11 Order name: Magnesium; Complete Time: 11:33 ms3 11/11 10:11 Order name: NT PRO-BNP; Complete Time: 11:33 ms3 11/11 10:11 Order name: Troponin HS; Complete Time: 11:33 ms3 11/11 10:11 Order name: XRAY Chest (1 view); Complete Time: 11:33 ms3 11/11 10:11 Order name: EKG; Complete Time: 10:12 ms3 11/11 10:11 Order name: Cardiac monitoring; Complete Time: 10:31 ms3 11/11 10:11 Order name: EKG - Nurse/Tech; Complete Time: 10:31 ms3 11/11 10:11 Order name: IV Saline Lock; Complete Time: 10:16 ms3 11/11 10:11 Order name: Labs collected and sent; Complete Time: 10:16 ms3 11/11 10:11 Order name: O2 Per Protocol; Complete Time: 10:23 ms3 11/11 10:11 Order name: O2 Sat Monitoring; Complete Time: 10:23 ms3 EC:28 Rate is 68 beats/min. Rhythm is regular. QRS Adams is Normal. GA interval is normal. QRS ms3 interval is normal. Clinical impression: NSR w/ Non-specific ST/T Changes. Interpreted by me. Reviewed by me. Administered Medications: No medications were administered Disposition Summary: 11/11/22 11:40 Discharge Ordered Location: Home ms3 Condition: Stable ms3 Diagnosis - Acute upper respiratory infection, unspecified ms3 - Cough ms3 - Essential (primary) hypertension ms3 Followup: ms3 - With: Private Physician - When: 2 - 3 days - Reason: Recheck today's complaints Discharge Instructions: - Discharge Summary Sheet ms3 - Hypertension, Adult ms3 - Cool Mist Vaporizer ms3 - Cough, Adult ms3 Forms: - Medication Reconciliation Form ms3 - Thank You Letter ms3 - Antibiotic Education ms3 - Prescription Opioid Use ms3 Prescriptions: - Bromfed DM 2-30-10 mg/5 mL Oral syrup - take 10 milliliter by ORAL route every 4 hours; 200 milliliter; Refills: 0, ms3 Product Selection Permitted Signatures: Dispatcher [employer] EDMS Saravanan Humphries DO DO ms3 Gilma Jeff RN RN ld1
[2022-11-11 12:15] VITALS: TEMP 98.1; O2SAT 100
[2022-11-11 12:25] VITALS: BP 149/99
--- NOTE | 2022-11-12 14:38 | EKG ---
Test Date: 2022-11-11 Test Time: 10:28:08 Finance Attorney: PAULA MEASUREMENT RESULTS: Intervals: Rate: 68 MN: 164 QRSD: 84 QT: 378 QTc: 401 [place]: P: 73 MN: 164 QRS: 76 T: -19 INTERPRETIVE STATEMENTS: Normal sinus rhythm Nonspecific ST and T wave abnormality Abnormal ECG No previous ECG available for comparison Electronically Signed On 11-12-22 14:34:51 CINDER CRANE OPERATOR by Teofilo Taylor
== END 2022-11-11 12:00 | disposition home or self-care (01) ==
LOC: ER 09:31
DX: J06.9 Acute upper respiratory infection, unspecified (principal); R05.9 Cough, unspecified; I10 Essential (primary) hypertension; N18.9 Chronic kidney disease, unspecified; Z88.8 Allergy status to other drugs, medicaments and biological substances
CPT/HCPCS: 36415; 71045; 80048; 83735; 83880; 84484; 85025; 93005; 99285

== ENCOUNTER 2023-01-29 15:42 | Inpatient (IN) | payer OTHER ==
--- OUTSIDE RECORDS SUMMARY | 2023-01-29 17:41 | XMS REPORT | Continuity of Care Document ---
:1975 Author Organization [facility] t Address [address] [place] [address] [address] [place] [address] Care Team Providers Name Role Phone Shonda Magdaleno Primary Care Physician Drew Anand MD Attending Clinician DREW ANAND Attending Clinician Unavailable YANELY ALBERT Attending Clinician Unavailable Yanely Albert NP Attending Clinician YANELY ALBERT Attending Clinician Unavailable RODGER CARDOSO Attending Clinician Unavailable Rodger Cardoso NP Attending Clinician Silvina VIDES, Stone Attending Clinician [phone] Paula Block MD Attending Clinician [phone] Nidhi Kemp MD Attending Clinician Chin Castelan MD Attending Clinician CHIN CASTELAN Attending Clinician Unavailable Johnathon VIDES, Reggie Tolbert Attending Clinician [phone] JOSE DAVIDSIMONNIDHI PISANO Admitting Clinician Unavailable Payers Payer Name Policy Type Policy Number Effective Date Expiration Date Shana moura [facility] - [id number] GENERIC - ORTIZ CARE [facility]-MEDICA[facility] - [id number] MEDICAID Problems Condition Condition Condition Status Onset [...] Added automatic ally from request for surgery [id number] No known No known Disease [facility] r active active College problems [...] e drug Latex Propensi Active Swelling 2020-12 [facility] ty to 0-02 College adverse 00:00: of [...] Comments Start Date Stop Date Source Natural father No Known Problem [facility] Natural mother No Known Problem [facility] Social History Social Habit Start Date Stop Date Quantity Comments Source Exposure to Not sure [facility] Colle jonah SARS-CoV-2 (event) of Med icine Alcohol intake 2021-10-16 2021-10-16 Lifetime [facility] lege 00:00:00 00:00:00 non-drinker of Medicine (finding) History of tobacco 2021-10-13 Smoker [facility] use 00:00:00 of Medicine Cigarettes smoked 2021-09-19 2021-09-19 [facility] current (pack per 00:00:00 00:00:00 of Medi cine day) - Reported Cigarette 2021-09-19 2021-09-19 [facility] pack-years 00:00:00 00:00:00 of Medicine Tobacco use and 2021-09-01 2021-09-[address] [facility] exposure 00:00:00 00:00:00 [facility] Sex Assigned At [address] [facility] 00:[facility] Smoking Status Start Date Stop Date Source Ex-smoker 2021-09-19 00:00:00 2021-09-19 00:00:00 [facility] Never smoker [facility] Medications Ordered Filled Start Stop Current Ordering Indication Dosage Frequency Signature Comments Components Source Medication Medication Date Date Medication? Clinician (SIG) Name Name TAKE ONE 2-0 No 30 CAPSULE 9-06 ONCE A DAY 00:00: 00 TAKE ONE 2-0 No CAPSULE 9-06 ONCE A DAY 00:00: 00 TAKE ONE 2-0 No CAPSULE 9-06 ONCE A DAY 00:00: 00 TAKE 1 2-0 No [id number] TABLET 7-14 TWICE DAILY 00:00: WITH FOOD. 00 TAKE 1 2-0 No [id number] TABLET 7-14 TWICE DAILY 00:00: WITH FOOD. 00 TAKE 1 2022-0 No [id number] TABLET 7-14 TWICE DAILY 00:00: WITH FOOD. 00 TAKE 1 2022-0 No [id number] TABLET 7-14 TWICE DAILY 00:00: WITH FOOD. [...] hydrOXYzine 2020-12 Yes 25mg Take 25 mg [facility] HCl (ATARAX 1-16 by mouth 3 Co llege OR) 12:51: times of 57 daily as Medicin needed. e methocarbam 2020-12 Yes 750mg Take 750 [facility] ol 1-16 mg by [facility] (ROBAXIN) 12:51: mouth 3 of 750 MG 57 times Medicin tablet daily as e needed. olanzapine 2020-12 Yes 10mg Take 10 mg [facility] (ZYPREXA) 1-16 by mouth Colleg e 10 MG 12:51: daily. of tablet 57 Medicin e tramadol 2020-12 Yes 50mg Take 50 mg [place] [facility] (ULTRAM) 50 1-16 by mouth 3 Co llege MG tablet 12:51: times of 57 daily as Medicin needed. e Melatonin 2020-12 Yes 12mg Take 12 mg [facility] 12 MG TABS 1-16 by mouth Colle ge 12:51: nightly. of 57 Medicin e acetaminoph 2020-12 Yes 500mg Take 500 [facility] en 1-16 mg by [facility] (TYLENOL) 12:51: mouth 3 of 500 mg [...] mouth Luke [facility] MG tablet 14:08: daily. [address] OLANZapine 2020-12 Yes 5mg QD Take [address] (ZyPREXA) 5 0-14 by mouth Luke s MG tablet 14:08: nightly. [address] melatonin 2020-12 Yes 12mg QD Take [address] 12 mg Tab 0-14 by [facility] 14:08: nightly . [address] polyethylen 2020-12 Yes 17g Q.5D Take [address] e glycol 0-14 by mouth 2 [facility] (Miralax) 14:08: (two) [address] gram/dose daily. powder FLUoxetine 2020-12 Yes 20mg QD Take [address] (PROzac) 20 0-14 by mouth Luke [facility] MG tablet 14:08: daily. [address] OLANZapine 2020-12 Yes 5mg QD Take [address] (ZyPREXA) 5 0-14 by mouth Luke s MG tablet 14:08: nightly. [address] melatonin 2020-12 Yes 12mg QD Take [address] 12 mg Tab 0-14 by mouth [facility] 14:08: nightly . [address] polyethylen 2020-12 Yes 17g Q.5D Take [address] e glycol 0-14 by mouth 2 [facility] (Miralax) 14:08: (two) [place] [address] times [place] gram/dose daily. powder FLUoxetine 2020-12 Yes 20mg QD Take [address] (PROzac) 20 0-14 by mouth Luke s MG tablet 14:08: daily. [address] OLANZapine 2020-12 Yes 5mg QD Take [address] (ZyPREXA) 5 0-14 by mouth Luke s MG tablet 14:08: nightly. [address] melatonin 2020-12 Yes 12mg QD Take [address] 12 mg Tab 0-14 by mouth [facility] 14:08: nightly . [address] polyethylen 2020-12 Yes 17g Q.5D Take [address] e glycol 0-14 by mouth 2 [facility] (Miralax) 14:08: (two) [address] gram/dose daily. powder FLUoxetine 2020-12 Yes 20mg QD Take [address] (PROzac) 20 0-14 by mouth Luke s MG tablet 14:08: daily. [address] OLANZapine 2020-12 Yes 5mg QD Take [address] (ZyPREXA) 5 0-14 by mouth Luke s MG tablet 14:08: nightly. [address] melatonin 2020-12 Yes 12mg QD Take [address] 12 mg Tab 0-14 by mouth [facility] 14:08: nightly . [address] polyethylen 2020-12 Yes 17g Q.5D Take [address] e glycol 0-14 by mouth 2 [facility] (Miralax) 14:08: (two) [address] gram/dose daily. powder FLUoxetine 2020-12 Yes 20mg QD Take [address] (PROzac) 20 0-14 by mouth Luke s MG tablet 14:08: daily. [address] OLANZapine 2020-12 Yes 5mg QD Take [address] (ZyPREXA) 5 0-14 by mouth Luke s MG tablet 14:08: nightly. [address] melatonin 2020-12 Yes 12mg QD Take [address] 12 mg Tab 0-14 by mouth [facility] 14:08: nightly . [address] polyethylen 2020-12 Yes 17g Q.5D Take [address] e glycol 0-14 by mouth 2 [facility] (Miralax) 14:08: (two) [address] gram/dose daily. powder FLUoxetine 2020-12 Yes 20mg QD Take [address] (PROzac) 20 0-14 by mouth Luke s MG tablet 14:08: daily. [address] OLANZapine 2020-12 Yes 5mg QD Take [address] (ZyPREXA) 5 0-14 by mouth Luke s MG tablet 14:08: nightly. [facility] Center melatonin 2020-12 Yes 12mg QD Take [address] 12 mg Tab 0-14 by mouth [facility] 14:08: nightly . [facility] [address] [place] polyethylen 2020-12 Yes 17g Q.5D Take [address] e glycol 0-14 by mouth 2 [facility] (Miralax) 14:08: (two) [place] [id number] 36 times Center gram/dose daily. powder hydroxyzine 2020-12 No 1mg [...] 1mg mg tablet 0-12 00:00: 00 carvedilol 2020-1 No 1mg 6.25 mg 0-12 tablet 00:00: 00 Zyprexa 15 2020- No 1mg mg tablet 0-12 00:00: 00 hydroxyzine 2020-1 No 1mg HCl 25 mg 0-12 tablet [...] 1mg mg tablet 0-12 00:00: 00 carvedilol 2020-1 No 1mg 6.25 mg 0-12 tablet 00:00: 00 Zyprexa 15 2020- No 1mg mg tablet 0-12 00:00: 00 hydroxyzine 2020-1 No 1mg HCl 25 mg 0-12 tablet 00:00: 00 tramadol 50 2020-1 No 1mg mg tablet 0-12 00:00: 00 methocarbam 2020-1 No 1mg ol 750 mg 0-12 tablet 00:00: 00 fluoxetine 2020-1 No 1mg 20 mg 0-12 capsule 00:00: 00 oxycodone 5 2020-1 No 1mg/5 mg/5 mL 0-12 mL oral [...] 6.25 Sky (COREG) 0-06 10-07 mg by [facility] 6.25 MG 00:00: 04:59 mouth two of [...] daily for Center patch 30 days. nicotine 2020-12 No 1{patch QD Place 1 CH I [...] Source Systolic blood 2021-10-16 18:49:00 121 mm[Hg] [facility] pressure Medicine Diastolic blood 2021-10-16 18:49:00 81 mm[Hg] [facility] pressure Medicine Heart rate 2021-10-16 18:49:00 77 /min [facility] Body temperature 2021-10-16 18:49:00 36.22 Regi [facility] Respiratory rate 2021-10-16 18:49:00 16 /min [facility] Body height 2021-10-16 18:49:00 165.1 cm [facility] Body weight 2021-10-16 18:49:00 75.025 kg [facility] BMI 2021-10-16 18:49:00 27.52 kg/m2 [facility] Oxygen saturation in 2021-10-16 18:49:00 98 /min [facility] blood by [facility] Pulse oximetry HEIGHT 2021-09-13 14:01:00 165.1 cm [...] /min Systolic blood 2021-09-13 14:01:00 136 mm[Hg] [facility] Diastolic blood 2021-09-13 14:01:00 89 mm[Hg] [facility] Heart rate 2021-09-13 14:01:00 65 /min [facility] Respiratory rate 2021-09-13 14:01:00 16 /min [facility] Body height 2021-09-13 14:01:00 165.1 cm [facility] Body weight 2021-09-13 14:01:00 73.483 kg [facility] BMI 2021-09-13 14:01:00 26.96 kg/m2 [facility] BP Systolic 2021-09-11 11:44:00 159 mm[Hg] BP Diastolic 2021-09-11 11:44:00 95 mm[Hg] Weight Measured 2021-09-11 11:44:00 168.20 pounds Height Measured 2021-09-11 11:44:00 65.00 inches Body Temperature 2021-09-11 11:44:00 98.00 degrees Heart Rate 2021-09-11 11:44:00 70.00 /min Respiratory Rate 2021-09-11 11:44:00 Body temperature 2021-09-05 12:00:00 36.5 Regi [facility] Oxygen saturation in 2021-09-05 12:00:00 95 /min [facility] Arterial blood by Medical Ce [facility] Pulse oximetry BP Systolic 2021-08-31 13:32:00 152 mm[Hg] BP Diastolic 2021-08-31 13:32:00 91 mm[Hg] Weight Measured 2021-08-31 13:32:00 166.00 pounds Height Measured 2021-08-31 13:32:00 65.00 inches Body Temperature 2021-08-31 13:32:00 98.90 degrees Heart Rate 2021-08-31 13:32:00 70.00 /min Respiratory Rate 2021-08-31 13:32:00 17.00 /min Procedures Procedure Date / Time Performed Performing Clinician [facility] e BASIC METABOLIC PANEL (7) 2021-09-05 04:16:00 Hermilo Phillips [facility] CBC W/PLT COUNT & AUTO 2021-09-05 04:16:00 Hermilo Phillips [facility] CBC W/PLT COUNT & AUTO 2021-09-05 04:16:00 Hermilo Phillips [facility] XR SPINE CERVICAL 2 OR 3 2021-09-04 13:59:[address] [facility] BASIC METABOLIC PANEL (7) 2021-09-04 09:55:00 Hermilo Phillips [facility] CBC W/PLT COUNT & AUTO 2021-09-04 09:55:00 Hermilo Phillips [facility] CBC W/PLT COUNT & AUTO 2021-09-04 09:55:00 Hermilo Phillips [facility] HC SOMATOSENSORY TEST, 4 2021-09-03 12:16:00 Drew Anand [facility] [place] FLUORO NON-SPECIFIC UP 2021-09-03 12:14:00 Drew Anand [facility] TO 1 HOUR [facility] TISSUE EXAM 2021-09-03 11:46:00 Drew Anand [facility] [place] FLUORO NON-SPECIFIC UP 2021-09-03 09:54:00 Drew Anand [facility] TO 1 HOUR Medical Center DISCECTOMY, SPINE, 2021-09-03 08:26:00 Drew Anand [facility] CERVICAL, ANTERIOR Medical Cente r APPROACH, WITH FUSION PT/APTT 2021-09-03 06:44:00 Hermilo Phillips [facility] CBC (HEMOGRAM ONLY) 2021-09-03 05:25:00 Ha-Ismail, [facility] BASIC METABOLIC PANEL (7) 2021-09-03 05:25:00 Haj-Ismail, [facility] SCREEN, URINE 2021-09-03 03:23:00 Gabino Acosta [facility] ECG 12-LEAD 2021-09-02 17:08:46 [facility] ECG 12-LEAD 2021-09-02 17:08:46 Unknown, Hl7 Doctor [facility] XR CHEST 1 VIEW PORTABLE 2021-09-02 13:41:00 Dale Verma [facility] / BEDSIDE Medical Center SARS-COV2/RT-PCR ([facility] & 2021-09-02 13:21:00 Bayron Dale [facility] REF LABS) Medical Center CBC W/PLT COUNT & AUTO 2021-09-02 13:19:00 Verma [facility] DIFFERENTIAL [facility] BASIC METABOLIC PANEL (7) 2021-09-02 13:19:00 Dale Verma [facility] CBC W/PLT COUNT & AUTO 2021-09-02 13:19:00 [facility] TSH/FREE T4 IF INDICATED 2021-09-02 05:22:00 Paula Block [facility] T4, FREE 2021-09-02 05:22:[address] [facility] MR CERVICAL SPINE WITHOUT 2021-09-01 12:30:00 Ashleigh Jacques [facility] IV [facility], MANUAL 2021-09-01 11:42:00 Viji Dahl [facility] TYPE AND SCREEN, 2021-09-01 06:47:00 Dale Verma [facility] MR LUMBAR SPINE WITHOUT 2021-09-01 05:42:00 Ashleigh Jacques [facility] IV CONTRAST [facility] URINE CULTURE 2021-09-01 04:15:00 [facility] URINALYSIS W/ REFLEX 2021-09-01 04:15:00 [facility] URINE CULTURE [facility] CBC W/PLT COUNT & AUTO 2021-09-01 03:37:00 [facility] BASIC METABOLIC PANEL (7) 2021-09-01 03:37:00 [facility] CBC W/PLT COUNT & AUTO 2021-09-01 03:37:00 [facility] PROTHROMBIN TIME/INR 2021-09-01 03:37:00 [facility] MAGNESIUM 2021-09-01 03:37:00 [facility] PHOSPHORUS 2021-09-01 03:37:00 [facility] Plan of Care Planned Activity Planned Date Details Comments Source Future Scheduled 2022-12-[address] [facility] Test 00:00:00 (12+) [code = DEPRESSION [facility] Center SCREENING (12+)] Future Scheduled 2022-09-[address] [facility] Test 00:00:00 Counseling and Screening Med [facility] (12+) [code = Tobacco Cessation Counseling and Screening (12+)] Future Scheduled 2022-09-[address] [facility] Test 00:00:00 Counseling and Screening Med [facility] (12+) [code = Tobacco Cessation Counseling and Screening (12+)] Future Scheduled 2022-09-[address] [facility] Test 00:00:00 Counseling and Screening [facility] (12+) [code = Tobacco Cessation Counseling [...] (12+)] Future Scheduled 2021-10-17 Screening for malignant [facility] of Test 10:09:23 neoplasm of colon Medicine (procedure) [code = 244931393] Future Scheduled 2021-10-17 Screening for malignant [facility] of Test 10:09:23 neoplasm of breast Medicine (procedure) [code = 988108971] Future Scheduled 2021-10-17 COVID-19 Vaccine (1) [facility] Test 10:09:23 [code = COVID-19 Vaccine Med icine (1)] Future Scheduled 2021-10-17 TETANUS SHOT (ADULT) [facility] Test 10:09:23 [code = TETANUS SHOT Medicin e (ADULT)] Future Scheduled 2021-10-17 Hepatitis C screening Ba [facility] 10:09:23 (procedure) [code = Medicine 933002924] Future Scheduled 2021-10-17 Human immunodeficiency B [facility] 10:09:23 virus screening Medicine (procedure) [code = 472747073] Future Scheduled 2021-10-17 Screening for malignant [facility] 10:09:23 neoplasm of cervix Medicine (procedure) [code = 926180163] Future Scheduled 2021-10-17 FLU VACCINE > 6 MONTHS B [facility] 10:09:23 [code = FLU VACCINE > 6 Medi cine MONTHS] Future Scheduled 2021-10-17 BMI FOLLOW UP PLAN [code [facility] 10:09:23 = BMI FOLLOW UP PLAN] Medici ne Future Scheduled 2018 Lipid panel (procedure) [facility] Test 00:00:00 [code = 14654995] Medical Ce nter Future Scheduled 2018 Lipid panel (procedure) [facility] Test 00:00:00 [code = 82629038] Medical Ce nter Future Scheduled 2018 Lipid panel (procedure) [facility] Test 00:00:00 [code = 80084059] Medical Ce nter Future Scheduled 2018 Lipid panel (procedure) [facility] Test 00:00:00 [code = 07813346] Medical Ce nter Future Scheduled 2018 Lipid panel (procedure) [facility] Test 00:00:00 [code = 59276497] Medical Ce nter Future Scheduled 2018 Lipid panel (procedure) [facility] Test 00:00:00 [code = 99265539] Medical Ce nter Future Scheduled 1994 Screening for malignant [facility] Test 00:00:00 neoplasm of cervix Medical C enter (procedure) [code = 248743490] Future Scheduled 1994 Screening for malignant [facility] Test 00:00:00 neoplasm of cervix Medical C enter (procedure) [code = 277699301] Future Scheduled 1994 Screening for malignant [facility] Test 00:00:00 neoplasm of cervix Medical C enter (procedure) [code = 170267215] Future Scheduled 1994 Screening for malignant [facility] Test 00:00:00 neoplasm of cervix Medical C enter (procedure) [code = 611887454] Future Scheduled 1994 Screening for malignant [facility] Test 00:00:00 neoplasm of cervix Medical C enter (procedure) [code = 596862611] Future Scheduled 1994 Screening for malignant [facility] Test 00:00:00 neoplasm of cervix Medical C enter (procedure) [code = 307086253] Future Scheduled 1992 DTAP/TDAP/TD VACCINES (1 [facility] [...] Test 00:00:00 [code = CT Colonography Medi [facility] Center (combo)] Future Scheduled 1973 Screening for malignant [facility] Test 00:00:00 neoplasm of colon Medical Ce nter (procedure) [code = 595857398] Future Scheduled 1973 Screening for malignant [facility] Test 00:00:00 neoplasm of colon Medical Ce nter (procedure) [code = 843836824] Future Scheduled 1973 Screening for malignant [facility] Test 00:00:00 neoplasm of colon Medical Ce nter (procedure) [code = 926988770] Future Scheduled 1973 Screening for malignant [facility] Test 00:00:00 neoplasm of colon Medical Ce nter (procedure) [code = 475124671] Future Scheduled 1973 Sigmoidoscopy [code = [facility] S[facility]oscopy] Medical Cente r Future Scheduled 1973 CT Colonography (combo) [facility] Test 00:00:00 [code = CT Colonography Medi [facility] Center (combo)] Future Scheduled 1973 Screening for malignant [facility] Test 00:00:00 neoplasm of colon Medical Ce nter (procedure) [code = 327444977] Future Scheduled 1973 Screening for malignant [facility] Test 00:00:00 neoplasm of colon Medical Ce nter (procedure) [code = 392455303] Future Scheduled 1973 Screening for malignant [facility] Test 00:00:00 neoplasm of colon Medical Ce nter (procedure) [code = 026432937] Future Scheduled 1973 Screening for malignant [facility] Test 00:00:00 neoplasm of colon Medical Ce nter (procedure) [code = 715936770] Future Scheduled 1973 Sigmoidoscopy [code = [facility] S[facility]oscopy] Medical Cente r Future Scheduled 1973 CT Colonography (combo) [facility] Test 00:00:00 [code = CT Colonography Medi [facility] (combo)] Future Scheduled 1973 Screening for malignant [facility] Test 00:00:00 neoplasm of colon Medical Ce nter (procedure) [code = 133083043] Future Scheduled 1973 Screening for malignant [facility] Test 00:00:00 neoplasm of colon Medical Ce nter (procedure) [code = 695553410] Future Scheduled 1973 Screening for malignant [facility] Test 00:00:00 neoplasm of colon Medical Ce nter (procedure) [code = 879257579] Future Scheduled 1973 Screening for malignant [facility] Test 00:00:00 neoplasm of colon Medical Ce nter (procedure) [code = 520615028] Future Scheduled 1973 Sigmoidoscopy [code = [facility] 00:[facility] S[facility]oscopy] Medical Cente r Future Scheduled 1973 CT Colonography (combo) [facility] Test 00:00:00 [code = CT Colonography [facility] Center (combo)] Future Scheduled 1973 Screening for malignant [facility] Test 00:00:00 neoplasm of colon Medical Ce nter (procedure) [code = 163701968] Future Scheduled 1973 Screening for malignant [facility] Test 00:00:00 neoplasm of colon Medical Ce nter (procedure) [code = 291839182] Future Scheduled 1973 Screening for malignant [facility] Test 00:00:00 neoplasm of colon Medical Ce nter (procedure) [code = 767263722] Future Scheduled 1973 Screening for malignant [facility] Test 00:00:00 neoplasm of colon Medical Ce nter (procedure) [code = 650088433] Future Scheduled 1973 Sigmoidoscopy [code = [facility] 00:[facility] Sigm[facility]oscopy] Medical Cente r Future Scheduled 1973 CT Colonography (combo) [facility] Test 00:00:00 [code = CT Colonography [facility] (combo)] Future Scheduled 1973 Screening for malignant [facility] Test 00:00:00 neoplasm of colon Medical Ce nter (procedure) [code = 460836965] Future Scheduled 1973 Screening for malignant [facility] Test 00:00:00 neoplasm of colon Medical Ce nter (procedure) [code = 015713481] Future Scheduled 1973 Screening for malignant [facility] Test 00:00:00 neoplasm of colon Medical Ce nter (procedure) [code = 686744962] Future Scheduled 1973 Screening for malignant [facility] Test 00:00:00 neoplasm of colon Medical Ce nter (procedure) [code = 893354628] Future Scheduled 1975 Sigmoidoscopy [facility]code [facility] ([facility] Test 00:00:00 [code = CT Colonography [facility] (combo)] Future Scheduled 1973 Screening for malignant [facility] Test 00:00:00 neoplasm of colon Medical Ce nter (procedure) [code = 905144937] Future Scheduled 1973 Screening for malignant [facility] Test 00:00:00 neoplasm of colon Medical Ce nter (procedure) [code = 219377910] Future Scheduled 1973 Screening for malignant [facility] Test 00:00:00 neoplasm of colon Medical Ce nter (procedure) [code = 533071702] Future Scheduled 1973 Screening for malignant [facility] Test 00:00:00 neoplasm of colon Medical Ce nter (procedure) [code = 260890182] Future Scheduled 1975 Sigmoidoscopy [code = [facility] Sigm[facility]oscopy] [facility] r Goal Plan of Care Note [code = 01840-9] Goal Plan of Care Note [code = 21362-9] Goal Plan of Care Note [code = 02714-9] Goal Plan of Care Note [code = 60515-9] Goal Plan of Care Note [code = 84336-3] Goal Plan of Care Note [code = 72670-0] Goal Plan of Care Note [code = 31136-4] Goal Plan of Care Note [code = 59055-5] Goal Plan of Care Note [code = 69030-1] Goal Plan of Care Note [code = 66602-4] Goal Plan of Care Note [code = 30317-0] Goal Plan of Care Note [code = 75061-1] Goal Plan of Care Note [code = 25778-4] Goal Plan of Care Note [code = 36266-8] Goal Plan of Care Note [code = 05876-9] Goal Plan of Care Note [code = 81940-5] Goal Plan of Care Note [code = 83703-9] Goal Plan of Care Note [code = 44468-7] Goal Plan of Care Note [code = 79114-1] Goal Plan of Care Note [code = 44187-8] Goal Plan of Care Note [code = 25394-4] Goal Plan of Care Note [code = 63147-7] Goal Plan of Care Note [code = 32608-4] Goal Plan of Care Note [code = 13308-1] Goal Plan of Care Note [code = 55246-1] Goal Plan of Care Note [code = 01161-4] Goal Plan of Care Note [code = 04959-1] Goal Plan of Care Note [code = 77740-0] Goal Plan of Care Note [code = 98493-2] Goal Plan of Care Note [code = 32752-7] Goal Plan of Care Note [code = 80160-1] Goal Plan of Care Note [code = 05149-9] Goal Plan of Care Note [code = 59517-5] Goal Plan of Care Note [code = 58840-8] Goal Plan of Care Note [code = 18325-4] Goal Plan of Care Note [code = 76969-5] Goal Plan of Care Note [code = 71046-4] Goal Plan of Care Note [code = 89891-5] Goal Plan of Care Note [code = 63376-8] Goal Plan of Care Note [code = 15811-0] Goal Plan of Care Note [code = 43443-6] Goal Plan of Care Note [code = 58983-1] Goal Plan of Care Note [code = 53820-0] Goal Plan of Care Note [code = 24031-4] Goal Plan of Care Note [code = 65334-2] Goal Plan of Care Note [code = 99632-3] Goal Plan of Care Note [code = 14075-3] Goal Plan of Care Note [code = 90988-3] Goal Plan of Care Note [code = 45076-8] Goal Plan of Care Note [code = 50748-6] Goal Plan of Care Note [code = 71579-9] Goal Plan of Care Note [code = 50111-4] Goal Plan of Care Note [code = 42663-0] Goal Plan of Care Note [code = 80401-1] Goal Plan of Care Note [code = 96224-6] Goal Plan of Care Note [code = 14220-4] Goal Plan of Care Note [code = 38991-1] Goal Plan of Care Note [code = 03908-0] Goal Plan of Care Note [code = 61450-1] Goal Plan of Care Note [code = 00054-8] Goal Plan of Care Note [code = 49220-1] Goal Plan of Care Note [code = 00695-0] Goal Plan of Care Note [code = 60440-1] Goal Plan of Care Note [code = 51906-1] Goal Plan of Care Note [code = 52537-7] Goal Plan of Care Note [code = 34157-7] Goal Plan of Care Note [code = 20511-5] Goal Plan of Care Note [code = 83768-7] Goal Plan of Care Note [code = 93226-5] Goal Plan of Care Note [code = 30503-7] Goal Plan of Care Note [code = 13047-8] Goal Plan of Care Note [code = 23332-3] Goal Plan of Care Note [code = 24668-3] Goal Plan of Care Note [code = 36309-0] Goal Plan of Care Note [code = 07219-6] Goal Plan of Care Note [code = 39527-3] Goal Plan of Care Note [code = 31974-9] Goal Plan of Care Note [code = 72480-8] Goal Plan of Care Note [code = 49587-9] Goal Plan of Care Note [code = 27705-4] Goal Plan of Care Note [code = 79917-6] Goal Plan of Care Note [code = 47504-2] Goal Plan of Care Note [code = 62065-9] Goal Plan of Care Note [code = 59457-7] Goal Plan of Care Note [code = 32722-9] Goal Plan of Care Note [code = 75236-6] Goal Plan of Care Note [code = 68154-8] Goal Plan of Care Note [code = 62126-0] Encounters Start End Encounter Admission Attending Care Care Encounter Source Date/Time Date/Time Type Type Clinicians Facility Department ID 2022-12-11 2022-12-11 Drew Hogan [facility] [id number] MATTEO Randall 00:00:00 00:00:[address] [facility] 2022-09-30 2022-09-30 Outpatient SFA ISIAH [id number] Mark 09:00:38 09:00:38 [id number] F Sander 2022-09-21 2022-09-21 Outpatient [facility] [id number] Mark 15:14:10 15:14:10 [id number] F Sander 2022-09-21 2022-09-21 Outpatient [id number] 68919l-[id number] 00:00:00 00:00:00 Visit f59t-9298 51a-4929-a -l781-6q5 312-3b9938 5764qol99 5afc28 2022-08-29 2022-08-29 Outpatient [id number]- [id number] 05i6c3-e 00:00:00 00:00:00 Visit l85q-05q7 37e-41c2-8 -9u73-84m k80-21w511 73367hm7y 69da1f 2022-08-06 2022-08-06 Outpatient f7g1tx64- [id number] e2 a4jw56-4 00:00:00 00:00:00 Visit 2y44-80sb p49-76rs-5 -7b4c-0l9 g3d-0b28z5 7m27w0h02 9f5f92 2022-06-13 2022-06-13 Outpatient 80e83rb0- [id number] u05mh4-v 00:00:00 00:00:00 Visit m70o-50r2 39f-42e8-8 -1c02-x95 q42-i10489 [id number] 0640-11-16 2021-10-[address] [facility] [id number] [facility] 12:48:39 13:07:36 Visit AMBULATOR 350.1.13.21 College Y 0.2.7.2.686 of [id number] [facility] 300 e 2021-10-16 2021-10-16 Outpatient ANA HAND SLE [id number] SLE 00:00:00 00:00:00 YANELY 2021-10-16 2021-10-[address] [id number] [facility] 00:00:00 00:00:00 Orders [facility] 2021-09-19 2021-09-[address] [facility] [id number] [facility] 09:53:32 10:57:02 YANELY Fishman 2021-09-13 2021-09-13 Outpatient ANA ALEMAN [facility] [id number] [facility] 14:32:50 14:32:50 [facility] 2021-09-13 2021-09-13 Video - Walker [facility] [id number] 13:30:00 13:45:00 [facility] 2021-09-13 2021-09-13 Outpatient ANA ALEMAN [facility] [id number] [facility] 00:00:00 00:00:00 [facility] 2021-09-13 2021-09-13 Outpatient ANA CARDOSO [facility] [id number] [facility] 00:00:00 00:00:00 [facility] 2021-09-13 2021-09-13 Telephone Walker [facility] [id number] 00:00:00 00:00:00 [facility] 2021-09-01 2021-09-05 Hospital ER Stone Cool [facility] [id number] [facility] 02:59:00 14:20:00 Encounter Paula Block [facility] Medical Annelise, [facility] 2021-09-01 2021-09-05 Inpatient ER ANNELISE, [facility] Surgery [id number] [facility] 02:59:00 14:20:00 [facility] 2021-09-05 2021-09-05 [facility] [id number] 00:00:00 00:00:00 [facility] 2021-09-03 2021-09-03 Anesthesia Johnathon [facility] [id number] 08:41:00 12:40:00 Event [facility] 2021-09-03 2021-09-03 Surgery Drew Anand [facility] [id number] 08:30:00 11:41:[address] [facility] 2021-09-02 2021-09-02 Outpatient [facility] [id number] [facility] 00:00:00 23:59:00 [facility] 2021-09-02 2021-09-02 Orders [facility] [id number] 00:00:00 00:00:[address] [facility] 2021-09-01 2021-09-01 Travel [facility] [id number] [facility]00 00:[facility]:00 [facility] Results Test Description Test Time Test Comments Results Result Comments Source CULTURE, URINE 2022-08-09 SPECIMEN NUMBER: 12:51:12 [id number] CULTURE, URINE SPECIMEN NUMBER: [id number] SOURCE: URINE REPORT STATUS: FINAL ISOLATE NUMBER [...] ALL TESTING [facility]MED [facility] [address] [place] [address] STOREHOUSE CLERK: KALPANA MANCINI M.D. CLIA NUMBER [id number] [place]. [id number] CULTURE, URINE 2022-08-09 00:00:00 Test Item Value Reference Range Interpretation Comme nts CULTURE, URINE (test code = 55590) SPECIMEN NUMBER: [id number] CULTURE, [id number] 00:00:00 Test Item Value Reference Range Interpretation Comments CULTURE, URINE (test SPECIMEN NUMBER: code = 34138) [id number] CULTURE, [id number] 00:00:00 Test Item Value Reference Range Interpretation Comments CULTURE, URINE (test SPECIMEN NUMBER: code = 89771) [id number] CULTURE, [id number] 00:00:00 Test Item Value Reference Range Interpretation Comments CULTURE, URINE (test SPECIMEN NUMBER: code = 20449) [id number] SCR MAMM BILATERAL MARCO CAD [id number] 08:29:25 Name: May DOB: 1975 Sex: F - SCR MAMM BILATERAL MARCO CAD DIGITALBILATERAL DIGITAL SCREENING MAMMOGRAM 3D/2D WITH CAD: 04/26/2022LINICAL: Asymptomatic. Digital breast tomosynthesis was performed in addition to routine CC and MLO views. Current mammographic images were evaluated by [employer] CAD (computer-aided detection) software. No prior exams were available for comparison. The tissue of both breasts is heterogeneously dense. This may lower the sensitivity of mammography. No suspicious mass, architectural distortion, malignant type calcification, or lymph node abnormality detected. IMPRESSION: NEGATIVEThere is no mammographic evidence of malignancy. Resumeannual screening mammography in one year. Lam Carranza M.D. et/penrad:05/01/2022 08:29:25 Room Server: Steph Oliver MM, [facility] Mammographyletter sent: BIRADS 1-2 Normal Mammogram BI-RADS: 1 NegativeFREE T4 (THYROXINE)2022-03-28 06:06:32 Test Item Value Reference Range Interpretation Comments FREE T4 1.21 NG/DL 0.80-1.90 UNLESS OTHERWI SE (THYROXINE) (test INDICATED, ALL TESTING code = 2823) PERFORMED [facility] PATHOLOG[facility] [employer] [facility], [employer]. [address] [place] [address] [place] [address] DIRECTOR: KALPANA MANCINI M.D. CLIA NUMBER [id number] CAP ACCREDITATION N O. [id number] FREE T4 (THYROXINE)2022-03-28 00:00:00 Test Item Value [...] code = 1.21 NG/DL 2823) TSH, THIRD [id number] 06:51:22 Test Item Value Reference Range Interpretation Comments TSH, THIRD 6.760 UIU/ML 0.400-4.100 H UNLESS OTHERWI SE GENERATION (test INDICATED, ALL TESTING code = 2821) PERFORMED [facility], [facility]. [address] [place] [address] [facility] HILL[facility] JOSE DIRECTOR: KALPANA MANCINI M.D. CAIOIA NUMBER [id number] CAP ACCREDITATION N O. [id number] HEMOGLOBIN [id number] 06:41:31 Test Item Value Reference Range Interpretation Comments HEMOGLOBIN A1c (test code = 71442) 5.3 % 4.2-5.6 LIPID [id number] 05:03:16 Test Item Value Reference Range Interpretation [...] MOREINFORMATION , SEE CLIENT ANNOUNCE MENT AT [email or web address] RISK RATIO LDL/HDL 2.82 RATIO <3.22 (test code = 2238) COMPREHENSIVE METABOLIC [id number] 05:03:16 Test Item Value Reference Range Interpretation Comments GLUCOSE (test code = 96 MG/DL 70-99 2216) BUN (test code = 18 MG/DL 6-2207) CREATININE (test 0.79 MG/DL 0.60-1.30 code = 2214) eGFR (2020 CKD-EPI) 92 ML/MIN/1.73 >60 (test code = 64910) CALC BUN/CREAT (test 23 RATIO 6-28 code = 2235) SODIUM (test code = 143 MEQ/L 610-986 4704) POTASSIUM (test code 5.1 MEQ/L 3.5-5.4 = 2227) CHLORIDE (test code 104 MEQ/L 95-107 = 2214) CARBON DIOXIDE (test 22 MEQ/L 19-31 code = 2206) CALCIUM (test code = 10.8 MG/DL 8.5-10.5 H 2208) PROTEIN, TOTAL (test 7.6 G/DL 6.1-8.3 code = 2229) ALBUMIN (test code = 4.7 G/DL 3.5-5.2 2200) CALC GLOBULIN (test 2.9 G/DL 1.9-3.7 code = 2240) CALC A/G RATIO (test 1.6 RATIO 1.0-2.6 code = 2234) BILIRUBIN, TOTAL 0.3 MG/DL See_Comment [Automated message] (test code = 2206) The syste m which generated this result transmit cosme reference range : <=1.2. The refe rence range was not u sed to interpret th is result as normal/abnormal . ALKALINE PHOSPHATASE 105 U/L 40-123 (test code = 2203) AST (test code = 18 U/L 9-40 2217) ALT (test code = 20 U/L 5-40 2218) HEMOGLOBIN [id number] 00:00:00 Test Item Value Reference Range Interpretation Comments HEMOGLOBIN A1c (test code = 61253) 5.3 % HEMOGLOBIN [id number] 00:00:00 Test Item Value Reference Range Interpretation Comments HEMOGLOBIN A1c (test code = 22649) 5.3 % HEMOGLOBIN [id number] 00:00:00 Test Item Value Reference Range Interpretation Comments HEMOGLOBIN A1c (test code = 33345) 5.3 % LIPID [id number] 00:00:00 Test Item Value Reference Range Interpretation Comments CHOLESTEROL (test code = 2210) 242 MG/DL TRIGLYCERIDES (test code = 2232) 153 MG/DL HDL CHOLESTEROL (test code = 2220) 56 MG/DL CALC LDL CHOL (test code = 2237) 158 MG/DL RISK RATIO LDL/HDL (test code = 2.82 RATIO 2238) LIPID [id number] 00:00:00 Test Item Value Reference Range Interpretation Comments CHOLESTEROL (test code = 2210) 242 MG/DL TRIGLYCERIDES (test code = 2232) 153 MG/DL HDL CHOLESTEROL (test code = 2220) 56 MG/DL CALC LDL CHOL (test code = 2237) 158 MG/DL RISK RATIO LDL/HDL (test code = 2.82 RATIO 2238) COMPREHENSIVE METABOLIC [id number] 00:00:00 Test Item Value Reference Range Interpretation Comments GLUCOSE (test code = 2217) 96 MG/DL BUN (test code = 2208) 18 MG/DL CREATININE (test code = 2214) 0.79 MG/DL eGFR (2020 CKD-EPI) (test code 92 ML/MIN/1.73 = 52620) CALC BUN/CREAT (test code = 23 RATIO [...] code = 2219) 20 U/L COMPREHENSIVE METABOLIC [id number] 00:00:00 Test Item Value Reference Range Interpretation Comments GLUCOSE (test code = 2217) 96 MG/DL BUN (test code = 2208) 18 MG/DL CREATININE (test code = 2214) 0.79 MG/DL eGFR (2020 CKD-EPI) (test code 92 ML/MIN/1.73 = 45384) CALC BUN/CREAT (test code = 23 RATIO [...] ALT (test code = 2219) 20 U/L [id number] 00:00:00 Test Item Value Reference Range Interpretation Comments TSH, THIRD GENERATION (test code 6.760 UIU/ML = 2821) [id number] 00:00:00 Test Item Value Reference Range Interpretation Comments TSH, THIRD GENERATION (test code 6.760 UIU/ML = 2821) [id number] 00:00:00 Test Item Value Reference Range Interpretation Comments TSH, THIRD GENERATION (test code 6.760 UIU/ML = 2821) HEMOGLOBIN [id number] 00:00:00 Test Item Value Reference Range Interpretation Comments HEMOGLOBIN A1c (test code = 63268) 5.3 % HEMOGLOBIN [id number] 00:00:00 Test Item Value Reference Range Interpretation Comments HEMOGLOBIN A1c (test code = 86640) 5.3 % HEMOGLOBIN [id number] 00:00:00 Test Item Value Reference Range Interpretation Comments HEMOGLOBIN A1c (test code = 64268) 5.3 % LIPID [id number] 00:00:00 Test Item Value Reference Range Interpretation Comments CHOLESTEROL (test code = 2210) 242 MG/DL TRIGLYCERIDES (test code = 2232) 153 MG/DL HDL CHOLESTEROL (test code = 2220) 56 MG/DL CALC LDL CHOL (test code = 2237) 158 MG/DL RISK RATIO LDL/HDL (test code = 2.82 RATIO 2238) LIPID [id number] 00:00:00 Test Item Value Reference Range Interpretation Comments CHOLESTEROL (test code = 2210) 242 MG/DL TRIGLYCERIDES (test code = 2232) 153 MG/DL HDL CHOLESTEROL (test code = 2220) 56 MG/DL CALC LDL CHOL (test code = 2237) 158 MG/DL RISK RATIO LDL/HDL (test code = 2.82 RATIO 2238) COMPREHENSIVE METABOLIC [id number] 00:00:00 Test Item Value Reference Range Interpretation Comments GLUCOSE (test code = 2217) 96 MG/DL BUN (test code = 2208) 18 MG/DL CREATININE (test code = 2214) 0.79 MG/DL eGFR (2020 CKD-EPI) (test code 92 ML/MIN/1.73 = 99946) CALC BUN/CREAT (test code = 23 RATIO [...] code = 2219) 20 U/L COMPREHENSIVE METABOLIC [id number] 00:00:00 Test Item Value Reference Range Interpretation Comments GLUCOSE (test code = 2217) 96 MG/DL BUN (test code = 2208) 18 MG/DL CREATININE (test code = 2214) 0.79 MG/DL eGFR (2020 CKD-EPI) (test code 92 ML/MIN/1.73 = 10392) CALC BUN/CREAT (test code = 23 RATIO [...] ALT (test code = 2219) 20 U/L [id number] 00:00:00 Test Item Value Reference Range Interpretation Comments TSH, THIRD GENERATION (test code 6.760 UIU/ML = 2821) [id number] 00:00:00 Test Item Value Reference Range Interpretation Comments TSH, THIRD GENERATION (test code 6.760 UIU/ML = 2821) [id number] 00:00:00 Test Item Value Reference Range Interpretation Comments TSH, THIRD GENERATION (test code 6.760 UIU/ML = 2821) HEMOGLOBIN [id number] 00:00:00 Test Item Value Reference Range Interpretation Comments HEMOGLOBIN A1c (test code = 12256) 5.3 % HEMOGLOBIN [id number] 00:00:00 Test Item Value Reference Range Interpretation Comments HEMOGLOBIN A1c (test code = 44128) 5.3 % HEMOGLOBIN [id number] 00:00:00 Test Item Value Reference Range Interpretation Comments HEMOGLOBIN A1c (test code = 06714) 5.3 % LIPID [id number] 00:00:00 Test Item Value Reference Range Interpretation Comments CHOLESTEROL (test code = 2210) 242 MG/DL TRIGLYCERIDES (test code = 2232) 153 MG/DL HDL CHOLESTEROL (test code = 2220) 56 MG/DL CALC LDL CHOL (test code = 2237) 158 MG/DL RISK RATIO LDL/HDL (test code = 2.82 RATIO 2238) LIPID [id number] 00:00:00 Test Item Value Reference Range Interpretation Comments CHOLESTEROL (test code = 2210) 242 MG/DL TRIGLYCERIDES (test code = 2232) 153 MG/DL HDL CHOLESTEROL (test code = 2220) 56 MG/DL CALC LDL CHOL (test code = 2237) 158 MG/DL RISK RATIO LDL/HDL (test code = 2.82 RATIO 2238) COMPREHENSIVE METABOLIC [id number] 00:00:00 Test Item Value Reference Range Interpretation Comments GLUCOSE (test code = 2217) 96 MG/DL BUN (test code = 2208) 18 MG/DL CREATININE (test code = 2214) 0.79 MG/DL eGFR (2020 CKD-EPI) (test code 92 ML/MIN/1.73 = 69844) CALC BUN/CREAT (test code = 23 RATIO 2235) SODIUM (test code = 2231) 143 MEQ/L POTASSIUM (test code = 2228) 5.1 MEQ/L CHLORIDE (test code = 2215) 104 MEQ/L CARBON DIOXIDE (test code = 22 MEQ/L 2206) CALCIUM (test code = 2209) 10.8 MG/DL PROTEIN, TOTAL (test code = 7.6 G/DL 222) ALBUMIN (test code = 2201) 4.7 G/DL CALC GLOBULIN (test code = 2.9 G/DL 2240) CALC A/G RATIO (test code = 1.6 RATIO 2234) BILIRUBIN, TOTAL (test code = 0.3 MG/DL 2206) ALKALINE PHOSPHATASE (test 105 U/L code = 2204) AST (test code = 2218) 18 U/L ALT (test code = 2219) 20 U/L COMPREHENSIVE METABOLIC [id number] 00:00:00 Test Item Value Reference Range Interpretation Comments GLUCOSE (test code = 2217) 96 MG/DL BUN (test code = 2208) 18 MG/DL CREATININE (test code = 2214) 0.79 MG/DL eGFR (2020 CKD-EPI) (test code 92 ML/MIN/1.73 = 34898) CALC BUN/CREAT (test code = 23 RATIO [...] ALT (test code = 2219) 20 U/L [id number] 00:00:00 Test Item Value Reference Range Interpretation Comments TSH, THIRD GENERATION (test code 6.760 UIU/ML = 2821) [id number] 00:00:00 Test Item Value Reference Range Interpretation Comments TSH, THIRD GENERATION (test code 6.760 UIU/ML = 2821) [id number] 00:00:00 Test Item Value Reference Range Interpretation Comments TSH, THIRD GENERATION (test code 6.760 UIU/ML = 2821) HEMOGLOBIN [id number] 00:00:00 Test Item Value Reference Range Interpretation Comments HEMOGLOBIN A1c (test code = 70519) 5.3 % HEMOGLOBIN [id number] 00:00:00 Test Item Value Reference Range Interpretation Comments HEMOGLOBIN A1c (test code = 10435) 5.3 % LIPID [id number] 00:00:00 Test Item Value Reference Range Interpretation Comments CHOLESTEROL (test code = 2210) 242 MG/DL TRIGLYCERIDES (test code = 2232) 153 MG/DL HDL CHOLESTEROL (test code = 2220) 56 MG/DL CALC LDL CHOL (test code = 2237) 158 MG/DL RISK RATIO LDL/HDL (test code = 2.82 RATIO 2238) COMPREHENSIVE METABOLIC [id number] 00:00:00 Test Item Value Reference Range Interpretation Comments GLUCOSE (test code = 2217) 96 MG/DL BUN (test code = 2208) 18 MG/DL CREATININE (test code = 2214) 0.79 MG/DL eGFR (2020 CKD-EPI) (test code 92 ML/MIN/1.73 = 40662) CALC BUN/CREAT (test code = 23 RATIO [...] ALT (test code = 2219) 20 U/L [id number] 00:00:00 Test Item Value Reference Range Interpretation Comments TSH, THIRD GENERATION (test code 6.760 UIU/ML = 2821) [id number] 00:00:00 Test Item Value Reference Range Interpretation Comments TSH, THIRD GENERATION (test code 6.760 UIU/ML = 2821) PAP TEST, THINPREP, [id number] 13:50:57 Test Item Value Reference Range Interpretation Comments SOURCE: (test Cervical/Endo code = 8001) cervical SLIDES: (test 1 code = 8011) LMP: (test code = 08/2021 8021) SPECIMEN (NOTE) Satisfactory f or ADEQUACY: (test evaluation. code = 30932) Endocervical cells/transform ation zone component present. INTERPRETATION: NILM/NO (test code = EPITH. --------- 14588) ABNORMALITY;S -------- EE BELOW NEGATIVE FO R INTRAEPITHELIAL LESION OR MALIGNANCY ( NILM) --------- --------- --------- - OTHER COMMENTS: (NOTE) Shift in triston ra (test code = suggestive of b acterial 8081) vaginosis. ASSISTANT PROFESSOR SCULPTURE: Yasemin (test code = SABRINA Kim( 8101) CP) LOCATION: (test (NOTE) Specimens pr ocessed and code = 09419) interpreted at [facility] [address], , CLIA: [id number] CPT: (test code = (NOTE) 53840 UNLE SS OTHERWISE 8140) INDICATED, COMP UTER [...] is avai lable as applicable. CT/NG, TMA, [id number] 09:32:14 Test Item Value Reference Range Interpretation Comments GONORRHEA, TMA NEGATIVE NEGATIVE Assay method ology is (test code = nucleic acid am plification 52928) by transcriptio n mediated amplification ( TMA) utilizing the A ptima Combo 2 Assay. CHLAMYDIA, TMA NEGATIVE NEGATIVE Assay method ology is (test code = nucleic acid am plification 79279) by transcriptio n mediated amplification ( TMA) utilizing the A ptima Combo 2 Assay. GC AND CHLAMYDIA AMPLIFIED, [id number] 00:00:00 Test Item Value Reference Range Interpretation Comments GONORRHEA, TMA (test code = 59611) NEGATIVE CHLAMYDIA, TMA (test code = 57172) NEGATIVE GC AND CHLAMYDIA AMPLIFIED, [id number] 00:00:00 Test Item Value Reference Range Interpretation Comments GONORRHEA, TMA (test code = 04567) NEGATIVE CHLAMYDIA, TMA (test code = 50505) NEGATIVE PAP TEST, THINPREP, [id number] 00:00:00 Test Item Value Reference Range Interpretation Comments SOURCE: (test code = Cervical/Endocervical 800) SLIDES: (test code = 1 8011) LMP: (test code = 8021) 08/2021 SPECIMEN ADEQUACY: (test (NOTE) code = 31767) INTERPRETATION: (test NILM/NO EPITH. code = 22383) ABNORMALITY;SEE BELOW OTHER COMMENTS: (test (NOTE) code = 8081) ASSISTANT PROFESSOR SCULPTURE: (test Yasemin code = 8101) SABRINA Kim(ASCP) LOCATION: (test code = (NOTE) 25155) CPT: (test code = 8140) (NOTE) PAP TEST, THINPREP, [id number] 00:00:00 Test Item Value Reference Range Interpretation Comments SOURCE: (test code = Cervical/Endocervical 8001) SLIDES: (test code = 1 8011) LMP: (test code = 8021) 08/2021 SPECIMEN ADEQUACY: (test (NOTE) code = 96004) INTERPRETATION: (test NILM/NO EPITH. code = 45852) ABNORMALITY;SEE BELOW OTHER COMMENTS: (test (NOTE) code = 8081) ASSISTANT PROFESSOR SCULPTURE: (test Yasemin code = 8101) JulioCT(ASCP) LOCATION: (test code = (NOTE) 51155) CPT: (test code = 8140) (NOTE) GC AND CHLAMYDIA AMPLIFIED, [id number] 00:00:00 Test Item Value Reference Range Interpretation Comments GONORRHEA, TMA (test code = 97318) NEGATIVE CHLAMYDIA, TMA (test code = 11888) NEGATIVE GC AND CHLAMYDIA AMPLIFIED, [id number] 00:00:00 Test Item Value Reference Range Interpretation Comments GONORRHEA, TMA (test code = 10067) NEGATIVE CHLAMYDIA, TMA (test code = 69025) NEGATIVE PAP TEST, THINPREP, [id number] 00:00:00 Test Item Value Reference Range Interpretation Comments SOURCE: (test code = Cervical/Endocervical 8001) SLIDES: (test code = 1 8011) LMP: (test code = 8021) 08/2021 SPECIMEN ADEQUACY: (test (NOTE) code = 54359) INTERPRETATION: (test NILM/NO EPITH. code = 08272) ABNORMALITY;SEE BELOW OTHER COMMENTS: (test (NOTE) code = 8081) ASSISTANT PROFESSOR SCULPTURE: (test Yasemin code = 8101) SABRINA Kim(ASCP) LOCATION: (test code = (NOTE) 54698) CPT: (test code = 8140) (NOTE) PAP TEST, THINPREP, [id number] 00:00:00 Test Item Value Reference Range Interpretation Comments SOURCE: (test code = Cervical/Endocervical 8001) SLIDES: (test code = 1 8011) LMP: (test code = 8021) 08/2021 SPECIMEN ADEQUACY: (test (NOTE) code = 94341) INTERPRETATION: (test NILM/NO EPITH. code = 95319) ABNORMALITY;SEE BELOW OTHER COMMENTS: (test (NOTE) code = 8081) ASSISTANT PROFESSOR SCULPTURE: (test Yasemin code = 8101) SABRINA Kim(ASCP) LOCATION: (test code = (NOTE) 40899) CPT: (test code = 8140) (NOTE) GC AND CHLAMYDIA AMPLIFIED, [id number] 00:00:00 Test Item Value Reference Range Interpretation Comments GONORRHEA, TMA (test code = 38292) NEGATIVE CHLAMYDIA, TMA (test code = 12893) NEGATIVE GC AND CHLAMYDIA AMPLIFIED, [id number] 00:00:00 Test Item Value Reference Range Interpretation Comments GONORRHEA, TMA (test code = 12669) NEGATIVE CHLAMYDIA, TMA (test code = 79307) NEGATIVE PAP TEST, THINPREP, [id number] 00:00:00 Test Item Value Reference Range Interpretation Comments SOURCE: (test code = Cervical/Endocervical 8001) SLIDES: (test code = 1 8011) LMP: (test code = 8021) 08/2021 SPECIMEN ADEQUACY: (test (NOTE) code = 58397) INTERPRETATION: (test NILM/NO EPITH. code = 38014) ABNORMALITY;SEE BELOW OTHER COMMENTS: (test (NOTE) code = 8081) ASSISTANT PROFESSOR SCULPTURE: (test Yasemin code = 8101) SABRINA Kim(ASCP) LOCATION: (test code = (NOTE) 20355) CPT: (test code = 8140) (NOTE) PAP TEST, THINPREP, [id number] 00:00:00 Test Item Value Reference Range Interpretation Comments SOURCE: (test code = Cervical/Endocervical 8001) SLIDES: (test code = 1 8011) LMP: (test code = 8021) 08/2021 SPECIMEN ADEQUACY: (test (NOTE) code = 98895) INTERPRETATION: (test NILM/NO EPITH. code = 78339) ABNORMALITY;SEE BELOW OTHER COMMENTS: (test (NOTE) code = 8081) ASSISTANT PROFESSOR SCULPTURE: (test Yasemin code = 8101) SABRINA Kim(ASCP) LOCATION: (test code = (NOTE) 58294) CPT: (test code = 8140) (NOTE) GC AND CHLAMYDIA AMPLIFIED, [id number] 00:00:00 Test Item Value Reference Range Interpretation Comments GONORRHEA, TMA (test code = 32087) NEGATIVE CHLAMYDIA, TMA (test code = 62458) NEGATIVE PAP TEST, THINPREP, [id number] 00:00:00 Test Item Value Reference Range Interpretation Comments SOURCE: (test code = Cervical/Endocervical 8001) SLIDES: (test code = 1 8011) LMP: (test code = 8021) 08/2021 SPECIMEN ADEQUACY: (test (NOTE) code = 85532) INTERPRETATION: (test NILM/NO EPITH. code = 67384) ABNORMALITY;SEE BELOW OTHER COMMENTS: (test (NOTE) code = 8081) ASSISTANT PROFESSOR SCULPTURE: (test Yasemin code = 8101) SABRINA Kim(ASCP) LOCATION: (test code = (NOTE) 30457) CPT: (test code = 8140) (NOTE) HPV HIGH RISK WITH GENOTYPE, [id number] 16:22:42 Test Item Value Reference Range Interpretation Comments HPV HIGH RISK INTERP NEGATIVE NEGATIVE (test code = 08172) HPV 16 (test code = NEGATIVE 36308) HPV 18 (test code = NEGATIVE 35690) HPV, HR, OTHER NEGATIVE Testing meth odology is GENOTYPES (test code real-ti me PCR utilizing = 22386) hydrolysis prob es with the Novadiolas 4800 system. The isaac t individually de [...] ATED, ALL TESTING PERFORM ED ATCLINICAL PATH [facility], [facility]. [address] [place] [address] LABORATORY DIRE CTOR: Elisabeth RECIOIA NUMBER [id number] CAP ACCREDITATI ON NO. VAGINAL PATHOGENS DNA [id number] 15:22:33 Test Item Value Reference Range Interpretation Comments SANCHO SPECIES (test NEGATIVE NEGATIVE code = ) G. VAGINALIS (test POSITIVE NEGATIVE A code = ) T. VAGINALIS (test NEGATIVE NEGATIVE UNLESS O THERWISE code = ) INDICATED, ALL TESTING PERFORMED ATCLI NICAL PATHOLOGY LABOR [facility], [facility]. [address] [place], [place] [address] LABORATORY DIRE CTOR: KALPANA LORA M.D. CLIA NUMBER [id number] CAP ACCREDITATI ON NO. [id number] 04:21:00 Test Item Value Reference Range Interpretation Comments RPR RESULT (test code = NON-REACTIVE NON-REACTIVE 3501) RPR TITER (test code = 3500) NOT INDIC. TITER NOT INDIC. HIV 1/2 4TH GEN, RFLX [id number] 03:36:07 Test Item Value Reference Range Interpretation Comments HIV 1/2 4TH GEN, RFLX CONF (test NON-REACTIVE NON-REACTIVE code = 3514) HEPATITIS PANEL, [id number] 03:36:07 Test Item Value Reference Range Interpretation Comments HEPATITIS A IgM (test NON-REACTIVE NON-REACTIVE code = 54494) HEPATITIS B CORE IgM NON-REACTIVE NON-REACTIVE (test code = 4644) HEPATITIS B SURF AG NON-REACTIVE NON-REACTIVE (test code = 2739) HEPATITIS C ANTIBODY NON-REACTIVE NON-REACTIVE (test code = 4675) INTERPRETATION (NOTE) Hepatitis A HEPATITIS A: (test code sero logy shows no = 2552) evidence of acu te hepatitis A. INTERPRETATION (NOTE) Hepatitis B HEPATITIS B: (test code sero logy shows no = 99345) evidence of acu te hepatitis B and no indication of exposure to hepatitis B vir us in the previous cristopher eight months. INTERPRETATION (NOTE) Hepatitis C HEPATITIS C: (test code sero logy shows no = 54895) evidence of exposure to hepatitisC viru s at this time. I t can take up to 12 months after exposure tothe hepatitis C vir us for antibodies to become detectab le in the blood in certain patient s. HIV AB/AG COMBO RFLX [id number] 00:00:00 Test Item Value Reference Range Interpretation Comments HIV 1/2 4TH GEN, RFLX CONF (test NON-REACTIVE code = 3514) HIV AB/AG COMBO RFLX [id number] 00:00:00 Test Item Value Reference Range Interpretation Comments HIV 1/2 4TH GEN, RFLX CONF (test NON-REACTIVE code = 3514) ACUTE HEPATITIS [id number] 00:00:00 Test Item Value Reference Range Interpretation Comments HEPATITIS A IgM (test code = NON-REACTIVE 90223) HEPATITIS B CORE IgM (test code NON-REACTIVE = 4644) HEPATITIS B SURF AG (test code = NON-REACTIVE 2739) HEPATITIS C ANTIBODY (test code NON-REACTIVE = 4675) INTERPRETATION HEPATITIS A: (NOTE) (test code = 2552) INTERPRETATION HEPATITIS B: (NOTE) (test code = 81464) INTERPRETATION HEPATITIS C: (NOTE) (test code = 06759) ACUTE HEPATITIS [id number] 00:00:00 Test Item Value Reference Range Interpretation Comments HEPATITIS A IgM (test code = NON-REACTIVE 15472) HEPATITIS B CORE IgM (test code NON-REACTIVE = 4644) HEPATITIS B SURF AG (test code = NON-REACTIVE 6459) HEPATITIS C ANTIBODY (test code NON-REACTIVE = 4603) INTERPRETATION HEPATITIS A: (NOTE) (test code = 2552) INTERPRETATION HEPATITIS B: (NOTE) (test code = 98752) INTERPRETATION HEPATITIS C: (NOTE) (test code = 13218) HPV HIGH RISK WITH GENOTYPE, [id number] 00:00:00 Test Item Value Reference Range Interpretation Comments HPV HIGH RISK INTERP (test code = NEGATIVE 71290) HPV 16 (test code = 94181) NEGATIVE HPV 18 (test code = 36340) NEGATIVE HPV, HR, OTHER GENOTYPES (test code NEGATIVE = 63784) HPV HIGH RISK WITH GENOTYPE, [id number] 00:00:00 Test Item Value Reference Range Interpretation Comments HPV HIGH RISK INTERP (test code = NEGATIVE 52805) HPV 16 (test code = 39511) NEGATIVE HPV 18 (test code = 04356) NEGATIVE HPV, HR, OTHER GENOTYPES (test code NEGATIVE = 12944) [id number] 00:00:00 Test Item Value Reference Range Interpretation Comments RPR RESULT (test code = NON-REACTIVE 3501) RPR TITER (test code = 3500) NOT INDIC. TITER [id number] 00:00:00 Test Item Value Reference Range Interpretation Comments RPR RESULT (test code = NON-REACTIVE 3501) RPR TITER (test code = 3500) NOT INDIC. TITER [id number] 00:00:00 Test Item Value Reference Range Interpretation Comments RPR RESULT (test code = NON-REACTIVE 3501) RPR TITER (test code = 3500) NOT INDIC. TITER VAGINAL PATHOGENS DNA [id number] 00:00:00 Test Item Value Reference Range Interpretation Comments SANCHO SPECIES (test code = ) NEGATIVE G. VAGINALIS (test code = ) POSITIVE T. VAGINALIS (test code = ) NEGATIVE VAGINAL PATHOGENS DNA [id number] 00:00:00 Test Item Value Reference Range Interpretation Comments SANCHO SPECIES (test code = ) NEGATIVE G. VAGINALIS (test code = 57458) POSITIVE T. VAGINALIS (test code = 40104) NEGATIVE HIV AB/AG COMBO RFLX [id number] 00:00:00 Test Item Value Reference Range Interpretation Comments HIV 1/2 4TH GEN, RFLX CONF (test NON-REACTIVE code = 3514) HIV AB/AG COMBO RFLX [id number] 00:00:00 Test Item Value Reference Range Interpretation Comments HIV 1/2 4TH GEN, RFLX CONF (test NON-REACTIVE code = 3514) ACUTE HEPATITIS [id number] 00:00:00 Test Item Value Reference Range Interpretation Comments HEPATITIS A IgM (test code = NON-REACTIVE 52598) HEPATITIS B CORE IgM (test code NON-REACTIVE = 4644) HEPATITIS B SURF AG (test code = NON-REACTIVE 2739) HEPATITIS C ANTIBODY (test code NON-REACTIVE = 4675) INTERPRETATION HEPATITIS A: (NOTE) (test code = 2552) INTERPRETATION HEPATITIS B: (NOTE) (test code = 72590) INTERPRETATION HEPATITIS C: (NOTE) (test code = 58822) ACUTE HEPATITIS [id number] 00:00:00 Test Item Value Reference Range Interpretation Comments HEPATITIS A IgM (test code = NON-REACTIVE 52611) HEPATITIS B CORE IgM (test code NON-REACTIVE = 4644) HEPATITIS B SURF AG (test code = NON-REACTIVE 2739) HEPATITIS C ANTIBODY (test code NON-REACTIVE = 4675) INTERPRETATION HEPATITIS A: (NOTE) (test code = 2552) INTERPRETATION HEPATITIS B: (NOTE) (test code = 70506) INTERPRETATION HEPATITIS C: (NOTE) (test code = 11214) [id number] 00:00:00 Test Item Value Reference Range Interpretation Comments RPR RESULT (test code = NON-REACTIVE 3501) RPR TITER (test code = 3500) NOT INDIC. TITER [id number] 00:00:00 Test Item Value Reference Range Interpretation Comments RPR RESULT (test code = NON-REACTIVE 3501) RPR TITER (test code = 3500) NOT INDIC. TITER HPV HIGH RISK WITH GENOTYPE, [id number] 00:00:00 Test Item Value Reference Range Interpretation Comments HPV HIGH RISK INTERP (test code = NEGATIVE 68908) HPV 16 (test code = 99170) NEGATIVE HPV 18 (test code = 09947) NEGATIVE HPV, HR, OTHER GENOTYPES (test code NEGATIVE = 71434) [id number] 00:00:00 Test Item Value Reference Range Interpretation Comments RPR RESULT (test code = NON-REACTIVE 3501) RPR TITER (test code = 3500) NOT INDIC. TITER HPV HIGH RISK WITH GENOTYPE, [id number] 00:00:00 Test Item Value Reference Range Interpretation Comments HPV HIGH RISK INTERP (test code = NEGATIVE 03712) HPV 16 (test code = 79233) NEGATIVE HPV 18 (test code = 77130) NEGATIVE HPV, HR, OTHER GENOTYPES (test code NEGATIVE = 87592) VAGINAL PATHOGENS DNA [id number] 00:00:00 Test Item Value Reference Range Interpretation Comments SANCHO SPECIES (test code = ) NEGATIVE G. VAGINALIS (test code = 90908) POSITIVE T. VAGINALIS (test code = 29369) NEGATIVE VAGINAL PATHOGENS DNA [id number] 00:00:00 Test Item Value Reference Range Interpretation Comments SANCHO SPECIES (test code = ) NEGATIVE G. VAGINALIS (test code = 08087) POSITIVE T. VAGINALIS (test code = 26737) NEGATIVE HIV AB/AG COMBO RFLX [id number] 00:00:00 Test Item Value Reference Range Interpretation Comments HIV 1/2 4TH GEN, RFLX CONF (test NON-REACTIVE code = 3514) HIV AB/AG COMBO RFLX [id number] 00:00:00 Test Item Value Reference Range Interpretation Comments HIV 1/2 4TH GEN, RFLX CONF (test NON-REACTIVE code = 3514) ACUTE HEPATITIS [id number] 00:00:00 Test Item Value Reference Range Interpretation Comments HEPATITIS A IgM (test code = NON-REACTIVE 52526) HEPATITIS B CORE IgM (test code NON-REACTIVE = 4644) HEPATITIS B SURF AG (test code = NON-REACTIVE 2739) HEPATITIS C ANTIBODY (test code NON-REACTIVE = 4675) INTERPRETATION HEPATITIS A: (NOTE) (test code = 2552) INTERPRETATION HEPATITIS B: (NOTE) (test code = 90413) INTERPRETATION HEPATITIS C: (NOTE) (test code = 02174) ACUTE HEPATITIS [id number] 00:00:00 Test Item Value Reference Range Interpretation Comments HEPATITIS A IgM (test code = NON-REACTIVE 79393) HEPATITIS B CORE IgM (test code NON-REACTIVE = 4644) HEPATITIS B SURF AG (test code = NON-REACTIVE 2739) HEPATITIS C ANTIBODY (test code NON-REACTIVE = 4675) INTERPRETATION HEPATITIS A: (NOTE) (test code = 2552) INTERPRETATION HEPATITIS B: (NOTE) (test code = 05657) INTERPRETATION HEPATITIS C: (NOTE) (test code = 84433) [id number] 00:00:00 Test Item Value Reference Range Interpretation Comments RPR RESULT (test code = NON-REACTIVE 3501) RPR TITER (test code = 3500) NOT INDIC. TITER HPV HIGH RISK WITH GENOTYPE, [id number] 00:00:00 Test Item Value Reference Range Interpretation Comments HPV HIGH RISK INTERP (test code = NEGATIVE 84799) HPV 16 (test code = 40345) NEGATIVE HPV 18 (test code = 82799) NEGATIVE HPV, HR, OTHER GENOTYPES (test code NEGATIVE = 22928) [id number] 00:00:00 Test Item Value Reference Range Interpretation Comments RPR RESULT (test code = NON-REACTIVE 3501) RPR TITER (test code = 3500) NOT INDIC. TITER [id number] 00:00:00 Test Item Value Reference Range Interpretation Comments RPR RESULT (test code = NON-REACTIVE 3501) RPR TITER (test code = 3500) NOT INDIC. TITER HPV HIGH RISK WITH GENOTYPE, [id number] 00:00:00 Test Item Value Reference Range Interpretation Comments HPV HIGH RISK INTERP (test code = NEGATIVE 35022) HPV 16 (test code = 99096) NEGATIVE HPV 18 (test code = 46130) NEGATIVE HPV, HR, OTHER GENOTYPES (test code NEGATIVE = 32470) VAGINAL PATHOGENS DNA [id number] 00:00:00 Test Item Value Reference Range Interpretation Comments SANCHO SPECIES (test code = 11165) NEGATIVE G. VAGINALIS (test code = 96173) POSITIVE T. VAGINALIS (test code = 83800) NEGATIVE VAGINAL PATHOGENS DNA [id number] 00:00:00 Test Item Value Reference Range Interpretation Comments SANCHO SPECIES (test code = 25806) NEGATIVE G. VAGINALIS (test code = 89720) POSITIVE T. VAGINALIS (test code = 52401) NEGATIVE HIV AB/AG COMBO RFLX [id number] 00:00:00 Test Item Value Reference Range Interpretation Comments HIV 1/2 4TH GEN, RFLX CONF (test NON-REACTIVE code = 3518) ACUTE HEPATITIS [id number] 00:00:00 Test Item Value Reference Range Interpretation Comments HEPATITIS A IgM (test code = NON-REACTIVE 45318) HEPATITIS B CORE IgM (test code NON-REACTIVE = 3644) HEPATITIS B SURF AG (test code = NON-REACTIVE 9649) HEPATITIS C ANTIBODY (test code NON-REACTIVE = 7597) INTERPRETATION HEPATITIS A: (NOTE) (test code = 2552) INTERPRETATION HEPATITIS B: (NOTE) (test code = 20741) INTERPRETATION HEPATITIS C: (NOTE) (test code = 74237) HPV HIGH RISK WITH GENOTYPE, [id number] 00:00:00 Test Item Value Reference Range Interpretation Comments HPV HIGH RISK INTERP (test code = NEGATIVE 70584) HPV 16 (test code = 08917) NEGATIVE HPV 18 (test code = 26825) NEGATIVE HPV, HR, OTHER GENOTYPES (test code NEGATIVE = 25054) [id number] 00:00:00 Test Item Value Reference Range Interpretation Comments RPR RESULT (test code = NON-REACTIVE 3501) RPR TITER (test code = 3500) NOT INDIC. TITER [id number] 00:00:00 Test Item Value Reference Range Interpretation Comments RPR RESULT (test code = NON-REACTIVE 3501) RPR TITER (test code = 3500) NOT INDIC. TITER VAGINAL PATHOGENS DNA [id number] 00:00:00 Test Item Value Reference Range Interpretation Comments SANCHO SPECIES (test code = 76487) NEGATIVE G. VAGINALIS (test code = 91070) POSITIVE T. VAGINALIS (test code = 70937) NEGATIVE SHORT-LATENCY SPE, ALL [id number] 15:08:00[facility] : 1975 Sex: FINTRAOPERATIVE MONITORING REPORTPatient Name: May Zaidi : [facility]: [facility] Jossy Pro: [id number]: MD Cheng Monitoring Technologist: Prudence Heck time (nanoscience technician): 841End time (nanoscience technician): 1216 Examining Neurologist #1: RUIZ Zunigata time (incision): 927End time: 1216 Procedure: ACDF C5-7 Stimulation Parameters: Ulnar nerves individually stimulated at the wrist Rate 4.7Hz, Intensity 30mA, Duration 0.3ms Posterior Tibial nerves individually stimulated at the ankle Rate 4.7Hz, Intensity 60mA, Duration 0.3ms Filters 30- 500Hz, Notch Off Motor strip stimulated anterior to C3 and C4 with alternating polaritiesIntensity 100-600V, Train Rate 4-5, CHRISTY 2-3ms Filters [...] the ulnar nerves were attempted using electrodes placedat Erb's point, cervical area and the scalp. [...] area and the scalp. Amplitudes and latencies ofthese responses were evaluated by the neurophysiologist and [...] were monitored during the procedure using needle e lectrodes inserted before positioning. Free-running EMG was monitored continuously throughout the operative procedure with some sporadic neurotonic discharges taking place during procedure, however allEMG was stable and quiet at closing. Surgeon [...] procedure, however all EMG was stable and quietat closing. Surgeon aware of all responses during [...] to be essentially unchanged from those of post-positioningbaselines. IMPRESSION:No significant change in upper or lower somatosensory evoked potentials duringthe procedure.No spontaneous electromyographic potentials were recorded from muscles mentioned aboveduring the procedure.No significant changes in the transcranial motor evoked potentials during the procedure. Gabriel Zuniga M.D., FACNS, FAAN, FAESProfessor of NeurologySierra Vista Regional Medical CenterDirector, [facility] Epilepsy [facility] Neurophysiology LabSignature line: Diagnosis: Cervical Stenosis Tissue [id number] 17:56:29 Test Item Value Reference Range Interpretation Comments Case Report (test Surgical Pathology code = 104) Report Case: [id number] Authorizing Provider: Drew Anand III, MD Collected: 09/03/2021 11:46 AM Ordering Location: [facility] PERIOPERATIVE Received: 09/03/2021 01:00 PM SERVICES Pathologist: Eugene Sung MD Specimen: Intervertebral Disc, C5-7 DIAGNOSIS (test code v8nkaFQuVXHdq3blZTEohRZl = 3220) ZzEwMzNcZnRuYmpcdWMxIHtc cnRmMVxlcGljOTYwMVxhbnNp TSPspECbN5GajpyeIDnzQC9k RI9yeGhkdNPpkNTjSADuWxCy q2sel977gHNaa2axGJIBnrrl sBm2xZxlK35ik4Z6IvneK23l aAWhURQ4LCGuWDYflDChBJUy UQR3WHKoyWHcO7bhQGLpZU9k dxnbPIujVEwkQPFxwAP6XRQs sUTlU7XnMIZbFBjfAOPbnec4 UaOiZp8siAVvgYvyCPetTQRg XHBsYWluXGZzMjAgVkVSVEVC UfHAQVLVHZZYZidzUV2DYFCD RVJURUJSQUwgRElTQywgQzUt JwtiEQzQC6JYUH0BGXyooUDy MUQSEBxIFV2QIyRGMaXODTTR I9LHIbAEVNQAPPMJTONYBA1I OOMwBZWSPC4ITnFHKJNMXFVM HQ4JJKUjgSLyhYcfjnUkCHuu a6LpOAldUEQkXR0ujGsbXDHa WO1iWZAsP8pgjG3omfz5YuDx KPSfViI8SMMvtcG5Umu2YQYv DYwfu4eyu7MkSQLbXYk3nCqt JxIiVCKnx1tgwyNuOoYsWGIw BMKzBHFbbOGcP064d6ehm7sb zaKbjFX9RBFlMIR9NIpnwiDd flG6WMpbiTJiAvO2FXggzhDq BOzgqsDbefHmMux3ZOReQ057 HWM4xQvuz4ovMAH4LHLpTXXx HfUkZv8gfYWqS380JSHgKFXA UPRdyZv1QINoomHljdPwgLZT y960T471f7seXOQditClgRkZ yzmyu7tlZ500VVYktIWkaeTn PqJjBINpwATrhJK3KTOcUK1l ucwaMRdiUDuqGRUbrdU6EKBi aFVrI4IcASAlMW9dtfffLCI3 DWeoCCUuQDW7YqTiPWXse1Vu wmk3CsKvhr7ylg01UPL7n6Rh oDcjBPT8BHP7KeStSv7nzXYr UOUyZB4yYpNshJReXYKwev36 rMutMStwBGD0YCWgeyOou3Dh m2biIpXaqzQiR1kcZ7ZsEWUr KENkJLImWsSqvyYwg1Lal9Qj aJWrkXi0o5evRCSlPNZllBcr o7rxXKX2QHFmfBPhP8fegJ3e QFYnGX2ysqugm6mqLAunCThp WDNmxZL0mlZ0GTJilJEeA3Iz tH9aMFRyDDogPBOryyj2EqOo Zb2spFEyiPlkIJreTsogDXap XHBnbmNvbnRccGduZGVjXHBs YWluXHBsYWluXGYwXGZzMjRc cWxcbGFuZzEwMzNcaGljaFxm IOanEvEvGGHzRPqvM8urGfDf KbQzPgm9IONfqBZkVXZtEzz1 ZWLbmEPwRTIClNfvfV7dZGNy aLpkjH1ynXS9QSIkjbEkwZWM zN0gZFOZnN5dGoR2FtNzQgE7 BNj5PYEzsKNypN0= CPT Code(s) (test y4tdyBPjBNBrsGS3HfBfSNMs code = 3357) o2ptf1FkvEZesIKlHWdgyVYl afIuby72aZG3sY19YH9sIGVx HxM9UVDaiqI5Vdb7YPFsFYCm nNRgG708t9qvs1vyevYnbZR6 tJktIRYymfdjOdH6KLeyJUJb jqjvRPi4UUbrSNDuyZC2FOSe fEFrH7VwPMBkOY8ewgv7GWV1 TRksLNCgJfH4VIXbnUWuYTHz aTogSRmfq874LEZ1LcQaWHDw wlUspKeofB5yRdRgRWF5BRGj NDsgODgzMTFccGFyfQ== CLINICAL HISTORY b1nbySDcECMtgUM1XtUeJGDv (test code = 3356) v1mhx8KlrVGqhNKbWVvwjWAb mmGjsr60mIU7vV92ZL8wBBZc HjK2XLNmemW1Xus7IHYcGCHz aXPrP299y4qkj6okvjEdaRX7 wJkpHBRdntdzPtP4EQatTNBe sphlUYj1OJmgKNLtaHK9LIXc tEWtI8LdVCHaOJ9mcsb8DGM7 SFemQQZgLlE6YZKytOOiPRNh zPdmNHyhc744NKW5DbVqZWXh ybXorYyypV3hBiYjGXICPRM2 tZAjdWResGFmk6MnriHzgSNz fQ== SPECIMEN SOURCE (test c5akpOAgGNNtlKR4QiHlUFHe code = 3377) x2obi5FjwGUuhQNsWOrobQMz hrHatv50uMI8jG69VN8xHAOj BkH5UINvuaH6Wdv4LQIiQIHx oPUtK426r3rhc4vkzdJqkIN6 uZzlNPBwexblHcE7VCfwPVIw fopxDIc3BQeiLYUsvCG9EBXg wJTnL4OrBFYhON7lbuq9DHQ7 WKzvKAZsTdK1CHMdlVKdMYFs yTovIAadr566XNZ7NpTaRYFj mnBtrZmjeW4aNjCbMMNSevOa cnZlcnRlYnJhbCBkaXNjLCBD UC96PYGcag1= GROSS DESCRIPTION v8uvlLCkPRCdjLD3YmBkTCTp (test code = 3366) b5veq2HvkOSboYErGIdpbZHf swTjwg76wLB5sM14LF3uTKFj MvL4XHIrlnG5Rno4KLKkFUCt kIFhN818r6ldx2hmcqVooFY6 pJnwQHMbxaddPxO4MTyjWMDq rdifKZj7BBocQJZzoSI4RZZk bJHzI5BvDPXqCW5tfnq7YNX4 HTzeUYZlSjM5EJLciGLyVWLk aXqcIJcwr715NYT2GxRsMDIz chJchCmqqW2eOkPbIPWVAnEH ZWNlaXZlZCBmcmVzaCBsYWJl bGVkIHdpdGggdGhlIHBhdGll nzTeloLxFB7oGNRuHSVfX9Kg XDJmE25fVJQvjT7yAKOtFJ5e ICJpbnRlcnZlcnRlYnJhbCBk oCEvRcImzzFlPNTzGGT9NJMu DgK2IRSlOKNegHCdH0tbCAhd wYSbb7CrdBOmwVlcdCKaqKid zn23uWm3CAKivDVpu7JlitWr wEVehN9mwSMcaBcjr2HtUFQy XRorZE50mw3gFMdjQMWoAGTk bWVuIGlzIGZpbHRlcmVkIGFu RFOsaMXleZJ9KUMgeD9pbW01 orOmqlEwSYCxQHD5WEFQIEPq i7qgk3zqvomjbDxsbMZiBOYs FSmkcPCgS6K0fE0uPvJLSeLc cGwgXHBhcn0= MICROSCOPIC o8szgHZbCWCycQM4CrVmOZEe DESCRIPTION (test l0yri2AvwKJbjKCxIPqomKWg code = 3371) yzQaql05wSH7dC52YU0tFZPr TtO5ULSoxbX8Seg4UZOtYWOx aJAtU593c3pxc4hgrsEkzJB8 sTaePZKgruiwRbP1WAtqEQAx euyuEPy5INibEMPurUR8NQFx cKNrE0KtWPDyNG6hfyh0JBL7 RQqlXXAoPdD2GUMnxYSlLCYi kAdeXNpsb352YFU0UsIuIJXq ytEzlSoskS6zKtXsWGVJOBKg d4VtDFKivSCphG== [facility] CampusTISSUE [id number] 17:56:29Surgical Pathology Report Case: [id number] Authorizing Provider: Drew Anand III, MD Collected: 09/03/2021 11:46 AM Ordering Location: [facility] PERIOPERATIVE Received: 09/03/2021 01:00 PM SERVICES Pathologist: Eugene Sung MD Specimen: Intervertebral Disc, C5-7 VERTEBRAL COLUMN, INTERVERTEBRAL DISC, C5-7, DISCECTOMY:FRAGMENTS OF FIBROCARTILAGE WITH MILD DEGENERATIVE CHANGES Signing Pathologist Direct Phone Line: [phone] signed by Eugene Sung MD on 09/06/2021 at 5:56 [id number]; [id number] stenosis Intervertebral disc, C5-7A. Received fresh labeled with the patient's name,medical record number and "intervertebral disc" is a 2.4 x 1.7 x 0.4 cm aggregate of multiple pink-white fibrocartilaginous tissue fragments. The specimen is filtered and submitted in toto in cassette A1 following light decalcification. MJP/pl PerformedCBC with platelet count + automated [id number] 06:01:32 Test Item Value Reference Range Interpretation Comments WBC (test code = 6690-2) 9.9 See_Comment [A utomated message] The system [employer] generated this result transmitted ref erence range: 3.5 - 10 .5 K/L. The refe rence range was not u sed to interpret this result as normal/abnor mal. RBC (test code = 789-8) 4.74 See_Comment [Au tomated message] The system [employer] generated this result transmitted ref erence range: 3.93 - 5 .22 M/L. The refe rence range was not u sed to interpret this result as normal/abnor mal. MCHC (test code = 786-4) 32.4 See_Comment [A utomated message] The system [employer] generated this result transmitted ref erence range: [...] See_Comment [Aut omated message] 777-3) The system [employer] generated this result transmitted ref erence range: 150 - 45 0 K/CU MM. The referen ce range was not u sed to interpret this result as normal/abnor mal. MPV (test code = 9.5 fL 9.4-12.3 62596-6) nRBC (test code = 413) 0 See_Comment [Aut omated message] The system [employer] generated this result transmitted ref erence range: [...] H [Aut omated message] 670) The system [employer] generated this result transmitted ref erence range: 1.56 - 6 .13 K/L. The refe rence range was not u sed to interpret this result as normal/abnor mal. # Lymphs (test code = 1.35 See_Comment [Auto mated message] 414) The system [employer] generated this result transmitted ref erence range: 1.18 - 3 .74 K/L. The refe rence range was not u sed to interpret this result as normal/abnor mal. # Monos (test code = 0.33 See_Comment [Autom ated message] 415) The system [employer] generated this result transmitted ref erence range: 0.24 - 0 .36 K/L. The refe rence range was not u sed to interpret this result as normal/abnor mal. # Eos (test code = 416) 0.00 See_Comment L [Au tomated message] The system [employer] generated this result transmitted ref erence range: 0.04 - 0 .36 K/L. The refe rence range was not u sed to interpret this result as normal/abnor mal. # Baso (test code = 417) 0.01 See_Comment [A utomated message] The system [employer] generated this result transmitted ref erence range: 0.01 - 0 .08 K/L. The refe rence range was not u sed to interpret this result as normal/abnor mal. Immature 0 % 0-1 Granulocytes-Relative (test code = 2801) Lab Interpretation (test Abnormal code = 46301-0) [facility] W/PLT COUNT & AUTO [id number] 06:01:32 Test Item Value Reference Range Interpretation [...] (BEAKER) (test code = 2801) Basic Metabolic [id number] 05:40:38 Test Item Value Reference Range Interpretation Comments Sodium (test code = 142 meq/L 019-518 8597-2) Potassium (test code = 4.0 meq/L 3.5-5.1 2823-3) Chloride (test code = 107 meq/L 98-107 5-0) CO2 (test code = 25 meq/L 22-29 2028-9) BUN (test code = 12 mg/dL 7-21 3094-0) Creatinine (test code 0.73 mg/dL 0.57-1.25 = 2160-0) Glucose (test code = 127 mg/dL 70-105 H 2345-7) Calcium (test code = 10.2 mg/dL 8.4-10.2 50110-9) EGFR (test code = 85 mL/min/1.73 [place] [address]-5) NOT ACCURATE CREATININE CLEARANCE IN PREDICTING GLOMERULAR FILTRATION RATE . ESTIMATED GFR I S NOT APPLICABLE FOR DIALYSIS PATIENTS. LEVON (test code = LEVON) [employer] Worker ID - [id number] Lab Interpretation Abnormal (test code = 73005-4) [facility] METABOLIC [id number] 05:40:38 Test Item Value Reference Range Interpretation Comments SODIUM (BEAKER) 142 meq/L 136-145 (test code = 381) POTASSIUM (BEAKER) 4.0 meq/L 3.5-5.1 (test code = 379) CHLORIDE (BEAKER) 107 meq/L 98-107 (test code = 382) CO2 (BEAKER) (test 25 meq/L - code = 355) BLOOD UREA NITROGEN 12 [...] S NOT APPLICABLE FOR DIALYSIS PATIEN TS. Warehouse Assembly Worker ID - [id number], SPINE, CERVICAL, 2 OR 3 [id number] 14:14:00Reason for exam:->post-op STANDING x-raysShould this be performed at the bedside?->No [facility] 1975 Sex: FFINAL REPORT RAD, SPINE, CERVICAL, 2 OR 3 VIEWS INDICATION: post-op STANDING x-rays COMPARISON: None TECHNIQUE: AP and lateral radiographs of the cervical spine FINDINGS/IMPRESSION:Mild straightening of cervical lordosis. Slight minimal anterolisthesis of C4 on C5. Status post ACDF spanning C5-C7 with prevertebral soft tissue swelling (presumably recently postop). Signed: Mary Ashby MDReport Verified Date/Time: 09/04/2021 14:14:33 Reading [facility] [facility] Reading[facility] BASI METABOLIC [id number] 10:43:35 Test Item Value Reference Range Interpretation [...] S NOT APPLICABLE FOR DIALYSIS PATIEN TS. Warehouse Assembly Worker ID - NICOLE FCBC W/PLT COUNT & AUTO [id number] 10:04:49 Test Item Value Reference Range Interpretation [...] 2801) FL, FLUORO, NON-SPECIFIC, UP TO 1 [id number] 12:14:00Reason for exam:- >[facility] : 1975 Sex: FFluoroscopic unit utilized for a procedure performed in the OR. No interpretation was requested. Refer to the operative report for findings. Refer to PACS for patient radiation dose information.FL, FLUORO, NON-SPECIFIC, UP TO 1 [id number] 09:56:00Reason for exam:->ACDF C5-[facility] : 1975 Sex: FFINAL REPORT FL, FLUORO, NON-SPECIFIC, UP TO 1 HOUR CLINICAL INDICATION: ACDF C5-7 COMPARISON: None IMPRESSION: A single lateral view of the cervical spine is obtained intraoperatively. Surgical hardware overlies the anterior disc space at C6-C7. Results were communicated to Dr. Anand, who concurred with the above findings. Signed: Mary Ashby MDReport Verified Date/Time: 09/03/2021 09:56:27 Reading Location: [facility] Room [id number] 07:14:37 Test Item Value Reference Interpretation Comments Range Protime (test code = 13.8 See_Comment [Autom ated 5902-2) message] The system which generated this result transmitted reference range : 11.9 - 14.2 seconds. The reference range was not used to interpret this result as normal/abnormal . INR (test code = 1.08 See_Comment [Automated 6301-6) message] The system which generated this result transmitted reference range : <=5.90. The reference range was not used to interpret this result as normal/abnormal . PTT (test code = 33.1 See_Comment [Automated 88653-4) message] The system which generated this result [...] valves. Lab Interpretation Normal (test code = 56505-2) [facility]PT/[id number] 07:14:37 Test Item Value Reference Range Interpretation [...] for patients with mechanical heart valves.BASIC METABOLIC [id number] 06:08:31 Test Item Value Reference Range Interpretation [...] S NOT APPLICABLE FOR DIALYSIS PATIEN TS. 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 The refe rence range was not u sed to interpret this result as normal/abnor mal. RBC (test code = 789-8) 4.50 See_Comment [Au tomated message] The system [employer] generated this result transmitted ref erence range: 3.93 - 5 .22 M/L. The refe rence range was not u sed to interpret this result as normal/abnor mal. MCHC (test code = 786-4) 33.7 See_Comment [A utomated message] The system [employer] generated this result transmitted ref erence range: [...] See_Comment [Aut omated message] 777-3) The system [employer] generated this result transmitted ref erence range: 150 - 45 0 K/CU MM. The referen ce range was not u sed to interpret this result as normal/abnor mal. MPV (test code = 9.1 fL 9.4-12.3 L 32840-9) nRBC (test code = 413) 0 See_Comment [Aut omated message] The system [employer] generated this result transmitted ref erence range: 0 - 0 /1 00 WBC. The refere nce range was not u sed to interpret this result as normal/abnor mal. Lab Interpretation (test Abnormal code = 28414-0) [facility] (HEMOGRAM ONLY)2021-09-03 05:43:01 Test Item Value Reference [...] 0-0 (BEAKER) (test code = 413) Screen, [id number] 04:18:04 Test Item Value Reference Range Interpretation Comments Preg Test, Ur (test code = 2112-1) Negative [facility] CampusPREGNANCY SCREEN, [id number] 04:18:04 Test Item Value Reference Range Interpretation Comments TEST URINE (BEAKER) (test Negative code = 583) RAD, CHEST, 1 VIEW, NON [id number] 14:59:00Reason for exam:->PreopShould this be performed at the bedside?->Yes [facility] : 1975 Sex: FFINAL REPORT INDICATION: Preop COMPARISON: None TECHNIQUE: Single frontal view of the chest. FINDINGS: Lungs and pleura: Clear lungs. No effusion.Heart and mediastinum: Normal heart size.Unremarkable mediastinal contours.Osseous structures: No acute abnormality.Other: None. IMPRESSION: No acute intrathoracic abnormality. Signed: Mary Ashbyort Verified Date/Time: 09/02/2021 14:59:13 SARS-CoV2/RT-PCR (Symptomatic ONLY)2021-09-02 14:39:49 Test Item Value Reference Interpretation Comments Range SARS-COV2/RT-PCR Negative Negative The SARS-Co V-2 (test code = target nucleic 21080-4) acids are not detected in thi s [...] revoked sooner. Fact Sheet for Healthcare Providers: https://www.[employer]/Documents/Xp ert%20Xpress%20SAR S%20CoV-2/Fact%20S heets/302-3802%20S ARS-COV-2%20HEALTH CARE%20PROVIDERS%2 0FACT%20SHEET.pdf Fact Sheet for Healthcare Patients: https://www.[employer]/Documents/Xp ert%20Xpress%20SAR S%20CoV-2/Fact%20S heets/302-3801%20S ARS-COV-2%20PATIEN T%20FACT%20SHEET.p df Lab Interpretation Normal (test code = 61568-4) [facility]2021-09-02 14:39:49 Test Item Value Reference Range Interpretation Comments SARS-COV2/RT-PCR Negative Negative The SARS-Co V-2 target (test code = nucleic acids a re not 4623079) detected in thi s specimen. Negative result [...] revoked sooner. Fact Sheet for Healthcare Providers: https://www.[employer] m/Documents/Xpert%20Xpress%20SARS%20CoV-2/Fact%20Sheets/3023802%79CHGK-GZV-4%20 HEALTHCARE%20PROVIDERS%20FACT%20SHEET.pdf Fact Sheet for Healthcare Patients: https://www.[employer]/Documents/Xpert%20Xp ress%20SARS%20CoV-2/Fact%20Sheets/3023801%45FSFU-LDH-4%20PATIENT%20FACT%20SHEET .pdfBASI METABOLIC [id number] 13:47:13 Test Item Value Reference Range Interpretation [...] S NOT APPLICABLE FOR DIALYSIS PATIEN TS. Warehouse Assembly Worker ID - LEELA WCBC W/PLT COUNT & AUTO [id number] 13:32:27 Test Item Value Reference Range Interpretation [...] PERCENT (BEAKER) (test code = 2801) Urine [id number] 11:51:42 Test Item Value Reference Range Interpretation Comments Result (test code = 10-19,000 col/mL skin 6463-4) sebastian [place] [address], [id number] 08:54:43 Test Item Value Reference Range Interpretation Comments Free T4 (test code = 0.92 ng/dL 0.70-1.48 3024-7) LEVON (test code = LEVON) Warehouse Assembly Worker ID - LEELA Zhao Lab Interpretation (test Normal code = 21808-8) [place] [address], [id number] 08:54:43 Test Item Value Reference Range Interpretation Comments FREE T4 (BEAKER) (test code = 655) 0.92 ng/dL 0.70-1.48 Warehouse Assembly Worker ID - LEELA WTSH/Free T4 If [id number] 06:20:34 Test Item Value Reference Range Interpretation Comments TSH (test code = 4.975 See_Comment H [Automated 03964-7) message] The system which generated this result transmit cosme reference range : 0.350 - 4.940 uIU/mL. The reference range was not used to interpret this result as normal/abnormal . LEVON (test code = LEVON) Warehouse Assembly Worker ID - LEELA W Lab Interpretation Abnormal (test code = 47668-0) [facility] CampusTS/FREE T4 IF [id number] 06:20:34 Test Item Value Reference Range Interpretation Comments THYROID STIMULATING HORMONE 4.975 uIU/mL 0.350-4.940 H (LUDWIN) (test code = 772) Warehouse Assembly Worker ID - LEELA WMR, SPINE, CERVICAL, WITHOUT [id number] 15:56:00 Unlisted Reason for Exam - Click Yes and Enter Reason Below->No [facility] : 1975 Sex: FFINAL REPORT MR, SPINE, CERVICAL, WITHOUT CONTRAST INDICATION: Spinal cord injury, follow up TECHNIQUE: Multiplanar, multisequence MR imaging of the cervical spine was performed without intravenous contrast. COMPARISON: None. FINDINGS: Alignment of the cervical spine is within normal limits. Vertebral body height is maintained.Mild multilevel disc space height loss, most conspicuous at C5-I1Aguhwx signal intensity is within normal limits for [...] MDReport Verified Date/Time: 09/01/2021 15:56:55 Reading Location: [address] Neuro Reading Room ABORH, [id number] 12:37:00 Test Item Value Reference Range Interpretation Comments Rh Factor (test code = 2589) NEG ABO Grouping (test code = 2588) O [facility] CampusType and screen, [id number] 07:31:00 Test Item Value Reference Range Interpretation Comments ABO/RH AUTOMATED (BEAKER) (test O NEGATIVE code = 2260) Ab Scrn (test code = 890-4) NEGATIVE [facility] CampusMR, SPINE, LUMBAR, WITHOUT [id number] 06:11:00Unlisted Reason for Exam - Click Yes and Enter Reason Below->No [facility] : 1975 Sex: FFINAL REPORT [...] 09/01/2021 06:11:42 Urinalysis w/Microscopic + Reflex to [id number] 05:55:42 Test Item Value Reference Range Interpretation Comments Color, UA (test code Light Yellow = 5778-6) Clarity, UA (test Hazy code = 5767-9) Specific [place], UA 1.017 1.001-1.035 (test code = 5811-5) pH, UA (test code = 6.5 5.0-8.0 5803-2) Protein, UA (test Negative Negative code = 08672-0) Glucose, UA (test Negative Negative code = 365) Ketones, UA (test Negative Negative code = 2514-8) Bilirubin, UA (test Negative Negative code = 68171-2) Blood, UA (test code Negative Negative = 40447-6) Nitrite, UA (test Negative Negative code = 5802-4) Leukocytes, UA (test Large Negative A code = 5799-2) Urobilinogen, UA 0.2 mg/dL 0.2-1.0 (test code = 79204-4) RBC, UA (test code = 10 See_Comment [Autom ated 38129-8) message] The system which generated this result [...] . Bacteria, UA (test Rare code = 35391-3) Squam Epithel, UA 5 See_Comment [Automate d (test code = 68979-6) messag e] The system which generated this result transmit cosme reference range : /HPF. The reference range was not used to interpret this result as normal/abnormal . Crystals, Urine (test None Seen code = 41985-5) Amorphous Crystals Rare (test code = 22237-0) Specimen Source (test code = 2795) LEVON (test code = LEVON) Warehouse Assembly Worker ID - [auto]Warehouse Assembly Worker ID - tech Lab Interpretation Abnormal (test code = 56088-4) [facility] CampusURINALYSIS W/ REFLEX URINE [id number] 05:55:42 Test Item Value Reference Range Interpretation [...] = 1584) SOURCE(BEAKER) (test code = 2795) Warehouse Assembly Worker ID - [auto]Warehouse Assembly Worker ID - [id number] 04:10:38 Test Item Value Reference Range Interpretation Comments Phosphorus (test code 3.9 mg/dL 2.3-4.7 Specim en = 2777-1) moderately hemolyzed LEVON (test code = LEVON) Warehouse Assembly Worker ID - DB Lab Interpretation Normal (test code = 73956-1) [facility] CampusPHOSPHORUS2021-10-02 04:10:38 Test Item Value Reference Range Interpretation Comments PHOSPHORUS (BEAKER) 3.9 mg/dL 2.3-4.7 Specimen moderately (test code = 604) hemolyzed Warehouse Assembly Worker ID - DBBASIC METABOLIC [id number] 04:10:38 Test Item Value Reference Range Interpretation [...] S NOT APPLICABLE FOR DIALYSIS PATIEN TS. Warehouse Assembly Worker ID - [id number] 04:10:37 Test Item Value Reference Range Interpretation Comments Magnesium (test code = 1.9 mg/dL 1.6-2.6 Speci men 49804-7) moderately hemolyzed LEVON (test code = LEVON) Warehouse Assembly Worker ID - DB Lab Interpretation Normal (test code = 14907-0) [facility] CampusMAGNESIUM2021-10-02 04:10:37 Test Item Value Reference Range Interpretation Comments MAGNESIUM (BEAKER) 1.9 mg/dL 1.6-2.6 Specimen moderately (test code = 627) hemolyzed Warehouse Assembly Worker ID - DBProthrombin time/[id number] 04:04:19 Test Item Value Reference Interpretation Comments Range Protime (test code = 13.4 See_Comment [Autom ated 4502-2) message] The system which generated this result transmitted reference range : 11.9 - 14.2 seconds. The reference range was not used to interpret this result as normal/abnormal . INR (test code = 1.04 See_Comment [Automated 2331-6) message] The system which generated this result [...] valves. Lab Interpretation Normal (test code = 35359-6) [facility] CampusPROTHROMBIN TIME/[id number] 04:04:19 Test Item Value Reference Range Interpretation Comments PROTIME (BEAKER) 13.4 seconds 11.9-14.2 (test code = 759) INR (BEAKER) (test 1.04 See_Comment [Automat ed message] code = 370) The system whic h generated this result transmitted ref erence range: <=5.90. The reference range was not used to int erpret this result as normal/abnormal . RECOMMENDED COUMADIN/WARFARIN INR THERAPY RANGESSTANDARD DOSE: 2.0 - 3.0 Includes: PROPHYLAXIS for venous thrombosis, systemic embolization; TREATMENT for venous thrombosis and/or pulmonary embolus.HIGH RISK: Target INR is 2.5-3.5 for patients with mechanical heart valves.CBC W/PLT COUNT & AUTO [id number] 03:59:33 Test Item Value Reference Range Interpretation [...]
[2023-01-29] MEDS ORDERED: ONDANSETRON 4 MG/2 ML VIAL IV PRN (18:23)
--- NOTE | 2023-01-29 18:54 | P.HP ---
Certification for Inpatient Patient admitted to: Inpatient With expected LOS: >2 Midnights Patient will require the following post-hospital care: None Practitioner: I am a practitioner with admitting privileges, knowledge of patient current condition, hospital course, and medical plan of care. Services: Services provided to patient in accordance with Admission requirements found in Title 42 Section 412.3 of the Code of Federal Regulations Patient History Date of Service: 01/29/23 Reason for admission: Facial abscess History of Present Illness: 47-year-old female with history of hypertension, fibromyalgia, depression was transferred from outside hospital for facial abscess/cellulitis. She reports that her symptoms began on 01/25/2023 when she noticed bilateral eye erythema/swelling, she was diagnosed with contact dermatitis related to recent use of retinol at that time, she then reports that she began to notice swelling to the left forehead area and appeared to develop an abscess, she was seen at [facility] and prescribed Bactrim which she took 2 doses of without improvement and subsequently returned to [facility] where she was admitted the following day which was Friday and placed on IV antibiotics with vancomycin/Zosyn. They wish to transfer to our facility for further management/surgical I&D. 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 moist/pink, EOMI, Sclerae nonicteric Neck: Supple, 2+ carotid pulse no bruit, No LAD, Without JVD or thyroid abnormality Respiratory: Clear to auscultation bilaterally, Normal air movement Cardiovascular: Regular rate/rhythm, Normal S1 S2 Capillary refill: <2 Seconds Gastrointestinal: Normal bowel sounds, No tenderness Musculoskeletal: No tenderness Integumentary: Other (Facial abscess, left superior forehead area, mild periorbital erythema. No pain with EOM.) Neurological: Normal gait, Normal speech, Normal strength at 5/5 x4 extr, Normal tone, Normal affect Assessment and Plan - Plan Assessment: Facial abscess/cellulitis Fibromyalgia Hypertension Plan: Facial abscess/cellulitis General surgery consulted, n.p.o. after midnight anticipate surgical incision and drainage. Continue antibiotics vancomycin/Zosyn. ID consulted. As needed pain medications. Fibromyalgia Hypertension Continue home meds. DVT PPX: SCD Code status: Full Discharge Plan: Home Plan to discharge in: 48 Hours - Advance Directives Does patient have a Living Will: No Does patient have a Durable POA for Healthcare: No - Code Status/Comfort Care Code Status Assessed: Yes (Full code) Critical Care: No Time Spent Managing Pts Care (In Minutes): 70
[2023-01-29] MEDS: MORPHINE 2 MG/ML SYR IV PRN (20:08)
[2023-01-29] MEDS: Ringers Lactate 1,000 ML IV SCH (20:09)
[2023-01-29] MEDS ORDERED: VANCOMYCIN 1.25 GM in NA CHLORIDE 0.9% 250 ML IVPB ONE (21:00)
[2023-01-30] MEDS: NICOTINE 14 MG/PAT TD SCH ×2 (00:49→07:59)
[2023-01-30] MEDS: HYDROCODONE/APAP 5/325 MG TAB PO PRN ×4 (00:50→20:24)
[2023-01-30] MEDS: PIPER TAZO 3.375 GM in NA CHLORIDE 0.9% 100 ML IV SCH ×3 (00:50→16:12)
[2023-01-30] MEDS: MELATONIN 5 MG TABLET PO PRN (00:51)
[2023-01-30 03:33] LABS: Absolute Lymphocytes (CBC) 2.5 K/uL (0.7-4.9); Hematocrit 36.8 % (36.0-45.0); Lymphocytes % 34.9 % (15.3-44.8); MCV 88.2 fL (80-100); MPV 7.5 fL (7.6-11.3); RBC Red Blood Cell Count 4.18 M/uL (3.86-4.86)
[2023-01-30 03:37] LABS: Potassium 3.5 mmol/L (3.5-5.1)
[2023-01-30] MEDS: Ringers Lactate 1,000 ML IV SCH (05:00)
--- NOTE | 2023-01-30 07:25 | P.PN ---
Date of Service: 01/30/23 Subjective: Feels a bit better Describes pain that comes and goes in waves - pain at forehead /scalp intermittent blurred vision, clears up on own -left eye otherwise no new/worsening symptoms ROS: 10 point ROS as noted above, otherwise negative Physical Exam: GEN: Alert, oriented, NAD HEENT: Normal conjunctiva, sclera anicteric CV: Regular rate and rhythm, no edema Pulm: Nonlabored respirations on room air Integumentary: ~2.5 cm abscess, slight purulent drainage, tender Neuro: Normal speech, normal affect Problem List: Facial abscess/cellulitis Fibromyalgia Hypertension General surgery consulted, Dr. West to perform I&D today Continue antibiotics vancomycin/Zosyn. ID consulted. reportedly had positive blood culture at [place] As needed pain medications. Continue home meds for hypertension. VTE: SCD Code: Full Dispo: Home, ~24-48 Hours
[2023-01-30] MEDS: VANCOMYCIN 1.25 GM in NA CHLORIDE 0.9% 250 ML IVPB SCH ×2 (07:57→20:23)
[2023-01-30] MEDS ORDERED: POTASSIUM 25 MEQ EFFERV TAB PO ONE (09:00)
--- NOTE | 2023-01-30 09:30 | P.CNS ---
Date of Consult: 01/30/23 Chief Complaint: Facial abscess History of Present Illness: 47-year-old female with history of hypertension, fibromyalgia, depression was transferred from outside hospital for facial abscess/cellulitis. She reports that her symptoms began on 01/25/2023 when she noticed bilateral eye e rythema/swelling, she was diagnosed with contact dermatitis related to recent use of retinol at that time, she then reports that she began to notice swelling to the left forehead area and appeared to develop an abscess, she was seen at [facility] and prescribed Bactrim which she took 2 doses of without improvement and subsequently returned to [facility] where she was admitted the following day which was Friday and placed on IV antibiotics with vancomycin/Zosyn. They wish to transfer to our facility for further management/surgical I&D ID has been consulted for further IV antibiotics recommendations and management for facial cellultitis Allergies aripiprazole [From Abilify] Allergy (Severe, Verified 01/29/23 22:21) Hives/Rash latex Allergy (Severe, Verified 01/29/23 22:03) Hives/Rash lisinopril Allergy (Severe, Verified 01/29/23 22:21) Rash losartan Allergy (Severe, Verified 01/29/23 22:21) Rash hydromorphone [From Dilaudid] Allergy (Verified 01/30/23 13:25) Itching/Hives/Rash Home Medications: Carvedilol [Coreg] 25 mg PO DAILY 01/30/23 Gabapentin 100 mg PO TID 01/30/23 Hydrochlorothiazide 50 mg PO DAILY 01/30/23 - Past Medical/Surgical History -: Fibromyalgia -: Hypertension -: graves disease -: anxiety -: Cervical fusion -: Discectomy -: Foot surgery -: Tubal ligation Psychosocial/ Personal History: 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, 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 - Social History Smoking Status: Current every day smoker Alcohol use: No CD- Drugs: Yes Caffeine use: Yes Place of Residence: Home Review of Systems is unable to be obtained (currently in OR for I&D) Physical Examination Temp Pulse Resp BP Pulse Ox 97.6 F 70 16 148/85 H 98 01/30/23 08:00 01/30/23 08:00 01/30/23 08:00 01/30/23 08:00 01/30/23 08:00 PE: Unable to assess due to patient in OR for I&D Laboratory Data (last 24 hrs) 01/30/23 02:51: Sodium 138, Potassium 3.5, BUN 15, Creatinine 0.77, Glucose 110 H 01/30/23 02:51: WBC 7.10, Hgb 12.9, Hct 36.8, Plt Count 361 - Problems (1) Facial cellulitis Plan: Cultures: - 01/30 Wound culture: Pending Antibiotics: - On IV Zosyn and Vancomycin (01/29- ) Recommendations: - Contine IV Zosyn and Vancomycin for now - ID will recommend abx drug of choice when wound culture is available 01/30 Dr. West performed "Excisional debridement subcutaneous of the left forehead and necrotic wound and drainage of an abscess about 3 x 2 cm." Finding: Necrotic tissue and abscess. Conclusions/Impression: - Facial abscess/cellulitis: Continue IV antibiotics - Fibromyalgia - Hypertension ID will monitor the patient closely for signs of infection with fever and WBC trends Case has been discussed with Dr. Nunn N Thank you Dr. Arevalo for consultation
[2023-01-30] MEDS ORDERED: BUPIVACAINE 0.5% PF 10 ML VIAL ONE (11:24)
[2023-01-30] MEDS ORDERED: MIDAZOLAM HCL 2 MG/2 ML INJ ONE (11:38)
[2023-01-30] MEDS ORDERED: LIDOCAINE 2% MPF 5 ML VIAL ONE (11:43)
[2023-01-30] MEDS ORDERED: propofoL 200 MG/20 ML VIAL IV ONE (11:43)
[2023-01-30] MEDS ORDERED: FENTANYL CITR 100 MCG/2 ML ONE (11:43)
[2023-01-30] MEDS ORDERED: ONDANSETRON 4 MG/2 ML VIAL ONE (12:07)
[2023-01-30] MEDS ORDERED: dexAMETHasone 10 MG/ML VIAL ONE (12:08)
--- NOTE | 2023-01-30 12:11 | P.BOP ---
Preoperative diagnosis: left forehead necrotic wound (3cm) / abscess, cellulitis Postoperative diagnosis: same Primary procedure: Excisional subQ debridement left forehead necrotic wound/abscess 3x2cm Estimated blood loss: <5cc Specimen: necrotic tissue, culture Findings: see dicta Anesthesia: General Transferred to: Recovery Room Condition: Good
[2023-01-30] MEDS: HYDROMORPHONE HCL 1 MG/ML INJ ONE ×2 (12:23→12:30)
--- NOTE | 2023-01-30 12:26 | CON ---
Date of Consultation: 01/30/2023 Reason For Consultation: A forehead necrotic wound with abscess and cellulitis. History Of Present Illness: This is a case of a 47-year-old patient, who I know in the past and she was at [facility] yesterday with cellulitis and forehead necrotic wound, requiring heavy antibio tics to improve her condition that include also when she was there, periorbital swelling, facial swel ling, even though they were getting control over that swelling, still have a necrotic wound on the fo rehead that needed to be excised and drained in order for her to get better. They did not have any a nesthesia level in the [facility] yesterday. They did not have any surgical service. So tonia walter has to be transferred in this institution for this procedure. Allergies: INCLUDE ABILIFY, LATEX, LISINOPRIL, LOSARTAN. Medications: Include gabapentin, hydrochlorothiazide. Past Medical History: Include fibromyalgia, Graves disease, hypertension, and anxiety. Past Surgical History: Include tubal ligation, foot surgery, cervical fusion, diskectomy. Social History: She does not smoke. She does not drink alcohol. Review of Systems: See the H and P, patient has no shortness of breath. No chest pain. At least, no gross loss of visi on. The swelling on the forehead and periorbital region is improved. No fluctuance in that area. P atient has on the upper side of the forehead right at the hairline, a necrotic wound. Physical Examination: General: Patient is awake and alert. HEENT: Pupils are equal and reactive. Anicteric. Neck: Supple. Chest: Clear. Heart: S1, S2. Abdomen: Soft and depressible. Nontender, nondistended. Integumentary: Patient has a necrotic wound about 3 cm in the upper forehead right nearby the hairli ne. The swelling of the rest of the face is improved, but that necrotic tissue needed to be excised. Laboratory Data: Blood work shows WBC count of 7, hemoglobin of 12, platelets of 361, and potassium 3.5. Assessment: Necrotic wound and abscess of the left forehead. Plan: Excision and debridement of subcu and incision and drainage of an abscess with benefits, alter natives, and risks including, but not limited to, infection, bleeding, damage to adjacent structures, nonhealing wound, scar, AL, and even . She also understands this may not relieve any symptoms. She might need more than one surgical intervention and she will require wound care. OJ/JUAN Voice ID: [id number] Report ID: [id number]
[2023-01-30] MEDS ORDERED: HYDROMORPHONE HCL 1 MG/ML INJ ONE (12:43)
[2023-01-30] MEDS ORDERED: NALOXONE 0.4 MG/ML VIAL ONE (12:51)
[2023-01-30] MEDS: DIPHENHYDRAMINE 50 MG/ML VIAL ONE ×2 (13:00→13:10)
--- NOTE | 2023-01-30 13:10 | OP ---
Date of Procedure: 01/30/2023 Surgeon: Patrick West MD Preoperative Diagnoses: Left forehead necrotic wound, abscess, cellulitis about 3 cm. Postoperative Diagnoses: Left forehead necrotic wound, abscess, cellulitis about 3 cm. Procedure: Excisional debridement subcutaneous of the left forehead and necrotic wound and drainage of an abscess about 3 x 2 cm. Anesthesia: General plus local. Specimen: Necrotic tissue and culture. Finding: Necrotic tissue and abscess. Complications: None. Packing: Wet-to-dry. Indication: This is the case of a 47-year-old patient with cellulitis over the face and forehead reg ion with necrotic wound present and abscess. The patient needed debridement and drainage of an absce ss with benefits, alternatives, and risks fully explained to the patient, which include, but not limi cosme to infection, bleeding, damage to adjacent structures, anesthesia complication, recurrence, [place], a nd even . She also understands this may not relieve any symptoms. She might need more than one surgical intervention. She understands she will require wound care. She does not want to address t his issue unless she is under complete anesthetic. So, she was at [facility]. They could not p rovide anesthesia at that moment, so the patient have to be transferred to this institution so she ca n come to surgery and have anesthesia. The area of concern was marked by me and the patient in the h olding room. Procedure In Detail: The patient was brought to the operating room, placed in supine position. Anes thesia was done without complication. The forehead was prepped and draped in the usual sterile fashi on. Local anesthesia was applied after a time-out. Using a sharp knife, we proceeded to do sharp in cision of the necrotic tissue present and that led us into an abscess. The entire area had multiple loculations about 3 x 2 cm in size. The area was irrigated. Necrotic tissue and cultures were sent. Hemostasis was obtained. Local anesthetic applied and the area was packed with wet-to-dry dressing . The patient tolerated the procedure well. The patient on her way to recovery in stable condition. HM/MODL Voice ID: [id number] Report ID: [id number]
[2023-01-30] MEDS: hydroCHLOROthiazide 25 MG TAB PO SCH (16:23)
[2023-01-30] MEDS: GABAPENTIN 100 MG CAP PO SCH (20:24)
[2023-01-31] MEDS: PIPER TAZO 3.375 GM in NA CHLORIDE 0.9% 100 ML IV SCH ×2 (01:09→07:54)
[2023-01-31 07:21] LABS: Absolute Lymphocytes (CBC) 2.3 K/uL (0.7-4.9); Hematocrit 39.4 % (36.0-45.0); Lymphocytes % 15.6 % (15.3-44.8); MPV 7.4 fL (7.6-11.3); RBC Red Blood Cell Count 4.48 M/uL (3.86-4.86)
[2023-01-31] MEDS ORDERED: NA CHLORIDE 0.9% 100 ML ONE (07:44)
[2023-01-31] MEDS: VANCOMYCIN 1.25 GM in NA CHLORIDE 0.9% 250 ML IVPB SCH (07:51)
[2023-01-31] MEDS: HYDROCODONE/APAP 5/325 MG TAB PO PRN ×3 (07:55→22:16)
[2023-01-31] MEDS: GABAPENTIN 100 MG CAP PO SCH ×3 (07:55→21:21)
[2023-01-31] MEDS: hydroCHLOROthiazide 25 MG TAB PO SCH (07:55)
[2023-01-31] MEDS: NICOTINE 14 MG/PAT TD SCH (07:56)
[2023-01-31] MEDS: carvediloL 25 MG TAB PO SCH (07:56)
--- NOTE | 2023-01-31 12:52 | P.PN ---
Date of Service: 01/31/23 Subjective: Describes pain that comes and goes in waves - pain at forehead /scalp Headache No nausea; no BM otherwise no new/worsening symptoms ROS: 10 point ROS as noted above, otherwise negative Physical Exam: GEN: Alert, oriented, NAD HEENT: Normal conjunctiva, sclera anicteric CV: Regular rate and rhythm, no edema Pulm: Nonlabored respirations on room air, clear bilaterally Integumentary: surgical dressing c/d/i Neuro: Normal speech, normal affect Problem List: Facial abscess/cellulitis of forehead - MRSA periorbital cellulitis Fibromyalgia Hypertension General surgery consulted, Dr. West performed surgery 3/ Excisional subQ debridement left forehead necrotic wound/abscess 3x2cm sent for culture ID consulted - culture from [facility] is positive for MRSA dc zosyn, continue vanc ID recommends 4 weeks IV antibiotics given cT head findings at OSH for possible/likely jalil-orbital cellulitis As needed pain medications. Continue home meds for hypertension. MRI brain to rule out CVA Vancomycin 1500 daily x 4 weeks Code: Full Dispo: Home, ~24-48 Hours needs PICC / home Abx set up
[2023-01-31] MEDS ORDERED: DIPHENHYDRAMINE 25 MG TAB/CAP PO ONE (16:45)
--- NOTE | 2023-01-31 18:26 | PN ---
Date of Progress Note: 01/31/2023 Diagnosis: Facial abscess and cellulitis, status post debridement. Subjective: Patient is doing well. No complaint. Objective: Pupils are equal and reactive. Surgical site in the forehead intact. Culture is still p ending. Plan: From the surgical standpoint, continue wet-to-dry dressing and then whenever she gets discharg ed home, [facility]. OJ/JUAN Voice ID: [id number] Report ID: [id number]
[2023-01-31] MEDS: MELATONIN 5 MG TABLET PO PRN (21:22)
[2023-02-01 04:33] LABS: Absolute Lymphocytes (CBC) 4.3 K/uL (0.7-4.9); Hematocrit 36.4 % (36.0-45.0); MCV 88.6 fL (80-100); MPV 7.1 fL (7.6-11.3); RBC Red Blood Cell Count 4.11 M/uL (3.86-4.86)
[2023-02-01 04:50] LABS: Potassium 3.5 mmol/L (3.5-5.1)
--- NOTE | 2023-02-01 07:10 | P.PN ---
Date of Service: 02/01/23 Subjective: feels slightly better Continues with pressure behind both eyes, may be slightly increased on the right side Reports some difficulty focusing from her left eye, most notably when she woke up this morning. Overall has been improving throughout her hospitalization Continues with what she describes as yellow floaters intermittently [place] as though her left eye was "straining" when checking her extraocular movements ROS: 10 point ROS as noted above, otherwise negative Physical Exam: GEN: Alert, oriented, NAD HEENT: Normal conjunctiva, EOMI, no nystagmus, no periorbital discoloration or swelling CV: Regular rate and rhythm, no edema Pulm: Nonlabored respirations on room air, clear bilaterally Integumentary: Forehead surgical dressing c/d/i Neuro: Normal speech, normal affect Problem List: Facial abscess/cellulitis of forehead - MRSA periorbital cellulitis Fibromyalgia Hypertension General surgery consulted, Dr. West performed surgery 3/ Excisional subQ debridement left forehead necrotic wound/abscess 3x2cm sent for culture ID consulted - culture from [facility] is positive for MRSA 02/01, culture obtained here also growing MRSA Continue vancomycin, discussed with pharmacy, patient needs more frequent than every 24 hours May be an issue with patient is discharged, arranging for home antibiotics financial services sales representative consulted ID recommends 4 weeks IV antibiotics given XT head findings at OSH for possible/likely jalil-orbital cellulitis If patient has any new or worsening symptoms, low threshold to obtain repeat CT head face PICC line placed overnight 01/31 - 02/01 Continue home meds for hypertension. Code: Full Dispo: Home, ~48 Hours needs home Abx set up
[2023-02-01] MEDS: HYDROCODONE/APAP 5/325 MG TAB PO PRN ×3 (07:32→20:12)
[2023-02-01] MEDS: NICOTINE 14 MG/PAT TD SCH (08:53)
[2023-02-01] MEDS: carvediloL 25 MG TAB PO SCH ×2 (08:54→08:59)
[2023-02-01] MEDS: GABAPENTIN 100 MG CAP PO SCH ×3 (08:54→20:13)
[2023-02-01] MEDS: hydroCHLOROthiazide 25 MG TAB PO SCH (08:58)
[2023-02-01] MEDS ORDERED: VANCOMYCIN 1.5 GM in NA CHLORIDE 0.9% 500 ML IVPB SCH (09:00)
--- NOTE | 2023-02-01 14:06 | RAD REPORT ---
EXAM DESCRIPTION: RAD - Chest Single View - 02/01/2023 12:45 am CLINICAL HISTORY: PICC line placement.. TECHNIQUE: AP portable chest x-ray upright on 02/01/2023, at 00: 35. COMPARISON: None. FINDINGS: Heart: Normal size and configuration. Mediastinal Structures: Normal and midline.. A right-sided PICC line is identified with distal tip in superior vena cava. Lung Mejia: No active disease. Pulmonary Vascularity: Normal. Pleural Space: No active disease. Bony Structures: Normal. IMPRESSION: 1. Successful placement of right-sided PICC line. Electronically signed by: Edgar Valdez MD 02/01/2023 1:05 AM STATION SUPERVISOR Due to temporary technical issues with the PACS/Fluency reporting system, reports are being signed by the in house radiologists without review as a courtesy to insure prompt reporting. The interpreting radiologist is fully responsible for the content of the report.
[2023-02-01 17:24] VITALS: BMI 24.5
[2023-02-01] MEDS: MELATONIN 5 MG TABLET PO PRN (20:12)
[2023-02-01] MEDS: POLYETHYL GLY 3350 17 GM/DOSE PO PRN (20:12)
[2023-02-01] MEDS: VANCOMYCIN 1.25 GM in NA CHLORIDE 0.9% 250 ML IVPB SCH (20:14)
[2023-02-02] MEDS: HYDROCODONE/APAP 5/325 MG TAB PO PRN ×3 (05:02→20:37)
--- NOTE | 2023-02-02 07:03 | P.PN ---
Date of Service: 02/02/23 Subjective: woke up to more than usual pain, which has since decreased; Reports more strain in eyes than yesterday morning, but was reading/more active yesterday everything else has slightly improved\ afebrile ROS: 10 point ROS as noted above, otherwise negative Physical Exam: GEN: Alert, oriented, NAD HEENT: Normal conjunctiva, EOMI, no nystagmus, no periorbital discoloration or swelling, mild tenderness b/l forehead / sphenoid sinus CV: Regular rate and rhythm, no edema Pulm: Nonlabored respirations on room air, clear bilaterally Integumentary: Forehead surgical dressing c/d/i Neuro: Normal speech, normal affect Problem List: Facial abscess/cellulitis of forehead - MRSA periorbital cellulitis Fibromyalgia Hypertension General surgery consulted, Dr. West performed surgery 01/30 Excisional subQ debridement left forehead necrotic wound/abscess 3x2cm sent for culture ID consulted - culture from [facility] is positive for MRSA 02/01/23, culture obtained here also growing MRSA Continue vancomycin, discussed with pharmacy, patient needs more frequent than every 24 hours May be an issue with patient is discharged, arranging for home antibiotics tax services professional consulted ID recommends 4 weeks IV antibiotics given XT head findings at OSH for possible/likely jalil-orbital cellulitis PICC line placed overnight 01/31 - 02/01 3 reported some slight increase in eye strain upon waking, but improved as morning went on; no other worsening symptoms afebrile, but occasionally having temps in high 99s will obtain imaging to r/u any worsening/complications; discussed with radiology (02/02) - recommend MRI orbits w/ contrast and obtain MRI brain as well Continue home meds for hypertension. Code: Full Dispo: Home, ~48 Hours needs home Abx set up f/u MRI
[2023-02-02 07:09] LABS: Albumin 3.3 g/dL (3.4-5.0); Bilirubin Total 0.2 mg/dL (0.2-1.0); Protein, Total 6.6 g/dL (6.4-8.2)
[2023-02-02] MEDS: VANCOMYCIN 1.25 GM in NA CHLORIDE 0.9% 250 ML IVPB SCH ×2 (08:34→20:34)
[2023-02-02] MEDS: hydroCHLOROthiazide 25 MG TAB PO SCH (08:36)
[2023-02-02] MEDS: carvediloL 25 MG TAB PO SCH (08:36)
[2023-02-02] MEDS: NICOTINE 14 MG/PAT TD SCH (08:36)
[2023-02-02] MEDS: GABAPENTIN 100 MG CAP PO SCH ×3 (08:36→20:32)
[2023-02-02] MEDS: MORPHINE 2 MG/ML SYR IV PRN (15:46)
[2023-02-02] MEDS: MELATONIN 5 MG TABLET PO PRN (20:33)
[2023-02-02] MEDS: POLYETHYL GLY 3350 17 GM/DOSE PO PRN (20:49)
[2023-02-03] MEDS: MORPHINE 2 MG/ML SYR IV PRN ×2 (00:01→23:10)
[2023-02-03] MEDS ORDERED: ALPRAZOLAM 0.5 MG TABLET PO ONE (00:29)
[2023-02-03 05:19] LABS: Lymphocytes % 34.2 % (15.3-44.8); MCV 88.1 fL (80-100); RBC Red Blood Cell Count 4.31 M/uL (3.86-4.86)
[2023-02-03 05:26] LABS: C-Reactive Protein 3.04 mg/L (<3.00); Potassium 3.7 mmol/L (3.5-5.1)
[2023-02-03] MEDS: HYDROCODONE/APAP 5/325 MG TAB PO PRN ×3 (06:29→20:39)
--- NOTE | 2023-02-03 06:56 | P.PN ---
Date of Service: 02/03/23 Subjective: strain in eyes worsened overnight; but also using eyes more, previously would rest more everything else has slightly improved ROS: 10 point ROS as noted above, otherwise negative Physical Exam: GEN: Alert, oriented, NAD HEENT: Normal conjunctiva, EOMI, no nystagmus, no periorbital discoloration or swelling, mild tenderness b/l forehead / sphenoid sinus CV: Regular rate and rhythm, no edema Pulm: Nonlabored respirations on room air, clear bilaterally Integumentary: Forehead surgical dressing c/d/i Neuro: Normal speech, normal affect Problem List: Facial abscess/cellulitis of forehead - MRSA periorbital cellulitis Fibromyalgia Hypertension General surgery consulted, Dr. West performed surgery 01/30 Excisional subQ debridement left forehead necrotic wound/abscess 3x2cm sent for culture - MRSA ID consulted - culture from [facility] is positive for MRSA 02/01/23, culture obtained here also growing MRSA Continue vancomycin, discussed with pharmacy, patient needs more frequent than every 24 hours May be an issue with patient is discharged, arranging for home antibiotics enrollment services vice president consulted ID recommends 4 weeks IV antibiotics given CT head findings at OSH for possible/likely jalil-orbital cellulitis PICC line placed overnight 01/31 - 02/01 02/02 reported some slight increase in eye strain upon waking, but improved as morning went on; no other worsening symptoms afebrile, but occasionally having temps in high 99s will obtain imaging to r/u any worsening/complications; discussed with radiology (02/02) MRI orbits w/ contrast - normal MRI brain - Scattered subcortical and deep white matter T2/FLAIR hyperintensities, nonspecific, suggestive of chronic small vessel ischemic changes. No acute intracranial process. Continue home meds for hypertension. Code: Full Dispo: Home, ~48 Hours needs home Abx set up social work program coordinator consulted, patient states can't afford antibiotics / transportation to get labs done weekly ID recommends against oral option
[2023-02-03] MEDS ORDERED: LORazepam 2 MG/ML VIAL IV ONE (07:54)
[2023-02-03] MEDS ORDERED: POTASSIUM CL SA 10 MEQ TAB PO ONE (09:00)
--- NOTE | 2023-02-03 09:16 | P.PN ---
Subjective Date of Service: 02/03/23 Chief Complaint: Facial abscess Patient sitting in bed with no signs of cardiopulmonary distress. No nausea, vomiting, diarrhea reported Physical Examination - Vital Signs Temperature: 97.9 F Blood Pressure: 122/77 Pulse: 68 Respirations: 16 Pulse Ox (%): 98 - Physical Exam General: Alert, In no apparent distress, Oriented x3 HEENT: Other (left forehead cellulitis with dressing in place) Respiratory: Clear to auscultation bilaterally Cardiovascular: No edema, Normal S1 S2 Gastrointestinal: Normal bowel sounds Musculoskeletal: No swelling, No tenderness Integumentary: Skin lesion (left forehead cellulitis with dressing in place dry and clean), Erythema Neurological: Normal speech, Normal tone, Sensation intact, Normal affect - Studies Laboratory Data (last 24 hrs) 02/03/23 04:50: Sodium 139, Potassium 3.7, BUN 19 H, Creatinine 0.71, Glucose 91 02/03/23 04:50: WBC 8.90, Hgb 13.0, Hct 38.0, Plt Count 374 Assessment And Plan - Current Problems (Diagnosis) (1) Facial cellulitis Plan: Cultures: - 01/30 Wound culture: Meth Resistant Staph Aureus (MRSA) Antibiotics: - Had Zosyn from 01/29-01/31 - On IV Vancomycin (01/29- ) Recommendations: - Contine IV Vancomycin for total of 4 weeks duration MRI: Pending for result 01/30 Dr. West performed "Excisional debridement subcutaneous of the left forehead and necrotic wound and drainage of an abscess about 3 x 2 cm." Finding: Necrotic tissue and abscess. - Plan - Facial abscess/cellulitis: Needs IV antibiotics for total of 4 weeks duration - Fibromyalgia - Hypertension ID will monitor the patient closely for signs of infection with fever and WBC trends Case has been discussed with Dr. Nunn, N
[2023-02-03] MEDS: hydroCHLOROthiazide 25 MG TAB PO SCH (09:51)
[2023-02-03] MEDS: GABAPENTIN 100 MG CAP PO SCH ×3 (09:51→20:39)
[2023-02-03] MEDS: NICOTINE 14 MG/PAT TD SCH (09:53)
[2023-02-03] MEDS: VANCOMYCIN 1.25 GM in NA CHLORIDE 0.9% 250 ML IVPB SCH ×2 (10:59→20:42)
--- NOTE | 2023-02-03 11:00 | RAD REPORT ---
EXAM DESCRIPTION: MRI - Brain W/Wo Cont - 02/03/2023 9:24 am CLINICAL HISTORY: recent periorbital cellulitis, L forehead abscess COMPARISON: None available TECHNIQUE: Multiplanar multisequence MRI of the brain performed before and after intravenous adminis tration of 15 mL MultiHance. FINDINGS: Left frontal scalp skin thickening, with subcutaneous as well as subgaleal soft tissue thi ckening and enhancement. Some irregularity and susceptibility signal abnormality at the skin surface, probably relating to recent debridement. No evidence of well-circumscribed fluid collections or diff usion restriction within this region to suggest an abscess formation. The signal abnormalities reach the level of the outer calvarial table, without evidence of signal abnormality in the inter diploic s pace or the underlying extra-axial space. No evidence of acute infarct or other diffusion signal abnormality. No evidence of acute intracranial hemorrhage or abnormal extra-axial fluid collections. Ventricular caliber is normal for age. Midline structures are unremarkable. Scattered subcortical and deep white matter T2/FLAIR hyperintensities, nonspecific, but suggestive of chronic small vessel ischemic changes. Linear focus of FLAIR signal abnormality along the left super ior cerebellum seen on the FLAIR images only, probably relates to pulsation artifact (series 4, image 7/22). No mass effect or midline shift. Major vascular flow voids are preserved. Mastoid air cells are well aerated. Moderate scattered inflammatory mucosal thickening throughout the paranasal sinuses appear Small mucous retention cyst in the left maxillary sinus. IMPRESSION: No acute intracranial process. No evidence of ventriculomegaly or mass effect. Sequelae of cellulitis along the left frontal scalp as above. No evidence of abnormal fluid collectio ns, abscess formation, or intracranial complications.
--- NOTE | 2023-02-03 11:02 | RAD REPORT ---
EXAM DESCRIPTION: MRI - Orbit Face W/Wo Cont - 02/03/2023 9:25 am CLINICAL HISTORY: Recent very orbital cellulitis, left forehead abscess. Complains of pressure to th e back of both eyes and light hypersensitivity. COMPARISON: MRI brain of the same day TECHNIQUE: Multiplanar multisequence MRI of the orbits, obtained following intravenous administrati on of 15 mL MultiHance. FINDINGS: The globes are symmetric. The optic nerves are normal in signal and caliber along their in tra orbital, canalicular, and cisternal segments. The optic chiasm and proximal optic tracts are unre markable. The extraocular muscles are normal in signal and caliber. No retro coronal fat signal abnor mality. No extra - Conal fluid collection. No abnormal enhancement. The lacrimal apparatus is normal in appearance bilaterally. Up to moderate mucosal thickening throughout the paranasal sinuses. The left forehead soft tissues and intracranial structures are separately evaluated on dedicated MRI brain of the same date. IMPRESSION: Normal contrast-enhanced MRI of the orbits. Left forehead soft tissues and intracranial structures are separately evaluated on dedicated MRI brai n of the same day.
[2023-02-03] MEDS: MELATONIN 5 MG TABLET PO PRN (20:44)
[2023-02-04] MEDS: HYDROCODONE/APAP 5/325 MG TAB PO PRN ×3 (05:12→22:38)
[2023-02-04 05:26] LABS: C-Reactive Protein 3.08 mg/L (<3.00); Potassium 3.4 mmol/L (3.5-5.1)
--- NOTE | 2023-02-04 08:18 | P.PN ---
Subjective Date of Service: 02/04/23 Chief Complaint: Facial abscess Patient sitting in bed on the phone with no signs of cardiopulmonary distress upon examination Physical Examination - Vital Signs Temperature: 97.5 F Blood Pressure: 120/62 Pulse: 73 Respirations: 17 Pulse Ox (%): 100 - Physical Exam General: Alert, In no apparent distress, Oriented x3 HEENT: Other (left forehead cellulitis with dressing in place) Respiratory: Clear to auscultation bilaterally Cardiovascular: No edema, Normal S1 S2 Gastrointestinal: Normal bowel sounds Musculoskeletal: No swelling, No tenderness Integumentary: Skin lesion (left forehead cellulitis with dressing in place dry and clean), Erythema Neurological: Normal gait, Normal speech, Normal tone, Sensation intact, Normal affect - Studies Laboratory Data (last 24 hrs) 02/04/23 04:57: Sodium 137, Potassium 3.4 L, BUN 19 H, Creatinine 0.79, Glucose 109 H active medications Hydrocodone Bitart/Acetaminophen (Hydrocodone/Apap 5/325 Mg Tab) 1 tab PO Q6H PRN PRN Reason: Pain scale 5-7 (Moderate) Last Admin: 02/04/23 05:12 Dose: 1 tab Carvedilol (Carvedilol 25 Mg Tab) 25 mg PO DAILY [facility] Last Admin: 02/02/23 08:36 Dose: 25 mg Gabapentin (Gabapentin 100 Mg Cap) 100 mg PO TID [facility] Last Admin: 02/03/23 20:39 Dose: 100 mg Hydrochlorothiazide (Hydrochlorothiazide 25 Mg Tab) 50 mg PO DAILY [facility] Last Admin: 02/03/23 09:51 Dose: 50 mg Vancomycin HCl 1.25 gm/ Sodium (Chloride) 250 mls @ 166.667 mls/hr IVPB Q12HR [facility]; Protocol Last Admin: 02/03/23 20:42 Dose: 250 mls Melatonin (Melatonin 5 Mg Tablet) 5 mg PO BEDTIME PRN PRN PRN Reason: INSOMNIA Last Admin: 02/03/23 20:44 Dose: 5 mg Morphine Sulfate (Morphine 2 Mg/Ml Syr) 2 mg IV Q4H PRN PRN Reason: Pain scale 8-10 (Severe) Last Admin: 02/03/23 23:10 Dose: 2 mg Nicotine (Nicotine 14 Mg/Pat) 14 mg TD DAILY [facility] Last Admin: 02/03/23 09:53 Dose: 14 mg Ondansetron HCl (Ondansetron 4 Mg/2 Ml Vial) 4 mg IV Q6HP PRN PRN Reason: NAUSEA / VOMITING Last Admin: 02/02/23 15:46 Dose: 4 mg Polyethylene Glycol (Polyethyl Gly 3350 17 Gm/Dose) 17 gm PO DAILY PRN PRN Reason: CONSTIPATION Last Admin: 02/02/23 20:49 Dose: 17 gm Potassium Chloride (Potassium Cl Sa 10 Meq Tab) 40 meq PO 1X ONE Stop: 02/04/23 09:01 Sodium Chloride (Flush Normal Saline 10 Ml) 10 ml IV BID AMANDA Last Admin: 02/03/23 20:42 Dose: 10 ml Microbiology Data (last 24 hrs): Microbiology 01/30/23 12:00 Wound - Left Forehead Gram Stain - Final 01/30/23 12:00 Wound - Left Forehead Culture & Sensitivity - Final Meth Resistant Staph Aureus 01/30/23 12:00 Wound - Left Forehead Gram Stain - Final Imagings Data: MRI - Brain W/Wo Cont - 02/03/2023 FINDINGS: Left frontal scalp skin thickening, with subcutaneous as well as subgaleal soft tissue thickening and enhancement. Some irregularity and susceptibility signal abnormality at the skin surface, probably relating to recent debridement. No evidence of well-circumscribed fluid collections or diffusion restriction within this region to suggest an abscess formation. The signal abnormalities reach the level of the outer calvarial table, without evidence of signal abnormality in the inter diploic space or the underlying extra-axial space. No evidence of acute infarct or other diffusion signal abnormality. No evidence of acute intracranial hemorrhage or abnormal extra-axial fluid collections. Ventricular caliber is normal for age. Midline structures are unremarkable. Scattered subcortical and deep white matter T2/FLAIR hyperintensities, nonspecific, but suggestive of chronic small vessel ischemic changes. Linear focus of FLAIR signal abnormality along the left superior cerebellum seen on the FLAIR images only, probably relates to pulsation artifact (series 4, image 7/22). No mass effect or midline shift. Major vascular flow voids are preserved. Mastoid air cells are well aerated. Moderate scattered inflammatory mucosal thickening throughout the paranasal sinuses appear Small mucous retention cyst in the left maxillary sinus. IMPRESSION: No acute intracranial process. No evidence of ventriculomegaly or mass effect. Sequelae of cellulitis along the left frontal scalp as above. No evidence of abnormal fluid collections, abscess formation, or intracranial complications MRI - Orbit Face W/Wo Cont - 02/03/2023 FINDINGS: The globes are symmetric. The optic nerves are normal in signal and caliber along their intra orbital, canalicular, and cisternal segments. The optic chiasm and proximal optic tracts are unremarkable. The extraocular muscles are normal in signal and caliber. No retro coronal fat signal abnormality. No extra - Conal fluid collection. No abnormal enhancement. The lacrimal apparatus is normal in appearance bilaterally. Up to moderate mucosal thickening throughout the paranasal sinuses. The left forehead soft tissues and intracranial structures are separately evaluated on dedicated MRI brain of the same date. IMPRESSION: Normal contrast-enhanced MRI of the orbits. Left forehead soft tissues and intracranial structures are separately evaluated on dedicated MRI brain of the same day Assessment And Plan - Current Problems (Diagnosis) (1) Facial cellulitis Plan: Cultures: - 01/30 Wound culture: Meth Resistant Staph Aureus (MRSA) Antibiotics: - Had Zosyn from 01/29-01/31 - On IV Vancomycin (01/29- ) Recommendations: - Contine IV Vancomycin for total of 2 weeks duration - Can SWITCH to PO Doxycycline when discharge 01/30 Dr. West performed "Excisional debridement subcutaneous of the left forehead and necrotic wound and drainage of an abscess about 3 x 2 cm." Finding: Necrotic tissue and abscess. - Plan - Facial abscess/cellulitis: Needs IV antibiotics for total of 2 weeks duration, can SWITCH to PO Doxycycline when discharge - Fibromyalgia - Hypertension ID will monitor the patient closely for signs of infection with fever and WBC trends Case has been discussed with Dr. Nunn N
[2023-02-04] MEDS ORDERED: POTASSIUM CL SA 10 MEQ TAB PO ONE ×2 (09:00→20:24)
[2023-02-04] MEDS: GABAPENTIN 100 MG CAP PO SCH ×3 (09:41→21:38)
[2023-02-04] MEDS: hydroCHLOROthiazide 25 MG TAB PO SCH (09:41)
[2023-02-04] MEDS: carvediloL 25 MG TAB PO SCH (10:02)
[2023-02-04] MEDS: MORPHINE 2 MG/ML SYR IV PRN (10:03)
[2023-02-04] MEDS: NICOTINE 14 MG/PAT TD SCH (10:03)
--- NOTE | 2023-02-04 10:28 | PN ---
Patient lying in bed. No new acute event. Chart reviewed. Feels much better today. Denies any hea dache, nausea, vomiting, chest pain, abdominal pain, constipation, or diarrhea. Objective: Vital Signs: Reviewed. Lungs: Basal crackles. Heart: S1, S2. Regular. Abdomen: Soft, nontender. Bowel sounds present. Extremities: No edema. Laboratory Data: Reviewed. Assessment/plan: Facial abscess, forehead status post I and D by surgical team. Periorbital celluli tis. MRSA infection of the wound. We will recommend to continue vancomycin IV for 4 weeks. PICC li ne to be placed. Continue supportive care and wound care as per surgical team. We will follow the p atient closely. NF/MODL Voice ID: [id number] Report ID: [id number]
--- NOTE | 2023-02-04 10:40 | P.PN ---
Subjective Date of Service: 02/03/23 Chief Complaint: Facial abscess, cellulitis Subjective: Tolerating diet, Improving Review of Systems General: Fever (no) Respiratory: Shortness of Breath (no) Cardiovascular: Chest Pain (no) Physical Examination - Vital Signs Temperature: 97.5 F Blood Pressure: 117/89 Pulse: 84 Respirations: 17 Pulse Ox (%): 100 - Physical Exam General: Alert, Oriented x3 HEENT: PERRLA, EOMI Neck: Supple Integumentary: Other (improving, face with less sweeling and erythema) - Studies Laboratory Data (last 24 hrs) 02/04/23 04:57: Sodium 137, Potassium 3.4 L, BUN 19 H, Creatinine 0.79, Glucose 109 H Microbiology Data (last 24 hrs): 01/30/23 12:00 Wound - Left Forehead Gram Stain - Final 01/30/23 12:00 Wound - Left Forehead Anaerobic Culture - Final NO ANAEROBES GROWN. Assessment And Plan - Plan OK from surgical standpoint for discharge home with wet to dry NS wound care and f/u at wound healing center when OK nt medicine
[2023-02-04] MEDS: VANCOMYCIN 1.25 GM in NA CHLORIDE 0.9% 250 ML IVPB SCH ×2 (11:35→22:38)
--- NOTE | 2023-02-04 14:20 | P.PN ---
Subjective Date of Service: 02/04/23 Chief Complaint: Facial abscess Patient has no new complain. No fever. Periorbital swelling have significantly improved. Physical Examination - Vital Signs Temperature: 97.5 F Blood Pressure: 120/62 Pulse: 73 Respirations: 17 Pulse Ox (%): 100 - Studies Laboratory Data (last 24 hrs) 02/04/23 04:57: Sodium 137, Potassium 3.4 L, BUN 19 H, Creatinine 0.79, Glucose 109 H Microbiology Data (last 24 hrs): 01/30/23 12:00 Wound - Left Forehead Gram Stain - Final 01/30/23 12:00 Wound - Left Forehead Anaerobic Culture - Final NO ANAEROBES GROWN. Assessment And Plan - Plan Physical Exam: GEN: Alert, oriented, NAD HEENT: Normal conjunctiva, EOMI, no nystagmus, no periorbital discoloration or swelling. CV: Regular rate and rhythm, no edema Pulm: Nonlabored respirations on room air, clear bilaterally Integumentary: Wound-size of a dime with surgical dressing c/d/i Neuro: Normal speech, normal affect Diagnosis Facial abscess/cellulitis of forehead - MRSA periorbital cellulitis Fibromyalgia Hypertension Status post debridement by Dr. West Deep tissue wound culture positive for MRSA ID consulted - culture from [facility] is positive for MRSA 02/01/23, culture obtained here also growing MRSA Currently on IV vancomycin. MRI of facial: No orbital involvement. Patient feels her orbital swelling is related to allergy to nonstick tape. Infectious disease recommended oral antibiotics on discharge. Patient will complete 7 days of IV vancomycin and then transition to oral doxycycline on discharge PICC line placed overnight 01/31 - 02/01 MRI orbits w/ contrast - normal MRI brain - Scattered subcortical and deep white matter T2/FLAIR hyperintensities, nonspecific, suggestive of chronic small vessel ischemic changes. No acute intracranial process. Continue home meds for hypertension. Code: Full Dispo: Home in the a.m.
[2023-02-04] MEDS: MELATONIN 5 MG TABLET PO PRN ×2 (21:38→22:38)
[2023-02-05 05:41] VITALS: TEMP 97.3
[2023-02-05 05:41] LABS: C-Reactive Protein 3.14 mg/L (<3.00); Potassium 3.3 mmol/L (3.5-5.1)
[2023-02-05] MEDS: HYDROCODONE/APAP 5/325 MG TAB PO PRN ×2 (06:58→13:30)
--- NOTE | 2023-02-05 08:18 | P.PN ---
Subjective Date of Service: 02/05/23 Chief Complaint: Facial abscess Patient was ambulating in the rosen earlier and now sitting at the edge of the bed very pleasant with no signs of cardiopulmonary distress upon examination Physical Examination - Vital Signs Temperature: 97.3 F Blood Pressure: 109/55 Pulse: 76 Respirations: 18 Pulse Ox (%): 99 - Physical Exam General: Alert, In no apparent distress, Oriented x3 HEENT: Other (left forehead cellulitis with dressing in place) Respiratory: Normal air movement Cardiovascular: No edema, Normal S1 S2 Gastrointestinal: Normal bowel sounds Musculoskeletal: No swelling, No tenderness Integumentary: Skin lesion (left forehead cellulitis with dressing in place, dressing clean and dry) Neurological: Normal gait, Normal speech, Normal tone, Sensation intact, Normal affect - Studies Laboratory Data (last 24 hrs) 02/05/23 05:11: Sodium 138, Potassium 3.3 L, BUN 18, Creatinine 0.62, Glucose 104 02/04/23 16:50: Potassium 3.5 active medications Hydrocodone Bitart/Acetaminophen (Hydrocodone/Apap 5/325 Mg Tab) 1 tab PO Q4H PRN PRN Reason: Pain scale 5-7 (Moderate) Last Admin: 02/05/23 06:58 Dose: 1 tab Carvedilol (Carvedilol 25 Mg Tab) 25 mg PO DAILY [facility] Last Admin: 02/04/23 10:02 Dose: 25 mg Gabapentin (Gabapentin 100 Mg Cap) 100 mg PO TID [facility] Last Admin: 02/04/23 21:38 Dose: 100 mg Hydrochlorothiazide (Hydrochlorothiazide 25 Mg Tab) 50 mg PO DAILY [facility] Last Admin: 02/04/23 09:41 Dose: 25 mg Vancomycin HCl 1.25 gm/ Sodium (Chloride) 250 mls @ 166.667 mls/hr IVPB Q12HR [facility]; Protocol Last Admin: 02/04/23 22:38 Dose: 250 mls Melatonin (Melatonin 5 Mg Tablet) 5 mg PO BEDTIME PRN PRN PRN Reason: INSOMNIA Last Admin: 02/04/23 22:38 Dose: 5 mg Nicotine (Nicotine 14 Mg/Pat) 14 mg TD DAILY [facility] Last Admin: 02/04/23 10:03 Dose: 14 mg Ondansetron HCl (Ondansetron 4 Mg/2 Ml Vial) 4 mg IV Q6HP PRN PRN Reason: NAUSEA / VOMITING Last Admin: 02/02/23 15:46 Dose: 4 mg Polyethylene Glycol (Polyethyl Gly 3350 17 Gm/Dose) 17 gm PO DAILY PRN PRN Reason: CONSTIPATION Last Admin: 02/02/23 20:49 Dose: 17 gm Sodium Chloride (Flush Normal Saline 10 Ml) 10 ml IV BID [facility] Last Admin: 02/04/23 21:00 Dose: 10 ml Microbiology Data (last 24 hrs): 01/30/23 12:00 Wound - Left Forehead Gram Stain - Final 01/30/23 12:00 Wound - Left Forehead Anaerobic Culture - Final NO ANAEROBES GROWN. Microbiology 01/30/23 12:00 Wound - Left Forehead Gram Stain - Final 01/30/23 12:00 Wound - Left Forehead Anaerobic Culture - Final NO ANAEROBES GROWN. 01/30/23 12:00 Wound - Left Forehead Gram Stain - Final 01/30/23 12:00 Wound - Left Forehead Culture & Sensitivity - Final Meth Resistant Staph Aureus Assessment And Plan - Current Problems (Diagnosis) (1) Facial cellulitis Plan: Cultures: - 01/30 Wound culture: Meth Resistant Staph Aureus (MRSA) Antibiotics: - Had Zosyn from 01/29-01/31 - On IV Vancomycin (01/29- ) Recommendations: - Contine IV Vancomycin for total of 2 weeks duration - Can SWITCH to PO Doxycycline when discharge 01/30 Dr. West performed "Excisional debridement subcutaneous of the left forehead and necrotic wound and drainage of an abscess about 3 x 2 cm." Finding: Necrotic tissue and abscess. - Plan - Facial abscess/cellulitis: Needs IV antibiotics for total of 2 weeks duration, can SWITCH to PO Doxycycline when discharge - Fibromyalgia - Hypertension ID will monitor the patient closely for signs of infection with fever and WBC trends Case has been discussed with Dr. Nunn, N
[2023-02-05] MEDS: VANCOMYCIN 1.25 GM in NA CHLORIDE 0.9% 250 ML IVPB SCH (09:46)
[2023-02-05] MEDS: GABAPENTIN 100 MG CAP PO SCH (09:47)
[2023-02-05] MEDS: carvediloL 25 MG TAB PO SCH (09:47)
[2023-02-05] MEDS: NICOTINE 14 MG/PAT TD SCH (09:48)
[2023-02-05] MEDS: hydroCHLOROthiazide 25 MG TAB PO SCH (09:48)
[2023-02-05] MEDS ORDERED: SMZ./TMP. 800/160 MG TABLET PO SCH (11:00)
[2023-02-05] MEDS ORDERED: DOXYCYCLINE 100 MG CAP PO SCH (11:00)
--- NOTE | 2023-02-05 11:41 | P.DS ---
Admission Date: 01/29/23 Discharge Date: 02/05/23 Disposition: ROUTINE DISCHARGE Discharge Condition: FAIR Reason for Admission: Facial abscess Brief History of Present Illness: 47-year-old female with history of hypertension, fibromyalgia, depression was transferred from outside hospital for facial abscess/cellulitis. She reported that her symptoms began on 01/25/2023 when she noticed bilateral eye erythema/swelling, she was diagnosed with contact dermatitis related to recent use of retinol at that time, she then reports that she began to notice swelling to the left forehead area and appeared to develop an abscess, she was seen at [facility] and prescribed Bactrim which she took 2 doses of without improvement and subsequently returned to [facility] where she was admitted placed on IV vancomycin/Zosyn. [facility] provider called for patient to be transferred to [facility] for surgical I&D. Hospital Course: Diagnosis Facial abscess/cellulitis of forehead - MRSA periorbital cellulitis Fibromyalgia Hypertension Patient admitted to the medical floor, seen by general surgery Dr. West Patient underwent debridement of the left forehead wound Deep tissue wound culture positive for MRSA ID consulted - culture from [place] also positive for MRSA Patient treated with IV vancomycin. MRI of facial: No orbital involvement. Patient feels her orbital swelling is related to allergy to nonstick tape. Infectious disease recommended oral antibiotics on discharge. Patient completed 7 days of IV vancomycin and then transition to oral doxycycline. She is discharged with 5 more weeks of doxycycline to complete 6 weeks of treatment for MRSA infected wound. MRI orbits w/ contrast - normal MRI brain - Scattered subcortical and deep white matter T2/FLAIR hyperinte nsities, nonspecific, suggestive of chronic small vessel ischemic changes. No acute intracranial process. Vital Signs/Physical Exam: Temp Pulse Resp BP Pulse Ox 97.3 F 76 18 109/55 L 99 02/05/23 09:55 02/05/23 09:55 02/05/23 09:55 02/05/23 09:55 02/05/23 09:55 General: Alert, In no apparent distress, Oriented x3 HEENT: Mucous membr. moist/pink Neck: JVD not distended Respiratory: Clear to auscultation bilaterally, Normal air movement Cardiovascular: No edema, Regular rate/rhythm, Normal S1 S2 Gastrointestinal: Soft and benign, Non-distended, No tenderness Musculoskeletal: No swelling Integumentary: Other (Dime sized crater wound-left forehead.) Neurological: Normal strength at 5/5 x4 extr Laboratory Data at Discharge: WBC 8.90 K/uL (4.3-10.9) 02/03/23 04:50 Hgb 13.0 g/dL (12.0-15.0) 02/03/23 04:50 Hct 38.0 % (36.0-45.0) 02/03/23 04:50 Plt Count 374 K/uL (152-406) 02/03/23 04:50 Sodium 138 mmol/L (136-145) 02/05/23 05:11 Potassium 3.3 mmol/L (3.5-5.1) L 02/05/23 05:11 BUN 18 mg/dL (7-18) 02/05/23 05:11 Creatinine 0.62 mg/dL (0.55-1.02) 02/05/23 05:11 Glucose 104 mg/dL (74-106) 02/05/23 05:11 Total Bilirubin 0.2 mg/dL (0.2-1.0) 02/02/23 06:40 AST 16 U/L (15-37) 02/02/23 06:40 ALT 33 U/L (13-56) 02/02/23 06:40 Alkaline Phosphatase 75 U/L (45-117) 02/02/23 06:40 Home Medications: Carvedilol [Coreg] 25 mg PO BID 01/30/23 Gabapentin 100 mg PO TID 01/30/23 Hydrochlorothiazide 25 mg PO DAILY 01/30/23 methocarbamoL [Methocarbamol] 750 mg PO TID 02/04/23 Doxycycline Hyclate [Vibramycin] 100 mg PO BID #70 cap 02/05/23 Hydrocodone 5/APAP 325 [Oscar 5/325*] 1 tab PO Q4H PRN #15 tab 02/05/23 Polyethyl Gly 3350 [Glycolax*] 17 gm PO DAILY PRN #30 udbot 02/05/23 New Medications: Polyethyl Gly 3350 [Glycolax*] 17 gm PO DAILY PRN #30 udbot PRN Reason: Constipation Hydrocodone 5/APAP 325 [Oscar 5/325*] 1 tab PO Q4H PRN #15 tab PRN Reason: Pain Scale 5-7 (Moderate) Doxycycline Hyclate [Vibramycin] 100 mg PO BID #70 cap Physician Discharge Instructions: Follow up with your PCP within 1 to 2 weeks. Diet: AHA Activity: Ad ar Followup: Patrick West MD [ACTIVE - CAN ADMIT] - 1 Week Time spent managing pt's care (in minutes): 35
[2023-02-05 12:23] VITALS: O2SAT 98
[2023-02-05 18:20] VITALS: BP 109/61
== END 2023-02-05 13:59 | disposition home or self-care (01) | DRG 571 ==
LOC: 2ND 17:33
PROVIDERS: ADMIT Hospitalist; ATTEND Internal Medicine
PROC: 0JB10ZZ Excision of Face Subcutaneous Tissue and Fascia, Open Approach (ICD-10-PCS; principal; 2023-01-30 10:45)
PROC: 02HV33Z Insertion of Infusion Device into Superior Vena Cava, Percutaneous Approach (ICD-10-PCS; 2023-02-01)
DX: L03.211 Cellulitis of face (principal); L02.01 Cutaneous abscess of face; L03.213 Periorbital cellulitis; I10 Essential (primary) hypertension; M79.7 Fibromyalgia; F17.200 Nicotine dependence, unspecified, uncomplicated; B95.62 Methicillin resistant Staphylococcus aureus infection as the cause of diseases classified elsewhere; Z88.5 Allergy status to narcotic agent; Z88.8 Allergy status to other drugs, medicaments and biological substances; Z98.51 Tubal ligation status; Z91.040 Latex allergy status; Z79.899 Other long term (current) drug therapy
CPT/HCPCS: 36415; 36569; 70543; 70553; 71045; 80048; 80053; 80202; 84132; 85025; 86140; 87070; 87075; 87077; 87186; 87205; 88304; A9577; J1100; J1170; J1200; J2001; J2250; J2270; J2310; J2405; J2543; J2704; J3010; J3370; J7040; J7050; J7120